=== PATIENT | male | born 1945 | race Caucasian/White ===

== ENCOUNTER 2017-12-08 22:57 | Observation (INO) | payer MEDICARE, SELFPAY ==
[2017-12-08] VITALS (7 sets, daily range): BP systolic 125–190; BP diastolic 58–71; PULSE 71–87; RESP 16–20; TEMP 36.9; O2SAT 93–98; BMI 37.0
--- NOTE | 2017-12-08 23:10 | ED.DCSUM_ITS ---
- ER Visit Summary Date of Service: 12/08/17 Chief Complaint: Shortness of breath History of Present Illness: The patient is a 72 M who presents for shortness of breath. Patient states yesterday he began having cold symptoms such as sinus congestion and rhinorrhea. He developed a cough and it has progressively worsened since yesterday. Today he has been coughing so much that he has difficulty controlling it and began making him feel short of breath. For the last 5 hours he is felt progressively more short of breath, and when he went to bed he could not lie flat due to shortness of breath. He called EMS. He denies fever, chest pain, palpitations, abdominal pain, back or neck pain, nausea or vomiting, diarrhea or other complaints. He states he had similar symptoms several years ago when he was diagnosed with pneumonia. He has history of hypertension, hypercholesterolemia, believes he has COPD, is a former smoker, and denies any cardiac history or diabetes. He has had no recent travel or surgeries. No history of VTE. No family history of any artery disease or VTE that he is aware of. EMS gave him aspirin due to concerning findings on his prehospital EKG. Physical Examination: Vital signs: afebrile, hemodynamically stable, no hypoxia on room air General: well nourished, well developed, in no distress Skin: warm, dry, no rash, no pallor, no cyanosis HEENT: normocephalic and atraumatic; PERRL, EOMI, moist mucous membranes Cardiovascular: regular rate and rhythm without murmurs, no peripheral edema, 2 + pulses all distal extremities Respiratory: No increased work of breathing, lungs are clear to auscultation bilaterally, no rales, rhonchi or wheezing Abdominal: Abdomen is soft, nontender with normoactive bowel sounds, no guarding or rebound, no masses MSK: Moves all extremities, no deformities, normal strength Neuro: Awake and alert, oriented ?4. No facial droop, sensation and motor function intact and symmetric Test Results: Abnormal Lab Results 12/08/17 12/08/17 12/08/17 23:02 23:02 23:02 WBC 7.4 RBC 4.45 L Hgb 13.5 Hct 40.0 MCV 89.9 MCH 30.3 MCHC 33.8 RDW 14.2 RDW Differential 46.1 H Plt Count 193 MPV 10.6 Immature Gran % (Auto) 0.300 Neut % (Auto) 73.0 H Lymph % (Auto) 15.3 L [place] % (Auto) 10.4 H Eos % (Auto) 0.9 Baso % (Auto) 0.1 Absolute Neuts (auto) 5.4 Absolute Lymphs (auto) 1.13 Total Counted Not Reportable PT 14.4 INR 1.1 APTT 33.1 D-Dimer Quant (PE/DVT) 0.32 Sodium 145 Potassium 4.1 Chloride 108 H Carbon Dioxide 24.0 Anion Gap 13 BUN 18 Creatinine 1.45 H Estim Creat Clear Calc 35.07 Est GFR (MDRD) Af Amer 62 Est GFR (MDRD) Non-Af 51 L BUN/Creatinine Ratio 12.4 Glucose 144 H Calcium 8.5 Total Bilirubin 0.50 AST 18 ALT 28 Alkaline Phosphatase 86 Troponin I 0.028 B-Natriuretic Peptide Total Protein 7.3 Albumin 3.4 Globulin 3.9 Albumin/Globulin Ratio 0.9 12/08/17 23:02 WBC RBC Hgb Hct MCV MCH MCHC RDW RDW Differential Plt Count MPV Immature Gran % (Auto) Neut % (Auto) Lymph % (Auto) [place] % (Auto) Eos % (Auto) Baso % (Auto) Absolute Neuts (auto) Absolute Lymphs (auto) Total Counted PT INR APTT D-Dimer Quant (PE/DVT) Sodium Potassium Chloride Carbon Dioxide Anion Gap BUN Creatinine Estim Creat Clear Calc Est GFR (MDRD) Af Amer Est GFR (MDRD) Non-Af BUN/Creatinine Ratio Glucose Calcium Total Bilirubin AST ALT Alkaline Phosphatase Troponin I B-Natriuretic Peptide 58.7 Total Protein Albumin Globulin Albumin/Globulin Ratio Clinical Impression(s) from Imaging Studies Chest X-Ray 12/08/17 23:03 IMPRESSION: Stable chest, no acute cardiopulmonary disease. Electronically Signed: Vasu Rudd MD at 23:57 EDT , Service support , Medications Given Discontinued Medications Nitroglycerin (Nitrostat) 0.4 mg SUBLINGUAL Q5M SHERYL Stop: 12/08/17 23:26 Last Admin: 12/08/17 23:25 Dose: Admin: 12/08/17 23:21 Dose: 0.4 mg Admin: 12/08/17 23:09 Dose: 0.4 mg Emergency Department Course and Treatment: Patient's prehospital EKG showed wide deep T-wave inversions in the anterolateral leads, with a second prehospital EKG showing mild deepening of the T-wave inversions in V4 and V5. No ST changes noted. EKG upon arrival was unchanged from the prehospital EKG. Old EKGs were unavailable for comparison to see if patient has baseline T-wave inversions. Patient was worked up with concern for cardiac ischemia. Patient received aspirin prehospital and was given 2 nitro in the emergency department. He had mild improvement in his symptoms but continued to feel short of breath. Lung exam showed no wheezing or rhonchi or any abnormality that would be concerning for pneumonia. Chest x-ray was performed that showed no infiltrates, effusions or signs consistent with CHF. Troponin was within normal range at 0.028. D-dimer was within normal limits. BNP was unremarkable. Patient had no leukocytosis or significant anemia. Because patient's main complaint is the shortness of breath and cough, he was given 1 DuoNeb in case this is a component of chronic lung disease such as COPD. Because of patient's concerning EKG changes, concern for atypical presentation of ACS (shortness of breath), and patient's risk factors, including advanced age , hyperlipidemia, hypertension, and former smoker, he will be discussed with the hospitalist for admission as observation status for further chest pain rule out. Treatment Plan: [] Disposition: [] Impression: Shortness of breath, EKG abnormalities with T-wave inversions in anterolateral leads, concern for atypical ACS This note was generated with [employer] dictation software. It may contain incorrect words, spelling, and punctuation that were not noted in review of the chart prior to signing ED Disposition - Plan for ED Patient: Chief Complaint: Shortness of Breath Referrals: Imelda Freeman MD [Primary Care Provider] -
[2017-12-08 23:22] LABS: Absolute Lymphocyte Count 1.13 X10^3/ul (0.83-4.51); Absolute Neutrophil Count 5.4 X10^3/uL (2.0-7.7); Basophil# 0.01 X10^3/uL; Basophil% 0.1 % (0-1); Eosinophil# 0.07 X10^3/uL; Eosinophils% 0.9 % (0-5); Hemoglobin 13.5 g/dl (13.0-16.5); International Normalized Ratio 1.1; Lymphocyte # 1.13 X10^3/ul (4.0); Lymphocyte % 15.3 % (19-41); Mean Corp Hgb Conc 33.8 g/gl (32-36); Mean Corpuscular Hgb 30.3 pg (27.0-32.0); Mean Corpuscular Volume 89.9 fL (80-94); Mean Platelet Vol. 10.6 fl (6.2-12.0); Monocyte# 0.77 X10^3/uL; Monocyte% 10.4 % (0-10); Neutrophil # 5.39 X10^3/uL (2.7-7.7); Platelet Count 193 K/mm3 (150-450); Prothrombin Time (Protime)PT. 14.4 SECONDS (11.7-14.9); RBC Distribution Width CV 14.2 % (11.6-14.6); RBC Distribution Width SD 46.1 fl (35.1-43.9); Red Blood Count 4.45 M/mm3 (4.6-6.2); White Blood Count 7.4 K/mm3 (4.4-11.0)
[2017-12-08 23:24] LABS: POSITIVE COUNT NO; POSITIVE DIFFERENTIAL NO; POSITIVE MORPHOLOGY NO
[2017-12-08 23:25] LABS: D-Dimer Quantitative (DVT/PE) 0.32 FEU/ug/m (0.27-0.49)
[2017-12-08 23:38] LABS: ALB/GLOB Ratio 0.9 RATIO (0.9-2.4); AST(SGOT) 18 U/L (15-37); Alanine Aminotransfer ALT/SGPT 28 U/L (16-61); Albumin, Serum 3.4 g/dL (3.2-5.0); Alkaline Phosphatase 86 U/L (45-117); Anion Gap 13 (5-15); BUN 18 mg/dL (7-18); BUN/Creat Ratio 12.4 RATIO (10-20); Calcium,Total 8.5 mg/dL (8.5-10.1); Chloride 108 mmol/L (98-107); Creatinine, Serum 1.45 mg/dL (0.70-1.30); EST Glomerular Filtration Rate 51 mL/min (>60); Est Glom Filt Rate - Afr Amer 62 mL/min (>60); Estimated Creatinine Clearance 35.07 ml/min; Globulin 3.9 g/dL (2.2-4.2); Glucose 144 mg/dL (74-106); Potassium 4.1 mmol/L (3.5-5.1); Protein, Total 7.3 g/dL (6.4-8.2); Sodium Level 145 mmol/L (136-145)
[2017-12-08 23:45] LABS: Partial Thromboplast Time 33.1 Seconds (24.1-36.2)
[2017-12-08 23:47] LABS: BNP,B-Type NATRIURETIC PEPTIDE 58.7 pg/mL (0-100)
[2017-12-09] VITALS (14 sets, daily range): BP systolic 125–145; BP diastolic 52–66; PULSE 61–93; RESP 14–19; TEMP 36.9–37.9; O2SAT 93–98; BMI 36.7
[2017-12-09] MEDS: Ipratropium/Albuterol Sulfate 3 ML AMPUL.NEB INHALATION (00:18)
--- NOTE | 2017-12-09 00:34 | NURSING ---
Called ED software quality test engineer, Erica at this time to confirm Pt okay to come to PCU.
--- NOTE | 2017-12-09 01:05 | HP.PCM_ITS ---
Problem List (1) Acute dyspnea Status: Acute (2) History of carotid stenosis Status: Chronic (3) Right CEA Status: Chronic (4) Hyperlipemia Status: Chronic (5) possible COPD Status: Chronic (6) HTN (hypertension) Status: Chronic History of Present Illness Date of Admission: 12/09/17 Chief Complaint: Acute shortness of breath today The patient is a 72 year old M with history of hypertension and dyslipidemia came to ER with sudden onset of shortness of breath today. Patient felt like cold symptoms with sinus congestion and postnasal drip and cough that got worse today. He also feels sore throat. Shortness of breath got worse for last 5-6 hours progressively exacerbated by cough. He also not able to sit lay down flat because of shortness of breath. Denies history of fever, chills, chest pain, near syncope or syncope. He had history of pneumonia about 3 years ago. He follows director news, Dr. Saleh and had PFT about 1 year ago and was told normal although no documents available to verify. He was last admitted in April 2013 for shortness of breath and subjective fever and was diagnosed acute respiratory failure requiring BiPAP with pneumonia probably viral. He also had a stress test in April 2013 which reported normal with no estrogen use ischemia or previous NV. EF 69%. [At that time he had an echo which shows EF 60%, left ventricle systolic function normal. Trivial MR, TR. Mild focal aortic wall thickening. RVSP 24 mmHg] In ED, EKG shows normal sinus rhythm at 79 bpm with T inversion in anterolateral leads which was present in previous EKG of April 2013. Past Medical History Past Medical History (Chronic Problems): Chronic Problems History of carotid stenosis (Chronic) Right CEA (Chronic) Hyperlipemia (Chronic) possible COPD (Chronic) HTN (hypertension) (Chronic) Allergies No Known Allergies Allergy (Verified 12/08/17 23:00) Home Medications: Ambulatory Orders Medication Instructions Recorded Lisinopril/Hydrochlorothiazide 1 tablet PO DINNER 04/17/13 [Zestoretic 20/25 Tablet] Simvastatin [Zocor] 20 mg PO DAILY 04/17/13 Aspirin [Aspirin, Baby] 81 mg PO DAILY@0800 #30 tab.chew 04/24/13 Surgical History: - - Carotid endarterectomy Psychiatric History: No pertinent psych hx Smoking Status: Former smoker - 35 pack years of smoking - *Family History Maternal History Items: No pertinent history Review of Systems Constitutional: Denies: Chills, Fever, Weight Change HEENT: Reports: Post Nasal Drip, Sinus Congestion, Sinus Drainage, Sore Throat. Denies: Head Aches Cardiovascular: Denies: Chest Pain, Palpitations Respiratory: Reports: Cough, Shortness of breath at rest, Shortness of breath upon exertion. Denies: Sputum production Gastrointestinal: Denies: Abdominal Pain, Nausea, Vomiting Genitourinary: Denies: Dysuria Musculoskeletal: Denies: Joint Pain, Joint Tenderness Skin: Denies: Rash, Wounds Neurological: Denies: Numbness, Tingling, Focal weakness Psychiatric: Denies: Anxiety, Depression, Homicidal Ideations, Suicidal Ideations Hematologic/ Lymphatic: Denies: Easy Bruising, Easy Bleeding VTE Information - Inpt Only VTE Present on Admission: No VTE Mechan Device Prophylaxis: None VTE Pharm Prophylaxis ordered?: Yes Patient Problems: Active and Suspected Problems Acute dyspnea (Acute) - Physical Exam General: Alert, Oriented x3, Cooperative HEENT: Atraumatic, PERRLA, EOMI, Normocephalic Oral: No Gingival or Mucosal Lesions/ Ulcerations, Dry Mucosa, - - DEEP pharyngeal structure not seen because of obesity Neck: Supple, No JVD, Negative Carotid Bruits Lungs: Clear to auscultation, No rhonchi, No wheeze, No rales Cardiovascular: Regular rate, Regular Rhythm, Normal S1, Normal S2, No murmurs Abdomen: Bowel Sounds Present, Soft, Non Tender, Non-Distended Extremities: Capillary Refill Less than 3 Seconds, Edema - Chronic left lower edema. Skin: No rashes, No breakdown Musculoskeletal: No Tenderness to Palpation of Joints or Extremities Neurological: Cranial nerves II-XII grossly intact Psych/Mental Status: Normal Affect, Appropriate Vital Signs Temp Pulse Resp BP Pulse Ox 98.5 F 82 19 H 134/65 H 94 12/08/17 22:58 12/09/17 00:23 12/09/17 00:23 12/09/17 00:23 12/09/17 00:23 Oxygen Flow Rate (L/min) 2 Oxygen Delivery Method Nasal Cannula Weight: 196 lb 3.382 oz Body Mass Index (BMI) 37.0 Laboratory Tests Past 24 Hrs 12/08/17 12/08/17 12/08/17 23:02 23:02 23:02 WBC 7.4 RBC 4.45 L Hgb 13.5 Hct 40.0 MCV 89.9 MCH 30.3 MCHC 33.8 RDW 14.2 RDW Differential 46.1 H Plt Count 193 MPV 10.6 Immature Gran % (Auto) 0.300 Neut % (Auto) 73.0 H Lymph % (Auto) 15.3 L [place] % (Auto) 10.4 H Eos % (Auto) 0.9 Baso % (Auto) 0.1 Absolute Neuts (auto) 5.4 Absolute Lymphs (auto) 1.13 Total Counted Not Reportable PT 14.4 INR 1.1 APTT 33.1 D-Dimer Quant (PE/DVT) 0.32 Sodium 145 Potassium 4.1 Chloride 108 H Carbon Dioxide 24.0 Anion Gap 13 BUN 18 Creatinine 1.45 H Estim Creat Clear Calc 35.07 Est GFR (MDRD) Af Amer 62 Est GFR (MDRD) Non-Af 51 L BUN/Creatinine Ratio 12.4 Glucose 144 H Calcium 8.5 Total Bilirubin 0.50 AST 18 ALT 28 Alkaline Phosphatase 86 Troponin I 0.028 B-Natriuretic Peptide Total Protein 7.3 Albumin 3.4 Globulin 3.9 Albumin/Globulin Ratio 0.9 12/08/17 23:02 WBC RBC Hgb Hct MCV MCH MCHC RDW RDW Differential Plt Count MPV Immature Gran % (Auto) Neut % (Auto) Lymph % (Auto) [place] % (Auto) Eos % (Auto) Baso % (Auto) Absolute Neuts (auto) Absolute Lymphs (auto) Total Counted PT INR APTT D-Dimer Quant (PE/DVT) Sodium Potassium Chloride Carbon Dioxide Anion Gap BUN Creatinine Estim Creat Clear Calc Est GFR (MDRD) Af Amer Est GFR (MDRD) Non-Af BUN/Creatinine Ratio Glucose Calcium Total Bilirubin AST ALT Alkaline Phosphatase Troponin I B-Natriuretic Peptide 58.7 Total Protein Albumin Globulin Albumin/Globulin Ratio Assessment/Plan All Active Problems Acute dyspnea (Acute) In ED, EKG shows normal sinus rhythm at 79 bpm with T inversion in anterolateral leads which was present in previous EKG of April 2013.The patient is a 72 year old M with history of hypertension and dyslipidemia came to ER with sudden onset of shortness of breath today. Patient felt like cold symptoms with sinus congestion and postnasal drip and cough that got worse today. He also feels sore throat. Shortness of breath got worse for last 5-6 hours progressively exacerbated by cough. He also not able to sit lay down flat because of shortness of breath. Denies history of fever, chills, chest pain, near syncope or syncope. In ED, EKG shows normal sinus rhythm at 79 bpm with T inversion in anterolateral leads which was present in previous EKG of April 2013. He had history of pneumonia about 3 years ago. He walks about 3 miles daily for last 4 years. He follows director news, Dr. Saleh and had PFT about 1 year ago and was told normal although no documents available to verify. He was last admitted in April 2013 for shortness of breath and subjective fever and was diagnosed acute respiratory failure requiring BiPAP with pneumonia probably viral. He also had a stress test in April 2013 which reported normal with no estrogen use ischemia or previous NV. EF 69%. [At that time he had an echo which shows EF 60%, left ventricle systolic function normal. Trivial MR, TR. Mild focal aortic wall thickening. RVSP 24 mmHg] 1. Acute hypoxic respiratory failure, possible angina equivalent exact etiology unclear rule out acute coronary syndrome/pulmonary hypertension/acute cor pulmonale: The patient is not on home oxygen. Patient is being admitted in PCU. BNP and troponin normal. Patient does not have history of DVT and have been ambulatory and negative d-dimer therefore low modified well's criteria for VTE. serial cardiac enzymes. If negative, pharmacological nuclear stress test tomorrow a.m. 2D echo tomorrow a.m. 2. Suspected acute bronchitis/URI: Strep throat, flu test and urinary antigens ordered. Empirically started on Augmentin. 3. Ex-smoker with suspected COPD: There is no document available to see PFT which he claims about 1 year ago. Try to get PFT from Dr. Saleh office. DuoNeb every 4 hourly as needed for shortness of breath. Does not seem to be in COPD exacerbation 4. Peripheral arterial disease: Left carotid stenosis status post CEA and suspected left lower extremity peripheral arterial disease: Patient complaining of pain in left lower calf on walking and can hardly walk more than 5-6 minutes. Bilateral lower extremity arterial Doppler and venous Doppler ordered. 5. Renal failure, unclear whether acute kidney injury/CKD stage III: Patient has creatinine 1.45. BUN normal. Previous creatinine in April 2013 more than 40 years ago was 1.1. Elevated creatinine 1.45. IV fluid normal saline 100 mL/h. BMP tomorrow Other comorbidities include hypertension, dyslipidemia and history of pneumonia : Positive for tomorrow a.m. Blood pressure is controlled. Code Visit OBSV E&M: 04821 Initial observation care L3
[2017-12-09] MEDS: Aspirin E.C. 81 MG Tablet PO (02:15)
[2017-12-09] MEDS: Amox/Clavulanate 875 MG Tablet PO ×2 (02:15→08:59)
[2017-12-09 06:01] LABS: Absolute Neutrophil Count 6.2 X10^3/uL (2.0-7.7); Basophil# 0.01 X10^3/uL; Basophil% 0.1 % (0-1); Eosinophil# 0.06 X10^3/uL; Eosinophils% 0.7 % (0-5); Hematocrit 40.7 % (40-54); Hemoglobin 13.9 g/dl (13.0-16.5); Lymphocyte % 14.4 % (19-41); Mean Corp Hgb Conc 34.2 g/gl (32-36); Mean Corpuscular Hgb 30.8 pg (27.0-32.0); Mean Platelet Vol. 10.6 fl (6.2-12.0); Monocyte# 0.85 X10^3/uL; Monocyte% 10.2 % (0-10); Neutrophil # 6.19 X10^3/uL (2.7-7.7); Neutrophil % 74.5 % (47-70); Platelet Count 193 K/mm3 (150-450); RBC Distribution Width CV 14.3 % (11.6-14.6); RBC Distribution Width SD 46.8 fl (35.1-43.9); Red Blood Count 4.52 M/mm3 (4.6-6.2); White Blood Count 8.3 K/mm3 (4.4-11.0)
[2017-12-09 06:05] LABS: POSITIVE COUNT NO; POSITIVE DIFFERENTIAL NO; POSITIVE MORPHOLOGY NO
[2017-12-09 06:10] LABS: Partial Thromboplast Time 34.5 Seconds (24.1-36.2)
[2017-12-09 06:32] LABS: Anion Gap 13 (5-15); BUN 17 mg/dL (7-18); BUN/Creat Ratio 12.1 RATIO (10-20); Calcium,Total 8.8 mg/dL (8.5-10.1); Chloride 109 mmol/L (98-107); Cholesterol 124 mg/dL (200); EST Glomerular Filtration Rate 53 mL/min (>60); Est Glom Filt Rate - Afr Amer 64 mL/min (>60); Estimated Creatinine Clearance 36.32 ml/min; Glucose 105 mg/dL (74-106); High Density Lipoprotein 36 mg/dL; Potassium 4.1 mmol/L (3.5-5.1); Sodium Level 146 mmol/L (136-145); Thyroid Stim Hormone (TSH) 2.02 uIU/mL (0.358-3.74); Triglycerides 161 mg/dL; Very Low Density Lipoprotein 32 mg/dL (5-40)
[2017-12-09 06:38] LABS: International Normalized Ratio 1.1; Prothrombin Time (Protime)PT. 14.3 SECONDS (11.7-14.9)
--- NOTE | 2017-12-09 07:37 | NURSING ---
pt in stress for testing
--- NOTE | 2017-12-09 09:12 | NURSING ---
echo in progress
--- NOTE | 2017-12-09 09:46 | STRESSREP ---
Stress Test Report Pharmacologic myocardial perfusion stress test. 72-year-old man with a history of chest pain. Medications: Aspirin Lipitor Lovenox hydrochlorothiazide lisinopril. Stress protocol: Resting EKG demonstrates normal sinus rhythm with a rate of 61 bpm. T-wave inversions noted in leads II, III and aVF V4 V5 V6. 0.4 mg regadenoson was infused per usual protocol followed by rapid intravenous saline flush injection continuous EKG monitoring was performed. Patient maintained sinus rhythm throughout the recording. The maximum heart rate was 88 bpm which was 58% of maximum predicted heart rate the maximum workload was 1 metabolic equivalent. At rest the T-wave inversions were noted at peak infusion T-wave inversions persisted. The resting blood pressure is 152/70 with a final blood pressure of 134/68 mmHg. Myocardial perfusion protocol. 11.9 mCi of technetium 99m sestamibi was injected at rest. 0.4 mg of regadenoson was infused per usual protocol. At peak infusion 33.6 mCi of technetium 99m sestamibi was injected. Stress images were obtained. Stress and rest images were reconstructed and compared in the short axis vertical long and horizontal long axis. Gated images were also obtained. Perfusion SPECT analysis: Review of the stress images demonstrate normal uptake of tracer noted in all areas of the myocardium. The resting images similarly demonstrate normal uptake of tracer noted in all areas of the myocardium. No areas of reversibility were noted suggest ischemia. Gated SPECT analysis: The gated ejection fraction is 74%. Conclusion: Normal pharmacologic myocardial perfusion stress test. Preserved ejection fraction.
--- NOTE | 2017-12-09 12:42 | PCM.DC ---
- Discharge Diagnoses Current Active Problems: Current Active and Chronic Problems Acute dyspnea (Acute) History of carotid stenosis (Chronic) Right CEA (Chronic) You will use the following diet at home:: Cardiac - maximum 2 grams sodium daily Your food should be the consistency of: Regular Your liquids should be the consistency of: Regular/Thin Discharge Activity: Return to Normal Activity Allergies/Adverse Reactions: Allergies No Known Allergies Allergy (Verified 12/08/17 23:00) Medications to take at Discharge Lisinopril/Hydrochlorothiazide [Zestoretic 20/25 Tablet] 1 tablet PO DINNER 04/17/13 Simvastatin [Zocor] 20 mg PO DAILY 04/17/13 Aspirin [Aspirin, Baby] 81 mg PO DAILY@0800 #30 tab.chew 04/24/13 Albuterol IH (ProAir) [Proair Hfa] 1 puff INHALATION Q4H PRN PRN #1 inhaler 12/09/17 Amox/Clavulanate Tablet [Augmentin Tablet] 875 mg PO BIDCM #12 tab 12/09/17 The following prescriptions were given: Albuterol IH (ProAir) [Proair Hfa] 1 puff INHALATION Q4H PRN PRN #1 inhaler PRN Reason: Sob &/Or Wheezing Amox/Clavulanate Tablet [Augmentin Tablet] 875 mg PO BIDCM #12 tab Primary Care Physician: Imelda Freeman MD [Primary Care Provider] - Please follow up with your Primary Care Physician in: 1 week Test Results: Test results from this visit will be discussed in further detail at your follow-up appointment, if applicable. Proposed Discharge Date: 12/09/17
--- NOTE | 2017-12-09 15:27 | PCM.DC.SUM ---
<Levar Lindquist - Last Filed: 12/09/17 15:27> Discharge Date and Diagnosis Date of Admission: 12/09/17 Date of Discharge: 12/09/17 - Primary Discharge Diagnosis Acute pharyngitis/bronchitis secondary to group A strep Chest pain and shortness of breath secondary to above, ACS ruled out Carotid stenosis status post right CEA Hyperlipidemia Questionable history of COPD Hypertension - Secondary Discharge Diagnosis Chronic Problems History of carotid stenosis (Chronic) Right CEA (Chronic) Hyperlipemia (Chronic) possible COPD (Chronic) HTN (hypertension) (Chronic) Hospital Course and Treatment Imaging Results: RAD/Chest PA and Lateral IMPRESSION: Stable chest, no acute cardiopulmonary disease. Stress test: Conclusion: Normal pharmacologic myocardial perfusion stress test. Preserved ejection fraction. Echo: Interpretation Summary Normal LV size. Left ventricular systolic function is normal. The estimated ejection fraction is 60 %. Transmitral diastolic flow velocities suggest mild (stage 1) diastolic dysfunction (reversed pattern). Mild concentric left ventricular hypertrophy. Operations: None Procedures: 2-D Echocardiogram, Stress test Summary of Care Provided: Physical exam on day of discharge: General: Resting comfortably NAD Psych: A/Ox3 normal affect HEENT: PEARRLA AT NC Neck: Supple NT CV: RRR no m/t/r/g/h Resp: CTA Abd: [id number] Soft NT no guarding or rigidity Ext: DP2+= no edema Skin: W/D normal turgor Lymph/Heme: No active bleeding or adenopathy Neuro: CN2-12 intact Hospital course: The patient is a 72 year old M with a history of hypertension, hyperlipidemia, carotid stenosis status post CEA, questionable history of COPD, former heavy smoker, who presented to the emergency room with increased shortness of breath, shortness of breath trying to lie flat, with cold-like symptoms including sinus congestion, sore throat, postnasal drip, and cough. In the emergency room he had a negative chest x-ray, unremarkable blood work, negative EKG, negative troponin, negative TSH, LDL 56. A throat culture demonstrated group A strep. He was started on Augmentin and admitted to the PCU for concern for anginal equivalent. Troponin was negative ?3, BNP was normal, and no events on telemetry. The following morning he underwent a stress test which was negative, and he had an echocardiogram which showed normal LV size and function, EF of 60%, stage I diastolic dysfunction, mild LVH. He was weaned off oxygen and ambulated and did not require oxygen. He was prescribed an albuterol inhaler and a 7 day course of Augmentin. He was advised to follow-up with his PCP in 1-2 weeks. He was discharged home in stable condition. This patient was seen by Levar Lindquist PA-C under the supervision of Doctor Luis E. [] Discharge Diet: Low fat/ Low Cholesterol, 2000 mg Sodium Diet Discharge Activity: Return to Normal Activity Home Medications: Medications to take at Discharge Lisinopril/Hydrochlorothiazide [Zestoretic 20/25 Tablet] 1 tablet PO DINNER 04/17/13 Simvastatin [Zocor] 20 mg PO DAILY 04/17/13 Aspirin [Aspirin, Baby] 81 mg PO DAILY@0800 #30 tab.chew 04/24/13 Albuterol IH (ProAir) [Proair Hfa] 1 puff INHALATION Q4H PRN PRN #1 inhaler 12/09/17 Amox/Clavulanate Tablet [Augmentin Tablet] 875 mg PO BIDCM #12 tab 12/09/17 Following Prescrptions Were Given to Patient: Albuterol IH (ProAir) [Proair Hfa] 1 puff INHALATION Q4H PRN PRN #1 inhaler PRN Reason: Sob &/Or Wheezing Amox/Clavulanate Tablet [Augmentin Tablet] 875 mg PO BIDCM #12 tab Primary Care Physician: Imelda Freeman MD [Primary Care Provider] - Please follow up with your Primary Care Physician in: 1 week Disposition: Home Minutes spent on discharge:: 35 Patient Condition:: Stable Medical Necessity - Tobacco Use Smoking Status: Former smoker - 35 pack years of smoking Meaningful Use Info Meaningful Use Diagnoses (Choose all that apply): None applicable <Héctor Kimbrough - Last Filed: 12/09/17 16:12> Discharge Date and Diagnosis - Secondary Discharge Diagnosis Chronic Problems History of carotid stenosis (Chronic) Right CEA (Chronic) Hyperlipemia (Chronic) possible COPD (Chronic) HTN (hypertension) (Chronic) Hospital Course and Treatment Summary of Care Provided: Addendum: Dr. Kimbrough I personally examined the patient and reviewed the chart. I agree with the above. Mr. Littlejohn presented with chest pain and both pupils felt to be an anginal equivalent however extensive workup with a troponin which was negative ?3 and normal BNP and no evidence on telemetry as well as a negative stress test with a normal EF indicated that from a cardiac standpoint he was okay to go home. He did test positive for strep A so he was started on Augmentin twice daily and discharged with outpatient follow-up. Code Visit Inpatient E&M: 67438 Disch Hosp
== END 2017-12-09 13:25 | disposition home or self-care (01) ==
LOC: ED 12-09 00:30 → PCU 12-09 00:43
PROVIDERS: Admitting Provider Internal Medicine; Emergency Provider Emergency Medicine; PCP Pediatrics; Visit Provider Family Medicine
DX: J02.0 Streptococcal pharyngitis (principal); I10 Essential (primary) hypertension; E78.5 Hyperlipidemia, unspecified; Z79.899 Other long term (current) drug therapy; Z79.82 Long term (current) use of aspirin; Z87.891 Personal history of nicotine dependence; R06.02 Shortness of breath; I73.9 Peripheral vascular disease, unspecified
CPT/HCPCS: 36415; 71046; 78452; 80048; 80053; 80061; 83880; 84443; 84484; 85025; 85379; 85610; 85730; 87449; 87804; 87880; 93005; 93017; 93306; 93970; 94640; 97802; 99218; 99284; A9500; A4216; G0378; J2785

== ENCOUNTER 2017-12-18 06:26 | Emergency (ER) | payer MEDICARE, SELFPAY ==
[2017-12-18 06:27] VITALS: BP 191/73; PULSE 69; RESP 16; TEMP 36.9; O2SAT 98; BMI 36.3
--- NOTE | 2017-12-18 06:51 | ED.VISSUMM ---
- ER Visit Summary Date of Service: 12/18/17 Chief Complaint: Constipation History of Present Illness: The patient is a 72 M who presents for constipation, with no bowel movement for 9 days. Patient states he was recently admitted for a workup concerning for heart attack, and ended up being diagnosed with a strep infection. He was discharged home on Augmentin, and after taking 7 pills over 3 days, he stopped having bowel movements. A pharmacist told him to stop the medication. He still has not had a bowel movement since then despite taking laxatives and eating bran flakes. He has associated abdominal pain, described as a pressure, worse with laying flat. He has sweats. Denies diarrhea, urinary symptoms, chest pain or shortness of breath. He is passing occasional flatus. No history of abdominal surgeries. He is not currently on any opiate medications. Patient has history of hypertension. Physical Examination: Vital signs: afebrile, hemodynamically stable, no hypoxia on room air General: well nourished, well developed, in no distress Skin: warm, dry, no rash, no pallor HEENT: normocephalic and atraumatic; PERRL, EOMI, moist mucous membranes Cardiovascular: regular rate and rhythm without murmurs, no peripheral edema, 2+ pulses all distal extremities Respiratory: No increased work of breathing, lungs are clear to auscultation bilaterally, no rales, rhonchi or wheezing Abdominal: Abdomen is soft, nontender with normoactive bowel sounds, no guarding or rebound, no masses, rectal exam is nontender, no significant stool in rectal vault MSK: Moves all extremities, no deformities, normal strength Neuro: Awake and alert, oriented ?4. No facial droop, sensation and motor function intact and symmetric Test Results: Abnormal Lab Results 12/18/17 12/18/17 06:55 06:55 WBC 6.4 RBC 4.91 Hgb 14.9 Hct 43.6 MCV 88.8 MCH 30.3 MCHC 34.2 RDW 14.0 RDW Differential 44.6 H Plt Count 198 MPV 10.2 Immature Gran % (Auto) 0.200 Neut % (Auto) 65.7 Lymph % (Auto) 23.6 [place] % (Auto) 8.9 Eos % (Auto) 1.4 Baso % (Auto) 0.2 Absolute Neuts (auto) 4.2 Absolute Lymphs (auto) 1.52 Total Counted Not Reportable Sodium 144 Potassium 4.1 Chloride 109 H Carbon Dioxide 25.0 Anion Gap 10 BUN 22 H Creatinine 1.33 H Estim Creat Clear Calc 38.23 Est GFR (MDRD) Af Amer 68 Est GFR (MDRD) Non-Af 56 L BUN/Creatinine Ratio 16.5 Glucose 106 Calcium 8.9 Total Bilirubin 0.50 AST 20 ALT 30 Alkaline Phosphatase 85 Total Protein 7.7 Albumin 3.6 Globulin 4.1 Albumin/Globulin Ratio 0.9 Clinical Impression(s) from Imaging Studies Abdomen/Pelvis CT 12/18/17 06:50 IMPRESSION: Cholelithiasis. No evidence of acute intestinal pathology or acute obstructive uropathy. Electronically Signed: Russell Michael MD at 7:36 EDT Tel , Service support , Medications Given Discontinued Medications Sodium Chloride () 1,000 mls @ 1,000 mls/hr IV .Q1H ONE Stop: 12/18/17 07:49 Last Admin: 12/18/17 07:02 Dose: 1,000 mls/hr Emergency Department Course and Treatment: Patient presents for abdominal discomfort and no bowel movement in 9 days. Patient is not on any opiate medications or other medications that should be causing constipation. Patient was given IV fluids. Labs were performed and a CT of the abdomen and pelvis were performed to look for any sign of obstruction, especially given patient's age. He has no fecal impaction on rectal exam that would be causing his symptoms. Patient's labs were unremarkable and unchanged from his baseline. CT the abdomen and pelvis showed no obstructive pattern or acute intra-abdominal pathology. Patient was given an enema. We discussed him doing a bowel regimen of daily MiraLAX for the next week and following up with his doctor as soon as possible for further workup and management of his constipation. Patient agreed with this plan and will be discharged after his enema. Treatment Plan: [] Disposition: [] Impression: Constipation This note was generated with [employer] software. It may contain incorrect words, spelling, and punctuation that were not noted in review of the chart prior to signing ED Disposition - Plan for ED Patient: Chief Complaint: Constipation Referrals: Neftaly Cheema MD [Primary Care Provider] -
--- NOTE | 2017-12-18 06:54 | ED.DCSUM_ITS ---
- ER Visit Summary Date of Service: 12/18/17 Chief Complaint: Constipation History of Present Illness: The patient is a 72 M who presents for constipation , with no bowel movement for 9 days. Patient states he was recently admitted for a workup concerning for heart attack, and ended up being diagnosed with a strep infection. He was discharged home on Augmentin, and after taking 7 pills over 3 days, he stopped having bowel movements. A pharmacist told him to stop the medication. He still has not had a bowel movement since then despite taking laxatives and eating bran flakes. He has associated abdominal pain, described as a pressure, worse with laying flat. He has sweats. Denies diarrhea, urinary symptoms, chest pain or shortness of breath. He is passing occasional flatus. No history of abdominal surgeries. He is not currently on any opiate medications. Patient has history of hypertension. Physical Examination: Vital signs: afebrile, hemodynamically stable, no hypoxia on room air General: well nourished, well developed, in no distress Skin: warm, dry, no rash, no pallor HEENT: normocephalic and atraumatic; PERRL, EOMI, moist mucous membranes Cardiovascular: regular rate and rhythm without murmurs, no peripheral edema, 2 + pulses all distal extremities Respiratory: No increased work of breathing, lungs are clear to auscultation bilaterally, no rales, rhonchi or wheezing Abdominal: Abdomen is soft, nontender with normoactive bowel sounds, no guarding or rebound, no masses, rectal exam is nontender, no significant stool in rectal vault MSK: Moves all extremities, no deformities, normal strength Neuro: Awake and alert, oriented ?4. No facial droop, sensation and motor function intact and symmetric Test Results: Abnormal Lab Results 12/18/17 12/18/17 06:55 06:55 WBC 6.4 RBC 4.91 Hgb 14.9 Hct 43.6 MCV 88.8 MCH 30.3 MCHC 34.2 RDW 14.0 RDW Differential 44.6 H Plt Count 198 MPV 10.2 Immature Gran % (Auto) 0.200 Neut % (Auto) 65.7 Lymph % (Auto) 23.6 [place] % (Auto) 8.9 Eos % (Auto) 1.4 Baso % (Auto) 0.2 Absolute Neuts (auto) 4.2 Absolute Lymphs (auto) 1.52 Total Counted Not Reportable Sodium 144 Potassium 4.1 Chloride 109 H Carbon Dioxide 25.0 Anion Gap 10 BUN 22 H Creatinine 1.33 H Estim Creat Clear Calc 38.23 Est GFR (MDRD) Af Amer 68 Est GFR (MDRD) Non-Af 56 L BUN/Creatinine Ratio 16.5 Glucose 106 Calcium 8.9 Total Bilirubin 0.50 AST 20 ALT 30 Alkaline Phosphatase 85 Total Protein 7.7 Albumin 3.6 Globulin 4.1 Albumin/Globulin Ratio 0.9 Clinical Impression(s) from Imaging Studies Abdomen/Pelvis CT 12/18/17 06:50 IMPRESSION: Cholelithiasis. No evidence of acute intestinal pathology or acute obstructive uropathy. Electronically Signed: Russell Michael MD at 7:36 EDT Tel , Service support , Medications Given Discontinued Medications Sodium Chloride () 1,000 mls @ 1,000 mls/hr IV .Q1H ONE Stop: 12/18/17 07:49 Last Admin: 12/18/17 07:02 Dose: 1,000 mls/hr Emergency Department Course and Treatment: Patient presents for abdominal discomfort and no bowel movement in 9 days. Patient is not on any opiate medications or other medications that should be causing constipation. Patient was given IV fluids. Labs were performed and a CT of the abdomen and pelvis were performed to look for any sign of obstruction, especially given patient's age. He has no fecal impaction on rectal exam that would be causing his symptoms. Patient's labs were unremarkable and unchanged from his baseline. CT the abdomen and pelvis showed no obstructive pattern or acute intra- abdominal pathology. Patient was given an enema. We discussed him doing a bowel regimen of daily MiraLAX for the next week and following up with his doctor as soon as possible for further workup and management of his constipation. Patient agreed with this plan and will be discharged after his enema. Treatment Plan: [] Disposition: [] Impression: Constipation This note was generated with [employer] software. It may contain incorrect words, spelling, and punctuation that were not noted in review of the chart prior to signing ED Disposition - Plan for ED Patient: Chief Complaint: Constipation Referrals: Neftaly Cheema MD [Primary Care Provider] -
[2017-12-18] MEDS: 0.9% Normal Saline 1,000 ML 1000 ML IV (07:02)
[2017-12-18 07:09] LABS: Absolute Lymphocyte Count 1.52 X10^3/ul (0.83-4.51); Absolute Neutrophil Count 4.2 X10^3/uL (2.0-7.7); Basophil# 0.01 X10^3/uL; Basophil% 0.2 % (0-1); Eosinophil# 0.09 X10^3/uL; Eosinophils% 1.4 % (0-5); Hematocrit 43.6 % (40-54); Hemoglobin 14.9 g/dl (13.0-16.5); Lymphocyte # 1.52 X10^3/ul (4.0); Lymphocyte % 23.6 % (19-41); Mean Corp Hgb Conc 34.2 g/gl (32-36); Mean Corpuscular Hgb 30.3 pg (27.0-32.0); Mean Corpuscular Volume 88.8 fL (80-94); Mean Platelet Vol. 10.2 fl (6.2-12.0); Monocyte# 0.57 X10^3/uL; Monocyte% 8.9 % (0-10); Neutrophil # 4.23 X10^3/uL (2.7-7.7); Neutrophil % 65.7 % (47-70); Platelet Count 198 K/mm3 (150-450); RBC Distribution Width SD 44.6 fl (35.1-43.9); Red Blood Count 4.91 M/mm3 (4.6-6.2); White Blood Count 6.4 K/mm3 (4.4-11.0)
[2017-12-18 07:10] LABS: POSITIVE COUNT NO; POSITIVE DIFFERENTIAL NO; POSITIVE MORPHOLOGY NO
[2017-12-18 07:20] LABS: ALB/GLOB Ratio 0.9 RATIO (0.9-2.4); AST(SGOT) 20 U/L (15-37); Alanine Aminotransfer ALT/SGPT 30 U/L (16-61); Albumin, Serum 3.6 g/dL (3.2-5.0); Alkaline Phosphatase 85 U/L (45-117); Anion Gap 10 (5-15); BUN 22 mg/dL (7-18); BUN/Creat Ratio 16.5 RATIO (10-20); Calcium,Total 8.9 mg/dL (8.5-10.1); Chloride 109 mmol/L (98-107); Creatinine, Serum 1.33 mg/dL (0.70-1.30); EST Glomerular Filtration Rate 56 mL/min (>60); Est Glom Filt Rate - Afr Amer 68 mL/min (>60); Estimated Creatinine Clearance 38.23 ml/min; Globulin 4.1 g/dL (2.2-4.2); Glucose 106 mg/dL (74-106); Potassium 4.1 mmol/L (3.5-5.1); Protein, Total 7.7 g/dL (6.4-8.2); Sodium Level 144 mmol/L (136-145)
--- NOTE | 2017-12-18 08:11 | ED.DEP ---
ED Disposition - Plan for ED Patient: Disposition: Home or Assisted Living Chief Complaint: Constipation Instructions: ED Constipation Referrals: Neftaly Cheema MD [Primary Care Provider] - 1-2 Days if not improving Additional Instructions: Follow-up with your doctor as soon as possible for reevaluation and discuss further strategies for managing your constipation. Take MiraLAX once daily for the next week. If you have any worsening of your condition or any new concerning symptoms, please return immediately to the emergency department for another evaluation.
[2017-12-18 09:39] VITALS: BP 166/73; PULSE 63; RESP 16
== END 2017-12-18 09:40 | disposition home or self-care (01) ==
PROVIDERS: Emergency Provider Emergency Medicine; Family Provider Family Medicine; PCP Family Medicine
DX: K59.00 Constipation, unspecified (principal); I10 Essential (primary) hypertension; Z79.82 Long term (current) use of aspirin; Z79.899 Other long term (current) drug therapy
CPT/HCPCS: 74176; 80053; 85025; 96360; 99285; J7030; A4216

== ENCOUNTER 2017-12-22 09:51 | Emergency (ER) | payer MEDICARE, SELFPAY ==
[2017-12-22 09:51] VITALS: BP 165/75; PULSE 62; RESP 16; TEMP 36.7; O2SAT 98; BMI 36.1
[2017-12-22 10:37] LABS: Absolute Lymphocyte Count 1.65 X10^3/ul (0.83-4.51); Absolute Neutrophil Count 4.4 X10^3/uL (2.0-7.7); Basophil# 0.02 X10^3/uL; Basophil% 0.3 % (0-1); Eosinophil# 0.06 X10^3/uL; Eosinophils% 0.9 % (0-5); Hematocrit 42.8 % (40-54); Hemoglobin 14.4 g/dl (13.0-16.5); Lymphocyte # 1.65 X10^3/ul (4.0); Lymphocyte % 24.9 % (19-41); Mean Corp Hgb Conc 33.6 g/gl (32-36); Mean Corpuscular Hgb 30.1 pg (27.0-32.0); Mean Corpuscular Volume 89.4 fL (80-94); Mean Platelet Vol. 10.3 fl (6.2-12.0); Monocyte# 0.49 X10^3/uL; Monocyte% 7.4 % (0-10); Neutrophil # 4.41 X10^3/uL (2.7-7.7); Neutrophil % 66.5 % (47-70); POSITIVE COUNT NO; POSITIVE DIFFERENTIAL NO; POSITIVE MORPHOLOGY NO; Platelet Count 193 K/mm3 (150-450); RBC Distribution Width CV 13.9 % (11.6-14.6); RBC Distribution Width SD 45.1 fl (35.1-43.9); Red Blood Count 4.79 M/mm3 (4.6-6.2); White Blood Count 6.6 K/mm3 (4.4-11.0)
[2017-12-22 10:39] LABS: Bacteria 0 SEEN /hpf (None Seen); Mucous, Urine 0 SEEN /hpf (<or=2+); Red Blood Cells-Urine 0 SEEN /hpf (0-5); Squamous Epithelial Cells - UA 0 SEEN /hpf (0-5); White Blood Cells 0 SEEN /hpf (0-5)
[2017-12-22 10:42] LABS: Color, Urine Yellow (Yellow); Glucose, Dipstick Normal (Normal); Ketone-Dipstick Negative (Negative); Leukocyte Esterase-Dipstick Negative /ul (Negative); Nitrite-Dipstick Negative (Negative); Occult Blood-Urine Negative /ul (Negative); Protein-Dipstick Negative (Negative); Urine Bilirubin Dipstick Negative (Negative); Urine Clarity Sl. Cloudy (Clear); Urine Urobilinogen Normal (Normal)
--- NOTE | 2017-12-22 10:45 | ED.DCSUM_ITS ---
- ER Visit Summary Date of Service: 12/22/17 Chief Complaint: [] Constipation on and off for months History of Present Illness: The patient is a 72 M [] patient is a long history of constipation that he has had on and off for months he has been evaluated by outpatient physicians and providers he recalls having colonoscopy about 2 years ago other testing are generally unremarkable, he was recently seen in the emergency department a few days ago for the same had a CT scan was unremarkable was told to use MiraLAX and follow-up his family doctor and his GI physician indicates he has been taking MiraLAX for the last 2 days and still has small episodes of bowel movements but still feels as if he is distended and full of stool He is bluntly stating he wants the stool to basically be removed from his system. He is able to eat he is really having no pain other than the distention no vomiting no fever no cough he has no history of abdominal surgeries no history of narcotic opioid use no obvious reason for the long- standing intermittent constipation Physical Examination: [] In no distress his vital signs are unremarkable he has a slightly distended abdomen head neck chest unremarkable the abdomen is slightly distended there is no rebound guarding organomegaly or obvious focal areas of pain his upper lower extremities and back unremarkable, rectal exam showed soft brown stool no other abnormalities Test Results: [] Emergency Department Course and Treatment: [] Did review the prior studies that were all unremarkable including CT scan, his current labs are generally unremarkable creatinine about 1.4 about baseline his lipase is slightly elevated about 450 but is no findings on physical exam or by history to suggest acute pancreatitis, or any acute abdominal process and again this is an ongoing process that he has had them he just had a CT scan on the December that was unremarkable I explained this the patient indicates an enema help last time I will provide him with 1 soapsuds enema but of explained to him that further management of this acute recurrent chronic constipation needs to be obtained by his outpatient providers and his GI physician he understands will follow up with them I also cautioned him to change his diet to a completely high-fiber food type diet he will return for change in symptoms, he agrees and understands this plan Treatment Plan: [] Disposition: [] Home stable Impression: [] Acute recurrent constipation elevated lipase This note was generated with [employer] software. It may contain incorrect words, spelling, and punctuation that were not noted in review of the chart prior to signing ED Disposition - Plan for ED Patient: Chief Complaint: Constipation Instructions: ED Constipation Referrals: Neftaly Cheema MD [Primary Care Provider] - Additional Instructions: Please follow-up with all of your outpatient providers including her GI physician in the next few days return for change in symptoms stay on a high- fiber diet
[2017-12-22 11:12] LABS: AST(SGOT) 18 U/L (15-37); Alanine Aminotransfer ALT/SGPT 26 U/L (16-61); Albumin, Serum 3.6 g/dL (3.2-5.0); Alkaline Phosphatase 82 U/L (45-117); Anion Gap 10 (5-15); BUN 16 mg/dL (7-18); BUN/Creat Ratio 11.6 RATIO (10-20); Bilirubin, Direct 0.15 mg/dL (0.00-0.30); Calcium,Total 8.9 mg/dL (8.5-10.1); Chloride 108 mmol/L (98-107); Creatinine, Serum 1.38 mg/dL (0.70-1.30); EST Glomerular Filtration Rate 54 mL/min (>60); Est Glom Filt Rate - Afr Amer 65 mL/min (>60); Estimated Creatinine Clearance 36.85 ml/min; Globulin 4.1 g/dL (2.2-4.2); Glucose 92 mg/dL (74-106); Lipase 496 U/L (73-393); Potassium 4.1 mmol/L (3.5-5.1); Protein, Total 7.7 g/dL (6.4-8.2); Sodium Level 142 mmol/L (136-145)
--- NOTE | 2017-12-22 12:14 | ED.DEP ---
ED Disposition - Plan for ED Patient: Chief Complaint: Constipation Instructions: ED Constipation Referrals: Neftaly Cheema MD [Primary Care Provider] - Additional Instructions: Please follow-up with all of your outpatient providers including her GI physician in the next few days return for change in symptoms stay on a high-fiber diet
[2017-12-22 13:04] VITALS: BP 145/78; PULSE 72; RESP 16; O2SAT 98
== END 2017-12-22 13:06 | disposition home or self-care (01) ==
LOC: ED 11:35
PROVIDERS: Emergency Provider Emergency Medicine; Family Provider Family Medicine; PCP Family Medicine
DX: K59.00 Constipation, unspecified (principal); R74.8 Abnormal levels of other serum enzymes; I25.10 Atherosclerotic heart disease of native coronary artery without angina pectoris; I10 Essential (primary) hypertension; Z79.82 Long term (current) use of aspirin; Z79.899 Other long term (current) drug therapy
CPT/HCPCS: 36415; 80048; 80076; 81001; 83690; 85025; 99284; A4216

== ENCOUNTER 2017-12-29 12:27 | Emergency (ER) | payer MEDICARE, SELFPAY ==
[2017-12-29 12:28] VITALS: BP 158/89; PULSE 66; RESP 14; TEMP 36.1; O2SAT 98; BMI 34.9
--- NOTE | 2017-12-29 13:03 | ED.DCSUM_ITS ---
- ER Visit Summary Date of Service: 12/29/17 Chief Complaint: Abdominal pain and constipation History of Present Illness: The patient is a 72 M who presents with abdominal pain constipation. He has numerous other symptoms as well. He has had multiple visits in the past 30 days. He states he had one loose stool on Saturday. Had no bowel movement since. He is taking Metamucil once a day. When asked what he had for breakfast he informed he had pancakes and last evening he had soup for dinner. He denies black or maroon stool. He does complain of nausea without vomiting. He denies fever, chills or night sweats. He denies ocular, visual or auditory symptoms. He denies chest discomfort. Does complain of dyspnea on exertion. He was admitted in November for dyspnea exertion with concern for anginal equivalent. Echocardiogram was unremarkable with an EF of 60%. Nuclear stress test was negative. He was seen on December 18 for abdominal pain and constipation. His workup was negative and included a CAT scan. When asked patient admits she has been depressed. There has been change in appetite and sleep. He admits he is not eating much nor is he eating well. Past medical history of hypertension, hypercholesterolemia, COPD and carotid stenosis status post right carotid endarterectomy. Physical Examination: Patient has a depressed affect. HEENT exam is unremarkable. Heart is regular without murmur, gallop or rub. S1 and S2 are normal. Lungs are clear to auscultation with good movement of air bilaterally. Abdomen is slightly distended tympanitic bowel sounds are present but diminished. There is no guarding or rebound tenderness. There is no CVA tenderness. There is no asymmetry, swelling, discoloration, leg vein distention , palpable cords or tenderness along the distribution of the deep venous system. DP and PT pulses are palpable 2+. Patient has hair on his toes. Test Results: None because prior records were reviewed and since there is no change in his symptomatology. Emergency Department Course and Treatment: Mag citrate 10 ounces followed by one glass of MiraLAX every hour until he has results Treatment Plan: Outpatient bowel prep Disposition: Discharged to home Impression: 1. Abdominal discomfort with constipation 2. Depression, mild 3. History hypertension 4. Hypercholesterolemia This note was generated with Med[employer]urface dictation software. It may contain incorrect words, spelling, and punctuation that were not noted in review of the chart prior to signing ED Disposition - Plan for ED Patient: Disposition: Home or Assisted Living Chief Complaint: Abd Pain Instructions: ED Constipation Referrals: Malinda Tan NP-C [Primary Care Provider] - 3-5 Days if not improving Additional Instructions: Drink 10 ounces of mag citrate. 4 hours later drink 1 glass of MiraLAX and drink a glass of MiraLAX every hour until you have results.
[2017-12-29 13:13] VITALS: RESP 16
--- NOTE | 2017-12-29 13:14 | ED.RN ---
REVIEWED D/C INSTRUCTIONS, FOLLOW UP CARE, AND S/S THAT WOULD WARRANT A RETURN TO THE ED WITH PT. PT VERBALIZED AN UNDERSTANDING AND DENIES FURTHER QUESTIONS FOR THIS RN. PT SKIN P/W/D, RESP EVEN AND UNLABORED, PT A&O X 3, NO DISTRESS NOTED. PT AMBULATED OUT OF ED, GAIT STEADY.
== END 2017-12-29 13:16 | disposition home or self-care (01) ==
PROVIDERS: Emergency Provider Emergency Medicine; Family Provider Nurse Practitioner Family; PCP Nurse Practitioner Family
DX: K59.00 Constipation, unspecified (principal); F32.9 Major depressive disorder, single episode, unspecified; I10 Essential (primary) hypertension; E78.00 Pure hypercholesterolemia, unspecified; J44.9 Chronic obstructive pulmonary disease, unspecified; E66.9 Obesity, unspecified; Z87.891 Personal history of nicotine dependence
CPT/HCPCS: 99282

== ENCOUNTER → 2017-12-30 13:47 | Outpatient (CLI) | payer MEDICARE, SELFPAY ==
[2017-12-30 14:17] LABS: CPK Total, Creatine Kinase 65 U/L (39-308)
== END ==
PROVIDERS: Visit Provider Nurse Practitioner Family
DX: R07.9 Chest pain, unspecified (principal)
CPT/HCPCS: 82550; 84484

== ENCOUNTER 2018-01-09 06:32 | Day surgery (SDC) | payer MEDICARE, SELFPAY ==
[2018-01-08 10:08] VITALS: BMI 34.9
--- NOTE | 2018-01-09 09:24 | CL.D_ITS ---
Patient Name: LARA BURTON Study Date: 01/09/2018 Performing: Trevin Hunter MD Ht: 61.02 inches 155 cm : 1945 Wt: 185.19 lbs 84 kg Age: 72 Gender: male BSA: 1.83 PROCEDURE(S) PERFORMED [id number]/COR/LV CLINICAL PROFILE AND INDICATIONS Indications: New Onset Angina <= 2 months, Suspected CAD Heart Failure: None Stress/Imaging Stress Test w/SPECT MPI: Yes Result: NegativeStress Test with SPECT MPI: Negative CAD Presentations: Symptom unlikely to be ischemic. Comorbidities/Risk Factors: Hypertension Dyslipidemia CONCLUSIONS Non obstructive coronary arteries Cardiomyopathy: Hypertrophic Normal Left Ventricular systolic function Elevated Left Ventricular End Diastolic Pressure RECOMMENDATIONS Management as per referring Net Software [employer] Start Verapamil CD 120 mg po daily for HCMP; repeat BP in 2 weeks. D/c plavix. Medical therapy Manual sheath removal. DESCRIPTION OF PROCEDURE The patient arrived to the procedure lab. The risks and benefits of the procedure as well as a full d escription of our services here and current unavailability of surgical backup were fully explained to the patient and/or their significant other prior to the catheterization. The Timeout was completed, verifying the correct patient and procedure. The patient's procedural site was prepped and draped in the usual fashion. Local anesthetic was given subcutaneously to right groin region with Lidocaine 2%. Using a modified Seldinger technique, arterial access was obtained via the right femoral artery, a 4 Fr sheath was inserted Left Coronary Artery selective angiography was performed in multiple views us ing a 4 Fr. JL5 catheter. Further Left Coronary Artery selective angiography was performed in multipl e views using a 4 Fr. JL4 catheter. Right Coronary Artery selective angiography was then performed in multiple views using a 4 Fr. 3DRC catheter. Left Ventriculography was performed in YOUNG projection us ing a 4 Fr. Pigtail catheter. LV to AO pullback pressures were then recorded.The arterial sheath was pulled and manual compression applied until hemostasis is achieved. CORONARY ANGIOGRAPHY DOMINANCE: Left Dominant LEFT HEART ASSESSMENT Left Ventricular Ejection Fraction: by LV Gram 75 % Normal LV wall motion Left Ventricular Hypertrophy LVEDP: 14 mmHg Normal Left Ventricular End Diastolic Pressure Cardiomyopathy: Hypertrophic LEFT MAIN: Angiographically normal LEFT ANTERIOR DECENDING ARTERY: Mild luminal irregularities less than 30% CIRCUMFLEX ARTERY: Mild luminal irregularities less than 30% RIGHT CORONARY ARTERY: Mild luminal irregularities less than 30% COMPLICATIONS No Complications PROCEDURE MEDICATIONS Versed 1 mg IV Oxygen: 2 L/min via nasal cannula SUMMARY OF HEMODYNAMIC DATA Time AIR REST ECG 07:06:35 AO 154/60 (94) SA 09:07:04 LV 154/-18, 10 09:14:00 LV 160/-20, 15 09:14:07 LVp 163/-22, 14 09:14:13 AOp 159/50 (88) 09:14:18 Signed By Trevin Hunter MD On 01/09/2018 09:24:12 Trevin Hunter MD
== END 2018-01-09 14:03 | disposition home or self-care (01) ==
LOC: CLSP 06:33
PROVIDERS: Family Provider Nurse Practitioner Family; PCP Nurse Practitioner Family; Referring Provider Internal Medicine Cardiovascular Disease; Visit Provider Internal Medicine Cardiovascular Disease
DX: I42.2 Other hypertrophic cardiomyopathy (principal); R07.9 Chest pain, unspecified; E78.5 Hyperlipidemia, unspecified; I10 Essential (primary) hypertension; Z87.891 Personal history of nicotine dependence
CPT/HCPCS: 93458; 99152; J0153; J7040; Q9967; C1769; C1894

== ENCOUNTER → 2019-02-16 09:23 | Outpatient (CLI) | payer MEDICARE, SELFPAY ==
--- NOTE | 2019-02-16 09:25 | ART_ITS ---
Reason For Study: Bilateral claudication Procedure A bilateral lower extremity continuous wave Doppler with analog waveform analysis,segmental pressures,and ankle brachial indexes without exercise. Left Segmental Pressures Left brachial= 163mmHg. Left thigh = 189mmHg. Left calf = 133mmHg. Left posterior tibial artery = 123mmHg. Left dorsalis pedis artery = 137mmHg. Left digit = 108 mmHg. Right Segmental Pressures Right brachial= 163mmHg. Right calf = 195mmHg. Right posterior tibial artery = 146mmHg. Right dorsalis pedis artery = 144mmHg. Right digit = 103 mmHg. The right dorsalis pedis waveforms are triphasic. The right posterior tibial artery waveforms are triphasic. Indices The right ankle brachial index by the dorsalis pedis is 0.88. The right ankle brachial index by the posterior tibial artery is 0.90. The right digital-brachial index is 0.63. The left ankle brachial index by the dorsalis pedis is 0.84. The left ankle brachial index by the posterior tibial artery is 0.75. The left digital-brachial index is 0.66. Interpretation Summary Moderately severe bilateral lower extremity arterial occlusive disease. Findings are suspicious for bilateral femoral popliteal disease. Abnormal bilateral digital brachial indices Ordering Physician: Dallas Saleh Referring Physician: Neftaly Varela Performed By: Massiel Cordoba RVT
== END ==
PROVIDERS: Family Provider Nurse Practitioner Family; PCP Nurse Practitioner Family; Referring Provider Internal Medicine Pulmonary Disease; Visit Provider Internal Medicine Pulmonary Disease
DX: I73.9 Peripheral vascular disease, unspecified (principal); M79.606 Pain in leg, unspecified
CPT/HCPCS: 93923

== ENCOUNTER → 2019-03-18 09:37 | Outpatient (CLI) | payer MEDICARE, SELFPAY ==
[2019-03-10 14:46] VITALS: BMI 34.9
--- NOTE | 2019-03-18 09:41 | CDU_ITS ---
Reason For Study: Carotid stenosis Rt. Velocities/BP Lt. Velocities/BP Prox CCA 121.4/13.8 cm/sec. Prox CCA 139/16 cm/sec. Mid CCA 93.7/13.3 cm/sec. Mid CCA 92.9/13.8 cm/sec. Dist CCA 71.8/11.5 cm/sec. Dist CCA 70/13.3 cm/sec. Prox ICA 50.7/7.7 cm/sec. Prox ICA 68.5/13.5 cm/sec. Mid ICA 66.7/12.6 cm/sec. Mid ICA 80.6/15.7 cm/sec. Dist ICA 64.2/12.6 cm/sec. Dist ICA 78.5/15.5 cm/sec. Rt. ICA/CCA = 0.71. Lt. ICA/CCA = 0.87. Prox ECA 112.6/5 cm/sec. Prox ECA 164.9/9.7 cm/sec. Rt. Vert. 36/11.4 cm/sec. Lt. Vert. 33.3/9.7 cm/sec. Right Extracranial There is intimal thickening but no significant atherosclerotic plaque noted in the right common carotid artery. There is intimal thickening but no significant atherosclerotic plaque noted in the right internal carotid artery. There is no significant atherosclerotic plaque noted in the right external carotid artery. Antegrade flow is noted in the right vertebral artery. Left Extracranial There is intimal thickening but no significant atherosclerotic plaque noted in the left common carotid artery. There is homogeneous, irregular atherosclerotic plaque noted in the left internal carotid artery. There is no significant atherosclerotic plaque noted in the left external carotid artery. Antegrade flow is noted in the left vertebral artery. Procedure Carotid Duplex [id number]. Exam performed in department. Interpretation Summary Post operative changes of the right carotid bulb and proximal internal carotid artery. No hemodynamically significant plaque. <50% stenosis right internal carotid <50% stenosis right external carotid Minimal irregular plaque at the proximal left internal carotid. <50% stenosis left internal carotid <50% stenosis left external carotid Patent, antegrade, <50% stenosis bilateral vertebrals Ordering Physician: Dallas Wang Referring Physician: Neftaly Varela Performed By: Massiel Cordoba RVT
== END ==
PROVIDERS: Family Provider Family Medicine; PCP Family Medicine; Referring Provider Surgery; Visit Provider Surgery
DX: I65.23 Occlusion and stenosis of bilateral carotid arteries (principal)
CPT/HCPCS: 93880

== ENCOUNTER 2019-05-13 07:11 | Day surgery (SDC) | payer MEDICARE, SELFPAY ==
[2019-04-24 11:34] VITALS: BMI 38.3
[2019-05-12 08:47] VITALS: BMI 39.1
[2019-05-13 07:34] LABS: Hematocrit 45.6 % (40-54); Hemoglobin 14.9 g/dL (13.0-16.5); Mean Corp Hgb Conc 32.7 g/dL (32-36); Mean Corpuscular Hgb 29.6 pg (27.0-32.0); Mean Corpuscular Volume 90.7 fL (80-94); Mean Platelet Vol. 10.2 fl (6.2-12.0); Platelet Count 193 K/mm3 (150-450); RBC Distribution Width CV 13.4 % (11.6-14.6); RBC Distribution Width SD 44.7 fl (35.1-43.9); Red Blood Count 5.03 M/mm3 (4.6-6.2); White Blood Count 5.9 K/mm3 (4.4-11.0)
--- NOTE | 2019-05-13 08:22 | HP.PCM_ITS ---
Problem List (1) PAD (peripheral artery disease) Status: Acute History and Physical Date of Admission: 05/13/19 [facility] [address] [place], [place] [address] OFFICE VISIT Date of Service: 05/13/2019 MR#:[id number] Name: LARA BURTON [facility] #:[id number] : 1945 Provider:Dallas Wang MD Age/Sex: 74/M Location:[facility] Status:Signed Intake Vital Signs 03/10/19 Height 5 ft 1 in 03/10/19 Weight: 207 lb 4 oz 03/10/19 Body Mass Index (BMI) 39.1 03/10/19 Blood Pressure 148/77 H 03/10/19 Blood Pressure Location Rt brachial 03/10/19 Blood Pressure Position Sitting 03/10/19 Respiratory Rate 20 H 03/10/19 Pulse Rate 64 03/10/19 Pulse Ox 96 Intake Visit Reasons: Arterial Blockage Chief Complaint: PAD/ leg pain 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: No Is patient in pain?: No Allergies amoxicillin Adverse Reaction GI Upset Medications Lisinopril/Hydrochlorothiazide [Zestoretic Tablet] 1 tab PO DINNER 04/17/13 [History Confirmed 03/10/19] Aspirin [Aspirin, Baby] 81 mg PO DAILY@0800 #30 tab.chew 04/24/13 [Rx Confirmed 03/10/19] Albuterol IH (ProAir) [Proair Hfa] 1 puff INHALATION Q4H PRN PRN #1 inhaler 12/09/17 [Rx Confirmed 03/10/19] simvastatin 10 mg tablet 10 mg PO QHS #30 tab 01/09/18 [Rx Confirmed 03/10/19] cholecalciferol (vitamin D3) 2,000 unit capsule 2,000 unit PO DAILY 03/10/19 [History Confirmed 03/10/19] escitalopram 10 mg tablet 10 mg PO DAILY 03/10/19 [History Confirmed 03/10/19] famotidine 20 mg tablet 20 mg PO DAILY 03/10/19 [History Confirmed 03/10/19] [facility] Medical History Other hypertrophic cardiomyopathy (Chronic) Pure hypercholesterolemia (Chronic) Essential (primary) hypertension (Chronic) Chest pain (Acute) Nonrheumatic tricuspid (valve) insufficiency (Chronic) Acute dyspnea (Acute) History of carotid stenosis (Chronic) possible COPD (Chronic) Surgical History History of left heart catheterization (Chronic 01/09/18) History of colonoscopy (Chronic 08/04/15) H/O removal of cyst (Chronic) History of right-sided carotid endarterectomy (Chronic 2005) Family History Brother Hypertension Sister Hypertension Social History (Updated 03/10/19 @ 14:46 by Dallas Wang MD) Smoking Status: Former smoker quit date: 01/13/99 HPI HPI Surgical H&P: Yes HPI: Patient is a 74 y/o M I am following for bilateral lower extremity claudication. Patient presents for an update history and physical for his procedure today. Patient denies recent hospitalizations or illnesses. He denies previous myocardial infarction, stroke, blood clots. Patient denies any previous reaction to anesthesia. He continues to note the left lower extremity is slightly worse than the right. He is maintained on a daily aspirin and has continued taking this. Patient's previous history per Dr. Wang: LARA BURTON, is a 74 M who presents to the office today for surgical consultation regarding bilateral lower extremity calf claudication left worse than right. The patient is referred by his director of student life Dr. Dallas Saleh and a written compromise surgical consult recommendations will be returned to him. The patient states that he has had bilateral leg pain with walking for at least 10 to 12 years. This is rapidly progressed over the last year. He does have hypertension and hypercholesterolemia. He is not on any particular low- cholesterol diet. He claims that he has been progressively gaining weight perhaps as much as a pound per week. He states that he used to do a significant amount of walking but now is much decreased. He is being seen by director of student life Dr. Dallas Saleh for shortness of breath concerns. The patient has had a previous cardiac catheterization January 09, 2018 which did not demonstrate critical disease. He is on a low-dose aspirin. Past medical history suggest a previous right carotid enterectomy 2005 He denies myocardial infarction or stroke. He denies diabetes. He does admit to a very sedentary lifestyle ROS General General: Yes weight change; no appetite, fatigue, colon cancer, breast cancer or weakness HEENT HEENT: No difficulty swallowing, eye injury, eye surgery, swollen glands or hoarseness Endo Endocrine: No thyroid disease, diabetes mellitus, thyroid cancer, Hair loss, heat intolerance or cold intolerance Musc Musculoskeletal: Yes back problems; no arthritis, rheumatoid arthritis, gout or joint pain Cardio Cardiovascular: Yes high blood pressure; no murmur, pacemaker, heart disease, atrial fibrillation, heart attack, heart stent, palpitations, shortness of breat with exertion or chest pain Resp Respiratory: Yes shortness of breath, Yes sleep apnea, No cough, Yes COPD, No asthma, No emphysema, No wheezing Gastro Gastrointestinal: No abdominal pain, No nausea or vomiting, No diarrhea, No constipation, No blood in stool, No acid reflux, No hemorrhoids, No ulcers, No gallbladder problem, No black,tarry stools Sami Hematologic: No blood thinners, No blood disorders, No bleeding, No anemia, No blood clots Neuro Neurologic: No weakness Exam Const General: cooperative, no acute distress Nutritional Appearance: obese Orientation: alert, awake [facility] Head: normal to inspection Resp Effort & Inspection: normal respiratory effort Auscultation: clear to auscultation bilaterally Cardio Rate: regular rate Rhythm: regular rhythm Heart Sounds: no murmurs Other: Bilateral radials and brachials are 3+. Bilateral carotids 2+. Bilateral femorals 1+ Bilateral popliteals very difficult to palpate Bilateral DP pulses 2+. Bilateral PT pulses 0 GI Palpation: soft, no hepatosplenomegaly Skin Other: Slightly diminished capillary refill bilateral feet but otherwise pink warm. Hair loss noted. Thickening of nails noted. Neuro Cognition: normal cognition Extrem Other: 1+ bilateral lower extremity nonpitting edema Psych Affect: normal affect Assessment & Plan Problems 1. History of right-sided carotid endarterectomy Z98.890 2. PAD (peripheral artery disease) I73.9 3. Class 2 obesity due to excess calories with body mass index (BMI) of 39.0 to 39.9 in adult, unspecified whether serious comorbidity present E66.09; Z68.39 4. Sedentary lifestyle Z91.89 Plan: Dr. Wang will plan to perform an abdominal pelvic lower extremity arteriogram with left lower extremity intervention. It has been discussed atherectomy versus angioplasty versus drug-coated balloon versus stenting. He has had an opportunity to ask and have questions answered. Dr. Wang will need to utilize ultrasound to evaluate femoral pulses during the procedure. Diagnoses History of right-sided carotid endarterectomy Z98.890 PAD (peripheral artery disease) I73.9 Class 2 obesity due to excess calories with body mass index (BMI) of 39.0 to 39.9 in adult, unspecified whether serious comorbidity present E66.09; Z68.39 Obesity type: due to excess calories Obesity classification: adult class 2 (BMI 35 - 39.9) Serious obesity comorbidity presence: unspecified whether serious comorbidity present Body mass index: BMI 39.0-39.9 Sedentary lifestyle Z91.89 Code Visit Inpatient E&M: 50279 Subs Hosp L1 - No charge; update H&P
[2019-05-13 08:25] LABS: Anion Gap 7 (5-15); BUN 19 mg/dL (7-18); BUN/Creat Ratio 12.8 RATIO (10-20); Calcium,Total 9.2 mg/dL (8.5-10.1); Chloride 111 mmol/L (98-107); Creatinine, Serum 1.48 mg/dL (0.70-1.30); EST Glomerular Filtration Rate 50 mL/min (>60); Est Glom Filt Rate - Afr Amer 60 mL/min (>60); Estimated Creatinine Clearance 33.37 ml/min; Glucose 108 mg/dL (74-106); Potassium 4.3 mmol/L (3.5-5.1); Sodium Level 141 mmol/L (136-145)
--- NOTE | 2019-05-13 09:35 | HP.PCM_ITS ---
Problem List (1) PAD (peripheral artery disease) Status: Acute History and Physical Date of Admission: 05/13/19 [facility] Medical Records Department [address] [place] [address] History and Physical 05/13/19 0822 MR#: [id number] Acct: [id number] Name: LARA BURTON RAY Rep #:[id number] : 1945 74 From: Maria An PA-C PCP: Neftaly Varela MD Status:REG SDC Y Location: [facility] Problem List (1) PAD (peripheral artery disease) Status: Acute History and Physical Date of Admission: 05/13/19 [facility] [address] [place] [address] OFFICE VISIT Date of Service: 05/13/2019 MR#:[id number] Name: LARA BURTON RRep #:[id number] : 1945 Provider:Dallas Wang MD Age/Sex: 74/M Location:[facility] Status:Signed Intake Vital Signs 03/10/19 Height 5 ft 1 in 03/10/19 Weight: 207 lb 4 oz 03/10/19 Body Mass Index (BMI) 39.1 03/10/19 Blood Pressure 148/77 H 03/10/19 Blood Pressure Location Rt brachial 03/10/19 Blood Pressure Position Sitting 03/10/19 Respiratory Rate 20 H 03/10/19 Pulse Rate 64 03/10/19 Pulse Ox 96 Intake Visit Reasons: Arterial Blockage Chief Complaint: PAD/ leg pain 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 Is patient in pain?: No Allergies amoxicillin Adverse Reaction GI Upset Medications Lisinopril/Hydrochlorothiazide [Zestoretic 20/25 Tablet] 1 tab PO DINNER 04/17/13 [History Confirmed 03/10/19] Aspirin [Aspirin, Baby] 81 mg PO DAILY@0800 #30 tab.chew 04/24/13 [Rx Confirmed 03/10/19] Albuterol IH (ProAir) [Proair Hfa] 1 puff INHALATION Q4H PRN PRN #1 inhaler 12/09/17 [Rx Confirmed 03/10/19] simvastatin 10 mg tablet 10 mg PO QHS #30 tab 01/09/18 [Rx Confirmed 03/10/19] cholecalciferol (vitamin D3) 2,000 unit capsule 2,000 unit PO DAILY 03/10/19 [History Confirmed 03/10/19] escitalopram 10 mg tablet 10 mg PO DAILY 03/10/19 [History Confirmed 03/10/19] famotidine 20 mg tablet 20 mg PO DAILY 03/10/19 [History Confirmed 03/10/19] [facility] Medical History Other hypertrophic cardiomyopathy (Chronic) Pure hypercholesterolemia (Chronic) Essential (primary) hypertension (Chronic) Chest pain (Acute) Nonrheumatic tricuspid (valve) insufficiency (Chronic) Acute dyspnea (Acute) History of carotid stenosis (Chronic) possible COPD (Chronic) Surgical History History of left heart catheterization (Chronic 01/09/18) History of colonoscopy (Chronic 08/04/15) H/O removal of cyst (Chronic) History of right-sided carotid endarterectomy (Chronic 2005) Family History Brother Hypertension Sister Hypertension Social History (Updated 03/10/19 @ 14:46 by Dallas Wang MD) Smoking Status: Former smoker quit date: 01/13/99 HPI HPI Surgical H&P: Yes HPI: Patient is a 74 y/o M I am following for bilateral lower extremity claudication. Patient presents for an update history and physical for his procedure today. Patient denies recent hospitalizations or illnesses. He denies previous myocardial infarction, stroke, blood clots. Patient denies any previous reaction to anesthesia. He continues to note the left lower extremity is slightly worse than the right. He is maintained on a daily aspirin and has continued taking this. Patient's previous history per Dr. Wang: LAAR BURTON, is a 74 M who presents to the office today for surgical consultation regarding bilateral lower extremity calf claudication left worse than right. The patient is referred by his fiber locking supervisor Dr. Dallas Saleh and a written compromise surgical consult recommendations will be returned to him. The patient states that he has had bilateral leg pain with walking for at least 10 to 12 years. This is rapidly progressed over the last year. He does have hypertension and hypercholesterolemia. He is not on any particular low- cholesterol diet. He claims that he has been progressively gaining weight perhaps as much as a pound per week. He states that he used to do a significant amount of walking but now is much decreased. He is being seen by fiber locking supervisor Dr. Dallas Saleh for shortness of breath concerns. The patient has had a previous cardiac catheterization January 09, 2018 which did not demonstrate critical disease. He is on a low-dose aspirin. Past medical history suggest a previous right carotid enterectomy 2005 He denies myocardial infarction or stroke. He denies diabetes. He does admit to a very sedentary lifestyle ROS General General: Yes weight change; no appetite, fatigue, colon cancer, breast cancer or weakness HEENT HEENT: No difficulty swallowing, eye injury, eye surgery, swollen glands or hoarseness Endo Endocrine: No thyroid disease, diabetes mellitus, thyroid cancer, Hair loss, heat intolerance or cold intolerance Musc Musculoskeletal: Yes back problems; no arthritis, rheumatoid arthritis, gout or joint pain Cardio Cardiovascular: Yes high blood pressure; no murmur, pacemaker, heart disease, atrial fibrillation, heart attack, heart stent, palpitations, shortness of breat with exertion or chest pain Resp Respiratory: Yes shortness of breath, Yes sleep apnea, No cough, Yes COPD, No asthma, No emphysema, No wheezing Gastro Gastrointestinal: No abdominal pain, No nausea or vomiting, No diarrhea, No constipation, No blood in stool, No acid reflux, No hemorrhoids, No ulcers, No gallbladder problem, No black,tarry stools Sami Hematologic: No blood thinners, No blood disorders, No bleeding, No anemia, No blood clots Neuro Neurologic: No weakness Exam Const General: cooperative, no acute distress Nutritional Appearance: obese Orientation: alert, awake [facility] Head: normal to inspection Resp Effort & Inspection: normal respiratory effort Auscultation: clear to auscultation bilaterally Cardio Rate: regular rate Rhythm: regular rhythm Heart Sounds: no murmurs Other: Bilateral radials and brachials are 3+. Bilateral carotids 2+. Bilateral femorals 1+ Bilateral popliteals very difficult to palpate Bilateral DP pulses 2+. Bilateral PT pulses 0 GI Palpation: soft, no hepatosplenomegaly Skin Other: Slightly diminished capillary refill bilateral feet but otherwise pink warm. Hair loss noted. Thickening of nails noted. Neuro Cognition: normal cognition Extrem Other: 1+ bilateral lower extremity nonpitting edema Psych Affect: normal affect Assessment & Plan Problems 1. History of right-sided carotid endarterectomy Z98.890 2. PAD (peripheral artery disease) I73.9 3. Class 2 obesity due to excess calories with body mass index (BMI) of 39.0 to 39.9 in adult, unspecified whether serious comorbidity present E66.09; Z68.39 4. Sedentary lifestyle Z91.89 Plan: Dr. Wang will plan to perform an abdominal pelvic lower extremity arteriogram with left lower extremity intervention. It has been discussed atherectomy versus angioplasty versus drug-coated balloon versus stenting. He has had an opportunity to ask and have questions answered. Dr. Wang will need to utilize ultrasound to evaluate femoral pulses during the procedure. Diagnoses History of right-sided carotid endarterectomy Z98.890 PAD (peripheral artery disease) I73.9 Class 2 obesity due to excess calories with body mass index (BMI) of 39.0 to 39.9 in adult, unspecified whether serious comorbidity present E66.09; Z68.39 Obesity type: due to excess calories Obesity classification: adult class 2 (BMI 35 - 39.9) Serious obesity comorbidity presence: unspecified whether serious comorbidity present Body mass index: BMI 39.0-39.9 Sedentary lifestyle Z91.89 Code Visit Inpatient E&M: 97708 Subs Hosp L1 - No charge; update H&P 05/13/19 0836 <Electronically signed by Maria beth PA-C> Date _ Maria An PA-C Cosigner Signature: Date (if applicable) CC: Maria An PA-C; Neftaly Varela MD ~ Signed I have re-examined the patient. There are no clinical changes since date of exam.
--- NOTE | 2019-05-13 11:50 | PCM.OPRPT ---
Problem List (1) PAD (peripheral artery disease) Status: Acute Report of Operation Date of Procedure: 05/13/19 Pre-Operative Diagnosis: Left lower extremity quality of life limiting claudication Post-Operative Diagnosis: Multi segmental left lower extremity occlusive disease involving the proximal left anterior tibial and the left external iliac arteries Surgery/Procedure Performed:: Abdominal pelvic left lower extremity arteriogram. Left proximal anterior tibial 4 x 20 mm Powerflex angioplasty. Left external iliac 9 x 4 Greybull angioplasty. Left external iliac 10 x 6 prot?g? stenting Description of Surgical Findings:: Timeout and informed consent was obtained. 72-year-old gent was taken to special procedures lab placed upon the table. He received 50 mcg of fentanyl and 2 mg of Versed is intravenous sedation. The right groin was sterilely prepped draped. Ultrasound was used to identify the bifurcation of the right superficial femoral and common femoral. The patient is noted to be obese. Ultrasound visualization of the structures were indeed challenging. Palpation of the pulse was challenging because of the patient's habitus. Under ultrasound guidance 2% lidocaine was instilled micropuncture needle was inserted. Then a micropuncture wire inserted a micropuncture sheath inserted and then a 035 J-wire was inserted a 5 [place] short sheath was inserted. Using a angled Glidewire a 5 [place] universal flush catheter was placed in abdominal aorta. Using Visipaque contrast 3 to 15 cc a second for 15 cc an AP aortogram was obtained. This demonstrates that the sheath on the right is just within the very proximal superficial femoral artery just close to the bifurcation. No evidence of any dissection or problem. I then was able to get a flush catheter in the left common iliac. I was able to advance a Glidewire exchanged out for a quick cross catheter into the left SFA. Static views of the left lower extremity were obtained. This demonstrated clinically significant disease in the proximal left anterior tibial and clinically significant disease of left external iliac just distal to the internal iliac bifurcation. The patient received 10,000 and's of heparin. I used an 035 Magic wire and exchanged out to a 6 [place] destination sheath. I then utilized an 035 Glidewire and a quick cross catheter to gain access past the proximal left anterior tibial lesion. A CTs were used to monitor anticoagulation. 4 x 2 Powerflex balloon was inserted and to slightly different areas of angioplasty performed of the proximal left anterior tibial. Completion views now demonstrated dramatic improvement with less than 8% residual. I read through the sheath we took ipsilateral views of the left external iliac I then inserted a 9 x 4 Greybull balloon performed balloon angioplasty of left external iliac there was an area of dissection and upon inspecting this I felt not appropriate leaving it so I then placed a 10 x 6 prot?g? stent. Because of the calcification slightly more distally and then more disease that extended up to the origin of the hypogastric I had to select how to place that stent. I did not want a longer stent that would cross the location of the inguinal ligament. I deployed the stent. The area of dissection was covered. There was just slight short positioning of it close to the hypogastric. I seated in place with the 9 x 4 Greybull balloon. Images now demonstrate much improved lumen from preintervention and control of the area of dissection. The patient tolerated procedure well there is no discomfort no apparent complication he. The completion was an excellent 3+ left femoral pulse 3+ left popliteal pulse 3+ left dorsalis pedis pulse. [place] that the sequential intervention will improve the patient symptomatically. The sheath was removed direct pressure was held for hemostasis. He was taken to the recovery area in status condition no apparent complication he will be initiated on clopidogrel Images demonstrate a widely patent abdominal aorta with 2 renal arteries on the right one on the left. Bilateral internal iliacs are patent. There is mild disease of the proximal right external iliac. There is patency of the bifurcation of the right superficial femoral and profundofemoral. There is 70% stenosis of the left external iliac just distal to the hypogastric. There is mild diffuse disease of the left superficial femoral artery. The popliteal is nicely patent. The left posterior tibial is rather diminutive as is the peroneal. The left anterior tibial is a dominant vessel and there is 70% stenosis at the origin. Subsequent to the left lower extremity intervention the stenosis of the proximal left anterior tibial dramatically improved with simple angioplasty. Less than 8% residual stenosis. The left external he had notably improved subsequent to the angioplasty and stenting. There is a small area approximately a centimeter in length of uncovered left external iliac artery just distal to the origin of the left internal iliac. I elected not to place an additional stent at this time out of concern of potentially covering the internal iliac on the left. Patient will be initiated on clopidogrel. Ongoing close surgical follow-up will be pursued Dallas Wang M.D., F.A.C.S. Type of Anesthesia:: IV Sedation, Local
[2019-05-13 12:56] LABS: ACT Activated Clotting Time 136 sec (74-137)
[2019-05-13 13:01] LABS: ACT Activated Clotting Time 274 sec (74-137)
[2019-05-13 13:01] LABS: ACT Activated Clotting Time 285 sec (74-137)
[2019-05-13 16:15] VITALS: BP 133/59; PULSE 62; RESP 14; TEMP 37; O2SAT 94
[2019-05-13] MEDS: 0.9% Normal Saline 1,000 ML 100 ML IV (16:42)
[2019-05-13 17:15] VITALS: BP 127/52; PULSE 55; RESP 14; TEMP 37.1
[2019-05-13] MEDS: Acetaminophen 325 MG Tablet PO (17:32)
[2019-05-13 18:15] VITALS: BP 119/65; PULSE 57; RESP 16; TEMP 36.9; O2SAT 96
--- NOTE | 2019-05-13 18:34 | NURSING ---
VS remained stable. Pt ambulated without issue. Groin site remained clean and dry without sign of bleeding. PIV removed. went over DC instructions again with patient he verbalized understanding. PT Discharged home.
== END 2019-05-13 18:40 | disposition home or self-care (01) ==
LOC: CLSP 15:26 → PCU 15:43
PROVIDERS: PCP Family Medicine; Referring Provider Surgery; Visit Provider Surgery
DX: I73.9 Peripheral vascular disease, unspecified (principal); I42.2 Other hypertrophic cardiomyopathy; I10 Essential (primary) hypertension; E66.09 Other obesity due to excess calories; E78.00 Pure hypercholesterolemia, unspecified; Z68.39 Body mass index [BMI] 39.0-39.9, adult; Z79.82 Long term (current) use of aspirin; Z87.891 Personal history of nicotine dependence; Z88.0 Allergy status to penicillin; Z98.890 Other specified postprocedural states
CPT/HCPCS: 36200; 36245; 36415; 37221; 37228; 75625; 75710; 76937; 80048; 85027; 85347; 93005; 99152; 99153; J7030; J7040; Q9967; C1725; C1769; C1876; C1887; C1894

== ENCOUNTER → 2019-05-28 09:33 | Outpatient (CLI) | payer MEDICARE, SELFPAY ==
[2019-05-21 08:37] VITALS: BMI 39.1
--- NOTE | 2019-05-28 09:34 | ART_ITS ---
Reason For Study: PAD Procedure A bilateral lower extremity continuous wave Doppler with analog waveform analysis,segmental pressures,and ankle brachial indexes with exercise. Left Segmental Pressures Left brachial= 134mmHg. Left posterior tibial artery = 122mmHg. Left dorsalis pedis artery = 146mmHg. Left digit = 97 mmHg. The left dorsalis pedis waveforms are triphasic. The left posterior tibial artery waveforms are triphasic. Right Segmental Pressures Right brachial= 142mmHg. Right thigh = 128mmHg. Right calf = 103mmHg. Right posterior tibial artery = 101mmHg. Right dorsalis pedis artery = 128mmHg. Right digit = 84 mmHg. The right dorsalis pedis waveforms are triphasic. The right posterior tibial artery waveforms are biphasic. Indices The right ankle brachial index by the dorsalis pedis is 0.90. The right ankle brachial index by the posterior tibial artery is 0.71. The right digital-brachial index is 0.59. The right post exercise ankle brachial index is 0.45. The left ankle brachial index by the dorsalis pedis is 1.03. The left ankle brachial index by the posterior tibial artery is 0.86. The left digital-brachial index is 0.68. The left post exercise ankle brachial index is 0.30. Interpretation Summary Moderately severe right lower extremity arterial occlusive disease. Right lower extremity exercise indices diminish with failure to recover by 9 minutes consistent with vascular claudication Moderately severe left lower extremity arterial occlusive disease highlighted by significant drop in exercise index and failure to recovery by 9 minutes. It is of note that resting indices on the left are normal for the DP and triphasic waveforms are noted at the left posterior tibial and dorsalis pedis at rest. No significant postoperative change since the pre-intervention procedure of February 16, 2019 Ordering Physician: Dallas Wang Referring Physician: Neftaly Varela Performed By: Massiel Cordoba RVT
== END ==
PROVIDERS: PCP Family Medicine; Referring Provider Surgery; Visit Provider Surgery
DX: I73.9 Peripheral vascular disease, unspecified (principal)
CPT/HCPCS: 93924

== ENCOUNTER → 2019-11-24 09:43 | Outpatient (CLI) | payer MEDICARE, SELFPAY ==
[2019-05-21 08:37] VITALS: BMI 39.1
--- NOTE | 2019-11-24 09:45 | ART_ITS ---
Reason For Study: PAD Procedure A bilateral lower extremity continuous wave Doppler with analog waveform analysis,segmental pressures,and ankle brachial indexes with exercise. Left Segmental Pressures Left brachial= 137mmHg. Left posterior tibial artery = 153mmHg. Left dorsalis pedis artery = 151mmHg. Left digit = 115 mmHg. The left dorsalis pedis waveforms are triphasic. The left posterior tibial artery waveforms are triphasic. Right Segmental Pressures Right brachial= 130mmHg. Right thigh = 133mmHg. Right calf = 130mmHg. Right posterior tibial artery = 133mmHg. Right dorsalis pedis artery = 135mmHg. Right digit = 92 mmHg. The right dorsalis pedis waveforms are biphasic. The right posterior tibial artery waveforms are triphasic. Indices The right ankle brachial index by the dorsalis pedis is .99. The right ankle brachial index by the posterior tibial artery is .97. The right digital-brachial index is .67. The right ankle brachial index by the dorsalis pedis post exercise is .49. The left ankle brachial index by the dorsalis pedis is 1.1. The left ankle brachial index by the posterior tibial artery is 1.12. The left digital-brachial index is .84. The left posterior tibial artery index post exercise is .71. Interpretation Summary Minimally abnormal right ankle-brachial indices at rest. Abnormal right digital brachial index at rest. Normal left ankle-brachial indices at rest. Normal left digital brachial index at rest. Abnormal bilateral lower extremity arterial brachial indices with exercise with a more severe response on the right. Bilateral lower extremity results seem improved from the previous examination of May 28, 2019 Ordering Physician: Dallas Wang Performed By: NESHA GALICIA Skylar
== END ==
PROVIDERS: PCP Family Medicine; Referring Provider Surgery; Visit Provider Surgery
DX: I73.9 Peripheral vascular disease, unspecified (principal)
CPT/HCPCS: 93924

== ENCOUNTER → 2019-12-03 09:34 | Outpatient (CLI) | payer MEDICARE, SELFPAY ==
[2019-12-03 09:05] VITALS: BMI 34.5
[2019-12-03 11:35] LABS: AST(SGOT) 14 U/L (15-37); Alanine Aminotransfer ALT/SGPT 21 U/L (16-61); Albumin, Serum 3.5 g/dL (3.2-5.0); Alkaline Phosphatase 100 U/L (45-117); Bilirubin, Direct 0.14 mg/dL (0.00-0.30); Cholesterol 101 mg/dL (200); Globulin 4.2 g/dL (2.2-4.2); High Density Lipoprotein 39 mg/dL; Protein, Total 7.7 g/dL (6.4-8.2); Triglycerides 117 mg/dL; Very Low Density Lipoprotein 23 mg/dL (5-40)
== END ==
PROVIDERS: PCP Family Medicine; Referring Provider Internal Medicine Cardiovascular Disease; Visit Provider Internal Medicine Cardiovascular Disease
DX: E78.00 Pure hypercholesterolemia, unspecified (principal)
CPT/HCPCS: 36415; 80061; 80076

== ENCOUNTER 2020-05-13 10:13 | Inpatient (IN) | payer MEDICARE, SELFPAY ==
[2019-12-08 05:56] VITALS: BMI 34.5
[2020-05-13] VITALS (9 sets, daily range): BP systolic 98–141; BP diastolic 51–60; PULSE 59–81; RESP 18–23; TEMP 36.2–37.2; O2SAT 88–98; BMI 34.0; BMI 33.2; BMI 33.3
--- NOTE | 2020-05-13 10:45 | EKG12_ITS ---
Test Reason : SOB Blood Pressure : / mmHG Vent. Rate : 065 BPM Atrial Rate : 065 BPM P-R Int : 178 ms QRS Dur : 094 ms QT Int : 468 ms P-R-T Axes : 058 -37 081 degrees QTc Int : 486 ms Normal sinus rhythm Left axis deviation T wave abnormality, consider inferior ischemia T wave abnormality, consider anterolateral ischemia Prolonged QT Abnormal ECG Confirmed by NGHIA MESSINA, JESSICA ([id number]), field map editor BULL HERNANDEZ ([id number]) on 05/16/2020 12:11:27 PM Referred By: CONI/REGINE Confirmed By:ROCIO AGRAWAL MD
--- NOTE | 2020-05-13 10:46 | CT_ITS ---
STUDY: CTA CHEST REASON FOR EXAM: Male, 75 years old. +COVID X 11 DAYS. POSSIBLE PE. WORSENING SOB. RADIATION DOSAGE (If Supplied By Facility): CTDIvol = ( 11.385 ) mGy, DLP = ( 475.75 ) mGycm TECHNIQUE: The examination was performed with the intravenous administration of IV 100mL Isovue-370. Post-processing of the angiographic images was performed, with multiplanar reformation and 3D reconstruction. Individualized dose optimization techniques were used for this CT. COMPARISON: Comparison is made with prior examination dated 04/21/2013. FINDINGS: Normal enhancement of the main pulmonary artery and right and left pulmonary arteries. Normal enhancement of the bilateral peripheral pulmonary arteries. There is no demonstrated pulmonary embolism. Normal thoracic aorta and visualized great vessels. There is no demonstrated aortic dissection. Normal heart and pericardium. There are visualized mediastinal lymph nodes, which are within normal size limits, and with normal morphology. Normal hilar regions. Normal visualized trachea and bronchi. The lungs are well expanded. There are multiple bilateral focal areas of groundglass appearance in the preferential peripheral distribution in keeping with a pneumonitis associated with Covid. Normal pleura. Normal chest wall structures. There are degenerative changes of thoracic spine. Solitary gallstone. CT/CTA Chest W/WO Contrast IMPRESSION: No evidence of pulmonary embolism. Multiple bilateral focal areas of groundglass appearance in the peripheral distribution suggestive of a pneumonitis with the patient''s history of Covid. Solitary gallstone. Electronically Signed: Babak Vale MD at 11:58 EST , Service support ,
--- NOTE | 2020-05-13 10:52 | ED.DCSUM_ITS ---
- ER Visit Summary Date of Service: 05/13/20 Chief Complaint: Shortness of breath known Covid positive for the last 11 days History of Present Illness: The patient is a 75 M history of hypertension and peripheral arterial disease. Patient tested positive for COVID-19 on May 02. Said is progressively gotten more short of breath and weak specifically over the last 4 to 7 days. He denies any hemoptysis. No history of pulmonary emboli. He is hypoxic and was sent in the emergency department by his primary care physician. Physical Examination: Older male vital signs blood pressure 98/57 pulse ox 88 on room air obvious hypoxic. He is afebrile. H EENT exam unremarkable. Neck nontender. No JVD no lymphadenopathy. Lungs coarse breath sounds bilaterally. Heart regular rhythm rate about 80 no murmur. Abdomen soft nontender. Patient is moving all 4 extremities. Calves are nontender without edema or cords. Back nontender. Neurologically is awake alert with no focal motor deficits. Test Results: CTA chest shows no PE as read by the radiologist. There are changes consistent with Covid pneumonitis. EKG normal sinus rhythm rate of 65. There is T wave inversion laterally which was seen on an EKG exactly 1 year ago. CBC normal white count of 2. Hemoglobin 14. Chemistries unremarkable creatinine 1.4 normal gap. Liver enzymes normal. Troponin normal. D-dimer was elevated at 0.69 lactic acid of 2.0. Emergency Department Course and Treatment: Patient will undergo a COVID-19 protocol work-up. He will also get a CTA of his chest both to evaluate the Covid and for potential pulmonary emboli. He is receiving IV Decadron. He will receive IV fluids. He will need to be admitted. Repeat exam patient is doing well at 2 PM. The hospitalist is down speak to the patient about admission. Treatment Plan: [] Disposition: Admission Impression: COVID-19 pneumonitis Hypoxia secondary to COVID-19 pneumonitis Hypotension This note was generated with [employer] dictation software. It may contain incorrect words, spelling, and punctuation that were not noted in review of the chart prior to signing ED Disposition - Plan for ED Patient: Referrals: Neftaly Varela MD [Primary Care Provider] -
[2020-05-13 11:03] LABS: Absolute Lymphocyte Count 0.59 X10^3/uL (0.83-4.51); Absolute Neutrophil Count 1.6 X10^3/uL (2.0-7.7); Hematocrit 42.2 % (40-54); Lymphocyte # 0.59 X10^3/ul (4.0); Lymphocyte % 22.5 % (19-41); Mean Corp Hgb Conc 33.2 g/dL (32-36); Mean Corpuscular Volume 87.6 fL (80-94); Mean Platelet Vol. 10.4 fl (6.2-12.0); Monocyte# 0.39 X10^3/uL; Monocyte% 14.9 % (0-10); NRBC Flagged by Analyzer 0 % (0-5); Neutrophil # 1.63 X10^3/uL (2.7-7.7); Neutrophil % 62.2 % (47-70); POSITIVE DIFFERENTIAL YES; Platelet Count 148 K/mm3 (150-450); RBC Distribution Width CV 13.4 % (11.6-14.6); RBC Distribution Width SD 43.1 fl (35.1-43.9); Red Blood Count 4.82 M/mm3 (4.6-6.2); White Blood Count 2.6 K/mm3 (4.4-11.0)
[2020-05-13 11:04] LABS: Differential Indicated SCAN CRITERIA MET
[2020-05-13 11:12] LABS: D-Dimer Quantitative (DVT/PE) 0.69 FEU/ug/m (0.27-0.49)
[2020-05-13] MEDS: dexAMETHasone 10 MG/ML Vial IV (11:24)
[2020-05-13 11:27] LABS: ALB/GLOB Ratio 0.7 RATIO (0.9-2.4); AST(SGOT) 39 U/L (15-37); Alanine Aminotransfer ALT/SGPT 43 U/L (16-61); Albumin, Serum 3.2 g/dL (3.2-5.0); Alkaline Phosphatase 83 U/L (45-117); Anion Gap 6 (5-15); BUN 20 mg/dL (7-18); BUN/Creat Ratio 13.7 RATIO (10-20); Calcium,Total 8.7 mg/dL (8.5-10.1); Chloride 104 mmol/L (98-107); Creatinine, Serum 1.46 mg/dL (0.70-1.30); EST Glomerular Filtration Rate 50 mL/min (>60); Est Glom Filt Rate - Afr Amer 61 mL/min (>60); Estimated Creatinine Clearance 33.33 ml/min; Globulin 4.4 g/dL (2.2-4.2); Glucose 106 mg/dL (74-106); Protein, Total 7.6 g/dL (6.4-8.2); Sodium Level 137 mmol/L (136-145)
--- NOTE | 2020-05-13 14:14 | PCM.HP.STD ---
History of Present Illness Date of Admission: 05/13/20 Chief Complaint: SOB The patient is a 75 year old M with a PMH as below who presents to the hospital with shortness of breath. He tested positive for Covid at an urgent care in the community on May 02 and says that he has been getting more short of breath and weaker over the last week. He has had some lightheadedness but this is chronic for him every morning whenever he gets up. He denies any chest pain, or increased swelling. In the ER he was found to be hypoxic to 88% on room air and is 98% 2 L nasal cannula. He was given a dose of IV Decadron in the ED. His D-dimer was 0.69 which based on age criteria is not elevated however he did have a CTA which did not demonstrate a PE. His creatinine is 1.46 which is baseline for him. Past Medical History Past Medical History (Chronic Problems): Chronic Problems (Last Reviewed 12/08/19 @ 12:45 by Toshia Bean) Claudication (Chronic) History of left heart catheterization (Chronic 01/09/18) Nonobstructive coronaries, hypertrophic cardiomyopathy, Normal LV systolic function, elevated left ventricular end diastolic pressure per Dr. Hunter @ [facility] 01/09/2018 Other hypertrophic cardiomyopathy (Chronic) Pure hypercholesterolemia (Chronic) Essential (primary) hypertension (Chronic) Nonrheumatic tricuspid (valve) insufficiency (Chronic) Mild (1+) per echo 12/09/17, RVSP 26 mmhg. EF 60%. History of colonoscopy (Chronic 08/04/15) H/O removal of cyst (Chronic) coccyx History of right-sided carotid endarterectomy (Chronic 2005) History of carotid stenosis (Chronic) possible COPD (Chronic) Medical History: Medical History (Last Reviewed 12/08/19 @ 12:45 by Toshia Bean) Claudication (Chronic) I73.9 Sedentary lifestyle (Acute) Z91.89 Obesity (Acute) E66.9 PAD (peripheral artery disease) (Acute) I73.9 Other hypertrophic cardiomyopathy (Chronic) I42.2 Pure hypercholesterolemia (Chronic) E78.00 Essential (primary) hypertension (Chronic) I10 Chest pain (Acute) R07.9 Nonrheumatic tricuspid (valve) insufficiency (Chronic) I36.1 Mild (1+) per echo 12/09/17, RVSP 26 mmhg. EF 60%. Acute dyspnea (Acute) R06.00 History of carotid stenosis (Chronic) Z86.79 possible COPD (Chronic) Allergies amoxicillin Adverse Reaction (Intermediate, Verified 05/13/20 10:17) GI Upset Home Medications: Ambulatory Orders Medication Instructions Recorded Aspirin [Aspirin, Baby] 81 mg PO DAILY@0800 #30 tab.chew 04/24/13 simvastatin 10 mg tablet 10 mg PO QHS #30 tab 01/09/18 cholecalciferol (vitamin D3) 50 2,000 unit PO DAILY 03/10/19 mcg (2,000 unit) capsule escitalopram oxalate 10 mg tablet 10 mg PO DAILY 03/10/19 latanoprost 0.005 % eye drops 1 drp OPHTHALMIC QPM 04/24/19 polyethylene glycol 3350 17 17 g PO DAILY PRN 12/03/19 gram/dose oral powder verapamil 120 mg 24 hr 120 mg PO DAILY #60 cap 12/03/19 capsule,extended release lisinopril 10 1 tab PO DAILY #90 tab 04/11/20 mg-hydrochlorothiazide 12.5 mg tablet Surgical History: Surgical History (Last Reviewed 12/08/19 @ 12:45 by Toshia Bean) History of left heart catheterization (Chronic) Onset Date: 01/09/18 Z98.890 Nonobstructive coronaries, hypertrophic cardiomyopathy, Normal LV systolic function, elevated left ventricular end diastolic pressure per Dr. Hunter @ [facility] 01/09/2018 History of colonoscopy (Chronic) Onset Date: 08/04/15 Z98.890 H/O removal of cyst (Chronic) Z98.890 coccyx History of right-sided carotid endarterectomy (Chronic) Onset Date: 2005 Z98.890 s/p APLL 04/2019 Surgical History: - - Carotid endarterectomy Psychiatric History: No pertinent psych hx Smoking Status: Never smoker Alcohol: None Drugs: None - *Family History Maternal Family History: Family History (Last Reviewed 12/08/19 @ 12:45 by Toshia Bean) Brother Hypertension Sister Hypertension History Items: No pertinent history Review of Systems Constitutional: Reports: Weakness. Denies: Chills, Fever, Weight Change HEENT: Denies: Head Aches, Sinus Congestion, Sinus Drainage Cardiovascular: Denies: Chest Pain, Palpitations Respiratory: Reports: Shortness of Breath. Denies: Cough, Shortness of breath at rest, Sputum production Gastrointestinal: Denies: Abdominal Pain, Nausea, Vomiting Genitourinary: Denies: Dysuria Musculoskeletal: Denies: Joint Pain, Joint Tenderness Skin: Denies: Rash, Wounds Neurological: Denies: Numbness, Tingling, Focal weakness Psychiatric: Denies: Anxiety, Depression Hematologic/ Lymphatic: Denies: Easy Bruising, Easy Bleeding VTE Information - Inpt Only VTE Present on Admission: No - Physical Exam Vitals/I&O's: Vital Signs Temp Pulse Resp BP Pulse Ox 98.9 F 61 23 H 134/60 H 96 05/13/20 13:32 05/13/20 13:32 05/13/20 13:32 05/13/20 13:32 05/13/20 13:32 Oxygen Flow Rate (L/min) 2 Oxygen Delivery Method Nasal Cannula Weight: 180 lb Body Mass Index (BMI) 34.0 General: Alert, Oriented x3, Cooperative, No apparent distress HEENT: Atraumatic, PERRLA, EOMI, Normocephalic Oral: Moist Mucosa Neck: Supple, No JVD Lungs: Normal air movement, No rhonchi, No wheeze, No rales, Diminished Cardiovascular: Regular rate, Regular Rhythm, Normal S1, Normal S2, No murmurs Abdomen: Soft, Non Tender, Non-Distended, No Hepato-splenomegaly Extremities: No edema, Capillary Refill Less than 3 Seconds Skin: No rashes, No breakdown Neurological: Neuro grossly intact, Sensory exam intact to light touch and pain Psych/Mental Status: Normal Affect, Appropriate Laboratory Results 05/13/20 10:30: WBC 2.6 L, RBC 4.82, Hgb 14.0, Hct 42.2, MCV 87.6, MCH 29.0, MCHC 33.2, RDW Std Deviation 43.1, RDW Coeff of Herrera 13.4, Plt Count 148 L, MPV 10.4, Immature Gran % (Auto) 0.400, Neut % (Auto) 62.2, Lymph % (Auto) 22.5, [place] % (Auto) 14.9 H, Eos % (Auto) 0.0, Baso % (Auto) 0.0, Absolute Neuts (auto) 1.6 L, Absolute Lymphs (auto) 0.59 L, Nucleated RBC % 0, Diff Path Review May foll 05/13/20 10:30: D-Dimer Quant (PE/DVT) 0.69 H* 05/13/20 10:30: Sodium 137, Potassium 4.0, Chloride 104, Carbon Dioxide 27.0, Anion Gap 6, BUN 20 H, Creatinine 1.46 H, Estim Creat Clear Calc 33.33, Est GFR (MDRD) Af Amer 61, Est GFR (MDRD) Non-Af 50 L, BUN/Creatinine Ratio 13.7, Glucose 106, Calcium 8.7, Total Bilirubin 0.60, AST 39 H, ALT 43, Alkaline Phosphatase 83, Troponin I 0.045, Total Protein 7.6, Albumin 3.2, Globulin 4.4 H, Albumin/Globulin Ratio 0.7 L 05/13/20 10:30: Lactic Acid 2.0 Assessment/Plan All Active Problems (Last Reviewed 12/08/19 @ 12:45 by Toshia Bean) Sedentary lifestyle (Acute) Obesity (Acute) PAD (peripheral artery disease) (Acute) Chest pain (Acute) Acute dyspnea (Acute) 1. Acute hypoxic insufficiency secondary to COVID-19 pneumonitis -We will encourage incentive spirometry continue with oxygen -His positive test was on May 02 however he had symptoms for a few days before then -CT of the chest was negative for PEs but did show bilateral groundglass opacities consistent with viral pneumonitis -Continue with p.o. Decadron -We will start on remdesivir -Will not place him on any IV fluids as his kidney function is at baseline 2. CKD 3 -Creatinine is at baseline -We will continue to monitor 3. HTN/HLD/peripheral artery disease -He is status post a carotid endarterectomy -We will continue with his home blood pressure medications -Continue with aspirin continue with Lipitor 4. Anxiety/depression -Stable -Continue with Lexapro DVT: Lovenox Inpatient E&M: 53945 Init Hosp L3
[2020-05-13 14:56] LABS: Reflex Lactate? Y
[2020-05-13 15:43] LABS: Lactic Acid 0.9 mmol/L (0.4-1.9)
[2020-05-13] MEDS: Enoxaparin 30 MG/0.3 ML Syringe SC (21:02)
[2020-05-14 02:50] VITALS: BP 147/95; PULSE 61; RESP 18; TEMP 36.6; O2SAT 95
[2020-05-14 03:24] LABS: ALB/GLOB Ratio 0.6 RATIO (0.9-2.4); AST(SGOT) 47 U/L (15-37); Alanine Aminotransfer ALT/SGPT 49 U/L (16-61); Albumin, Serum 2.5 g/dL (3.2-5.0); Alkaline Phosphatase 79 U/L (45-117); Anion Gap 5 (5-15); BUN 25 mg/dL (7-18); BUN/Creat Ratio 18.4 RATIO (10-20); Calcium,Total 8.6 mg/dL (8.5-10.1); Chloride 106 mmol/L (98-107); Creatinine, Serum 1.36 mg/dL (0.70-1.30); EST Glomerular Filtration Rate 55 mL/min (>60); Est Glom Filt Rate - Afr Amer 66 mL/min (>60); Estimated Creatinine Clearance 35.79 ml/min; Globulin 4.2 g/dL (2.2-4.2); Glucose 147 mg/dL (74-106); Potassium 4.3 mmol/L (3.5-5.1); Protein, Total 6.7 g/dL (6.4-8.2); Sodium Level 139 mmol/L (136-145)
[2020-05-14 03:25] LABS: Absolute Lymphocyte Count 0.35 X10^3/uL (0.83-4.51); Absolute Neutrophil Count 1.1 X10^3/uL (2.0-7.7); Hematocrit 38.2 % (40-54); Hemoglobin 12.9 g/dL (13.0-16.5); Lymphocyte # 0.35 X10^3/ul (4.0); Lymphocyte % 20.7 % (19-41); Mean Corp Hgb Conc 33.8 g/dL (32-36); Mean Corpuscular Hgb 29.4 pg (27.0-32.0); Mean Platelet Vol. 10.5 fl (6.2-12.0); Monocyte% 11.8 % (0-10); NRBC Flagged by Analyzer 0 % (0-5); Neutrophil # 1.13 X10^3/uL (2.7-7.7); Neutrophil % 66.9 % (47-70); POSITIVE DIFFERENTIAL YES; Platelet Count 141 K/mm3 (150-450); RBC Distribution Width CV 13.2 % (11.6-14.6); Red Blood Count 4.39 M/mm3 (4.6-6.2); White Blood Count 1.7 K/mm3 (4.4-11.0)
[2020-05-14 03:29] LABS: Differential Indicated SCAN CRITERIA MET
[2020-05-14 04:46] LABS: Differential Comment SCANNED
[2020-05-14 07:00] VITALS: O2SAT 95
--- NOTE | 2020-05-14 07:25 | PN_ITS ---
Objective: Patient urine is dark yellow, concentrated. Looks dehydrated. No fever. Heart rate and blood pressure are controlled. Pulse ox 95% on 2 L of oxygen. Denies lower urinary tract symptoms including dysuria. Physical exam General: Alert, Oriented x3, Cooperative HEENT: Atraumatic, PERRLA, EOMI, Normocephalic Oral: No Gingival or Mucosal Lesions/ Ulcerations Neck: Supple, No JVD, Negative Carotid Bruits Lungs: Air entry diminished in bilateral lung bases. No crepitation/rhonchi Cardiovascular: Regular rate, Regular Rhythm, Normal S1, Normal S2, No murmurs Abdomen: Bowel Sounds Present, Soft, Non Tender, Non-Distended : Dark yellow urine. No renal angle tenderness. No suprapubic tenderness. Extremities: No edema, Capillary Refill Less than 3 Seconds Skin: No rashes, No breakdown Musculoskeletal: No Tenderness to Palpation of Joints or Extremities Neurological: Cranial nerves II-XII grossly intact, Deep Tendon Reflexes 2+/4 and Symmetrical, Neuro grossly intact Psych/Mental Status: Normal Affect, Appropriate. Vitals/I&O's: Vital Signs Temp Pulse Resp BP Pulse Ox 97.9 F 61 18 147/95 H 95 05/14/20 02:50 05/14/20 02:50 05/14/20 02:50 05/14/20 02:50 05/14/20 02:50 Oxygen Flow Rate (L/min) 2 Oxygen Delivery Method Nasal Cannula Weight: 175 lb 15.991 oz Body Mass Index (BMI) 33.2 Intake and Output for Last 24 Hours 05/12/20 05/13/20 05/14/20 23:59 23:59 23:59 Intake Total 1430 / 1430 120 / 120 Output Total 250 / 250 100 / 100 Balance 1180 / 1180 Laboratory Results 05/13/20 10:30: WBC 2.6 L, RBC 4.82, Hgb 14.0, Hct 42.2, MCV 87.6, MCH 29.0, MCHC 33.2, RDW Std Deviation 43.1, RDW Coeff of Herrera 13.4, Plt Count 148 L, MPV 10.4, Immature Gran % (Auto) 0.400, Neut % (Auto) 62.2, Lymph % (Auto) 22.5, [place] % (Auto) 14.9 H, Eos % (Auto) 0.0, Baso % (Auto) 0.0, Absolute Neuts (auto) 1.6 L, Absolute Lymphs (auto) 0.59 L, Nucleated RBC % 0, Diff Path Review [facility] 05/13/20 10:30: D-Dimer Quant (PE/DVT) 0.69 H* 05/13/20 10:30: Sodium 137, Potassium 4.0, Chloride 104, Carbon Dioxide 27.0, Anion Gap 6, BUN 20 H, Creatinine 1.46 H, Estim Creat Clear Calc 33.33, Est GFR (MDRD) Af Amer 61, Est GFR (MDRD) Non-Af 50 L, BUN/Creatinine Ratio 13.7, Glucose 106, Calcium 8.7, Total Bilirubin 0.60, AST 39 H, ALT 43, Alkaline Phosphatase 83, Troponin I 0.045, Total Protein 7.6, Albumin 3.2, Globulin 4.4 H , Albumin/Globulin Ratio 0.7 L 05/13/20 10:30: Lactic Acid 2.0 05/13/20 15:08: Lactic Acid 0.9 05/14/20 02:50: WBC 1.7 L, RBC 4.39 L, Hgb 12.9 L, Hct 38.2 L, MCV 87.0, MCH 29.4, MCHC 33.8, RDW Std Deviation 42.0, RDW Coeff of Herrera 13.2, Plt Count 141 L, MPV 10.5, Immature Gran % (Auto) 0.600, Neut % (Auto) 66.9, Lymph % (Auto) 20.7, [place] % (Auto) 11.8 H, Eos % (Auto) 0.0, Baso % (Auto) 0.0, Absolute Neuts (auto) 1.1 L, Absolute Lymphs (auto) 0.35 L, Nucleated RBC % 0, Differential Comment SCANNED, Diff Path Review [facility] 05/14/20 02:50: Sodium 139, Potassium 4.3, Chloride 106, Carbon Dioxide 28.0, Anion Gap 5, BUN 25 H, Creatinine 1.36 H, Estim Creat Clear Calc 35.79, Est GFR (MDRD) Af Amer 66, Est GFR (MDRD) Non-Af 55 L, BUN/Creatinine Ratio 18.4, Glucose 147 H, Calcium 8.6, Total Bilirubin 0.40, AST 47 H, ALT 49, Alkaline Phosphatase 79, Total Protein 6.7, Albumin 2.5 L, Globulin 4.2, Albumin/Globulin Ratio 0.6 L Current Medications Acetaminophen (Acetaminophen 325 Mg Tablet) 650 mg PO Q6H PRN PRN PRN Reason: Pain Score 1-10/Temp > 100.7 F Dexamethasone (Dexamethasone 4 Mg Tablet) 6 mg PO DAILY SHERYL Stop: 05/23/20 10:01 Enoxaparin Sodium (Enoxaparin 30 Mg/0.3 Ml Syringe) 30 mg SC BID [facility] Last Admin: 05/13/20 21:02 Dose: 30 mg Documented by: Remdesivir 100 mg/ Sodium (Chloride) 250 mls @ 125 mls/hr IV DAILY [facility] Stop: 05/17/20 11:59 Melatonin (Melatonin 3 Mg Tablet) 3 mg PO QHS PRN PRN PRN Reason: INSOMNIA Ondansetron HCl (Ondansetron 4 Mg/2 Ml Vial) 4 mg IV Q8H PRN PRN PRN Reason: NAUSEA/VOMITING Sodium Chloride (0.9% Saline Lock 10 Ml Syringe) 10 - 40 ml IV UD PRN PRN Reason: SALINE FLUSH Medical Necessity - Tobacco Use Smoking Status: Never smoker Assessment/Plan All Active Problems (Last Reviewed 12/08/19 @ 12:45 by Toshia Bean) Sedentary lifestyle (Acute) Obesity (Acute) PAD (peripheral artery disease) (Acute) Chest pain (Acute) Acute dyspnea (Acute) 75-year-old woman with history of carotid stenosis status post right- sided CEA, PAD and possible COPD was admitted with shortness of breath for 1 week, found hypoxic 88% on room air in ED. Tested positive of Covid on May 02.CTA did not demonstrate PE. 1. Acute hypoxic insufficiency secondary to COVID-19 pneumonitis: On Decadron and remdesivir. CTA chest showed bilateral groundglass opacities. Bronchopulmonary hygiene. 2. CKD stage 3 probably secondary to chronic comorbidities hypertension, peripheral arterial disease: BUN/creatinine 25/1.36, admitted with 04/05.46. Baseline runs around creatinine 1.4?1.5. Urine output well-documented 250 mL last night and 100 mL after midnight. 3. Peripheral arterial disease status post right-sided CEA, hypertension, dyslipidemia: Home medications continued. Patient on aspirin and Lipitor. Blood pressure is 147/95. Home medication reconciliation done. Patient on HCTZ- lisinopril 12.5/10 mg daily. Will give IV fluid as BUN went up. 4. Anxiety/depression: Stable on Lexapro DVT: Lovenox Laboratory Results 05/13/20 15:08: Lactic Acid 0.9 05/14/20 02:50: WBC 1.7 L, RBC 4.39 L, Hgb 12.9 L, Hct 38.2 L, MCV 87.0, MCH 29.4, MCHC 33.8, RDW Std Deviation 42.0, RDW Coeff of Herrera 13.2, Plt Count 141 L, MPV 10.5, Immature Gran % (Auto) 0.600, Neut % (Auto) 66.9, Lymph % (Auto) 20.7, [place] % (Auto) 11.8 H, Eos % (Auto) 0.0, Baso % (Auto) 0.0, Absolute Neuts (auto) 1.1 L, Absolute Lymphs (auto) 0.35 L, Nucleated RBC % 0, Differential Comment SCANNED, Diff Path Review May foll 05/14/20 02:50: Sodium 139, Potassium 4.3, Chloride 106, Carbon Dioxide 28.0, Anion Gap 5, BUN 25 H, Creatinine 1.36 H, Estim Creat Clear Calc 35.79, Est GFR (MDRD) Af Amer 66, Est GFR (MDRD) Non-Af 55 L, BUN/Creatinine Ratio 18.4, Glucose 147 H, Calcium 8.6, Total Bilirubin 0.40, AST 47 H, ALT 49, Alkaline Phosphatase 79, Total Protein 6.7, Albumin 2.5 L, Globulin 4.2, Albumin/Globulin Ratio 0.6 L Clinical Impression(s) from Imaging Studies Chest CTA 05/13/20 10:46 IMPRESSION: No evidence of pulmonary embolism. Multiple bilateral focal areas of groundglass appearance in the peripheral distribution suggestive of a pneumonitis with the patient''s history of Covid. Solitary gallstone. Active Medications Acetaminophen (Acetaminophen 325 Mg Tablet) 650 mg PO Q6H PRN PRN PRN Reason: Pain Score 1-10/Temp > 100.7 F Dexamethasone (Dexamethasone 4 Mg Tablet) 6 mg PO DAILY SHERYL Stop: 05/23/20 10:01 Enoxaparin Sodium (Enoxaparin 30 Mg/0.3 Ml Syringe) 30 mg SC BID [facility] Last Admin: 05/13/20 21:02 Dose: 30 mg Documented by: Remdesivir 100 mg/ Sodium (Chloride) 250 mls @ 125 mls/hr IV DAILY [facility] Stop: 05/17/20 11:59 Melatonin (Melatonin 3 Mg Tablet) 3 mg PO QHS PRN PRN PRN Reason: INSOMNIA Ondansetron HCl (Ondansetron 4 Mg/2 Ml Vial) 4 mg IV Q8H PRN PRN PRN Reason: NAUSEA/VOMITING Sodium Chloride (0.9% Saline Lock 10 Ml Syringe) 10 - 40 ml IV UD PRN PRN Reason: SALINE FLUSH Inpatient E&M: 37025 Subs Hosp L2
[2020-05-14 08:50] VITALS: BP 145/58; PULSE 65; RESP 18; TEMP 36.2; O2SAT 95
[2020-05-14] MEDS: dexAMETHasone 4 MG Tablet 6 MG PO (09:05)
[2020-05-14] MEDS: Lactated Ringers 1,000 ML 100 ML IV (09:05)
[2020-05-14] MEDS: Enoxaparin 30 MG/0.3 ML Syringe SC ×2 (09:05→21:36)
[2020-05-14] MEDS: Verapamil SR 240 MG Tablet 120 MG PO (09:12)
[2020-05-14] MEDS: Aspirin 81 MG TAB.CHEW PO (09:12)
[2020-05-14] MEDS: Escitalopram Oxalate 10 MG Tablet PO (09:12)
[2020-05-14] MEDS: Lisinopril 10 MG Tablet PO (11:38)
[2020-05-14] MEDS: hydroCHLOROthiazide 12.5mg 12.5 MG PO (11:38)
[2020-05-14 14:43] VITALS: BP 136/47; PULSE 57; RESP 16; TEMP 36.3; O2SAT 95
[2020-05-14 20:13] VITALS: BP 128/48; PULSE 65; RESP 20; TEMP 36.6; O2SAT 93
--- NOTE | 2020-05-14 20:28 | NURSING ---
admission 05/13/20 1532
[2020-05-14] MEDS: Latanoprost 0.005% 1 Bottle 1 DRP EACH EYE (21:36)
[2020-05-14] MEDS: Atorvastatin Calcium 40 MG Tablet PO (21:37)
[2020-05-15 02:15] VITALS: BP 127/49; PULSE 57; RESP 20; TEMP 36.7; O2SAT 92
[2020-05-15] MEDS: Ondansetron 4 MG/2 ML Vial IV ×2 (02:22→21:11)
[2020-05-15 04:09] VITALS: BP 147/49
[2020-05-15] MEDS: Acetaminophen 325 MG Tablet 650 MG PO ×2 (04:09→21:12)
[2020-05-15 04:28] LABS: Absolute Neutrophil Count 5.3 X10^3/uL (2.0-7.7); Differential Indicated SCAN CRITERIA MET; Hematocrit 38.7 % (40-54); Lymphocyte % 7.8 % (19-41); Mean Corp Hgb Conc 33.6 g/dL (32-36); Mean Corpuscular Hgb 29.4 pg (27.0-32.0); Mean Corpuscular Volume 87.6 fL (80-94); Mean Platelet Vol. 10.1 fl (6.2-12.0); Monocyte# 0.58 X10^3/uL; Monocyte% 9.1 % (0-10); NRBC Flagged by Analyzer 0 % (0-5); Neutrophil # 5.29 X10^3/uL (2.7-7.7); Neutrophil % 82.6 % (47-70); POSITIVE DIFFERENTIAL YES; Platelet Count 155 K/mm3 (150-450); RBC Distribution Width CV 13.2 % (11.6-14.6); RBC Distribution Width SD 42.4 fl (35.1-43.9); Red Blood Count 4.42 M/mm3 (4.6-6.2); White Blood Count 6.4 K/mm3 (4.4-11.0)
[2020-05-15 04:44] LABS: ALB/GLOB Ratio 0.6 RATIO (0.9-2.4); AST(SGOT) 57 U/L (15-37); Alanine Aminotransfer ALT/SGPT 68 U/L (16-61); Albumin, Serum 2.4 g/dL (3.2-5.0); Alkaline Phosphatase 71 U/L (45-117); Anion Gap 6 (5-15); BUN 33 mg/dL (7-18); BUN/Creat Ratio 26.4 RATIO (10-20); Calcium,Total 8.5 mg/dL (8.5-10.1); Chloride 107 mmol/L (98-107); Creatinine, Serum 1.25 mg/dL (0.70-1.30); EST Glomerular Filtration Rate 60 mL/min (>60); Est Glom Filt Rate - Afr Amer 73 mL/min (>60); Estimated Creatinine Clearance 38.93 ml/min; Globulin 4.2 g/dL (2.2-4.2); Glucose 161 mg/dL (74-106); Potassium 4.4 mmol/L (3.5-5.1); Protein, Total 6.6 g/dL (6.4-8.2); Sodium Level 141 mmol/L (136-145)
--- NOTE | 2020-05-15 08:23 | PCM.PN.HOSP ---
Reason for Visit: Follow-up for COVID-19 pneumonia and upper abdominal pain Objective: Seen and examined. Heart rate and blood pressure are in normal range. Patient currently on room air. He complains of upper abdominal pain, constant, felt like low intensity 2-3, gnawing for some time. Denies any previous history of ulcer, GERD or EGD Physical exam General: Alert, Oriented x3, Cooperative HEENT: Atraumatic, PERRLA, EOMI, Normocephalic Oral: No Gingival or Mucosal Lesions/ Ulcerations Neck: Supple, No JVD, Negative Carotid Bruits Lungs: Air entry diminished in bilateral lung bases. No crepitation/rhonchi. No tachypnea Cardiovascular: Regular rate, Regular Rhythm, Normal S1, Normal S2, No murmurs Abdomen: No palpable mass. Bowel Sounds Present, Soft, Non Tender, Non-Distended : Dark yellow urine. No renal angle tenderness. No suprapubic tenderness. Extremities: No edema, Capillary Refill Less than 3 Seconds Skin: No rashes, No breakdown Musculoskeletal: No Tenderness to Palpation of Joints or Extremities Neurological: Cranial nerves II-XII grossly intact, Deep Tendon Reflexes 2+/4 and Symmetrical, Neuro grossly intact Psych/Mental Status: Normal Affect, Appropriate. Vitals/I&O's: Vital Signs Temp Pulse Resp BP Pulse Ox 98.1 F 57 L 20 H 147/49 H 92 05/15/20 02:15 05/15/20 02:15 05/15/20 02:15 05/15/20 04:09 05/15/20 02:15 Oxygen Flow Rate (L/min) 1 Oxygen Delivery Method Room Air Weight: 177 lb 14.609 oz Body Mass Index (BMI) 33.2 Intake and Output for Last 24 Hours 05/13/20 05/14/20 05/15/20 23:59 23:59 23:59 Intake Total 1430 / 1430 1989 / 1989 Output Total 250 / 250 950 / 950 650 / 650 Balance 1180 / 1180 1040 / 1040 -650 / -650 Microbiology Past 72 Hours 05/13/20 10:30 Blood Culture (Wb) - Anticubital Left Blood Culture - Preliminary No growth in 48 hours. 05/13/20 12:45 Blood Culture (Wb) - Right Hand Blood Culture - Preliminary No growth in 48 hours. Laboratory Results 05/15/20 04:15: WBC 6.4, RBC 4.42 L, Hgb 13.0, Hct 38.7 L, MCV 87.6, MCH 29.4, MCHC 33.6, RDW Std Deviation 42.4, RDW Coeff of Herrera 13.2, Plt Count 155, MPV 10.1, Immature Gran % (Auto) 0.500, Neut % (Auto) 82.6 H, Lymph % (Auto) 7.8 L, [place] % (Auto) 9.1, Eos % (Auto) 0.0, Baso % (Auto) 0.0, Absolute Neuts (auto) 5.3, Absolute Lymphs (auto) 0.50 L, Nucleated RBC % 0 05/15/20 04:15: Sodium 141, Potassium 4.4, Chloride 107, Carbon Dioxide 28.0, Anion Gap 6, BUN 33 H, Creatinine 1.25, Estim Creat Clear Calc 38.93, Est GFR (MDRD) Af Amer 73, Est GFR (MDRD) Non-Af 60, BUN/Creatinine Ratio 26.4 H, Glucose 161 H, Calcium 8.5, Total Bilirubin 0.30, AST 57 H, ALT 68 H, Alkaline Phosphatase 71, Total Protein 6.6, Albumin 2.4 L, Globulin 4.2, Albumin/Globulin Ratio 0.6 L Current Medications Acetaminophen (Acetaminophen 325 Mg Tablet) 650 mg PO Q6H PRN PRN PRN Reason: Pain Score 1-10/Temp > 100.7 F Last Admin: 05/15/20 04:09 Dose: 650 mg Documented by: Aspirin (Aspirin 81 Mg Tab.Chew) 81 mg PO DAILY [facility] Last Admin: 05/14/20 09:12 Dose: 81 mg Documented by: Atorvastatin Calcium (Atorvastatin Calcium 40 Mg Tablet) 40 mg PO QHS [facility] Last Admin: 05/14/20 21:37 Dose: 40 mg Documented by: Cholecalciferol (Cholecalciferol (Vit D3) 1,000 Unit (25mcg)) 2,000 unit PO DAILY [facility] Last Admin: 05/14/20 09:12 Dose: 2,000 unit Documented by: Dexamethasone (Dexamethasone 4 Mg Tablet) 6 mg PO DAILY [facility] Stop: 05/23/20 10:01 Last Admin: 05/14/20 09:05 Dose: 6 mg Documented by: Enoxaparin Sodium (Enoxaparin 30 Mg/0.3 Ml Syringe) 30 mg SC BID [facility] Last Admin: 05/14/20 21:36 Dose: 30 mg Documented by: Escitalopram Oxalate (Escitalopram Oxalate 10 Mg Tablet) 10 mg PO DAILY [facility] Last Admin: 05/14/20 09:12 Dose: 10 mg Documented by: Hydrochlorothiazide (Hydrochlorothiazide 12.5mg) 12.5 mg PO DAILY [facility] Last Admin: 05/14/20 11:38 Dose: 12.5 mg Documented by: Remdesivir 100 mg/ Sodium (Chloride) 250 mls @ 125 mls/hr IV DAILY [facility] Stop: 05/17/20 11:59 Last Infusion: 05/14/20 19:30 Dose: Infused Documented by: Latanoprost (Latanoprost 0.005% 1 Bottle) 1 drop EACH EYE QHS [facility] Last Admin: 05/14/20 21:36 Dose: 1 drop Documented by: Lisinopril (Lisinopril 10 Mg Tablet) 10 mg PO DAILY [facility] Last Admin: 05/14/20 11:38 Dose: 10 mg Documented by: Melatonin (Melatonin 3 Mg Tablet) 3 mg PO QHS PRN PRN PRN Reason: INSOMNIA Ondansetron HCl (Ondansetron 4 Mg/2 Ml Vial) 4 mg IV Q8H PRN PRN PRN Reason: NAUSEA/VOMITING Last Admin: 05/15/20 02:22 Dose: 4 mg Documented by: Polyethylene Glycol (Polyethylene Glycol 3350 17 Gm Packet) 17 gm PO DAILY PRN PRN PRN Reason: Constipation Sodium Chloride (0.9% Saline Lock 10 Ml Syringe) 10 - 40 ml IV UD PRN PRN Reason: SALINE FLUSH Verapamil HCl (Verapamil Sr 240 Mg Tablet) 120 mg PO DAILY [facility] Last Admin: 05/14/20 09:12 Dose: 120 mg Documented by: Medical Necessity - Tobacco Use Smoking Status: Never smoker Assessment/Plan All Active Problems (Last Reviewed 12/08/19 @ 12:45 by Toshia Bean) Sedentary lifestyle (Acute) Obesity (Acute) PAD (peripheral artery disease) (Acute) Chest pain (Acute) Acute dyspnea (Acute) 75-year-old woman with history of carotid stenosis status post right-sided CEA, PAD and possible COPD was admitted with shortness of breath for 1 week, found hypoxic 88% on room air in ED. Tested positive of Covid on May 02.CTA did not demonstrate PE. 1. Acute hypoxic insufficiency secondary to COVID-19 pneumonitis: On Decadron and remdesivir. CTA chest showed bilateral groundglass opacities. Bronchopulmonary hygiene. 05/15: Currently on room air. Leukopenia has resolved. No recurrence 6.4 thousand. 2. CKD stage 3 probably secondary to chronic comorbidities hypertension, peripheral arterial disease: BUN/creatinine 25/1.36, admitted with 20/1.46. Baseline runs around creatinine 1.4?1.5. Urine output well-documented 250 mL last night and 100 mL after midnight. 05/15: BUN/creatinine 33/1.25. 3. Peripheral arterial disease status post right-sided CEA, hypertension, dyslipidemia: Home medications continued. Patient on aspirin and Lipitor. Blood pressure is 147/95. Home medication reconciliation done. Patient on HCTZ- lisinopril 12.5/10 mg daily. Will give IV fluid as BUN went up. Upper abdominal pain, seems chronic: Started on Protonix as empiric treatment for gastritis. If does not get better will need EGD or further evaluation as chronic mesenteric atherosclerotic disease is also consideration but can have as an outpatient evaluation. 4. Anxiety/depression: Stable on Lexapro DVT: Lovenox Microbiology Past 72 Hours 05/13/20 10:30 Blood Culture (Wb) - Anticubital Left Blood Culture - Preliminary No growth in 48 hours. 05/13/20 12:45 Blood Culture (Wb) - Right Hand Blood Culture - Preliminary No growth in 48 hours. Laboratory Results 05/15/20 04:15: WBC 6.4, RBC 4.42 L, Hgb 13.0, Hct 38.7 L, MCV 87.6, MCH 29.4, MCHC 33.6, RDW Std Deviation 42.4, RDW Coeff of Herrera 13.2, Plt Count 155, MPV 10.1, Immature Gran % (Auto) 0.500, Neut % (Auto) 82.6 H, Lymph % (Auto) 7.8 L, [place]k % (Auto) 9.1, Eos % (Auto) 0.0, Baso % (Auto) 0.0, Absolute Neuts (auto) 5.3, Absolute Lymphs (auto) 0.50 L, Nucleated RBC % 0 05/15/20 04:15: Sodium 141, Potassium 4.4, Chloride 107, Carbon Dioxide 28.0, Anion Gap 6, BUN 33 H, Creatinine 1.25, Estim Creat Clear Calc 38.93, Est GFR (MDRD) Af Amer 73, Est GFR (MDRD) Non-Af 60, BUN/Creatinine Ratio 26.4 H, Glucose 161 H, Calcium 8.5, Total Bilirubin 0.30, AST 57 H, ALT 68 H, Alkaline Phosphatase 71, Total Protein 6.6, Albumin 2.4 L, Globulin 4.2, Albumin/Globulin Ratio 0.6 L Clinical Impression(s) from Imaging Studies Chest CTA 05/13/20 10:46 IMPRESSION: No evidence of pulmonary embolism. Multiple bilateral focal areas of groundglass appearance in the peripheral distribution suggestive of a pneumonitis with the patient''s history of Covid. Solitary gallstone. Inpatient E&M: 94462 Subs Hosp L2
[2020-05-15 08:35] VITALS: BP 148/52; PULSE 63; RESP 16; TEMP 36.2; O2SAT 98
[2020-05-15] MEDS: Enoxaparin 30 MG/0.3 ML Syringe SC ×2 (08:37→21:11)
[2020-05-15] MEDS: Verapamil SR 240 MG Tablet 120 MG PO (08:38)
[2020-05-15] MEDS: Aspirin 81 MG TAB.CHEW PO (08:38)
[2020-05-15] MEDS: dexAMETHasone 4 MG Tablet 6 MG PO (08:38)
[2020-05-15] MEDS: hydroCHLOROthiazide 12.5mg 12.5 MG PO (08:38)
[2020-05-15] MEDS: Escitalopram Oxalate 10 MG Tablet PO (08:38)
[2020-05-15] MEDS: Lisinopril 10 MG Tablet PO (08:38)
[2020-05-15] MEDS: 0.9% Saline Lock 10 ML Syringe IV ×2 (10:55→21:12)
[2020-05-15 11:00] VITALS: O2SAT 97
[2020-05-15 14:13] VITALS: BP 141/48; PULSE 72; RESP 16; TEMP 36.3; O2SAT 96
[2020-05-15 20:06] VITALS: BP 153/45; PULSE 60; RESP 18; TEMP 36.6; O2SAT 97
[2020-05-15] MEDS: Latanoprost 0.005% 1 Bottle 1 DRP EACH EYE (21:11)
[2020-05-15] MEDS: Atorvastatin Calcium 40 MG Tablet PO (21:13)
[2020-05-16 02:03] VITALS: BP 142/42; PULSE 53; RESP 16; TEMP 36.6; O2SAT 94
[2020-05-16] MEDS: 0.9% Saline Lock 10 ML Syringe IV (04:41)
[2020-05-16 04:50] LABS: Absolute Lymphocyte Count 0.56 X10^3/uL (0.83-4.51); Absolute Neutrophil Count 6.4 X10^3/uL (2.0-7.7); Basophil# 0.01 X10^3/uL; Basophil% 0.1 % (0-1); Hematocrit 38.4 % (40-54); Hemoglobin 12.7 g/dL (13.0-16.5); Lymphocyte # 0.56 X10^3/ul (4.0); Lymphocyte % 7.5 % (19-41); Mean Corp Hgb Conc 33.1 g/dL (32-36); Mean Corpuscular Hgb 28.8 pg (27.0-32.0); Mean Corpuscular Volume 87.1 fL (80-94); Mean Platelet Vol. 10.4 fl (6.2-12.0); Monocyte% 5.4 % (0-10); NRBC Flagged by Analyzer 0 % (0-5); Neutrophil # 6.41 X10^3/uL (2.7-7.7); Neutrophil % 86.2 % (47-70); POSITIVE DIFFERENTIAL YES; Platelet Count 171 K/mm3 (150-450); RBC Distribution Width CV 13.2 % (11.6-14.6); RBC Distribution Width SD 42.5 fl (35.1-43.9); Red Blood Count 4.41 M/mm3 (4.6-6.2); White Blood Count 7.4 K/mm3 (4.4-11.0)
[2020-05-16 04:51] LABS: Differential Indicated SCAN CRITERIA MET
[2020-05-16 05:08] LABS: ALB/GLOB Ratio 0.6 RATIO (0.9-2.4); AST(SGOT) 47 U/L (15-37); Alanine Aminotransfer ALT/SGPT 80 U/L (16-61); Albumin, Serum 2.3 g/dL (3.2-5.0); Alkaline Phosphatase 67 U/L (45-117); Anion Gap 5 (5-15); BUN 32 mg/dL (7-18); BUN/Creat Ratio 26.7 RATIO (10-20); Calcium,Total 8.4 mg/dL (8.5-10.1); Chloride 107 mmol/L (98-107); EST Glomerular Filtration Rate 63 mL/min (>60); Est Glom Filt Rate - Afr Amer 76 mL/min (>60); Estimated Creatinine Clearance 40.56 ml/min; Globulin 3.8 g/dL (2.2-4.2); Glucose 217 mg/dL (74-106); Potassium 4.7 mmol/L (3.5-5.1); Protein, Total 6.1 g/dL (6.4-8.2); Sodium Level 140 mmol/L (136-145)
[2020-05-16 07:03] VITALS: O2SAT 94
[2020-05-16 07:25] VITALS: O2SAT 77
[2020-05-16 08:04] VITALS: BP 149/50; PULSE 53; RESP 16; TEMP 36.3; O2SAT 93
[2020-05-16] MEDS: Enoxaparin 30 MG/0.3 ML Syringe SC (08:43)
[2020-05-16] MEDS: dexAMETHasone 4 MG Tablet 6 MG PO (08:43)
[2020-05-16] MEDS: hydroCHLOROthiazide 12.5mg 12.5 MG PO (08:44)
[2020-05-16] MEDS: Verapamil SR 240 MG Tablet 120 MG PO (08:44)
[2020-05-16] MEDS: Escitalopram Oxalate 10 MG Tablet PO (08:44)
[2020-05-16] MEDS: Pantoprazole Sodium 40 MG Tablet PO (08:45)
[2020-05-16] MEDS: Aspirin 81 MG TAB.CHEW PO (08:45)
[2020-05-16] MEDS: Lisinopril 10 MG Tablet PO (08:45)
[2020-05-16 08:55] VITALS: O2SAT 77; O2SAT 91; O2SAT 92
--- NOTE | 2020-05-16 10:08 | CASEMGMT ---
Addendum entered by Ryan Bach 05/16/20 11:30: Script faxed to [facility] at [phone]. Call to [facility], it has not been processed through their corporate office yet, but when this is complete they will bring a portable tank for dc. Original Note: RN CM Assessment Note Introduced role of CM to patient via phone in room. Demographics, PCP verified. Patient is independent @ home. Pt told physician and nurse he was able to go home today. He told RN CM he was weak. Physician updated. Pt states he will have his sister or his step son bring groceries etc to the home. In speaking with nurse, patient is independent in room and ambulating without assistance. Presentation: shortness of breath Diagnosis: covid PCP: Dr. Varela Specialists: none Insurance: Lucía OWEN Preferred [facility]acy: [facility] Prescription Benefit: yes LNOK: Geetha Reza Living Arrangements: Lives alone Tranportation: drives DME: [employer]Network providers: [facility], [facility] [place] [facility]. Reviewed list with patient via phone including [facility] and hospital affiliation. Pt wears Cpap at night. HHC: none SNF: none Patient DC Goals: Home on discharge. Patient stated his sister could bring supplies if needed. DC Plan: Home with oxygen through [facility]- requiring on exertion only. Information for pulse ox purchase given to patient via brochures. CM available for discharge planning coordination. Contact CM for any concerns/needs that may arise. Amelia OCHOA RN ACM
--- NOTE | 2020-05-16 10:11 | PCM.DC ---
You will use the following diet at home:: Calorie/Carbohydrate Controlled (specify 1200, 1400, etc) Your food should be the consistency of: Regular Your liquids should be the consistency of: Regular/Thin Discharge Activity: Return to Normal Activity Call your doctor if you observe: Fever of 101 or Higher, Shortness of breath, Dizziness, Fainting spells, Swelling in the ankles, Chest pain, Increased palpitations (irregular heartbeat) Instructions: Coronavirus Disease 2019 (COVID-19): Overview, Coronavirus Disease 2019 (COVID-19): Caring for Yourself or Others Allergies/Adverse Reactions: Allergies amoxicillin Adverse Reaction (Intermediate, Verified 05/13/20 10:17) GI Upset Medications to take at Discharge cholecalciferol (vitamin D3) 50 mcg (2,000 unit) capsule 2,000 unit PO DAILY 03/10/19 latanoprost 0.005 % eye drops 1 drp EACH EYE QHS 04/24/19 polyethylene glycol 3350 17 gram/dose oral powder 17 g PO DAILY PRN 12/03/19 Aspirin [Aspirin, Baby] 81 mg PO DAILY@0800 05/13/20 Escitalopram Oxalate [Lexapro] 10 mg PO DAILY 05/13/20 Lisinopril/Hydrochlorothiazide [Lisinopril-Hctz 10-12.5 mg Tab] 1 tab PO DAILY 05/13/20 Simvastatin 40 mg PO QHS 05/13/20 Verapamil HCl [Verapamil ER] 120 mg PO DAILY 05/13/20 Dexamethasone [Decadron] 6 mg PO DAILY #21 tab 05/16/20 The following prescriptions were given: Dexamethasone [Decadron] 6 mg PO DAILY #21 tab Transmission Status: Pending to [facility] Primary Care Physician: Neftaly Varela MD [Primary Care Provider] - Please follow up with your Primary Care Physician in: 3-5 days Test Results: Test results from this visit will be discussed in further detail at your follow-up appointment, if applicable.
[2020-05-16 11:41] LABS: Pathologist Review Reviewed
[2020-05-16 11:49] LABS: Pathologist Review Reviewed
--- NOTE | 2020-05-16 13:14 | DS.PCM_ITS ---
Discharge Date and Diagnosis Date of Admission: 05/13/20 Date of Discharge: 05/16/20 - Secondary Discharge Diagnosis Chronic Problems: Chronic Problems (Last Reviewed 12/08/19 @ 12:45 by Toshia Bean) Claudication (Chronic) History of left heart catheterization (Chronic 01/09/18) Nonobstructive coronaries, hypertrophic cardiomyopathy, Normal LV systolic function, elevated left ventricular end diastolic pressure per Dr. Hunter @ [facility] 01/09/2018 Other hypertrophic cardiomyopathy (Chronic) Pure hypercholesterolemia (Chronic) Essential (primary) hypertension (Chronic) Nonrheumatic tricuspid (valve) insufficiency (Chronic) Mild (1+) per echo 12/09/17, RVSP 26 mmhg. EF 60%. History of colonoscopy (Chronic 08/04/15) H/O removal of cyst (Chronic) coccyx History of right-sided carotid endarterectomy (Chronic 2005) History of carotid stenosis (Chronic) possible COPD (Chronic) Hospital Course and Treatment Imaging Results: Clinical Impression(s) from Imaging Studies Chest CTA 05/13/20 10:46 IMPRESSION: No evidence of pulmonary embolism. Multiple bilateral focal areas of groundglass appearance in the peripheral distribution suggestive of a pneumonitis with the patient''s history of Covid. Solitary gallstone. Electronically Signed: Babak Vale MD at 11:58 EST , Service support , Operations: None Procedures: None Summary of Care Provided: Per HPI: The patient is a 75 year old M with a PMH as below who presents to the hospital with shortness of breath. He tested positive for Covid at an urgent care in the community on May 02 and says that he has been getting more short of breath and weaker over the last week. He has had some lightheadedness but this is chronic for him every morning whenever he gets up. He denies any chest pain, or increased swelling. In the ER he was found to be hypoxic to 88% on room air and is 98% 2 L nasal cannula. He was given a dose of IV Decadron in the ED. His D-dimer was 0.69 which based on age criteria is not elevated however he did have a CTA which did not demonstrate a PE. His creatinine is 1.46 which is baseline for him. Hospital Course: 1. Acute hypoxic insufficiency secondary to COVID-19 pneumonitis -We will encourage incentive spirometry continue with oxygen -His positive test was on May 02 however he had symptoms for a few days before then -CT of the chest was negative for PEs but did show bilateral groundglass opacities consistent with viral pneumonitis. His D-dimer was 0.69 which is not elevated based on his age -Continue with p.o. Decadron. Discussed with him that his blood sugars can become elevated therefore he should be careful with what he eats until he completes his steroid course -We will start on remdesivir -Will not place him on any IV fluids as his kidney function is at baseline -He was managing well on room air, however he did have an ambulatory pulse ox today which demonstrated a need for 4 L with ambulation. I discussed with him the possibility for discharge today and he expressed understanding the risk benefits of going home and he wanted to go home today. I discussed with him if he has any further issues he could come back to the hospital. Otherwise he will complete his Decadron course at home and he has had 4 out of 5 doses of the remdesivir. He states that he is little bit weak transferring from bed to chair but he does want to go to a half-way. 2. CKD 3 -Creatinine is at baseline -We will continue to monitor 3. HTN/HLD/peripheral artery disease -He is status post a carotid endarterectomy -We will continue with his home blood pressure medications -Continue with aspirin continue with Lipitor 4. Anxiety/depression -Stable -Continue with Lexapro - Physical Exam Vitals/I&O's: Vital Signs Temp Pulse Resp BP Pulse Ox 97.3 F L 53 L 16 149/50 H 91 05/16/20 08:04 05/16/20 08:04 05/16/20 08:04 05/16/20 08:04 05/16/20 08:55 Oxygen Flow Rate (L/min) [ 4 AMBULATION with Oxygen] Oxygen Flow Rate (L/min) 1 Oxygen Delivery Method Room Air Weight: 178 lb 2.136 oz Body Mass Index (BMI) 33.2 Intake and Output for Last 24 Hours 05/14/20 05/15/20 05/16/20 23:59 23:59 23:59 Intake Total 1989 940 / 940 730 / 730 Output Total 950 / 950 1775 / 1775 825 / 825 Balance 1040 / 1040 -835 / -835 -95 / -95 General: Alert, Oriented x3, Cooperative, No apparent distress HEENT: Atraumatic, PERRLA, EOMI, Normocephalic Oral: Moist Mucosa Neck: Supple, No JVD Lungs: Normal air movement, No rhonchi, No wheeze, No rales, Diminished Cardiovascular: Regular rate, Regular Rhythm, Normal S1, Normal S2, No murmurs Abdomen: Soft, Non Tender, Non-Distended, No Hepato-splenomegaly Extremities: No edema, Capillary Refill Less than 3 Seconds Skin: No rashes, No breakdown Neurological: Neuro grossly intact, Sensory exam intact to light touch and pain Psych/Mental Status: Normal Affect, Appropriate Microbiology Past 72 Hours 05/13/20 10:30 Blood Culture (Wb) - Anticubital Left Blood Culture - Preliminary No growth in 48 hours. 05/13/20 12:45 Blood Culture (Wb) - Right Hand Blood Culture - Preliminary No growth in 48 hours. Laboratory Results 05/13/20 10:30: Diff Path Review Reviewed 05/14/20 02:50: Diff Path Review Reviewed 05/16/20 04:40: WBC 7.4, RBC 4.41 L, Hgb 12.7 L, Hct 38.4 L, MCV 87.1, MCH 28.8, MCHC 33.1, RDW Std Deviation 42.5, RDW Coeff of Herrera 13.2, Plt Count 171, MPV 10.4, Immature Gran % (Auto) 0.800, Neut % (Auto) 86.2 H, Lymph % (Auto) 7.5 L, [place] % (Auto) 5.4, Eos % (Auto) 0.0, Baso % (Auto) 0.1, Absolute Neuts (auto) 6.4, Absolute Lymphs (auto) 0.56 L, Nucleated RBC % 0 05/16/20 04:40: Sodium 140, Potassium 4.7, Chloride 107, Carbon Dioxide 28.0, Anion Gap 5, BUN 32 H, Creatinine 1.20, Estim Creat Clear Calc 40.56, Est GFR (MDRD) Af Amer 76, Est GFR (MDRD) Non-Af 63, BUN/Creatinine Ratio 26.7 H, Glucose 217 H, Calcium 8.4 L, Total Bilirubin 0.30, AST 47 H, ALT 80 H, Alkaline Phosphatase 67, Total Protein 6.1 L, Albumin 2.3 L, Globulin 3.8, Albumin/Globulin Ratio 0.6 L Current Medications Acetaminophen (Acetaminophen 325 Mg Tablet) 650 mg PO Q6H PRN PRN PRN Reason: Pain Score 1-10/Temp > 100.7 F Last Admin: 05/15/20 21:12 Dose: 650 mg Documented by: Aspirin (Aspirin 81 Mg Tab.Chew) 81 mg PO DAILY [facility] Last Admin: 05/16/20 08:45 Dose: 81 mg Documented by: Atorvastatin Calcium (Atorvastatin Calcium 40 Mg Tablet) 40 mg PO QHS [facility] Last Admin: 05/15/20 21:13 Dose: 40 mg Documented by: Cholecalciferol (Cholecalciferol (Vit D3) 1,000 Unit (25mcg)) 2,000 unit PO DAILY [facility] Last Admin: 05/16/20 08:45 Dose: 2,000 unit Documented by: Dexamethasone (Dexamethasone 4 Mg Tablet) 6 mg PO DAILY [facility] Stop: 05/23/20 10:01 Last Admin: 05/16/20 08:43 Dose: 6 mg Documented by: Enoxaparin Sodium (Enoxaparin 30 Mg/0.3 Ml Syringe) 30 mg SC BID [facility] Last Admin: 05/16/20 08:43 Dose: 30 mg Documented by: Escitalopram Oxalate (Escitalopram Oxalate 10 Mg Tablet) 10 mg PO DAILY [facility] Last Admin: 05/16/20 08:44 Dose: 10 mg Documented by: Hydrochlorothiazide (Hydrochlorothiazide 12.5mg) 12.5 mg PO DAILY [facility] Last Admin: 05/16/20 08:44 Dose: 12.5 mg Documented by: Remdesivir 100 mg/ Sodium (Chloride) 250 mls @ 125 mls/hr IV DAILY [facility] Stop: 05/17/20 11:59 Last Infusion: 05/16/20 11:47 Dose: Infused Documented by: Latanoprost (Latanoprost 0.005% 1 Bottle) 1 drop EACH EYE QHS [facility] Last Admin: 05/15/20 21:11 Dose: 1 drop Documented by: Lisinopril (Lisinopril 10 Mg Tablet) 10 mg PO DAILY [facility] Last Admin: 05/16/20 08:45 Dose: 10 mg Documented by: Melatonin (Melatonin 3 Mg Tablet) 3 mg PO QHS PRN PRN PRN Reason: INSOMNIA Ondansetron HCl (Ondansetron 4 Mg/2 Ml Vial) 4 mg IV Q8H PRN PRN PRN Reason: NAUSEA/VOMITING Last Admin: 05/15/20 21:11 Dose: 4 mg Documented by: Pantoprazole Sodium (Pantoprazole Sodium 40 Mg Tablet) 40 mg PO DAILY [facility] Last Admin: 05/16/20 08:45 Dose: 40 mg Documented by: Polyethylene Glycol (Polyethylene Glycol 3350 17 Gm Packet) 17 gm PO DAILY PRN PRN PRN Reason: Constipation Sodium Chloride (0.9% Saline Lock 10 Ml Syringe) 10 - 40 ml IV UD PRN PRN Reason: SALINE FLUSH Last Admin: 05/16/20 04:41 Dose: 10 ml Documented by: Verapamil HCl (Verapamil Sr 240 Mg Tablet) 120 mg PO DAILY [facility] Last Admin: 05/16/20 08:44 Dose: 120 mg Documented by: Discharge Activity: Return to Normal Activity Call your doctor if you observe: Fever of 101 or Higher, Shortness of breath, Dizziness, Fainting spells, Swelling in the ankles, Chest pain, Increased palpitations (irregular heartbeat) Home Medications: Medications to take at Discharge cholecalciferol (vitamin D3) 50 mcg (2,000 unit) capsule 2,000 unit PO DAILY 03/10/19 latanoprost 0.005 % eye drops 1 drp EACH EYE QHS 04/24/19 polyethylene glycol 3350 17 gram/dose oral powder 17 g PO DAILY PRN 12/03/19 Aspirin [Aspirin, Baby] 81 mg PO DAILY@0800 05/13/20 Escitalopram Oxalate [Lexapro] 10 mg PO DAILY 05/13/20 Lisinopril/Hydrochlorothiazide [Lisinopril-Hctz 10-12.5 mg Tab] 1 tab PO DAILY 05/13/20 Simvastatin 40 mg PO QHS 05/13/20 Verapamil HCl [Verapamil ER] 120 mg PO DAILY 05/13/20 Dexamethasone [Decadron] 6 mg PO DAILY #21 tab 05/16/20 Following Prescriptions Were Given to Patient: Dexamethasone [Decadron] 6 mg PO DAILY #21 tab Transmission Status: Received by [facility] Primary Care Physician: Neftaly Varela MD [Primary Care Provider] - Please follow up with your Primary Care Physician in: 3-5 days Please Follow Up With: David Varela Patient Instructions: Coronavirus Disease 2019 (COVID-19): Overview, Coronavirus Disease 2019 (COVID-19): Caring for Yourself or Others Disposition: Home Minutes spent on discharge:: 35 Medical Necessity - Tobacco Use Smoking Status: Never smoker Meaningful Use Info Meaningful Use Diagnoses (Choose all that apply): None applicable Inpatient E&M: 09956 Disch Hosp
--- NOTE | 2020-05-17 16:49 | CASEMGMT ---
RN CM Note DC DATE: 05/16/20 DC Diagnosis: COVID 19 DC Disposition: Home with oxygen through [facility] Intro role of CM to patient via phone. Pt states he is improving. No questions re: medications or follow. Pt will contact his PCP tomorrow re: f/u appointment. Pt states with his oxygen, pulse is running around 93%. No further concerns and no care improvement suggestions. Amelia OCHOA RN ACM
== END 2020-05-16 14:50 | disposition home or self-care (01) | DRG 177 ==
LOC: ED 14:09 → ICU 15:30
PROVIDERS: Admitting Provider Family Medicine; Emergency Provider Emergency Medicine; PCP Family Medicine; Visit Provider Family Medicine
DX: U07.1 COVID-19 (principal); J12.82 Pneumonia due to coronavirus disease 2019; I42.2 Other hypertrophic cardiomyopathy; R09.02 Hypoxemia; I12.9 Hypertensive chronic kidney disease with stage 1 through stage 4 chronic kidney disease, or unspecified chronic kidney disease; I73.9 Peripheral vascular disease, unspecified; N18.30 Chronic kidney disease, stage 3 unspecified; F32.9 Major depressive disorder, single episode, unspecified; F41.9 Anxiety disorder, unspecified; E78.5 Hyperlipidemia, unspecified; I36.1 Nonrheumatic tricuspid (valve) insufficiency; I65.29 Occlusion and stenosis of unspecified carotid artery; E66.9 Obesity, unspecified; Z68.34 Body mass index [BMI] 34.0-34.9, adult; Z82.49 Family history of ischemic heart disease and other diseases of the circulatory system
CPT/HCPCS: 36415; 71275; 80053; 83605; 84484; 85025; 85379; 87040; 93005; 99251; 99285; J7050; J7120; Q9967; A4216; G0463; J2405

== ENCOUNTER → 2020-07-12 09:33 | Outpatient (CLI) | payer MEDICARE, SELFPAY ==
[2020-06-16 08:55] VITALS: BMI 34.9
--- NOTE | 2020-07-12 09:36 | ECHOCS_ITS ---
Reason For Study: HYPERTROPHIC CARDIOMYOPATHY Procedure This was a 2D Doppler, Color Flow transthoracic echocardiogram. The study was technically difficult. Contrast injection was performed. Exam performed in department. Left Ventricle Normal LV size. Moderate concentric left ventricular hypertrophy. Left ventricular systolic function is normal. The estimated ejection fraction is 65 %. No evidence for diastolic dysfunction. No regional wall motion abnormalities noted. Right Ventricle Normal RV size. Normal systolic function. Atria Normal left atrium. Normal right atrium. No doppler evidence for ASD. Mitral Valve There is mild mitral annular calcification. Chordal systolic anterior motion of the mitral valve. Mild (1+) mitral valve insufficiency. Tricuspid Valve Normal tricuspid valve. Mild tricuspid valve insufficiency. Right ventricular systolic pressure estimated to be 32 mmHg. Aortic Valve Trisinus/trileaflet aortic valve. Mild focal aortic valve calcification. Pulmonic Valve The pulmonic valve is not well visualized. Trivial pulmonic valve insufficiency. Great Vessels Normal sized aortic root. Pericardium/Pleural No pericardial effusion. Epicardial fat. Medication 22 gauge I.V. with prn adaptor inserted into right arm. Diluted definity 2.0ml given slow IV push to enhance endocardial definition. MMode/2D Measurements & Calculations LVIDd: 4.6 cm IVSd: 1.3 cm LVOT diam: 2.0 cm LVIDs: 2.8 cm LVPWd: 1.3 cm RVDd: 3.4 cm FS: 39.2 % LVOT area: 3.2 cm2 Ao root diam: 3.1 cm LAV(MOD-bp): 58.3 ml LA A4 area: 17.0 cm2 LAV(MOD-bp) Indexed: 31.9 ml/m2 LAV(MOD-sp2): 60.3 ml LAV(MOD-sp4): 51.2 ml LA dimension(2D): 4.1 cm RA A4 area: 12.4 cm2 Time Measurements MV dec time: 0.17 sec Doppler Measurements & Calculations MV E max russell: 80.6 cm/sec Lat Peak E' Russell: 7.3 cm/sec Med Peak E' Russell: 9.1 cm/sec MV A max russell: 86.6 cm/sec E/E' lat: 11.0 E/E' med: 8.8 MV E/A: 0.93 Ao V2 max: 204.5 cm/sec LV V1 max: 136.3 cm/sec SV(LVOT): 83.9 ml Ao max P.8 mmHg LV V1 max P.4 mmHg Ao V2 mean: 140.3 cm/sec LV V1 mean P.2 mmHg Ao mean P.7 mmHg LV V1 mean: 97.4 cm/sec Ao V2 VTI: 39.2 cm LV V1 VTI: 26.3 cm MAYELIN(I,D): 2.1 cm2 MAYELIN(V,D): 2.1 cm2 PA V2 max: 153.1 cm/sec TR max russell: 268.3 cm/sec TR max P.8 mmHg ECHO/Echo Complete W/ Contrast Interpretation Summary The study was technically difficult. Contrast injection was performed. Left ventricular systolic function is normal. The estimated ejection fraction is 65 %. Moderate concentric left ventricular hypertrophy. There is mild mitral annular calcification. Chordal systolic anterior motion of the mitral valve. Mild (1+) mitral valve insufficiency. Mild tricuspid valve insufficiency. Mild focal aortic valve calcification. Trivial pulmonic valve insufficiency. Epicardial fat. Right ventricular systolic pressure estimated to be 32 mmHg. No evidence for diastolic dysfunction. Ordering Physician: Sasha Glaser Referring Physician: Neftaly Varela Performed By: Izabel Blum, [place], RVT
== END ==
PROVIDERS: PCP Family Medicine; Referring Provider Physician Assistant Medical; Visit Provider Physician Assistant Medical
DX: I42.2 Other hypertrophic cardiomyopathy (principal)
CPT/HCPCS: 93306; Q9957; A4216; C8929

== ENCOUNTER → 2020-11-14 09:43 | Outpatient (CLI) | payer MEDICARE, SELFPAY ==
[2020-06-16 08:55] VITALS: BMI 34.9
--- NOTE | 2020-11-14 09:45 | CDU_ITS ---
Reason For Study: Carotid stenosis Rt. Velocities/BP Lt. Velocities/BP Prox CCA 111.2/12.1 cm/sec. Prox CCA 144.8/17 cm/sec. Mid CCA 95.6/8.2 cm/sec. Mid CCA 72.8/9 cm/sec. Dist CCA 65.1/8 cm/sec. Dist CCA 67.9/7.7 cm/sec. Prox ICA 47.9/7.3 cm/sec. Prox ICA 43.2/11.3 cm/sec. Mid ICA 60.5/9.9 cm/sec. Mid ICA 80.6/13.5 cm/sec. Dist ICA 83.4/11.6 cm/sec. Dist ICA 65.6/14.7 cm/sec. Rt. ICA/CCA = 0.87. Lt. ICA/CCA = 1.11. Prox ECA 105.8/5.8 cm/sec. Prox ECA 135.7/6 cm/sec. Rt. Vert. 51.3/12.6 cm/sec. Lt. Vert. 40.9/12.6 cm/sec. Right Extracranial There is homogeneous, smooth atherosclerotic plaque noted in the right common carotid artery. There is intimal thickening but no significant atherosclerotic plaque noted in the right internal carotid artery. There is intimal thickening but no significant atherosclerotic plaque noted in the right external carotid artery. Antegrade flow is noted in the right vertebral artery. Left Extracranial There is homogeneous, smooth atherosclerotic plaque noted in the left common carotid artery. There is heterogeneous, irregular atherosclerotic plaque noted in the left internal carotid artery. The left internal carotid artery is very tortuous. There is intimal thickening but no significant atherosclerotic plaque noted in the left external carotid artery. Antegrade flow is noted in the left vertebral artery. Procedure Carotid Duplex [id number]. This is a Carotid Duplex examination using B-mode, color flow and specral Doppler. Exam performed in department. VL/Carotid Duplex Ultrasound Interpretation Summary Postoperative change in the right carotid bulb and proximal internal carotid ar javier with intimal thickening noted. Less than 50% stenosis right internal carotid artery Less than 50% stenosis right external carotid artery Irregular plaque of the proximal left internal carotid artery with less than 50 % stenosis Less than 50% stenosis left external carotid artery Patent and antegrade vertebral arteries bilaterally No change from March 18, 2019 Ordering Physician: Dallas Wang Referring Physician: Neftaly Varela Performed By: Massiel Cordoba RVT
--- NOTE | 2020-11-14 09:45 | ART_ITS ---
Reason For Study: PAD Procedure A bilateral lower extremity continuous wave Doppler with analog waveform analysis,segmental pressures,and ankle brachial indexes with exercise. Left Segmental Pressures Left brachial= 152mmHg. Left posterior tibial artery = 144mmHg. Left dorsalis pedis artery = 152mmHg. Left digit = 148 mmHg. The left dorsalis pedis waveforms are triphasic. The left posterior tibial artery waveforms are triphasic. Right Segmental Pressures Right brachial= 146mmHg. Right thigh = 142mmHg. Right calf = 130mmHg. Right posterior tibial artery = 123mmHg. Right dorsalis pedis artery = 128mmHg. Right digit = 114 mmHg. The right dorsalis pedis waveforms are triphasic. The right posterior tibial artery waveforms are triphasic. Indices The right ankle brachial index by the dorsalis pedis is 0.84. The right ankle brachial index by the posterior tibial artery is 0.81. The right digital-brachial index is 0.75. The right post exercise ankle brachial index is 0.47. The left ankle brachial index by the dorsalis pedis is 1.00. The left ankle brachial index by the posterior tibial artery is 0.95. The left digital-brachial index is 0.97. The left post exercise ankle brachial index is 0.38. VL/Lower Ext Art Exam w/ Exercise Interpretation Summary Abnormal right lower extremity PT and DP ankle-brachial indices of 0.81 and 0.8 4 respectively consistent with moderate occlusive disease. Doppler waveforms however remain tr iphasic. With exercise the right YEVGENIY goes from 0.84 to immediately after exercise at 0.4 7. There is recovery by 9 minutes. This is an abnormal exercise result Left lower extremity PT and DP ankle-brachial index at rest 0.95 and 1 respecti vely which would be normal. The left posterior tibial and dorsalis pedis Doppler waveforms are trip hasic and normal. With exercise the left YEVGENIY goes from a resting 1 to immediately after exercise at 0.38 there is incomplete recovery by 9 minutes which would be an abnormal result. Bilateral resting digital brachial indices are normal Ordering Physician: Dallas Wang Referring Physician: Neftaly Varela Performed By: Massiel Cordoba RVT
== END ==
PROVIDERS: PCP Family Medicine; Referring Provider Surgery; Visit Provider Surgery
DX: I73.9 Peripheral vascular disease, unspecified (principal); I65.23 Occlusion and stenosis of bilateral carotid arteries; Z86.79 Personal history of other diseases of the circulatory system
CPT/HCPCS: 93880; 93924

== ENCOUNTER → 2021-12-28 | Outpatient (CLI) | payer MEDICARE, SELFPAY ==
[2020-11-17 05:56] VITALS: BMI 34.9
--- NOTE | 2021-12-28 09:42 | ADUL_ITS ---
Reason For Study: PAD Left Velocities Ext Iliac Artery, dist = 254.7 cm./sec. Common Femoral Artery, mid = 258.4 cm./sec. SFA, origin, 247.4 cm/sec. Supf. Femoral Artery, prox = 137 cm./sec. Supf. Femoral Artery, mid = 225.3 cm./sec. Supf. Femoral Artery, dist = 120.4 cm./sec. Profunda Femoral Artery = 258.4 cm./sec. Popliteal Artery, proximal, = 84 cm./sec. Popliteal Artery, mid = 145.4 cm./sec. Post. Tibial Artery, prox = 80.8 cm./sec. Post Tibial Artery, mid = 90 cm./sec. Post Tibial Artery, dist. = 75.3 cm./sec. Peroneal Artery, prox = 38.7 cm./sec. Peroneal Artery, mid = 58.5 cm./sec. Peroneal Artery,dist. = 35.4 cm./sec. Ant.Tibial Artery, prox = 76.1 cm./sec. Ant Tibial Artery, mid = 87.1 cm./sec. Ant. Tibial Artery, distal = 77.7 cm./sec. /US Art Duplex Unilat Lower Ext Interpretation Summary Calcific plaque with shadowing involving the left distal external iliac and com mon femoral and superficial femoral arteries. Velocities are generally elevated within the left external iliac common femoral and superficial femoral arteries suggesting at least mild to mod erate occlusive disease. There is no doubling of velocity located within the left superficial femoral ar javier suggesting less than 50% stenosis but irregular plaque is present. The left profundofemoral also demonstrates an increased velocity suggesting mil d to moderate disease. Blood flow was maintained throughout the left posterior tibial peroneal and ant erior tibial arteries although diffuse plaque irregularities noted throughout. No doubling of velocit y is identified suggesting less than 50% stenosis. Ordering Physician: Dallas Wang Referring Physician: Neftaly Varela Performed By: Massiel Cordoba RVT
--- NOTE | 2021-12-28 09:42 | ART_ITS ---
Reason For Study: PAD Procedure A bilateral lower extremity continuous wave Doppler with analog waveform analysis,segmental pressures,and ankle brachial indexes with exercise. Left Segmental Pressures Left brachial= 143mmHg. Left posterior tibial artery = 149mmHg. Left dorsalis pedis artery = 177mmHg. Left digit = 110 mmHg. The left dorsalis pedis waveforms are triphasic. The left posterior tibial artery waveforms are triphasic. Right Segmental Pressures Right brachial= 143mmHg. Right posterior tibial artery = 143mmHg. Right dorsalis pedis artery = 139mmHg. Right digit = 94 mmHg. The right dorsalis pedis waveforms are biphasic. The right posterior tibial artery waveforms are triphasic. Indices The right ankle brachial index by the dorsalis pedis is 0.97. The right ankle brachial index by the posterior tibial artery is 1.00. The right digital-brachial index is 0.66. The right post exercise ankle brachial index is 0.38. The left ankle brachial index by the dorsalis pedis is 1.24. The left ankle brachial index by the posterior tibial artery is 1.04. The left digital-brachial index is 0.77. The left post exercise ankle brachial index is 0.59. VL/Lower Ext Art Exam w/ Exercise Interpretation Summary At rest the right lower extremity DP and PT ankle-brachial indices are normal a t 0.97 and 1 respectively. The Doppler waveforms are normal and triphasic. With exercise how ever the YEVGENIY dropped to 0.38 which is abnormal. The level of disease cannot be identified. The right digital brachial index is abnormal at 0.66 The left dorsalis pedis and posterior tibialis ankle-brachial indices at rest a re normal at 1.24 and 1.04 respectively. The post exercise index is abnormal at 0.59. The level of th e disease cannot be identified. The left digital brachial index is borderline abnormal at 0.77. Previously on November 14, 2020 the digital brachial indices were normal. The othe r findings appear similar. Ordering Physician: Dallas Wang Referring Physician: Neftlay Varela Performed By: Massiel Cordoba RVT
== END | disposition home or self-care (01) ==
PROVIDERS: PCP Family Medicine; Referring Provider Surgery; Visit Provider Surgery
DX: I73.9 Peripheral vascular disease, unspecified (principal)
CPT/HCPCS: 93924; 93926

== ENCOUNTER 2022-01-10 14:27 | Outpatient (CLI) | payer MEDICARE, SELFPAY ==
[2022-01-10 15:11] LABS: CREATININE FINGERSTICK 1.3 mg/dL (0.70-1.30)
--- NOTE | 2022-01-10 15:15 | CT_ITS ---
STUDY: CTA OF THE ABDOMINAL AORTA AND BILATERAL LOWER EXTREMITIES REASON FOR EXAM: Male, 76 years old. Bilateral leg pain. History of left lower extremity stent. -- [facility] labs scanned in RADIATION DOSAGE (If Supplied By Facility): CTDIvol = ( 9.88 ) mGy, DLP = ( 1468.57 ) mGycm TECHNIQUE: Axial CT angiography multi-detector data acquisition was obtained from the to the following intravenous administration of IV 100mL Isovue-370. Axial images and MIP images were reconstructed from the axial data set. Post-processing of the angiographic images was performed, with multiplanar reformation and 3D reconstruction. Individualized dose optimization techniques were used for this CT. TECHNICAL QUALITY: Good COMPARISON: None. Descriptors of Narrowing: None (0%) Mild (< 50%) Moderate (50-70%) Severe (70-90%) Subtotal/Total Occlusion (90-100%) Non-Evaluable (technically non-diagnostic FINDINGS: Coronary artery calcification. Diffuse fatty infiltration of the liver. Small gallstones. 1.8 cm left adrenal adenoma. Abdominal aorta: Calcified atherosclerotic plaques of the abdominal aorta. Mild degree of mural thrombus. No evidence of aneurysm formation. Celiac and superior mesenteric arteries: Nonstenotic calcific plaques at the origin of the celiac artery and midportion of the superior mesenteric artery. Inferior mesenteric artery: No demonstrated narrowing. Right renal artery(arteries): No demonstrated narrowing. Left renal artery(arteries): No demonstrated narrowing. 2.5 mm calculus in the midpole calyx of the left kidney. Right common iliac artery: Nonstenotic calcific plaques. Right external iliac artery: Nonstenotic calcific plaques. Right internal iliac artery: No demonstrated narrowing. Left common iliac artery: Nonstenotic calcific plaques. Left external iliac artery: Nonstenotic calcific plaques. Left internal iliac artery: No demonstrated narrowing. RIGHT LOWER EXTREMITY Right common femoral artery: Nonstenotic calcific plaques. Right profundus femoris: No demonstrated narrowing. Right superficial femoral: Scattered noncalcific plaque throughout the superficial femoral artery. Right popliteal artery: Mild nonstenotic calcific plaques. Right tibioperoneal trunk: No demonstrated narrowing. Right anterior tibial artery: No demonstrated narrowing. Right posterior tibial artery: No demonstrated narrowing. Right peroneal artery: No demonstrated narrowing. LEFT LOWER EXTREMITY Left common femoral artery: Nonstenotic calcific plaques. Left profundus femoris: No demonstrated narrowing. Left superficial femoral: Scattered nonstenotic calcific plaques. Left popliteal artery: Nonstenotic calcific plaques. Left tibioperoneal trunk: No demonstrated narrowing. Left anterior tibial artery: No demonstrated narrowing. Left posterior tibial artery: No demonstrated narrowing. Left peroneal artery: No demonstrated narrowing. Grade 1 anterior listhesis of L5 on S1. CT/CTA Abd w/Runoff W/WO Contrast IMPRESSION: No hemodynamic significant stenosis is seen. Electronically Signed: Babak Vale MD at 15:45 EDT ,
== END 2022-01-10 23:59 | disposition home or self-care (01) ==
PROVIDERS: PCP Family Medicine; Referring Provider Surgery; Visit Provider Surgery
DX: I77.9 Disorder of arteries and arterioles, unspecified (principal); I70.201 Unspecified atherosclerosis of native arteries of extremities, right leg; M79.604 Pain in right leg; M79.605 Pain in left leg; K76.0 Fatty (change of) liver, not elsewhere classified; D35.02 Benign neoplasm of left adrenal gland; K80.20 Calculus of gallbladder without cholecystitis without obstruction; I25.10 Atherosclerotic heart disease of native coronary artery without angina pectoris; N20.0 Calculus of kidney; I51.3 Intracardiac thrombosis, not elsewhere classified; I10 Essential (primary) hypertension
CPT/HCPCS: 75635; Q9967; A4216

== ENCOUNTER → 2022-11-20 | Outpatient (CLI) | payer MEDICARE, SELFPAY ==
--- NOTE | 2022-11-20 11:20 | RAD_ITS ---
INDICATION: PRE-OP EXAMINATION/TECHNIQUE: X-RAY - XR Chest 2 Views COMPARISON: 12/08/2017. FINDINGS: Mild elevation of the right hemidiaphragm. LINES/DEVICES: None. LUNGS: No consolidation or evidence of an effusion. No evidence of edema or a pneumothorax. MEDIASTINUM AND CARDIOVASCULAR STRUCTURES: Cardiac silhouette size is upper limits of normal and stable. Mediastinum is unremarkable. BONES AND SOFT TISSUES: No acute abnormality. RAD/Chest PA and Lateral IMPRESSION: No evidence of acute cardiopulmonary disease. Electronically Signed: Neftaly Fernandez DO at 0:19 EDT ,
== END | disposition home or self-care (01) ==
LOC: RAD 11:16
PROVIDERS: PCP Family Medicine; Referring Provider Orthopaedic Surgery; Visit Provider Orthopaedic Surgery
DX: Z01.818 Encounter for other preprocedural examination (principal)
CPT/HCPCS: 71046

== ENCOUNTER 2022-12-13 08:13 | Observation (INO) | payer MEDICARE, SELFPAY ==
[2022-11-20 11:49] LABS: Prothrombin Time (Protime)PT. 13.3 SECONDS (11.7-14.9)
[2022-12-13] VITALS (23 sets, daily range): BP systolic 92–140; BP diastolic 42–78; PULSE 56–78; RESP 16–18; TEMP 35.4–37.1; O2SAT 86–100; BMI 39.2
[2022-12-13] MEDS: Lactated Ringers 1,000 ML 15 ML IV ×3 (06:54→11:04)
--- NOTE | 2022-12-13 08:09 | PCM.OPRPT ---
Report of Operation Date of Procedure: 12/13/22 Description of Surgical Findings:: Preop diagnosis: 1. Lumbar stenosis, L5-S1 with spondylosis 2. Lumbar degenerative disc disease L5-S1 3. L5-S1 spondylolisthesis Postop diagnosis: 1. Lumbar stenosis, L5-S1 with spondylosis 2. Lumbar degenerative disc disease L5-S1 3. L5-S1 spondylolisthesis Procedures performed: 1. L5-S1 posterior lumbar interbody fusion 2. Insertion of intervertebral biomechanical device x1 3. Structural allograft for spinal fusion 4. L5 bilateral laminectomies, foraminotomies, facetectomies, decompression of bilateral nerve roots 5. S1 bilateral laminectomies, foraminotomies, facetectomies, decompression of bilateral nerve roots 6. L5-S1 posterolateral fusion 7. Pedicle screw fixation 8. Local autograft for spinal fusion 9. Neuro monitoring bilateral upper and bilateral lower extremities Statement of medical necessity: The patient is a 77-year-old male with intractable back and leg pain. Image studies confirm the above diagnoses. They have failed conservative treatments to include medications physical therapy and injections and have opted for operative intervention understanding the risk to include but not limited to infection, bleeding, damage to nerves arteries and veins, possibility of spinal fluid leak, nonunion, hardware failure, continued pain, need for further surgery, deep vein thrombosis, pulmonary embolism, heart attack, risk of stroke or . Description of the procedure: The patient was identified in the preoperative holding area. There they received preoperative IV antibiotics and was then transferred to the operative suite. Once in the operative suite after general endotracheal anesthesia was established, the patient was positioned prone on the [facility] operating table. All bony prominences were padded accordingly. The lumbar spine was prepped and draped in a standard fashion. Bear hugger's were not turned on until the drapes were placed and sealed with Ioban. A midline incision was made and taken down to the fascia. The fascia was divided and subperiosteal dissection was taken down to the level of the transverse processes and sacral ala of L5 and S1 bilaterally. Deep retractors were placed. A bone scalpel was used to make cuts in the lamina and then a series of rongeurs and Kerrisons were used removing the spinous process and lamina of L5 and S1. Then facetectomies of greater than 50% were performed as well as foraminotomies decompressing the bilateral nerve roots. Given the severity of the stenosis I needed to perform wide bilateral laminectomies and near complete facetectomies in order to decompress the neural elements. Disc created instability necessitating the fusion. I then proceeded with interbody fusion. The nerve roots and dura were identified and retracted medially. A knife was utilized to perform an annulotomy at L5-S1. Endplate elevators, curettes, and pituitaries were utilized to remove disc material. Endplates were prepared with a rasp. An appropriate sized intervertebral peek cage device measuring 9 mm was packed with structural allograft and impacted into position completing the posterior lumbar interbody fusion at the L5-S1 level. I then proceeded with pedicle screw fixation. Starting points were found at the junction of the superior articular process and transverse processes and sacral ala. A power bur was used for the starting points. Pedicle probes were placed bilaterally and then 6.5 x 50 mm screws were placed bilaterally at L5 and 6.5 x 40 mm screws were placed bilaterally at S1. The screws were tested with intraoperative neurophysiologic monitoring and tested within normal limits. Connector rods were applied and secured with set screws. I then proceeded with the posterolateral fusion. This was accomplished by decorticating the transverse processes bilaterally at L5 and the sacral ala bilaterally at S1. This decorticated bone was then bridged with local autograft from the decompression as well as morselized cancellous allograft completing the posterolateral fusion of the L5-S1 level. The incision was thoroughly irrigated. Tisseel was placed over the dura as a hemostatic agent. A deep drain was placed. The fascia was closed with #1 Vicryl, subcutaneous with 2-0 Vicryl and skin with 2-0 nylon. A sterile dressing was applied with 4 x 4's ABD and tape. Sponge instrument and needle counts were correct at the end of the case. Neurophysiologic monitoring was maintained at baseline throughout the duration of the case. The patient was extubated and taken to the PACU without incident Naomi Saenz PA-C was present during the entire duration of the case and necessary for critical parts of the case including retraction and closure Surgeon: Neftaly Edward [employer] member other ranks: Naomi Petty Type of Anesthesia: General Drains: Hemovac Estimated Blood Loss (mL): 650 cc Fluids Replaced: 1800 cc Grafts/Implants Used: Unified spine Complications None Admit VTE Documentation VTE Present on Admission: No
--- NOTE | 2022-12-13 08:10 | PCM.PN.ORT ---
Subjective Subjective Seen and examined postop. Resting comfortably. Pain controlled. No complaints Objective Data Objective Data Vital Signs: Vital Signs Temp Pulse Resp BP Pulse Ox O2 Del Method 98.3 F 78 18 125/65 H 98 Room Air 12/13/22 06:58 12/13/22 06:58 12/13/22 06:58 12/13/22 06:58 12/13/22 06:58 12/13/22 06:58 Oxygen Delivery Method Room Air Weight: 208 lb Body Mass Index (BMI) 39.2 Lab / Micro Data Micro: Microbiology 11/20/22 11:05 Swab (Method) Nasal Screen MRSA/MSSA - Final Physical Exam Const alert, oriented x3 and no apparent distress General Appearance: cooperative, comfortable and well kempt HEENT normocephalic and head/scalp atraumatic Head and Scalp: normal to inspection Eyes EOMs intact bilaterally and conjunctivae normal Neck full ROM General: normal visual inspection Chest inspection of chest normal and palpation of chest normal Resp normal respiratory effort and normal air movement Cardio regular rate, regular rhythm and peripheral pulses 2+ throughout GI soft to palpation, non-tender and non-distended Back/Spine Back/Spine Narrative: Dressing clean dry and intact. Drain in place and functioning Cervical Spine: cervical ROM normal Thoracic Spine / Upper Back: normal to inspection Lumbar Spine / Lower Back: normal to inspection Extremity normal to inspection, full ROM, normal capillary refill, no clubbing, cyanosis or edema and no calf tenderness Skin no rashes or lesions noted General Skin Exam: no breakdown Neuro oriented x3, CN's II-XII intact bilaterally, moves all extremities, no focal motor deficits, no sensory deficits noted and deep tendon reflexes 2+ bilaterally Motor Exam: strength 5/5 throughout and muscle tone normal throughout Assessment & Plan Assessment/Plan (1) Lumbar stenosis: PLAN: Admit to floor See orders Discharge planning, likely home tomorrow
--- NOTE | 2022-12-13 08:10 | PCM.DC.SUM ---
Providers Date of Admission: 12/13/22 Primary Care Physician: Dr. Neftaly Varela MD Reason For Visit: Post Lum Interbody Fusion One Level, L5-S1 Medications at Discharge Home Medications cholecalciferol (vitamin D3) 50 mcg (2,000 unit) capsule 2,000 unit PO DAILY constipation 03/10/19 latanoprost 0.005 % eye drops 1 drp EACH EYE QHS GLAUCOMA 04/24/19 polyethylene glycol 3350 17 gram/dose oral powder (Miralax) 17 g PO DAILY PRN Constipation 12/03/19 escitalopram oxalate 10 mg tablet 10 mg PO DAILY DEPRESSION 05/13/20 lisinopril 10 mg-hydrochlorothiazide 12.5 mg tablet 1 tab PO DAILY BP #90 tabs 07/12/20 simvastatin 80 mg tablet 40 mg (1/2 x 80 mg) PO QHS CHOLESTEROL #90 tabs 05/26/21 ascorbic acid (vitamin C) 1,000 mg tablet 1 g PO DAILY 12/29/21 omega 6-qte-zss-fish oil 60 mg-90 mg-500 mg capsule (Fish Oil) 1 cap PO DAILY 12/29/21 verapamil 120 mg 24 hr capsule,extended release 120 mg PO DAILY HEART #90 caps 07/03/22 hydrocodone-acetaminophen 5-325mg 5mg-325mg 1 tab PO Q6H 7 days #28 tabs 12/13/22 Hospital Course Operations - (L5-S1 posterior lumbar interbody fusion, decompression, posterior spinal fusion with instrumentation, use of allograft) Summary of Care Provided Minutes Spent on Discharge: 15 Hospital Course: The patient is a 77-year-old male who underwent L5-S1 fusion on 12/13/2022. He was subsequently admitted. The hospitalist was consulted for medical management. He progressed well. Postoperatively he was still complaining of pain in the back and right lower extremity which was affecting his mobility. Inpatient rehabilitation was recommended. His drain was pulled on postoperative day 1. No significant medical issues were encountered. He was subsequently discharged to intermediate care on 12/19/2022 to follow-up with Dr. Edward in 3 weeks Physical Exam Const alert, oriented x3 and no apparent distress General Appearance: cooperative, comfortable and well kempt HEENT normocephalic and head/scalp atraumatic Eyes EOMs intact bilaterally and conjunctivae normal Neck full ROM General: normal visual inspection Chest inspection of chest normal and palpation of chest normal Resp normal respiratory effort and normal air movement Effort and Inspection: able to speak in complete sentences Cardio regular rate and peripheral pulses 2+ throughout GI soft to palpation, non-tender and non-distended Back/Spine Back/Spine Narrative: Dressing clean dry and intact. Incision well approximated with interrupted sutures in place. No tenderness erythema drainage or fluctuance. Drain pulled Cervical Spine: cervical ROM normal Thoracic Spine / Upper Back: normal to inspection Lumbar Spine / Lower Back: normal to inspection Extremity normal to inspection, full ROM, normal capillary refill, no clubbing, cyanosis or edema and no calf tenderness Skin no rashes or lesions noted Skin Narrative: Mild resolving ecchymosis around the lower back as noted preoperatively General Skin Exam: no breakdown Neuro oriented x3, CN's II-XII intact bilaterally, moves all extremities, no focal motor deficits, no sensory deficits noted and deep tendon reflexes 2+ bilaterally Motor Exam: muscle tone normal throughout Weight / BMI Weight Weight: 208 lb Body Mass Index (BMI) 39.2 ABG / Lab / Microbiology Data 12/15/22 05:07 12/16/22 05:37 Microbiology: Microbiology 11/20/22 11:05 Swab (Method) Nasal Screen MRSA/MSSA - Final D/C Instructions Discharge Diet: No restrictions Lifting Restrictions: Wear back brace at all times. No repetitive bending twisting or lifting gr Call your doctor if your incision/area has: Continuous Slow Oozing, Sudden Increased Bleeding, Increased Pain/ Swelling, Increased Redness, Foul Smelling Discharge and Swelling at the incision site Call your doctor if you observe: Fever of 101 or Higher, Coldness, Increased Pain, Numbness or Tingling, Change in Color, Inability to urinate, Inability to have a bowel movement, Using more than 1 pad per hour, Shortness of breath, Dizziness, Fainting spells, Swelling in the ankles, Chest pain, Prolonged hiccupping, Increased palpitations (irregular heartbeat), Calf discomfort and Uncontrolled pain Additional Dressing/Incision Instructions: Change dressing daily with iodine gauze and tape. Use waterproof dressing for shower Additional Instructions: 1. During your procedure, you received sedation through your IV. Please follow these instructions for the next 24 hours: Do not drive a motor vehicle, do not drink any alcoholic beverages, and do not sign any legal documents or make personal or business decisions. A responsible adult should stay with you at least 6 hours after the procedure. 2. Keep your surgical site/incision clean and the dressing dry and intact. You may use an ice pack at the surgical site to reduce any swelling or discomfort. 3. Monitor the incision site for any signs or symptoms of infection. Watch for redness, excessive swelling or drainage, or continued pain at the incision site after 3 days. Contact your physician immediately for a fever, chills or a temperature of 101.5? F or greater. 4. Take your medication exactly as prescribed by your physician. Do not attempt to wean yourself off any of your medications even though your pain is improving. This process needs to be carefully monitored by your doctor. Take any antibiotics prescribed exactly as directed and until they are gone. 5. Avoid stretching, bending, pulling, twisting or any sudden movements. Do not bend or twist at the waist. Wear back brace at all times 6. No lifting greater than 5 pounds. 7. Do not operate a motor vehicle, equipment or a power tool while taking pain medication 8. Do not have any manipulation done by a chiropractor or any other physician without first consulting with the surgeon 9. Please contact our office if you are even scheduled for a CT scan or an MRI. 10. Please call us if you have any questions, problems or concerns. Please Follow Up With: Neftaly Edward DO When: 3 weeks Meaningful Use Info Meaningful Use Diagnoses (Choose all that apply): None applicable Discharge Plan Admission Admit Date/Time: 12/13/22 08:13 Attending Provider: Neftaly Edward Primary Care Provider: Neftaly Varela Instructions Additional Instructions / Restrictions: 1. During your procedure, you received sedation through your IV. Please follow these instructions for the next 24 hours: Do not drive a motor vehicle, do not drink any alcoholic beverages, and do not sign any legal documents or make personal or business decisions. A responsible adult should stay with you at least 6 hours after the procedure. 2. Keep your surgical site/incision clean and the dressing dry and intact. You may use an ice pack at the surgical site to reduce any swelling or discomfort. 3. Monitor the incision site for any signs or symptoms of infection. Watch for redness, excessive swelling or drainage, or continued pain at the incision site after 3 days. Contact your physician immediately for a fever, chills or a temperature of 101.5? F or greater. 4. Take your medication exactly as prescribed by your physician. Do not attempt to wean yourself off any of your medications even though your pain is improving. This process needs to be carefully monitored by your doctor. Take any antibiotics prescribed exactly as directed and until they are gone. 5. Avoid stretching, bending, pulling, twisting or any sudden movements. Do not bend or twist at the waist. Wear back brace at all times 6. No lifting greater than 5 pounds. 7. Do not operate a motor vehicle, equipment or a power tool while taking pain medication 8. Do not have any manipulation done by a chiropractor or any other physician without first consulting with the surgeon 9. Please contact our office if you are even scheduled for a CT scan or an MRI. 10. Please call us if you have any questions, problems or concerns. Discharge Orders/Prescriptions Prescriptions: New hydrocodone-acetaminophen 5-325 mg tablet 1 tab PO Q6H 7 Days Qty: 28 0RF Continued cholecalciferol (vitamin D3) 2,000 unit capsule 2,000 unit PO DAILY latanoprost 0.005 % drops 1 drp EACH EYE QHS polyethylene glycol 3350 [Miralax] 17 gram/dose powder 17 g PO DAILY PRN (Reason: Constipation) ascorbic acid (vitamin C) 1,000 mg tablet 1 g PO DAILY omega 5-lfe-zmd-fish oil [Fish Oil] 60-90-500 mg capsule 1 cap PO DAILY escitalopram oxalate 10 MG tablet 10 mg PO DAILY lisinopril-hydrochlorothiazide 10-12.5 mg tablet 1 tab PO DAILY Qty: 90 3RF simvastatin 80 mg tablet 40 mg PO QHS Qty: 90 3RF verapamil 120 mg capsule,ext rel. pellets 24 hr 120 mg PO DAILY Qty: 90 4RF Discontinued aspirin 81 MG tablet,chewable 81 mg PO DAILY@0800 Patient Comments: heart health Referrals / Follow Up: Neftaly Varela MD [Primary Care Provider] - Neftaly Edward DO [Med Staff - Active Staff] - Disposition Disposition (needs filled in before D/C Order can be placed): Detention Facility
--- NOTE | 2022-12-13 08:15 | RAD_ITS ---
EXAM: XR SPINE, 1 VIEW CLINICAL INDICATION: POSTERIOR FUSION L5-S1 TECHNIQUE: Single view of the spine. COMPARISON: No relevant prior studies available. FINDINGS: VERTEBRAE: Image obtained intraoperatively which show placement of bilateral pedicle screws at L5 and S1 for a posterior fusion. Preserved vertebral body height. No fracture. Preservation of the normal spine curvature. No significant facet arthropathy. DISC SPACES: Unremarkable. Disc spaces are maintained. SOFT TISSUES: Unremarkable. RAD/Spine 1 View Any Level IMPRESSION: Posterior fusion of L5 and S1. Electronically Signed: Tomas Fitzpatrick MD at 20:12 EDT ,
[2022-12-13] MEDS: Cefazolin 2 GM in 0.9% Normal Saline 100 ML IV (08:54)
[2022-12-13] MEDS: Heparin 10,000 UNITS/10 ML Vial 10000 UNITS (09:39)
[2022-12-13] MEDS: THROMBIN (RECOMBINANT) 20,000 UNIT VIAL 20000 UNIT TOPICAL (10:56)
[2022-12-13] MEDS: Bupivacaine 0.25% 30 ML Vial (13:10)
[2022-12-13] MEDS: 0.9% Normal Saline 1,000 ML 999 ML IV (16:45)
[2022-12-13] MEDS: oxyCODONE 5 MG Tablet PO (18:29)
[2022-12-13] MEDS: Lactated Ringers 1,000 ML 100 ML IV (18:29)
[2022-12-13] MEDS: Clindamycin 900 MG/50 ML BAG 75 MG IV (18:29)
--- NOTE | 2022-12-13 19:07 | PCM.PN.HOSP ---
Reason for Visit Reason for Visit: 77-year-old male presents to the hospital for an elective L5-S1 lumbar interbody fusion with bilateral laminectomies for lumbar stenosis of L5-S1 spondylosis. He is doing well after surgery, he is on 2 L of oxygen because of anesthesia. Denies any significant shortness of breath fevers or cough. Does have some lower extremity pain but not significant. Objective Data Objective Data Vital Signs: Vital Signs Temp Pulse Resp BP Pulse Ox O2 Del Method O2 Flow Rate 98.3 F 65 18 102/49 L 98 Nasal Cannula 3 12/13/22 18:03 12/13/22 18:03 12/13/22 18:03 12/13/22 18:03 12/13/22 18:03 12/13/22 18:03 12/13/22 18:03 Oxygen Flow Rate (L/min) 3 Oxygen Delivery Method Nasal Cannula Weight: 208 lb Body Mass Index (BMI) 39.2 Intake & Output: Intake and Output for Last 24 Hours 12/12/22 12/13/22 12/14/22 03:59 03:59 03:59 Intake Total 4010 / 4010 Output Total 300 / 300 Balance 3710 / 3710 Lab / Micro Data 12/14/22 06:35 12/14/22 06:35 Micro: Microbiology 11/20/22 11:05 Swab (Method) Nasal Screen MRSA/MSSA - Final Physical Exam Narrative General: Alert, Oriented x3, Cooperative, No apparent distress HEENT: Atraumatic, PERRLA, EOMI, Normocephalic Oral: Moist Mucosa Neck: Supple, No JVD Lungs: Diminished, Normal air movement, No rhonchi, No wheeze, No rales Cardiovascular: Regular rate, Regular Rhythm, Normal S1, Normal S2, No murmurs Abdomen: Soft, Non Tender, Non-Distended, No Hepato-splenomegaly Extremities: No edema, Capillary Refill Less than 3 Seconds Skin: Incision CDI Musculoskeletal: No Tenderness to Palpation of Joints or Extremities Neurological: Cranial nerves II-XII grossly intact, Motor Exam 5/5 strength throughout, Sensory exam intact to light touch and pain Psych/Mental Status: Normal Affect, Appropriate Assessment & Plan Assessment/Plan (1) Lumbar stenosis: PLAN: Plan 1. History of lumbar stenosis status post L5-S1 lumbar fusion with laminectomies bilaterally on 12/13/2022 ? Pain management per primary ? PT/OT ? DVT prophylaxis per primary 2. HTN/HLD/PAD ? She does have a history of carotid endarterectomy ? Continue with his home blood pressure medications we will have to monitor his renal function given this postoperative nature ? Continue home 3. Anxiety/depression ? Stable ? Continue with his home medication Charges/Coding Visit Charges Inpatient E&M: 58167 Subs Hosp L2
[2022-12-13] MEDS: Latanoprost 0.005% 1 Bottle 1 DRP OPHTHALMIC (21:54)
[2022-12-13] MEDS: Acetaminophen 500 MG Tablet 1000 MG PO (21:54)
[2022-12-13] MEDS: Atorvastatin Calcium 20 MG Tablet PO (21:54)
[2022-12-14] VITALS (10 sets, daily range): BP systolic 108–125; BP diastolic 46–57; PULSE 68–97; RESP 16–18; TEMP 36.6–36.8; O2SAT 93–100
[2022-12-14] MEDS: Clindamycin 900 MG/50 ML BAG 75 MG IV (00:42)
[2022-12-14] MEDS: Acetaminophen 500 MG Tablet 1000 MG PO ×3 (06:09→22:13)
[2022-12-14] MEDS: Lactated Ringers 1,000 ML 100 ML IV ×2 (06:10→15:19)
[2022-12-14 07:06] LABS: Absolute Lymphocyte Count 1.82 X10^3/uL (0.83-4.51); Absolute Neutrophil Count 8.3 X10^3/uL (2.0-7.7); Basophil# 0.01 X10^3/uL; Basophil% 0.1 % (0-1); Hemoglobin 10.8 g/dL (13.0-16.5); Lymphocyte # 1.82 X10^3/ul (0.83-4.51); Lymphocyte % 15.4 % (19-41); Mean Corp Hgb Conc 31.8 g/dL (32-36); Mean Corpuscular Hgb 30.9 pg (27.0-32.0); Mean Corpuscular Volume 97.4 fL (80-94); Mean Platelet Vol. 11.3 fl (6.2-12.0); Monocyte# 1.69 X10^3/uL; Monocyte% 14.3 % (0-10); NRBC Flagged by Analyzer 0 % (0-5); Neutrophil % 69.9 % (47-70); POSITIVE DIFFERENTIAL YES; Platelet Count 189 K/mm3 (150-450); RBC Distribution Width CV 14.3 % (11.6-14.6); RBC Distribution Width SD 50.2 fl (35.1-43.9); Red Blood Count 3.49 M/mm3 (4.6-6.2); White Blood Count 11.9 K/mm3 (4.4-11.0)
[2022-12-14 07:08] LABS: Differential Indicated SCAN CRITERIA MET
--- NOTE | 2022-12-14 07:28 | PN.ORTHO_ITS ---
Subjective Subjective The patient was seen and examined postoperative day 1. He is lying in bed resting comfortably. He does complain of some pain and soreness in the lower back but feels it is manageable at this time. He did get up with physical therapy and take a few steps. He complains of subjective weakness in the right lower extremity. He denies any other acute numbness tingling weakness or changes in bowel or bladder function. Objective Data Objective Data Vital Signs: Vital Signs Temp Pulse Resp BP Pulse Ox O2 Del Method O2 Flow Rate 98.0 F 71 18 122/52 H 99 Nasal Cannula 2 12/14/22 06:03 12/14/22 06:03 12/14/22 06:03 12/14/22 06:03 12/14/22 06:03 12/14/22 06:03 12/14/22 06:03 Oxygen Flow Rate (L/min) 2 Oxygen Delivery Method Nasal Cannula Weight: 208 lb Body Mass Index (BMI) 39.2 Intake & Output: Intake and Output for Last 24 Hours 12/12/22 12/13/22 12/14/22 23:59 23:59 23:59 Intake Total 4060 / 4260 1400 / 1400 Output Total 300 / 450 570 / 570 Balance 3760 / 3810 830 / 830 Lab / Micro Data 12/14/22 06:35 12/14/22 06:35 Labs: Laboratory Results - last 24 hr 12/14/22 06:35: WBC 11.9 H, RBC 3.49 L, Hgb 10.8 L, Hct 34.0 L, MCV 97.4 H, MCH 30.9, MCHC 31.8 L, RDW Std Deviation 50.2 H, RDW Coeff of Herrera 14.3, Plt Count 189, MPV 11.3, Immature Gran % (Auto) 0.300, Neut % (Auto) 69.9, Lymph % (Auto) 15.4 L, Davison % (Auto) 14.3 H, Eos % (Auto) 0.0, Baso % (Auto) 0.1, Absolute Neuts (auto) 8.3 H, Absolute Lymphs (auto) 1.82, Nucleated RBC % 0 Micro: Microbiology 11/20/22 11:05 Swab (Method) Nasal Screen MRSA/MSSA - Final Radiography Diagnostic Testing: Radiology Impression Spine X-Ray 12/13/22 08:15 IMPRESSION: Posterior fusion of L5 and S1. Electronically Signed: Tomas Fitzpatrick MD at 20:12 EDT , Physical Exam Const alert, oriented x3 and no apparent distress General Appearance: cooperative, comfortable and well kempt HEENT normocephalic and head/scalp atraumatic Head and Scalp: normal to inspection Eyes EOMs intact bilaterally and conjunctivae normal Neck full ROM General: normal visual inspection Chest inspection of chest normal and palpation of chest normal Resp normal respiratory effort and normal air movement Effort and Inspection: able to speak in complete sentences Cardio regular rate and peripheral pulses 2+ throughout GI soft to palpation, non-tender and non-distended Back/Spine Back/Spine Narrative: Dressing clean dry and intact. Incision well approximated with interrupted sutures in place. Drain in place and functioning with small amount of serosanguineous fluid in it. The drain was removed today. There is an area of resolving ecchymosis around the lower back consistent with preop exam Cervical Spine: cervical ROM normal Thoracic Spine / Upper Back: normal to inspection Lumbar Spine / Lower Back: normal to inspection Extremity normal to inspection, full ROM, normal capillary refill, no clubbing, cyanosis or edema and no calf tenderness Skin no rashes or lesions noted General Skin Exam: no breakdown Neuro oriented x3, CN's II-XII intact bilaterally, moves all extremities, no focal motor deficits, no sensory deficits noted and deep tendon reflexes 2+ bilaterally Motor Exam: muscle tone normal throughout Assessment & Plan Assessment/Plan (1) Lumbar stenosis: PLAN: I had a lengthy discussion with the patient. He is still having some pain as well as subjective weakness in the right lower extremity that he feels is limiting mobilization. I did discuss with him possible inpatient rehabilitation placement on discharge. However he states he just wants to stay 1 more night and try to go home tomorrow. We will have physical therapy work with him today to see how he does. He understands and agrees with the treatment plan
[2022-12-14 07:56] LABS: Anion Gap 12 (5-15); BUN 20 mg/dL (7-18); BUN/Creat Ratio 10.5 RATIO (10-20); Chloride 109 mmol/L (98-107); EST Glomerular Filtration Rate 37 mL/min (>60); Est Glom Filt Rate - Afr Amer 45 mL/min (>60); Estimated Creatinine Clearance 24.85 ml/min; Glucose 143 mg/dL (74-106); Potassium 4.3 mmol/L (3.5-5.1); Sodium Level 140 mmol/L (136-145)
[2022-12-14] MEDS: Omega-3 Acid Ethyl Esters 1 GM Capsule PO (09:48)
[2022-12-14] MEDS: Cholecalciferol (VIT D3) 25 MCG TABLET (1,000 UNITS) 50 MCG PO (09:48)
[2022-12-14] MEDS: Ascorbic Acid 500 MG Tablet 1000 MG PO (09:49)
[2022-12-14] MEDS: Escitalopram Oxalate 10 MG Tablet PO (09:49)
--- NOTE | 2022-12-14 10:45 | CASEMGMT ---
RN?CM?[employer]?CM?to room to meet with patient for initial transition planning/care coordination?assessment.?RN?CM?introduced self and role at [facility].? Pt voices understanding and consents to?assessment?at this time.? Pt sitting up in chair in room in no distress at this time.? Pt is A/O at this time and answers all questions appropriately.?? Care providers, pharmacy, and demographics verified/updated at this time. PCP: Dr Varela Specialists: Dr Edward-devyn [facility]/cardiology, Dr Lynne[facility] Preferred Pharmacy: [facility] Insurance: [facility] Prescription Benefit:?Yes Living Will/HPOA:?Pt does not currently have LW/HCPOA and declines info at this time.? Pt made aware that he can contact as an out-pt and make appt in the future if he decides he would like to talk with someone about this or would like to utilize [facility] social work for advanced directive completion.?? LNOK: Daughter, Carry Living Arrangements: Lives alone in one-story home w/4 steps to enter. Pt states he is independent w/ADL's, IADL's, and manages his own medications. Transportation:?Pt states drives self and states no transportation concerns at this time.? Dtr will take him home @ dc DME: ?States has the following DME:?shower chair, back brace, CPAP through [employer]. Pt does not have a walker and states would like to get one from [employer]. MS3 RN JESSICA, Lisa, is aware. Pt states no need for further DME at this time.? HHC/SNF: No hx of either. PT/OT evals pending. CM?to follow for any further discharge planning/needs.? Pt voices no further concerns/needs at this time.? Advised pt to ask for?CM?if any further questions/concerns/needs arise.? Voices understanding. PLAN:??TBD. PT/OT evals pending. Bari BSN?RN?CM
--- NOTE | 2022-12-14 11:53 | CASEMGMT ---
CHAVO CM into pt room to discuss dc planning after pt has worked with therapy. Pt states that he still would like to return home. He thinks that by tomorrow he will be doing better. Pt states his dtr is planning on coming to stay the weekend with him. Will plan on dc tomorrow with [facility]. Green sheet on chart for this in case pt should change his mind to not go home tomorrow and require rehab. Signed [facility] rx obtained.
[2022-12-14] MEDS: Ensure Surgery 237 ML LIQUID PO (13:10)
--- NOTE | 2022-12-14 15:45 | PCM.PN.HOSP ---
Reason for Visit Reason for Visit: Diagnoses Spinal stenosis, lumbar region without neurogenic claudication (12/13/22) Encounter for other preprocedural examination (12/13/22) Subjective Subjective Still with a lot of back and leg pain. States that he had worsening difficulty moving his legs this morning but that is gotten better and he is able to work with therapy but still having a lot of pain and weakness. Objective Data Objective Data Vital Signs: Vital Signs Temp Pulse Resp BP Pulse Ox O2 Del Method O2 Flow Rate 36.7 C 92 16 108/52 L 93 Room Air 1.5 12/14/22 10:32 12/14/22 14:00 12/14/22 10:32 12/14/22 10:32 12/14/22 10:50 12/14/22 10:32 12/14/22 08:18 Oxygen Flow Rate (L/min) 1.5 Oxygen Delivery Method Room Air Weight: 94.347 kg Body Mass Index (BMI) 39.2 Intake & Output: Intake and Output for Last 24 Hours 12/12/22 12/13/22 12/14/22 23:59 23:59 23:59 Intake Total 4060 / 4260 2515 / 2515 Output Total 300 / 450 920 / 920 Balance 3760 / 3810 1595 / 1595 Lab / Micro Data 12/14/22 06:35 12/14/22 06:35 Labs: Laboratory Results - last 24 hr 12/14/22 06:35: WBC 11.9 H, RBC 3.49 L, Hgb 10.8 L, Hct 34.0 L, MCV 97.4 H, MCH 30.9, MCHC 31.8 L, RDW Std Deviation 50.2 H, RDW Coeff of Herrera 14.3, Plt Count 189, MPV 11.3, Immature Gran % (Auto) 0.300, Neut % (Auto) 69.9, Lymph % (Auto) 15.4 L, Hooker % (Auto) 14.3 H, Eos % (Auto) 0.0, Baso % (Auto) 0.1, Absolute Neuts (auto) 8.3 H, Absolute Lymphs (auto) 1.82, Nucleated RBC % 0, Diff Path Review August, Sodium 140, Potassium 4.3, Chloride 109 H, Carbon Dioxide 19.0 L, Anion Gap 12, BUN 20 H, Creatinine 1.90 H, Estim Creat Clear Calc 24.85, Est GFR (MDRD) Af Amer 45 L, Est GFR (MDRD) Non-Af 37 L, BUN/Creatinine Ratio 10.5, Glucose 143 H, Calcium 8.0 L Micro: Microbiology 11/20/22 11:05 Swab (Method) Nasal Screen MRSA/MSSA - Final Radiography Diagnostic Testing: Radiology Impression Spine X-Ray 12/13/22 08:15 IMPRESSION: Posterior fusion of L5 and S1. Electronically Signed: Tomas Fitzpatrick MD at 20:12 EDT , Physical Exam Const alert and no apparent distress HEENT head/scalp atraumatic and moist oral mucous membranes Resp normal respiratory effort, no retractions, no use of accessory muscles and clear to auscultation bilaterally Cardio regular rate, regular rhythm, S1 normal heart sound and S2 normal heart sound GI normal to inspection, nondistended, normoactive bowel sounds and soft to palpation Extremity normal to inspection Neuro Neuro Narrative: Intact plantarflexion bilaterally. Impaired dorsiflexion of the great toes bilaterally more prominent on the right. Assessment & Plan Assessment/Plan (1) GE (acute kidney injury): PLAN: Worsened today. May be due to fluid shifts related with surgery. We will hold off on his lisinopril/hydrochlorothiazide for now. I agree with the fluids and continue for now. Recheck his BMP in the morning. PLAN: Plan Lumbar stenosis: Status post L5-S1 fusion. Management per spine surgery. For pain control, patient has a scheduled acetaminophen, as needed oxycodone and morphine. Other chronic conditions: Hypertension: Stable. Holding off on lisinopril/HCTZ for now. Continue with verapamil. Hyperlipidemia: Continue with simvastatin Depression: Continue with escitalopram. Disposition: Patient states he is leaning towards going to a custodial facility. Told the patient that with this being a holiday weekend that may not happen until Saturday. Will defer to the spine and case management. Thank you for the consult. The hospital service will follow along Charges/Coding Visit Charges Inpatient E&M: 01886 Subs Hosp L2
[2022-12-14] MEDS: oxyCODONE 5 MG Tablet PO (20:25)
[2022-12-14] MEDS: Atorvastatin Calcium 20 MG Tablet PO (22:13)
[2022-12-14] MEDS: Morphine 4 MG/ML Syringe IV (22:13)
[2022-12-14] MEDS: Latanoprost 0.005% 1 Bottle 1 DRP OPHTHALMIC (22:14)
[2022-12-15] VITALS (7 sets, daily range): BP systolic 111–150; BP diastolic 48–57; PULSE 68–83; RESP 16–19; TEMP 36.6–37.1; O2SAT 92–99
[2022-12-15] MEDS: Lactated Ringers 1,000 ML 15 ML IV (03:01)
[2022-12-15] MEDS: oxyCODONE 5 MG Tablet PO ×2 (03:01→13:15)
[2022-12-15] MEDS: Morphine 4 MG/ML Syringe IV ×2 (05:19→15:22)
[2022-12-15] MEDS: Acetaminophen 500 MG Tablet 1000 MG PO ×3 (05:19→21:33)
[2022-12-15 05:34] LABS: Absolute Neutrophil Count 7.8 X10^3/uL (2.0-7.7); Basophil# 0.01 X10^3/uL; Basophil% 0.1 % (0-1); Hematocrit 28.2 % (40-54); Hemoglobin 9.1 g/dL (13.0-16.5); Lymphocyte % 7.1 % (19-41); Mean Corp Hgb Conc 32.3 g/dL (32-36); Mean Corpuscular Hgb 30.7 pg (27.0-32.0); Mean Corpuscular Volume 95.3 fL (80-94); Mean Platelet Vol. 10.7 fl (6.2-12.0); Monocyte# 1.28 X10^3/uL; NRBC Flagged by Analyzer 0 % (0-5); Neutrophil % 79.5 % (47-70); Platelet Count 145 K/mm3 (150-450); RBC Distribution Width CV 14.4 % (11.6-14.6); RBC Distribution Width SD 50.2 fl (35.1-43.9); Red Blood Count 2.96 M/mm3 (4.6-6.2); White Blood Count 9.8 K/mm3 (4.4-11.0)
[2022-12-15 05:57] LABS: Anion Gap 2 (5-15); BUN 22 mg/dL (7-18); BUN/Creat Ratio 15.7 RATIO (10-20); Calcium,Total 8.2 mg/dL (8.5-10.1); Chloride 111 mmol/L (98-107); EST Glomerular Filtration Rate 52 mL/min (>60); Est Glom Filt Rate - Afr Amer 63 mL/min (>60); Estimated Creatinine Clearance 33.73 ml/min; Glucose 166 mg/dL (74-106); Potassium 4.6 mmol/L (3.5-5.1); Sodium Level 142 mmol/L (136-145)
--- NOTE | 2022-12-15 07:18 | PN.HOSP_ITS ---
Reason for Visit Reason for Visit: Diagnoses Spinal stenosis, lumbar region without neurogenic claudication (12/13/22) Acute kidney failure, unspecified (12/13/22) Encounter for other preprocedural examination (12/13/22) Subjective Subjective Feeling better. Pain improved today. Objective Data Objective Data Vital Signs: Vital Signs Temp Pulse Resp BP Pulse Ox O2 Del Method O2 Flow Rate 36.9 C 78 16 138/57 H 98 Nasal Cannula 2 12/15/22 02:53 12/15/22 02:53 12/15/22 02:53 12/15/22 02:53 12/15/22 02:53 12/15/22 04:15 12/15/22 04:15 Oxygen Flow Rate (L/min) 2 Oxygen Delivery Method Nasal Cannula Weight: 94.347 kg Body Mass Index (BMI) 39.2 Intake & Output: Intake and Output for Last 24 Hours 12/13/22 12/14/22 12/15/22 23:59 23:59 23:59 Intake Total 4060 / 4260 3115 / 3115 1000 / 1000 Output Total 300 / 450 2570 / 2570 Balance 3760 / 3810 545 / 545 1000 / 1000 Lab / Micro Data 12/15/22 05:07 12/15/22 05:07 Labs: Laboratory Results - last 24 hr 12/14/22 06:35: Diff Path Review August, Sodium 140, Potassium 4.3, Chloride 109 H, Carbon Dioxide 19.0 L, Anion Gap 12, BUN 20 H, Creatinine 1.90 H, Estim Creat Clear Calc 24.85, Est GFR (MDRD) Af Amer 45 L, Est GFR (MDRD) Non-Af 37 L, BUN/Creatinine Ratio 10.5, Glucose 143 H, Calcium 8.0 L 12/15/22 05:07: WBC 9.8, RBC 2.96 L, Hgb 9.1 L, Hct 28.2 L, MCV 95.3 H, MCH 30.7, MCHC 32.3, RDW Std Deviation 50.2 H, RDW Coeff of Herrera 14.4, Plt Count 145 L, MPV 10.7, Immature Gran % (Auto) 0.300, Neut % (Auto) 79.5 H, Lymph % (Auto) 7.1 L, Yates % (Auto) 13.0 H, Eos % (Auto) 0.0, Baso % (Auto) 0.1, Absolute Neuts (auto) 7.8 H, Absolute Lymphs (auto) 0.70 L, Nucleated RBC % 0, Sodium 142, Potassium 4.6, Chloride 111 H, Carbon Dioxide 29.0, Anion Gap 2 L, BUN 22 H, Creatinine 1.40 H, Estim Creat Clear Calc 33.73, Est GFR (MDRD) Af Amer 63, Est GFR (MDRD) Non-Af 52 L, BUN/Creatinine Ratio 15.7, Glucose 166 H, Calcium 8.2 L Micro: Microbiology 11/20/22 11:05 Swab (Method) Nasal Screen MRSA/MSSA - Final Physical Exam Const alert and no apparent distress Resp normal respiratory effort, no retractions, no use of accessory muscles and clear to auscultation bilaterally Cardio regular rate, regular rhythm, S1 normal heart sound and S2 normal heart sound GI normal to inspection, nondistended, normoactive bowel sounds, soft to palpation, non-tender and non-distended Extremity normal to inspection Neuro no sensory deficits noted Neuro Narrative: weakness in bilateral LE. Assessment & Plan Assessment/Plan (1) GE (acute kidney injury): PLAN: Improved. May be due to fluid shifts related with surgery. Continue to hold his lisinopril/hydrochlorothiazide for now. Continue IVF for now. Recheck his BMP in the morning. PLAN: Plan Lumbar stenosis: Status post L5-S1 fusion. Management per spine surgery. For pain control, patient has a scheduled acetaminophen, as needed oxycodone and morphine. Other chronic conditions: * Hypertension: Stable. Holding off on lisinopril/HCTZ for now. Continue with verapamil. * Hyperlipidemia: Continue with simvastatin * Depression: Continue with escitalopram. Disposition: Patient states he is leaning towards going to a shelter facility. Told the patient that with this being a holiday weekend that may not happen until Saturday. Will defer to the spine and case management. Medically stable for discharge. Charges/Coding Visit Charges Inpatient E&M: 93857 Subs Hosp L2
[2022-12-15] MEDS: Cholecalciferol (VIT D3) 25 MCG TABLET (1,000 UNITS) 50 MCG PO (08:00)
[2022-12-15] MEDS: Ensure Surgery 237 ML LIQUID PO (08:00)
[2022-12-15] MEDS: Escitalopram Oxalate 10 MG Tablet PO (08:00)
[2022-12-15] MEDS: Omega-3 Acid Ethyl Esters 1 GM Capsule PO (08:02)
[2022-12-15] MEDS: Verapamil SR 240 MG Tablet 120 MG PO (08:02)
[2022-12-15] MEDS: Ascorbic Acid 500 MG Tablet 1000 MG PO (08:02)
--- NOTE | 2022-12-15 08:32 | NURSING ---
Assisted into chair at this time. Used PEEP and I.S at this time. Did not order breakfast yet. Menu given and explained how to order.
[2022-12-15] MEDS: 0.9% Saline Lock 10 ML Syringe IV ×2 (15:11→15:23)
--- NOTE | 2022-12-15 15:56 | CASEMGMT ---
Social Work PT/OT recommending SNF placement and reports patient is agreeable. SW introduced self and role to patient and pt is agreeable to placement. A list of SNF providers including quality and resource use data and consistent with patient?s preferred geographic region, medical needs, and insurance network were provided from the [facility]. Pt reviewed list and is requesting [facility] for SNF placement due to location. SW sent referral via careport to [facility]. Plan: Patient to discharge to SNF. SW to follow up with referral. Kassi Lan SOFTWARE QUALITY ASSURANCE ANALYST, ENGINE TEST CELL TECHNICIAN
--- NOTE | 2022-12-15 16:36 | NURSING ---
called to check in on pt. Dr. Edward is aware that pt is not going home today and Case Management is now looking to send him to TCU. Dr. Edward gave this RN drsg change orders as well.
[2022-12-15] MEDS: Latanoprost 0.005% 1 Bottle 1 DRP OPHTHALMIC (21:33)
[2022-12-15] MEDS: Atorvastatin Calcium 20 MG Tablet PO (21:33)
[2022-12-16] VITALS (10 sets, daily range): BP systolic 110–143; BP diastolic 50–61; PULSE 69–84; RESP 16–20; TEMP 36.6–37.4; O2SAT 93–99
[2022-12-16] MEDS: oxyCODONE 5 MG Tablet PO ×3 (02:35→21:21)
[2022-12-16] MEDS: Acetaminophen 500 MG Tablet 1000 MG PO ×3 (05:01→21:21)
[2022-12-16 07:10] LABS: Anion Gap 2 (5-15); BUN 25 mg/dL (7-18); BUN/Creat Ratio 19.7 RATIO (10-20); Calcium,Total 8.5 mg/dL (8.5-10.1); Chloride 108 mmol/L (98-107); Creatinine, Serum 1.27 mg/dL (0.70-1.30); EST Glomerular Filtration Rate 59 mL/min (>60); Est Glom Filt Rate - Afr Amer 71 mL/min (>60); Estimated Creatinine Clearance 37.18 ml/min; Glucose 139 mg/dL (74-106); Potassium 4.2 mmol/L (3.5-5.1); Sodium Level 139 mmol/L (136-145)
[2022-12-16] MEDS: Cholecalciferol (VIT D3) 25 MCG TABLET (1,000 UNITS) 50 MCG PO (08:19)
[2022-12-16] MEDS: Escitalopram Oxalate 10 MG Tablet PO (08:19)
[2022-12-16] MEDS: Verapamil SR 240 MG Tablet 120 MG PO (08:20)
[2022-12-16] MEDS: Ascorbic Acid 500 MG Tablet 1000 MG PO (08:20)
[2022-12-16] MEDS: Omega-3 Acid Ethyl Esters 1 GM Capsule PO (08:21)
--- NOTE | 2022-12-16 08:22 | PN.HOSP_ITS ---
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 Still with back pain. Objective Data Objective Data Vital Signs: Vital Signs Temp Pulse Resp BP Pulse Ox O2 Del Method O2 Flow Rate 36.7 C 80 20 H 110/50 L 93 Nasal Cannula 2 12/16/22 02:43 12/16/22 02:43 12/16/22 02:43 12/16/22 02:43 12/16/22 07:20 12/16/22 07:20 12/16/22 07:20 Oxygen Flow Rate (L/min) 2 Oxygen Delivery Method Nasal Cannula Weight: 94.347 kg Body Mass Index (BMI) 39.2 Intake & Output: Intake and Output for Last 24 Hours 12/14/22 12/15/22 12/16/22 23:59 23:59 23:59 Intake Total 3115 / 3115 1704.75 / 1954.75 370 / 370 Output Total 2570 / 2570 1225 / 1225 300 / 300 Balance 545 / 545 479.75 / 729.75 70 / 70 Lab / Micro Data 12/15/22 05:07 12/16/22 05:37 Labs: Laboratory Results - last 24 hr 12/16/22 05:37: Sodium 139, Potassium 4.2, Chloride 108 H, Carbon Dioxide 29.0, Anion Gap 2 L, BUN 25 H, Creatinine 1.27, Estim Creat Clear Calc 37.18, Est GFR (MDRD) Af Amer 71, Est GFR (MDRD) Non-Af 59 L, BUN/Creatinine Ratio 19.7, Glucose 139 H, Calcium 8.5 Micro: Microbiology 11/20/22 11:05 Swab (Method) Nasal Screen MRSA/MSSA - Final Physical Exam Const alert and no apparent distress HEENT head/scalp atraumatic Extremity Extremity Narrative: +empty can test on right. Neuro Neuro Narrative: MS 5/5 in RLE and LLE. Assessment & Plan Assessment/Plan (1) GE (acute kidney injury): PLAN: Improved. I suspect that this was related with fluid shifts from surgery. HLIV Resume lisinopril/HCTZ (2) Rotator cuff disorder: QUALIFIERS: Laterality: right Qualified Code(s): M67.911 - Unspecified disorder of synovium and tendon, right shoulder PLAN: Suspect tendinitis v tear Pt advised to inform therapy Continue physical therapy Follow up with orthopaedics if fails to improve with therapy in the coming hilaria hs. PLAN: Plan Lumbar stenosis: Status post L5-S1 fusion. Management per spine surgery. For pain control, patient has a scheduled acetaminophen, as needed oxycodone and morphine. Other chronic conditions: * Hypertension: Stable. Continue with verapamil and lisinopril/HCTZ * Hyperlipidemia: Continue with simvastatin * Depression: Continue with escitalopram. Disposition: Patient states he is leaning towards going to a prison facility. Told the patient that with this being a holiday weekend that may not happen until Saturday. Will defer to the spine and case management. Medically stable for discharge. The Hospitalist service will sign off. Please reconsult if new issues arise. Charges/Coding Visit Charges Inpatient E&M: 74571 Subs Hosp L2
[2022-12-16] MEDS: Atorvastatin Calcium 20 MG Tablet PO (21:21)
[2022-12-16] MEDS: Latanoprost 0.005% 1 Bottle 1 DRP OPHTHALMIC (21:22)
[2022-12-17] VITALS (8 sets, daily range): BP systolic 107–128; BP diastolic 48–63; PULSE 64–74; RESP 16–18; TEMP 36.7–36.9; O2SAT 90–100
--- NOTE | 2022-12-17 01:02 | NURSING ---
Bladder scanned after void for 45cc. Patient voiding 100cc at a time.
[2022-12-17] MEDS: oxyCODONE 5 MG Tablet PO ×3 (03:37→20:46)
[2022-12-17] MEDS: Acetaminophen 500 MG Tablet 1000 MG PO ×3 (05:51→20:47)
[2022-12-17] MEDS: Escitalopram Oxalate 10 MG Tablet PO (08:11)
[2022-12-17] MEDS: Omega-3 Acid Ethyl Esters 1 GM Capsule PO (08:11)
[2022-12-17] MEDS: Ascorbic Acid 500 MG Tablet 1000 MG PO (08:11)
[2022-12-17] MEDS: Verapamil SR 240 MG Tablet 120 MG PO (08:12)
[2022-12-17] MEDS: Cholecalciferol (VIT D3) 25 MCG TABLET (1,000 UNITS) 50 MCG PO (08:12)
[2022-12-17] MEDS: Lisinopril 10 MG Tablet PO (08:16)
[2022-12-17] MEDS: hydroCHLOROthiazide 12.5mg 12.5 MG PO (08:16)
[2022-12-17] MEDS: Ondansetron 4 MG/2 ML Vial IV (20:46)
[2022-12-17] MEDS: 0.9% Saline Lock 10 ML Syringe IV (20:46)
[2022-12-17] MEDS: Latanoprost 0.005% 1 Bottle 1 DRP OPHTHALMIC (20:47)
[2022-12-17] MEDS: Atorvastatin Calcium 20 MG Tablet PO (20:48)
[2022-12-18] VITALS (7 sets, daily range): BP systolic 112–146; BP diastolic 51–95; PULSE 66–74; RESP 17–18; TEMP 36.5–36.7; O2SAT 86–100
[2022-12-18] MEDS: oxyCODONE 5 MG Tablet PO ×4 (01:08→20:26)
[2022-12-18] MEDS: Acetaminophen 500 MG Tablet 1000 MG PO ×3 (05:30→20:22)
[2022-12-18 09:00] LABS: Pathologist Review Reviewed
[2022-12-18] MEDS: hydroCHLOROthiazide 12.5mg 12.5 MG PO (09:03)
[2022-12-18] MEDS: Escitalopram Oxalate 10 MG Tablet PO (09:03)
[2022-12-18] MEDS: Lisinopril 10 MG Tablet PO (09:03)
[2022-12-18] MEDS: Omega-3 Acid Ethyl Esters 1 GM Capsule PO (09:03)
[2022-12-18] MEDS: Verapamil SR 240 MG Tablet 120 MG PO (09:04)
[2022-12-18] MEDS: Cholecalciferol (VIT D3) 25 MCG TABLET (1,000 UNITS) 50 MCG PO (09:04)
[2022-12-18] MEDS: Ascorbic Acid 500 MG Tablet 1000 MG PO (09:04)
--- NOTE | 2022-12-18 09:06 | CASEMGMT ---
[facility] Amada Barcenas, Discharge Planning Asst.
--- NOTE | 2022-12-18 11:47 | CASEMGMT ---
Discharge Planning Follow up call placed to Arash Sinha regarding status of referral. Msg left for admissions. Amada Barcenas, Discharge Planning Asst.
--- NOTE | 2022-12-18 11:48 | PCM.PN.ORT ---
Subjective Subjective Patient was seen and examined. He is sitting up in a chair resting comfortably. He still complains of back pain radiating to the right lower extremity. He is ambulating with physical therapy with the use of a walker. He denies any other acute numbness tingling weakness or changes in bowel or bladder function. He is working with case management on inpatient placement upon discharge. Objective Data Objective Data Vital Signs: Vital Signs Temp Pulse Resp BP Pulse Ox O2 Del Method O2 Flow Rate 98.1 F 73 17 146/51 H 91 Room Air 2 12/18/22 08:55 12/18/22 08:55 12/18/22 08:55 12/18/22 08:55 12/18/22 11:45 12/18/22 11:45 12/18/22 03:47 Oxygen Flow Rate (L/min) 2 Oxygen Delivery Method Room Air Weight: 208 lb Body Mass Index (BMI) 39.2 Intake & Output: Intake and Output for Last 24 Hours 12/16/22 12/17/22 12/18/22 23:59 23:59 23:59 Intake Total 870 / 1070 1250 / 1250 120 / 120 Output Total 800 / 900 650 / 650 285 / 285 Balance 70 / 170 600 / 600 -165 / -165 Lab / Micro Data 12/15/22 05:07 12/16/22 05:37 Labs: Laboratory Results - last 24 hr 12/14/22 06:35: Diff Path Review Reviewed Micro: Microbiology 11/20/22 11:05 Swab (Method) Nasal Screen MRSA/MSSA - Final Physical Exam Const alert, oriented x3 and no apparent distress General Appearance: cooperative, comfortable and well kempt Neck full ROM General: normal visual inspection Resp normal respiratory effort and normal air movement Effort and Inspection: able to speak in complete sentences Cardio peripheral pulses 2+ throughout GI soft to palpation, non-tender and non-distended Back/Spine Back/Spine Narrative: Dressing clean dry and intact. Incision well approximated with interrupted sutures in place. No tenderness erythema drainage or fluctuance Extremity normal to inspection, full ROM, no clubbing, cyanosis or edema and no calf tenderness Skin no rashes or lesions noted General Skin Exam: no breakdown Neuro oriented x3, CN's II-XII intact bilaterally, moves all extremities, no sensory deficits noted and deep tendon reflexes 2+ bilaterally Neuro Narrative: 4+ out of 5 weakness in right hip flexion and right knee extension. Otherwise strength 5 out of 5 throughout Motor Exam: muscle tone normal throughout Assessment & Plan Assessment/Plan (1) Lumbar stenosis: PLAN: Continue pain control and mobilization with physical therapy Discharge planning, per social work to inpatient facility Follow-up with Dr. Edward in clinic as scheduled
--- NOTE | 2022-12-18 14:29 | CASEMGMT ---
Addendum entered by Yancy Hernandez 12/18/22 15:32: [facility] is able to accept. Precert to be started at this time. COLEMAN Kwong Addendum entered by Yancy Hernandez 12/18/22 14:50: Voicemail left with Riri at [facility] to inquire about acceptance. Awaiting return call. COLEMAN Kwong Original Note: Social Work SW met with pt and introduced self and role of SW. Pt continues to voice wishes to go to [facility] at discharge. SW updated pt that referral has been made to [facility] and awaiting determination of acceptance. Precert will be needed prior to admission to SNF. Plan: [facility], pending acceptance and precert COLEMAN Kwong
[2022-12-18] MEDS: Atorvastatin Calcium 20 MG Tablet PO (20:22)
[2022-12-18] MEDS: Latanoprost 0.005% 1 Bottle 1 DRP OPHTHALMIC (20:23)
[2022-12-19 04:44] VITALS: BP 131/59; PULSE 70; RESP 17; TEMP 36.5; O2SAT 93
[2022-12-19] MEDS: Acetaminophen 500 MG Tablet 1000 MG PO ×2 (06:00→14:26)
[2022-12-19] MEDS: Omega-3 Acid Ethyl Esters 1 GM Capsule PO (08:23)
[2022-12-19] MEDS: Cholecalciferol (VIT D3) 25 MCG TABLET (1,000 UNITS) 50 MCG PO (08:23)
[2022-12-19] MEDS: Verapamil SR 240 MG Tablet 120 MG PO (08:23)
[2022-12-19] MEDS: Escitalopram Oxalate 10 MG Tablet PO (08:23)
[2022-12-19] MEDS: Ascorbic Acid 500 MG Tablet 1000 MG PO (08:24)
[2022-12-19 09:21] VITALS: O2SAT 88
--- NOTE | 2022-12-19 09:29 | CASEMGMT ---
[facility] Amada Barcenas, Discharge Planning Asst.
[2022-12-19] MEDS: Lisinopril 10 MG Tablet PO (10:26)
[2022-12-19] MEDS: hydroCHLOROthiazide 12.5mg 12.5 MG PO (10:26)
[2022-12-19] MEDS: Polyethylene Glycol 3350 17 GM PACKET PO (10:29)
[2022-12-19 10:30] VITALS: BP 128/54; PULSE 69; RESP 18; TEMP 37; O2SAT 90
[2022-12-19 11:36] VITALS: O2SAT 90
[2022-12-19] MEDS: oxyCODONE 5 MG Tablet PO (14:26)
[2022-12-19 14:29] VITALS: BP 141/54; PULSE 70; RESP 18; TEMP 36.9; O2SAT 90
--- NOTE | 2022-12-19 15:38 | CASEMGMT ---
Addendum entered by Yancy Hernandez 12/19/22 16:38: Physician in and pt is ready for discharge. 7000 exemption form completed in [facility] and sent along with discharge orders to [facility]. Riri at [facility] and pt nurse notified that pt can discharge with family when family is ready. Disposition: [facility], skilled level of care under convalescent stay COLEMAN Kwong Original Note: Social Work Phone call placed to Riri at [facility] and inquired about insurance authorization. Riri states preauth has been obtained and pt can admit. Message sent to Dr. Edward and updated that pt can discharge. Waiting on return call. SEDRICK met with pt and informed that [facility] can accept and precert has been obtained. Pt states he will arrange for transportation and will update his family. COLEMAN Kwong
--- NOTE | 2022-12-19 16:21 | TREXTCAR_ITS ---
Diet Diet Order/Speech Therapy: 12/14/22 09:46 Diet: Regular - General Food consistency:: Regular Liquid Consistency:: Regular/Thin Is pt able to select menu?: Yes Wound(s) LOW MID BACK: Wound Type: Surgical Incision Dressing Change: Dry Sterile Dressing (Daily) Therapies Physical Therapy: Eval and Treat Occupational Therapy: Eval and Treat Narrative: Back brace on at all times while out of bed. No repetitive bending twisting or lifting greater than 5 pounds Problem/Diagnosis (1) Lumbar stenosis: Status: Acute Code(s): M48.061 - Spinal stenosis, lumbar region without neurogenic claudication Plan: Continue pain control and mobilization with physical therapy Discharge planning, per social work to inpatient facility Follow-up with Dr. Edward in clinic as scheduled Allergies/Procedures Done in Hospital Allergies amoxicillin Adverse Reaction (Intermediate, Verified 11/19/22 08:56) GI Upset Type of Care/Length of Stay Estimated LOS: Convalescent Care Less Than 30 days Type of Care Needed: Skilled Rehab Potential: Good Prognosis: Good Additional Orders/Day of Discharge Additional Orders: Follow-up with Dr. Graham in 2 weeks for suture removal. If still inpatient remove sutures in 2 weeks Day of Discharge: 12/19/22 Dietary and Speech Recommendations Dietitian Recommendations/Changes: Cardiac/carbohydrate-controlled diet as needed. Follow Up Care Please Follow Up With: Neftaly Edward DO When: 3 weeks Discharge Plan Admission Admit Date/Time: 12/13/22 08:13 Attending Provider: Neftaly Edward Primary Care Provider: Neftaly Varela Instructions Additional Instructions / Restrictions: 1. During your procedure, you received sedation through your IV. Please follow these instructions for the next 24 hours: Do not drive a motor vehicle, do not drink any alcoholic beverages, and do not sign any legal documents or make pe rsonal or business decisions. A responsible adult should stay with you at least 6 hours after the procedure. 2. Keep your surgical site/incision clean and the dressing dry and intact. You may use an ice pack at the surgical site to reduce any swelling or discomfort. 3. Monitor the incision site for any signs or symptoms of infection. Watch for redness, excessive swelling or drainage, or continued pain at the incision site after 3 days. Contact your physician immediately for a fever, chills or a temperature of 101.5? F or greater. 4. Take your medication exactly as prescribed by your physician. Do not attempt to wean yourself off any of your medications even though your pain is improving. This process needs to be carefully monitored by your doctor. Take any antibiotics prescribed exactly as directed and until they are gone. 5. Avoid stretching, bending, pulling, twisting or any sudden movements. Do not bend or twist at the waist. Wear back brace at all times 6. No lifting greater than 5 pounds. 7. Do not operate a motor vehicle, equipment or a power tool while taking pain medication 8. Do not have any manipulation done by a chiropractor or any other physician without first consulting with the surgeon 9. Please contact our office if you are even scheduled for a CT scan or an MRI. 10. Please call us if you have any questions, problems or concerns. Discharge Orders/Prescriptions Prescriptions: New hydrocodone-acetaminophen 5-325 mg tablet 1 tab PO Q6H 7 Days Qty: 28 0RF Continued cholecalciferol (vitamin D3) 2,000 unit capsule 2,000 unit PO DAILY latanoprost 0.005 % drops 1 drp EACH EYE QHS polyethylene glycol 3350 [Miralax] 17 gram/dose powder 17 g PO DAILY PRN (Reason: Constipation) ascorbic acid (vitamin C) 1,000 mg tablet 1 g PO DAILY omega 0-png-cty-fish oil [Fish Oil] 60-90-500 mg capsule 1 cap PO DAILY escitalopram oxalate 10 MG tablet 10 mg PO DAILY lisinopril-hydrochlorothiazide 10-12.5 mg tablet 1 tab PO DAILY Qty: 90 3RF simvastatin 80 mg tablet 40 mg PO QHS Qty: 90 3RF verapamil 120 mg capsule,ext rel. pellets 24 hr 120 mg PO DAILY Qty: 90 4RF Discontinued aspirin 81 MG tablet,chewable 81 mg PO DAILY@0800 Patient Comments: heart health Referrals / Follow Up: Neftaly Varela MD [Primary Care Provider] - Neftaly Edward DO [Med Staff - Active Staff] - Disposition Disposition (needs filled in before D/C Order can be placed): Long Term Facility
--- NOTE | 2022-12-19 17:08 | NURSING ---
report called to Arash Serrano
== END 2022-12-19 17:25 | disposition skilled nursing facility (03) | DRG 454 ==
LOC: MS3 17:50 → ACINP 12-14 09:38 → SDC 12-14 09:38 → MS3 12-14 09:40
PROVIDERS: Family Medicine; Admitting Provider Orthopaedic Surgery; PCP Family Medicine; Referring Provider Orthopaedic Surgery; Visit Provider Orthopaedic Surgery
PROC: 0SG00AJ Fusion of Lumbar Vertebral Joint with Interbody Fusion Device, Posterior Approach, Anterior Column, Open Approach (ICD-10-PCS; CPT 22630; principal; 2022-12-13 07:30)
DX: M48.061 Spinal stenosis, lumbar region without neurogenic claudication (principal); N17.9 Acute kidney failure, unspecified; J44.9 Chronic obstructive pulmonary disease, unspecified; I42.2 Other hypertrophic cardiomyopathy; I73.9 Peripheral vascular disease, unspecified; F32.A Depression, unspecified; I10 Essential (primary) hypertension; M43.17 Spondylolisthesis, lumbosacral region; M47.27 Other spondylosis with radiculopathy, lumbosacral region; M51.37 Other intervertebral disc degeneration, lumbosacral region; E78.00 Pure hypercholesterolemia, unspecified; M62.81 Muscle weakness (generalized); Z79.899 Other long term (current) drug therapy; Z79.82 Long term (current) use of aspirin; E66.8 Other obesity; G47.30 Sleep apnea, unspecified; Z87.891 Personal history of nicotine dependence; Z68.39 Body mass index [BMI] 39.0-39.9, adult; F41.9 Anxiety disorder, unspecified
CPT/HCPCS: 22633; 63052; 22853; 20930; 20936; 22842; 36415; 72020; 76000; 80048; 85025; 85610; 85730; 87081; 94668; 96361; 96365; 96366; 96375; 96376; 97110; 97116; 97162; 97166; 97530; 97535; 99221; C1713; J7030; J7120; A4216; G0378; J2405

== ENCOUNTER 2023-01-09 16:10 | Emergency (ER) | payer MEDICARE, SELFPAY ==
[2023-01-09 16:11] VITALS: BP 169/64; PULSE 64; RESP 18; TEMP 36.3; O2SAT 96; BMI 37.8
[2023-01-09 16:26] VITALS: O2SAT 98
[2023-01-09 16:37] VITALS: BP 156/56
--- NOTE | 2023-01-09 16:41 | EDS_ITS ---
HPI History of Present Illness Chief Complaint: Shortness of Breath Informant: patient Onset/Context/Timing Onset: Today Context: sudden Timing: Continuous Quality: Positive for Dyspnea on exertion Worsened by: Exertion Relieved by: Nothing Associated Symptoms Negative for cough, rhinorrhea, post nasal drip, ear pain, fever, sore throat, chills, sweats, clear sputum, white sputum, yellow sputum or green sputum Chest Pain: Positive for None Narrative Narrative: Patient presents with shortness of breath that became worse today. Patient states his breathing is worse with any exertion. Patient denies any cough. Patient denies any chest pain. Patient denies any fevers or chills. Patient states nothing seems to make his breathing any better. Patient did have a recent lumbar fusion. Patient admits to some nausea but denies any vomiting. Patient denies any history of DVT or PE. PE Risk Factors: Positive for Recent surgery; Negative for Cancer, OCP + Smoking + > 35, Prior DVT or PE, Recent immobilization or Recent travel [facility] Medical History Acute dyspnea GE (acute kidney injury) Anxiety Arthritis Back pain Cardiology follow-up encounter Chest pain Claudication COPD (chronic obstructive pulmonary disease) CPAP (continuous positive airway pressure) dependence Essential (primary) hypertension Former smoker High cholesterol History of carotid stenosis History of echocardiogram History of pain when walking History of stress test Leg cramps Nonrheumatic tricuspid (valve) insufficiency Obesity Other hypertrophic cardiomyopathy PAD (peripheral artery disease) possible COPD Pure hypercholesterolemia Rotator cuff disorder Sedentary lifestyle Shortness of breath on exertion Sleep apnea Wears glasses Home Medications cholecalciferol (vitamin D3) 50 mcg (2,000 unit) capsule 2,000 unit PO DAILY constipation 03/10/19 [History Last Taken 12/05/22] latanoprost 0.005 % eye drops 1 drp EACH EYE QHS GLAUCOMA 04/24/19 [History Last Taken 12/12/22] polyethylene glycol 3350 17 gram/dose oral powder (Miralax) 17 g PO DAILY PRN Constipation 12/03/19 [History Last Taken 12/06/22] escitalopram oxalate 10 mg tablet 10 mg PO DAILY DEPRESSION 05/13/20 [History Last Taken 12/13/22] lisinopril 10 mg-hydrochlorothiazide 12.5 mg tablet 1 tab PO DAILY BP #90 tabs 07/12/20 [Rx Last Taken Unknown] simvastatin 80 mg tablet 40 mg (1/2 x 80 mg) PO QHS CHOLESTEROL #90 tabs 05/26/21 [Rx Last Taken 12/12/22] ascorbic acid (vitamin C) 1,000 mg tablet 1 g PO DAILY 12/29/21 [History Last Taken 12/05/22] omega 4-quq-uxw-fish oil 60 mg-90 mg-500 mg capsule (Fish Oil) 1 cap PO DAILY 12/29/21 [History Last Taken 12/13/22] verapamil 120 mg 24 hr capsule,extended release 120 mg PO DAILY HEART #90 caps 07/03/22 [Rx Last Taken 12/13/22] hydrocodone-acetaminophen 5-325mg 5mg-325mg 1 tab PO Q6H 7 days #28 tabs 12/13/22 [Rx Last Taken Unknown] Allergy/AdvReac Type Severity Reaction Status Date / Time amoxicillin AdvReac Intermediate GI Upset Verified 01/09/23 16:13 Family History Brother Hypertension Sister Hypertension Surgical History H/O removal of cyst History of cardiac catheterization History of colonoscopy (08/04/15) History of left heart catheterization (01/09/18) History of right cataract extraction History of right-sided carotid endarterectomy (2005) s/p APLL Status post lumbar spinal fusion Social History Smoking Status: Former smoker quit date: 01/13/99 ROS ROS ED Constitutional Constitutional ED: Denies chills or fever(s) Eyes Eyes: Denies blurry vision or change in vision ENT ENT ED: Denies rhinorrhea or sore throat Cardiovascular Cardiovascular: Denies chest pain or palpitations Respiratory/Chest Respiratory/Chest: Reports dyspnea; Denies cough Gastrointestinal Gastrointestinal: Reports nausea; Denies vomiting Genitourinary Genitourinary ED: Denies dysuria or hematuria Musculoskeletal Musculoskeletal: Denies back pain or neck pain Integumentary Denies abscess or rash Neurologic Neurologic: Denies headache(s) or weakness Allergic/Immunologic Allergic/Immunologic ED: Denies mouth swelling or urticaria EXAM Physical Exam Const Vital Signs: 01/09/23 16:11 01/09/23 16:26 01/09/23 16:37 Temperature 97.4 F L Temperature Source Temporal Pulse Rate 64 Respiratory Rate 18 Respiratory Effort Normal Non-Labored Respiratory Depth Normal Respiratory Pattern Normal Blood Pressure 169/64 H 156/56 H Blood Pressure Mean 99 89 Pulse Ox 96 Oxygen Delivery Method Room Air Room Air Positive well nourished, well developed and obese General Appearance ED: well developed and NAD Nutritional Appearance: obese HEENT Reports moist mucous membranes Neck supple, no meningeal signs and no JVD Resp normal respiratory effort and clear to auscultation bilaterally Cardio regular rate and regular rhythm GI non-tender and non-distended Palpation: soft Extremity normal to inspection General Extremety ED: Negative for edema or tenderness General Extremity: Negative for edema Neuro oriented x3, CN's II-XII intact bilaterally and no sensory deficits noted Elvis Coma Scale: document GCS findings Spontaneous Obeys Commands Oriented 15 Sensorium / Orientation: alert Speech: speech normal Psych mental status grossly normal MDM MDM MDM Narrative Medical decision making narrative: Differential diagnosis includes pulmonary embolism, pneumonia, pneumothorax, cardiac dysrhythmia, cardiac ischemia, electrolyte abnormality, bronchitis, congestive heart failure, COVID-19 infection, influenza infection, RSV infection. CTA of the chest will be obtained to assess for pneumonia, pneumothorax, and pulmonary embolism. EKG will be obtained to assess for cardiac dysrhythmia and cardiac ischemia. CBC will be obtained to assess for leukocytosis and anemia. Basic metabolic profile will be obtained to assess for electrolyte abnormality and renal function. High-sensitivity troponin will be obtained to assess for cardiac ischemia. BNP will be obtained to assess for congestive heart failure. PT with INR and PTT will be obtained to assess for coagulopathy. RSV rapid antigen will be obtained to assess for RSV infection. COVID-19 rapid antigen will be obtained to assess for COVID-19 infection. Influenza a and influenza B antigens will be obtained to assess for influenza infection. History & Record Review Additional record(s) reviewed:: Prior labs Lab Data Attestation: I reviewed the patient's lab results. Lab results narrative: CBC was reviewed. There is a mild anemia with a hemoglobin of 11.2 and hematocrit of 36.1. This is unchanged compared to previous results. PT with INR and PTT were reviewed and were within normal limits. Basic metabolic profile was reviewed. BUN was slightly elevated at 22. The remainder is within normal limits. Initial high-sensitivity troponin was reviewed and was normal at 84. 2-hour repeat high-sensitivity troponin was reviewed and was normal at 86. BNP was reviewed and was slightly elevated at 163.5. Labs: Laboratory Results - last 24 hr 01/09/23 01/09/23 17:20 19:24 WBC 5.3 RBC 3.76 L Hgb 11.2 L Hct 36.1 L MCV 96.0 H MCH 29.8 MCHC 31.0 L RDW Std Deviation 49.1 H RDW Coeff of Herrera 13.9 Plt Count 263 MPV 10.6 Immature Gran % (Auto) 0.200 Neut % (Auto) 66.3 Lymph % (Auto) 22.1 Delta % (Auto) 10.4 H Eos % (Auto) 0.6 Baso % (Auto) 0.4 Absolute Neuts (auto) 3.5 Absolute Lymphs (auto) 1.17 Nucleated RBC % 0 PT 14.2 INR 1.1 APTT 29.4 Sodium 141 Potassium 4.4 Chloride 107 Carbon Dioxide 30.0 Anion Gap 4 L BUN 22 H Creatinine 1.30 Estim Creat Clear Calc 36.32 Est GFR (MDRD) Af Amer 69 Est GFR (MDRD) Non-Af 57 L BUN/Creatinine Ratio 16.9 Glucose 87 Calcium 9.3 Troponin I High Sens 84 H 86 H B-Natriuretic Peptide 163.5 H Radiography CTA PE Study: No Evidence of PE and No Evidence of Dissection Diagnostic Testing: Clinical Impression(s) from Imaging Studies Chest CTA 01/09/23 18:41 IMPRESSION: Negative CTA chest examination, without a demonstrated pulmonary embolism or arterial dissection. Mild posterior dependent/subpleural atelectasis, otherwise no acute pulmonary disease. No pleural effusion or pneumothorax. Electronically Signed: Jeni Leach MD at 19:17 EDT , Because of the recent surgery, CTA of the chest was obtained. There is no evidence of pulmonary embolism or aortic dissection. There is no pleural effusion or pneumothorax. There is no infiltrate noted. This was interpreted by the radiologist and was also independently reviewed by myself. EKG Initial EKG: Attestation: I personally reviewed and interpreted this EKG as follows: Interpretation: Sinus Rhythm (62), Inverted T-Waves and Non-Specific ST Changes Comments: EKG was obtained. On my independent interpretation, it showed a normal sinus rhythm with a rate of 62. FL interval, QRS interval, and QTc intervals were all normal. There is left axis deviation at -36. There are nonspecific ST-T wave changes. Prior EKG tracings: available for review Prior: Unchanged (05/13/2020) Treatment and Re-Evaluation :: Patient is feeling better on reevaluation. Patient was advised of his findings. Patient was instructed to follow-up with his primary care physician and surgeon as scheduled. Patient understood and was agreeable with the plan. All questions were answered. Discharge Plan Triage Chief Complaint: Shortness of Breath ED Provider: Enrrique Moore Dx/Rx/DC Orders Clinical Impression: Essential (primary) hypertension, Dyspnea Instructions: ED Dyspnea Prescriptions: No Action cholecalciferol (vitamin D3) 2,000 unit capsule 2,000 unit PO DAILY latanoprost 0.005 % drops 1 drp EACH EYE QHS polyethylene glycol 3350 [Miralax] 17 gram/dose powder 17 g PO DAILY PRN (Reason: Constipation) ascorbic acid (vitamin C) 1,000 mg tablet 1 g PO DAILY omega 3-jdr-elf-fish oil [Fish Oil] 60-90-500 mg capsule 1 cap PO DAILY escitalopram oxalate 10 MG tablet 10 mg PO DAILY hydrocodone-acetaminophen 5-325 mg tablet 1 tab PO Q6H 7 Days Qty: 28 0RF lisinopril-hydrochlorothiazide 10-12.5 mg tablet 1 tab PO DAILY Qty: 90 3RF simvastatin 80 mg tablet 40 mg PO QHS Qty: 90 3RF verapamil 120 mg capsule,ext rel. pellets 24 hr 120 mg PO DAILY Qty: 90 4RF Primary Care Provider: Neftaly Varela Referrals: Neftaly Varela MD [Primary Care Provider] - 3-5 Days Disposition Disposition: Home, Self Care
[2023-01-09 17:50] LABS: Absolute Lymphocyte Count 1.17 X10^3/uL (0.83-4.51); Absolute Neutrophil Count 3.5 X10^3/uL (2.0-7.7); Basophil# 0.02 X10^3/uL; Basophil% 0.4 % (0-1); Eosinophil# 0.03 X10^3/uL; Eosinophils% 0.6 % (0-5); Hematocrit 36.1 % (40-54); Hemoglobin 11.2 g/dL (13.0-16.5); Lymphocyte # 1.17 X10^3/ul (0.83-4.51); Lymphocyte % 22.1 % (19-41); Mean Corpuscular Hgb 29.8 pg (27.0-32.0); Mean Platelet Vol. 10.6 fl (6.2-12.0); Monocyte# 0.55 X10^3/uL; Monocyte% 10.4 % (0-10); NRBC Flagged by Analyzer 0 % (0-5); Neutrophil # 3.51 X10^3/uL (2.7-7.7); Neutrophil % 66.3 % (47-70); Platelet Count 263 K/mm3 (150-450); RBC Distribution Width CV 13.9 % (11.6-14.6); RBC Distribution Width SD 49.1 fl (35.1-43.9); Red Blood Count 3.76 M/mm3 (4.6-6.2); White Blood Count 5.3 K/mm3 (4.4-11.0)
[2023-01-09 18:06] LABS: Partial Thromboplast Time 29.4 Seconds (24.1-36.2)
[2023-01-09 18:09] LABS: Anion Gap 4 (5-15); BUN 22 mg/dL (7-18); BUN/Creat Ratio 16.9 RATIO (10-20); Calcium,Total 9.3 mg/dL (8.5-10.1); Chloride 107 mmol/L (98-107); EST Glomerular Filtration Rate 57 mL/min (>60); Est Glom Filt Rate - Afr Amer 69 mL/min (>60); Estimated Creatinine Clearance 36.32 ml/min; Glucose 87 mg/dL (74-106); Potassium 4.4 mmol/L (3.5-5.1); Sodium Level 141 mmol/L (136-145); Troponin-I HS 84 pg/mL (3.0-78.0)
[2023-01-09 18:20] LABS: International Normalized Ratio 1.1; Prothrombin Time (Protime)PT. 14.2 SECONDS (11.7-14.9)
[2023-01-09 18:22] LABS: BNP,B-Type NATRIURETIC PEPTIDE 163.5 pg/mL (0-100)
--- NOTE | 2023-01-09 18:41 | CT_ITS ---
STUDY: CTA CHEST REASON FOR EXAM: Male, 77 years old. Pulmonary embolism. RADIATION DOSAGE (If Supplied By Facility): CTDIvol = ( 11.93 ) mGy, DLP = ( 522.04 ) mGycm TECHNIQUE: The examination was performed with the intravenous administration of IV 100mL Isovue-370. Post-processing of the angiographic images was performed, with multiplanar reformation and 3D reconstruction. Individualized dose optimization techniques were used for this CT. COMPARISON: 05/13/2020. FINDINGS: Normal enhancement of the main pulmonary artery and right and left pulmonary arteries. Normal enhancement of the bilateral peripheral pulmonary arteries. There is no demonstrated pulmonary embolism. There is atherosclerotic calcification of the aortic arch with tortuosity. There is no demonstrated aortic dissection. Borderline mild cardiomegaly. There are calcifications of the coronary arteries. Normal mediastinum. Normal hilar regions. Normal visualized trachea and bronchi. The lungs are well expanded. Normal pulmonary parenchyma. Normal pleura. Normal chest wall structures. There are degenerative changes of thoracic spine. Upper abdomen reveals small gallstone, otherwise unremarkable visualized upper abdomen. CT/CTA Chest W/WO Contrast IMPRESSION: Negative CTA chest examination, without a demonstrated pulmonary embolism or arterial dissection. Mild posterior dependent/subpleural atelectasis, otherwise no acute pulmonary disease. No pleural effusion or pneumothorax. Electronically Signed: Jeni Leach MD at 19:17 EDT ,
[2023-01-09 19:50] LABS: Troponin-I HS 86 pg/mL (3.0-78.0)
[2023-01-09 21:07] VITALS: BP 155/72; PULSE 62; RESP 16; O2SAT 97
[2023-01-09] MEDS: Morphine 4 MG/ML Syringe IV (21:17)
== END 2023-01-09 21:23 | disposition home or self-care (01) ==
PROVIDERS: Emergency Provider Emergency Medicine; PCP Family Medicine; Visit Provider Emergency Medicine
DX: R06.00 Dyspnea, unspecified (principal); J44.9 Chronic obstructive pulmonary disease, unspecified; I42.2 Other hypertrophic cardiomyopathy; I10 Essential (primary) hypertension; E78.00 Pure hypercholesterolemia, unspecified; Z87.891 Personal history of nicotine dependence; Z99.89 Dependence on other enabling machines and devices; Z79.899 Other long term (current) drug therapy; Z98.41 Cataract extraction status, right eye; E66.9 Obesity, unspecified
CPT/HCPCS: 71275; 80048; 83880; 84484; 85025; 85610; 85730; 87428; 87807; 93005; 96374; 99284; Q9967; A4216

== ENCOUNTER 2023-01-17 12:59 | Observation (INO) | payer MEDICARE, SELFPAY ==
[2023-01-17] VITALS (13 sets, daily range): BP systolic 112–185; BP diastolic 48–76; PULSE 57–70; RESP 14–18; TEMP 36.4–37.2; O2SAT 93–100; BMI 37.5
[2023-01-17] MEDS: Lactated Ringers 1,000 ML 15 ML IV (10:38)
--- NOTE | 2023-01-17 11:31 | PCM.OPRPT ---
Report of Operation Date of Procedure: 01/17/23 Pre-Operative Diagnosis: Delayed wound healing, lumbar Post-Operative Diagnosis: Delayed wound healing, lumbar Surgery/Procedure Performed:: 1. Lumbar irrigation, debridement, wound exploration 2. Application of wound VAC Description of Surgical Findings:: The patient is a 77-year-old male who developed delayed wound healing of his lumbar incision status post lumbar fusion. The patient has opted for operative intervention understanding the risk to include but not limited to infection, bleeding, damage to nerves arteries and veins, continued pain, need for further surgery, deep vein thrombosis, pulmonary embolism, heart attack, risk of stroke or The patient was identified in the preoperative holding area. He was then transferred to the operative suite. Once in the operative suite after the general endotracheal anesthesia was established the patient was transferred prone to the operating table. All bony prominences were padded accordingly. The lumbar spine was prepped and draped in standard surgical fashion. The previous incision was opened and a moderate amount of dark brown fluid was encountered. The fluid was cultured and sent for analysis. The wound was then thoroughly debrided of all necrotic tissue in the wound margins were debrided with a 15 blade scalpel. The fascia was inspected and found to be intact. A second set of cultures were then taken. The wound was then thoroughly irrigated with 3 L of saline solution through a pulse gang hemstitching machine operator. The wound measured 5 cm x 2 cm. At this time a wound VAC sponge was cut to fit the wound margins. The incision was cleaned and dried. The wound VAC was applied. It was found to be functioning properly. Sponge instrument and needle counts were correct at the end of the case. The patient was extubated and taken to the PACU without incident Naomi Petty PA-C was present during the entire duration of the case and necessary for critical parts of the case including retraction and closure Surgeon: Neftaly Edward button breaker operator: Naomi Petty Type of Anesthesia: General Drains: Wound VAC Estimated Blood Loss (mL): 10 cc Fluids Replaced: 1200 cc Grafts/Implants Used: Wound VAC Complications None Admit VTE Documentation VTE Present on Admission: No
--- NOTE | 2023-01-17 11:31 | PCM.PN.ORT ---
Subjective Subjective Seen and examined postop. Resting comfortably. Pain controlled. No complaints. Wound VAC in place and functioning properly Objective Data Objective Data Vital Signs: Vital Signs Temp Pulse Resp BP Pulse Ox O2 Del Method 98.2 F 68 16 168/59 H 96 Room Air 01/17/23 10:32 01/17/23 10:32 01/17/23 10:32 01/17/23 10:32 01/17/23 10:32 01/17/23 10:32 Oxygen Delivery Method Room Air Weight: 198 lb 6.656 oz Body Mass Index (BMI) 37.5 Physical Exam Const alert, oriented x3 and no apparent distress General Appearance: cooperative, comfortable and well kempt HEENT normocephalic and head/scalp atraumatic Head and Scalp: normal to inspection Eyes EOMs intact bilaterally and conjunctivae normal Neck full ROM General: normal visual inspection Chest inspection of chest normal and palpation of chest normal Resp normal respiratory effort and normal air movement Cardio regular rate, regular rhythm and peripheral pulses 2+ throughout GI soft to palpation, non-tender and non-distended Back/Spine Back/Spine Narrative: Wound VAC in place and functioning properly Cervical Spine: cervical ROM normal Thoracic Spine / Upper Back: normal to inspection Lumbar Spine / Lower Back: normal to inspection Extremity normal to inspection, full ROM, normal capillary refill, no clubbing, cyanosis or edema and no calf tenderness Skin no rashes or lesions noted General Skin Exam: no breakdown Neuro oriented x3, CN's II-XII intact bilaterally, moves all extremities, no focal motor deficits, no sensory deficits noted and deep tendon reflexes 2+ bilaterally Motor Exam: strength 5/5 throughout and muscle tone normal throughout Assessment & Plan Assessment/Plan (1) Delayed surgical wound healing: PLAN: Okay to admit for observation See orders Discharge planning, likely home tomorrow with home health
[2023-01-17] MEDS: Cefazolin 1 GM/50 ML BAG IV ×2 (12:46→22:54)
[2023-01-17] MEDS: Vancomycin IV 1,000 MG/20 ML Vial IP (12:50)
--- NOTE | 2023-01-17 13:09 | DS.PCM_ITS ---
Providers Date of Admission: 01/17/23 Primary Care Physician: Dr. Neftaly Varela MD Reason For Visit: LUMBAR IRRIGATION, DEBRIDEMENT, WOU Diagnosis Discharge Diagnosis (1) Delayed surgical wound healing: Status: Acute Code(s): T81.89XA - Other complications of procedures, not elsewhere classified, initial encounter Plan: Okay to admit for observation See orders Discharge planning, likely home tomorrow with home health Medications at Discharge Home Medications cholecalciferol (vitamin D3) 50 mcg (2,000 unit) capsule 2,000 unit PO DAILY co nstipation 03/10/19 latanoprost 0.005 % eye drops 1 drp EACH EYE QHS GLAUCOMA 04/24/19 polyethylene glycol 3350 17 gram/dose oral powder (Miralax) 17 g PO DAILY PRN Constipation 12/03/19 escitalopram oxalate 10 mg tablet 10 mg PO DAILY DEPRESSION 05/13/20 lisinopril 10 mg-hydrochlorothiazide 12.5 mg tablet 1 tab PO DAILY BP #90 tabs 07/12/20 simvastatin 80 mg tablet 40 mg (1/2 x 80 mg) PO QHS CHOLESTEROL #90 tabs 05/26/21 ascorbic acid (vitamin C) 1,000 mg tablet 1 g PO DAILY 12/29/21 omega 6-kmn-nub-fish oil 60 mg-90 mg-500 mg capsule (Fish Oil) 1 cap PO DAILY 12/29/21 verapamil 120 mg 24 hr capsule,extended release 120 mg PO DAILY HEART #90 caps 07/03/22 hydrocodone-acetaminophen 5-325mg 5mg-325mg 1 tab PO Q6H 7 days #28 tabs 12/13/22 cephalexin 500 mg capsule 500 mg PO TID 01/16/23 Hospital Course Operations - (Lumbar irrigation, debridement, wound exploration, application of wound VAC) Summary of Care Provided Minutes Spent on Discharge: 15 Hospital Course: The patient is a 77-year-old male who underwent lumbar irrigation, debridement, application of wound VAC on 01/17/2023. He was subsequently admitted for observation. The patient progressed well. The hospitalist was consulted for medical management. His pain was controlled and he was mobilizing well. No significant medical issues were reported. He was subsequently discharged home with home health care for wound VAC changes and to follow-up with Dr. Edward in 3 weeks Physical Exam Const alert, oriented x3 and no apparent distress General Appearance: cooperative, comfortable and well kempt Neck full ROM General: normal visual inspection Resp normal respiratory effort and normal air movement Effort and Inspection: able to speak in complete sentences Cardio regular rate and peripheral pulses 2+ throughout GI soft to palpation, non-tender and non-distended Back/Spine Back/Spine Narrative: Wound VAC in place and functioning properly Cervical Spine: cervical ROM normal Thoracic Spine / Upper Back: normal to inspection Lumbar Spine / Lower Back: normal to inspection Extremity normal to inspection, full ROM, normal capillary refill, no clubbing, cyanosis o r edema and no calf tenderness Skin no rashes or lesions noted General Skin Exam: no breakdown Neuro oriented x3, CN's II-XII intact bilaterally, moves all extremities, no focal motor deficits, no sensory deficits noted and deep tendon reflexes 2+ bilaterally Motor Exam: strength 5/5 throughout and muscle tone normal throughout Weight / BMI Weight Weight: 198 lb 6.656 oz Body Mass Index (BMI) 37.5 ABG / Lab / Microbiology Data 01/18/23 06:40 01/18/23 06:40 D/C Instructions Discharge Diet: No restrictions Weight Bearing Status: Weight bearing as tolerated Lifting Restrictions: No repetitive bending twisting or lifting greater than 5 pounds. Additional Activity Instructions: Wear back brace at all times. Okay to remove brace to sleep Call your doctor if your incision/area has: Continuous Slow Oozing, Sudden Increased Bleeding, Increased Pain/ Swelling, Increased Redness, Foul Smelling Discharge and Swelling at the incision site Call your doctor if you observe: Fever of 101 or Higher, Coldness, Increased Pain, Numbness or Tingling, Change in Color, Inability to urinate, Inability to have a bowel movement, Using more than 1 pad per hour, Shortness of breath, Dizziness, Fainting spells, Swelling in the ankles, Chest pain, Prolonged hiccupping, Increased palpitations (irregular heartbeat), Calf discomfort and Uncontrolled pain Additional Dressing/Incision Instructions: Leave wound VAC in place and functioning. VAC changes to be done by home health care nurse Additional Instructions: 1. During your procedure, you received sedation through your IV. Please follow these instructions for the next 24 hours: Do not drive a motor vehicle, do not drink any alcoholic beverages, and do not sign any legal documents or make personal or business decisions. A responsible adult should stay with you at least 6 hours after the procedure. 2. Keep your wound VAC in place and functioning. VAC changes to be done by home health nurse 3. Monitor the incision site for any signs or symptoms of infection. Watch for redness, excessive swelling or drainage, or continued pain at the incision site after 3 days. Contact your physician immediately for a fever, chills or a tem perature of 101.5? F or greater. 4. Take your medication exactly as prescribed by your physician. Do not attempt to wean yourself off any of your medications even though your pain is improving. This process needs to be carefully monitored by your doctor. Take any antibiotics prescribed exactly as directed and until they are gone. 5. Avoid stretching, bending, pulling, twisting or any sudden movements. Do not bend or twist at the waist. Wear back brace at all times 6. No lifting greater than 5 pounds. 7. Do not operate a motor vehicle, equipment or a power tool while taking pain medication 8. Do not have any manipulation done by a chiropractor or any other physician without first consulting with the surgeon 9. Please contact our office if you are even scheduled for a CT scan or an MRI. 10. Please call us if you have any questions, problems or concerns. Please Follow Up With: Neftaly Edward DO When: 3 weeks Meaningful Use Info Meaningful Use Diagnoses (Choose all that apply): None applicable Discharge Plan Admission Admit Date/Time: 01/17/23 12:59 Attending Provider: Ralph Partida Primary Care Provider: Neftaly Varela Consulting Providers: Robert Dominguez; Neftaly Edward Discharge Orders/Prescriptions Prescriptions: Continued cholecalciferol (vitamin D3) 2,000 unit capsule 2,000 unit PO DAILY latanoprost 0.005 % drops 1 drp EACH EYE QHS polyethylene glycol 3350 [Miralax] 17 gram/dose powder 17 g PO DAILY PRN (Reason: Constipation) ascorbic acid (vitamin C) 1,000 mg tablet 1 g PO DAILY omega 9-jsa-jgw-fish oil [Fish Oil] 60-90-500 mg capsule 1 cap PO DAILY escitalopram oxalate 10 MG tablet 10 mg PO DAILY cephalexin 500 mg capsule 500 mg PO TID hydrocodone-acetaminophen 5-325 mg tablet 1 tab PO Q6H 7 Days Qty: 28 0RF lisinopril-hydrochlorothiazide 10-12.5 mg tablet 1 tab PO DAILY Qty: 90 3RF simvastatin 80 mg tablet 40 mg PO QHS Qty: 90 3RF verapamil 120 mg capsule,ext rel. pellets 24 hr 120 mg PO DAILY Qty: 90 4RF Referrals / Follow Up: Neftaly Varela MD [Primary Care Provider] - Neftaly Edward DO [Med Staff - Active Staff] - Disposition Disposition (needs filled in before D/C Order can be placed): Home Health Service
--- NOTE | 2023-01-17 15:39 | PN.HOSP_ITS ---
Reason for Visit Reason for Visit: Diagnoses Other complications of procedures, not elsewhere classified, initial encounter (01/17/23) Subjective Subjective Patient seen at bedside on the floor postoperatively. Sitting comfortably in bed, conversing normally, no acute distress. He reports minimal back pain at this time. Wound VAC draining well, serosanguineous drainage noted. He denies any fevers or chills, chest pain, shortness of breath, abdominal pain or distention. No other acute concerns currently. Objective Data Objective Data Vital Signs: Vital Signs Temp Pulse Resp BP Pulse Ox O2 Del Method O2 Flow Rate 98.9 F 58 L 18 142/62 H 98 Room Air 2 01/17/23 15:34 01/17/23 15:34 01/17/23 15:34 01/17/23 15:34 01/17/23 15:34 01/17/23 15:34 01/17/23 14:40 Oxygen Flow Rate (L/min) 2 Oxygen Delivery Method Room Air Weight: 90 kg Body Mass Index (BMI) 37.5 Intake & Output: Intake and Output for Last 24 Hours 01/15/23 01/16/23 01/17/23 23:59 23:59 23:59 Output Total 150 / 150 Balance -150 / -150 Physical Exam Const alert and oriented x3 Constitutional Narrative: Elderly male, sitting comfortably in bed, conversing normally, no acute distress. General Appearance: cooperative and comfortable HEENT normocephalic, head/scalp atraumatic, hearing grossly normal bilaterally, nasal mucous membranes and turbinates normal and moist oral mucous membranes Eyes PERRL, EOMs intact bilaterally and conjunctivae normal Neck full ROM, no lymphadenopathy and supple Lymph Lymphatic: no lymphadenopathy noted Chest inspection of chest normal Resp normal respiratory effort, normal air movement, no use of accessory muscles and clear to auscultation bilaterally Cardio regular rate, regular rhythm, no murmurs and peripheral pulses 2+ throughout GI normal to inspection, nondistended, normoactive bowel sounds, soft to palpation, non-tender and non-distended Back/Spine Back/Spine Narrative: Wound VAC draining appropriately, no gross abnormalities on exam. Extremity normal to inspection, full ROM and no pedal edema Skin no rashes or lesions noted Psych mental status grossly normal Assessment & Plan Assessment/Plan (1) Delayed surgical wound healing: PLAN: Plan Patient is a 77-year-old male with history of hypertension, CAD, peripheral arterial disease, obesity, mood disorder and lumbar stenosis s/p lumbar fusion with delayed surgical wound healing who presented to [facility] on 01/17/2023 for planned procedure. Medicine consulted postoperatively for m edical management. 1. Lumbar stenosis s/p lumbar fusion with delayed surgical wound healing S/p lumbar irrigation, debridement and wound exploration with application of wound VAC with Dr. Edward on 01/17/2023. Tolerated procedure well, no noted intraoperative complications. Patient seen at bedside postoperatively. He has minimal low back pain or discomfort. ? Orthopedics primary. PT/OT/case management consulted. Pain control with scheduled Tylenol, oxycodone as needed and IV morphine as needed. Lovenox for DVT prophylaxis. Wound cultures sent. CBC and BMP in a.m. If stable overnight, likely discharge home with home health care tomorrow. Chronic medical conditions: ? Hypertension, CAD, PAD: Continue home lisinopril, hydrochlorothiazide, verapamil, simvastatin. ? Mood disorder: Continue home escitalopram. ? Obesity: BMI 37. Encouraged lifestyle modifications. ? Chronic anemia: Baseline hemoglobin 10-12. Follow-up a.m. CBC. DVT prophylaxis: Lovenox CODE STATUS: Full code, unverified Expected disposition: Home, 1 to 2 days Total clinical time spent by myself addressing the patient's medical issues, reviewing all the data, and collaborating with patient's care team: 35 minutes. Charges/Coding Visit Charges Inpatient E&M: 98114 Subs Hosp L2
[2023-01-17] MEDS: Acetaminophen 500 MG Tablet 1000 MG PO ×2 (15:46→22:55)
[2023-01-17] MEDS: Lactated Ringers 1,000 ML 100 ML IV (15:53)
[2023-01-17] MEDS: Atorvastatin Calcium 20 MG Tablet PO (22:55)
[2023-01-17] MEDS: Latanoprost 0.005% 1 Bottle 1 DRP OPHTHALMIC (23:18)
[2023-01-18] MEDS: Lactated Ringers 1,000 ML 100 ML IV (00:16)
[2023-01-18 03:40] VITALS: BP 117/65; PULSE 64; RESP 16; TEMP 36.8; O2SAT 93
[2023-01-18] MEDS: Acetaminophen 500 MG Tablet 1000 MG PO ×2 (06:50→14:03)
[2023-01-18 06:54] VITALS: BP 143/50; PULSE 58; RESP 16; TEMP 36.5; O2SAT 95
[2023-01-18 06:56] LABS: Absolute Lymphocyte Count 0.92 X10^3/uL (0.83-4.51); Absolute Neutrophil Count 5.2 X10^3/uL (2.0-7.7); Hematocrit 34.7 % (40-54); Hemoglobin 10.8 g/dL (13.0-16.5); Lymphocyte # 0.92 X10^3/ul (0.83-4.51); Lymphocyte % 14.4 % (19-41); Mean Corp Hgb Conc 31.1 g/dL (32-36); Mean Corpuscular Hgb 30.1 pg (27.0-32.0); Mean Corpuscular Volume 96.7 fL (80-94); Mean Platelet Vol. 10.7 fl (6.2-12.0); Monocyte# 0.27 X10^3/uL; Monocyte% 4.2 % (0-10); NRBC Flagged by Analyzer 0 % (0-5); Neutrophil # 5.16 X10^3/uL (2.7-7.7); Neutrophil % 81.1 % (47-70); Platelet Count 182 K/mm3 (150-450); RBC Distribution Width CV 13.8 % (11.6-14.6); RBC Distribution Width SD 48.8 fl (35.1-43.9); Red Blood Count 3.59 M/mm3 (4.6-6.2); White Blood Count 6.4 K/mm3 (4.4-11.0)
[2023-01-18 07:21] LABS: Anion Gap 6 (5-15); BUN 14 mg/dL (7-18); BUN/Creat Ratio 10.9 RATIO (10-20); Calcium,Total 8.8 mg/dL (8.5-10.1); Chloride 108 mmol/L (98-107); Creatinine, Serum 1.28 mg/dL (0.70-1.30); EST Glomerular Filtration Rate 58 mL/min (>60); Est Glom Filt Rate - Afr Amer 70 mL/min (>60); Estimated Creatinine Clearance 36.89 ml/min; Glucose 152 mg/dL (74-106); Potassium 4.1 mmol/L (3.5-5.1); Sodium Level 139 mmol/L (136-145)
--- NOTE | 2023-01-18 07:31 | PCM.PN.HOSP ---
Reason for Visit Reason for Visit: Diagnoses Other complications of procedures, not elsewhere classified, initial encounter (01/17/23) Subjective Subjective Patient is a 77-year-old male who underwent lumbar fusion on account of lumbar stenosis presented with delayed wound healing. Patient underwent irrigation debridement and wound exploration with application of wound VAC on 01/17/2023, the hospitalist service consulted to assist with management of patient medical comorbidities Objective Data Objective Data Vital Signs: Vital Signs Temp Pulse Resp BP Pulse Ox O2 Del Method O2 Flow Rate 97.7 F L 58 L 16 143/50 H 95 Room Air 2 01/18/23 06:54 01/18/23 06:54 01/18/23 06:54 01/18/23 06:54 01/18/23 06:54 01/18/23 06:54 01/17/23 14:40 Oxygen Flow Rate (L/min) 2 Oxygen Delivery Method Room Air Weight: 90 kg Body Mass Index (BMI) 37.5 Intake & Output: Intake and Output for Last 24 Hours 01/16/23 01/17/23 01/18/23 23:59 23:59 23:59 Intake Total 299.5 / 499.5 1900.00 / 1900.00 Output Total 150 / 650 800 / 800 Balance 149.5 / -150.5 1100.00 / 1100.00 Lab / Micro Data 01/18/23 06:40 01/18/23 06:40 Labs: Laboratory Results - last 24 hr 01/18/23 06:40: WBC 6.4, RBC 3.59 L, Hgb 10.8 L, Hct 34.7 L, MCV 96.7 H, MCH 30.1, MCHC 31.1 L, RDW Std Deviation 48.8 H, RDW Coeff of Herrera 13.8, Plt Count 182, MPV 10.7, Immature Gran % (Auto) 0.300, Neut % (Auto) 81.1 H, Lymph % (Auto) 14.4 L, Sterling % (Auto) 4.2, Eos % (Auto) 0.0, Baso % (Auto) 0.0, Absolute Neuts (auto) 5.2, Absolute Lymphs (auto) 0.92, Nucleated RBC % 0, Sodium 139, Potassium 4.1, Chloride 108 H, Carbon Dioxide 25.0, Anion Gap 6, BUN 14, Creatinine 1.28, Estim Creat Clear Calc 36.89, Est GFR (MDRD) Af Amer 70, Est GFR (MDRD) Non-Af 58 L, BUN/Creatinine Ratio 10.9, Glucose 152 H, Calcium 8.8 Physical Exam Narrative GENERAL: cooperative HEENT: Atraumatic; normocephalic EYES; Anicteric, Normal Conjunctiva NECK; supple, normal thyroid, RESPIRATORY: Diminished to auscultation CARDIOVASCULAR: Regular S1 S2, GI: soft, normoactive bowel sounds, : No Renal angle tenderness; EXTREMITIES: No edema, no clubbing, MUSCULOSKELETAL: no muscle wasting NEURO: Awake; no lateralizing signs. SKIN: No Rash PSYCH; Flat affect Assessment & Plan Assessment/Plan (1) Delayed surgical wound healing: PLAN: Plan Patient is a 77-year-old male who underwent lumbar fusion on account of lumbar stenosis presented with delayed wound healing. Patient underwent irrigation debridement and wound exploration with application of wound VAC on 01/17/2023, the hospitalist service consulted to assist with management of patient medical comorbidities 1. Status post wound debridement, exploration with application of wound VAC ? On account of delayed surgical wound healing following lumbar fusion surgery. Culture sent following procedure 2. Coronary artery disease ? Patient is on guideline directed medical therapy 3. Hypertension - Blood pressure controlled, home medications continued with dose adjustment as needed 4. Depression ? Patient is on escitalopram did continue 5. Anemia - Secondary to chronic disorder monitoring H&H and transfuse if patient becomes symptomatic or hemoglobin falls below 7 6. Class II obesity with BMI of 37 ? Complicating care weight loss advised 7. History of carotid artery disease ? With previous right carotid endarterectomy 8. DVT prophylaxis ? SC Lovenox Disposition as per primary service Time spent in the patient's overall evaluation,decision-making process, review of diagnostic data, adjustment of management, discussion with other providers, nursing nursing and ancillary staff involved in patient's care documentation, 35 Minutes Charges/Coding Visit Charges Inpatient E&M: 29533 Subs Hosp L2
--- NOTE | 2023-01-18 08:21 | WOUNDNOTE ---
Wound VAC dressing intact to the lumbar region. good seal noted at 125mmHg low continuous suction. pt denies much discomfort at this time. awaiting approval for home wound VAC and home health care for VAC changes.
[2023-01-18 09:00] VITALS: BP 143/50; PULSE 65; RESP 16; TEMP 37.1; O2SAT 94
--- NOTE | 2023-01-18 09:13 | CASEMGMT ---
Discharge Planning A list of?HH?providers including quality and resource use data and consistent with the patient's preferred geographic region, medical needs, and insurance network was created in [employer] [facility].? This list was provided to the RN JESSICA. Amada Barcenas, Discharge Planning Asst.
[2023-01-18] MEDS: Cholecalciferol (VIT D3) 25 MCG TABLET (1,000 UNITS) 50 MCG PO (09:35)
[2023-01-18] MEDS: Verapamil SR 240 MG Tablet 120 MG PO (09:35)
[2023-01-18] MEDS: Lisinopril 10 MG Tablet PO (09:35)
[2023-01-18] MEDS: Ascorbic Acid 500 MG Tablet 1000 MG PO (09:35)
[2023-01-18] MEDS: Escitalopram Oxalate 10 MG Tablet PO (09:36)
[2023-01-18] MEDS: hydroCHLOROthiazide 12.5mg 12.5 MG PO (09:36)
--- NOTE | 2023-01-18 09:51 | WOUNDNOTE ---
moved wound VAC trac pad over to the left lateral back to avoid pressure injury from the trac pad on the wound edges. periwound intact at this time. good seal noted at 125mmHg low continuous suction. pt tolerated well.
--- NOTE | 2023-01-18 10:00 | CASEMGMT ---
Addendum entered by Lisa Edwards 01/18/23 11:06: TC to 's office, spoke with Maria, she states they have [facility] in their records as seeing pt. DC assistant dean to send referral to [facility] to see if able to accept back and which disciplines are current. Will await response. Original Note: RN CM into pt room, pt states that he is currently being seen by [facility]. He does not know the name of the agency. He states he has a folder at home that has their name on it. Pt does not have any phone numbers of the agency with him. Pt states he was doing well at home. Pt to dc home with [facility] resumption. TC to [facility], spoke with Malou, they do not have record of the name of the agency. TC to pt dtr, [facility]. She provided two phone numbers of staff from the agency but does not know the name of the agency either. TC to numbers provided, received vm with no identifying information. TC back to dtr, she states she cannot go to the pt home until after 1:30p then she can see where the folder is from. TC to Ar[facility] Sinha which is who pt states set up the HHC, left message for Ghislaine to return the call.
--- NOTE | 2023-01-18 11:05 | NURSING ---
called to room by PT/OT. states pt got up from the chair and pulled part of his wound vac loose. noted patient had pulled the suction tubing. off the wvac dressing, opside added to reinforce placement. sxn maintained.
--- NOTE | 2023-01-18 11:17 | CASEMGMT ---
Discharge Planning Resumption of HH referral sent to [facility] via [facility]. Amada Barcenas, Discharge Planning Asst.
--- NOTE | 2023-01-18 12:00 | CASEMGMT ---
Addendum entered by Lisa Edwards 01/18/23 14:17: Confirmed with Lesly that HHC will resume on Saturday. Addendum entered by Lisa Edwards 01/18/23 12:09: CHAVO LOPEZ into patient's room, pt made aware that his [facility] is [facility] and they will be resuming his care. Answered questions regarding wound vac and pt denies further needs. Original Note: Received notification that pt is active with PT and SN from [facility]. Orders to resume and pt to dc today.
--- NOTE | 2023-01-18 12:23 | PHA.DC.MR.R ---
Pharmacy [place] Med Reconciliation Pharmacy Service has performed discharge medication reconciliation for this patient. No new medications at time of discharge review. Medications reviewed are from previously reported home medications The patient's discharge medication list was reviewed for discrepancies and discrepancies were resolved. Medications at Discharge Home Medications cholecalciferol (vitamin D3) 50 mcg (2,000 unit) capsule 2,000 unit PO DAILY constipation 03/10/19 latanoprost 0.005 % eye drops 1 drp EACH EYE QHS GLAUCOMA 04/24/19 polyethylene glycol 3350 17 gram/dose oral powder (Miralax) 17 g PO DAILY PRN Constipation 12/03/19 escitalopram oxalate 10 mg tablet 10 mg PO DAILY DEPRESSION 05/13/20 lisinopril 10 mg-hydrochlorothiazide 12.5 mg tablet 1 tab PO DAILY BP #90 tabs 07/12/20 simvastatin 80 mg tablet 40 mg (1/2 x 80 mg) PO QHS CHOLESTEROL #90 tabs 05/26/21 ascorbic acid (vitamin C) 1,000 mg tablet 1 g PO DAILY 12/29/21 omega [id number]-crp-fish oil 60 mg-90 mg-500 mg capsule (Fish Oil) 1 cap PO DAILY 12/29/21 verapamil 120 mg 24 hr capsule,extended release 120 mg PO DAILY HEART #90 caps 07/03/22 hydrocodone-acetaminophen 5-325mg 5mg-325mg 1 tab PO Q6H 7 days #28 tabs 12/13/22 cephalexin 500 mg capsule 500 mg PO TID 01/16/23
--- NOTE | 2023-01-18 13:21 | WOUNDNOTE ---
Home VAC approved and home health care arranged. patient switched over to the home VAC. reviewed alarms, etc. with patient. pt awaiting ride to home. no further concerns voiced at this time.
--- NOTE | 2023-01-18 13:35 | CASEMGMT ---
Discharge Planning Discharge summary and updated HH order sent to [facility] via [facility]. Asked when soc is. Awaiting response. Amada Barcenas, Discharge Planning Asst.
--- NOTE | 2023-01-18 14:17 | CASEMGMT ---
Discharge Planning [place] will start care Saturday. RN CM updated. Amada Barcenas, Discharge Planning Asst.
--- NOTE | 2023-01-21 12:53 | CASEMGMT ---
Attached wound vac order to [facility] per request. Sent via [employer] at this time.
== END 2023-01-18 14:20 | disposition home health service (06) ==
LOC: SDC 14:09 → MS3 14:09
PROVIDERS: Hospitalist; Admitting Provider Orthopaedic Surgery; PCP Family Medicine; Referring Provider Orthopaedic Surgery; Visit Provider Internal Medicine
PROC: (CPT 13160; principal; 2023-01-17 11:40)
DX: T81.89XA Other complications of procedures, not elsewhere classified, initial encounter (principal); Z28.21 Immunization not carried out because of patient refusal; T81.31XA Disruption of external operation (surgical) wound, not elsewhere classified, initial encounter; Y83.8 Other surgical procedures as the cause of abnormal reaction of the patient, or of later complication, without mention of misadventure at the time of the procedure; M48.07 Spinal stenosis, lumbosacral region; M47.897 Other spondylosis, lumbosacral region; I10 Essential (primary) hypertension; M48.061 Spinal stenosis, lumbar region without neurogenic claudication; M54.16 Radiculopathy, lumbar region; E66.8 Other obesity; Z68.39 Body mass index [BMI] 39.0-39.9, adult; M43.16 Spondylolisthesis, lumbar region; Z98.1 Arthrodesis status; Z79.899 Other long term (current) drug therapy; E78.00 Pure hypercholesterolemia, unspecified; G47.30 Sleep apnea, unspecified; Z87.891 Personal history of nicotine dependence; I25.10 Atherosclerotic heart disease of native coronary artery without angina pectoris; F32.A Depression, unspecified; D63.8 Anemia in other chronic diseases classified elsewhere
CPT/HCPCS: 13160; 00400; 36415; 80048; 85025; 87070; 87075; 87077; 87102; 87186; 87205; 87206; 94668; 96361; 96365; 97162; 97166; 99221; J7120; G0378; J2405

== ENCOUNTER → 2023-04-25 | Outpatient (CLI) | payer MEDICARE, SELFPAY ==
[2023-04-25 12:17] LABS: Absolute Lymphocyte Count 1.63 X10^3/uL (0.83-4.51); Absolute Neutrophil Count 3.7 X10^3/uL (2.0-7.7); Basophil# 0.02 X10^3/uL; Basophil% 0.3 % (0-1); Eosinophil# 0.04 X10^3/uL; Eosinophils% 0.7 % (0-5); Hematocrit 41.4 % (40-54); Hemoglobin 13.1 g/dL (13.0-16.5); Lymphocyte # 1.63 X10^3/ul (0.83-4.51); Lymphocyte % 27.7 % (19-41); Mean Corp Hgb Conc 31.6 g/dL (32-36); Mean Corpuscular Hgb 27.8 pg (27.0-32.0); Mean Corpuscular Volume 87.9 fL (80-94); Mean Platelet Vol. 10.5 fl (6.2-12.0); Monocyte# 0.52 X10^3/uL; Monocyte% 8.8 % (0-10); NRBC Flagged by Analyzer 0 % (0-5); Neutrophil # 3.66 X10^3/uL (2.7-7.7); Neutrophil % 62.3 % (47-70); Platelet Count 296 K/mm3 (150-450); RBC Distribution Width CV 14.7 % (11.6-14.6); Red Blood Count 4.71 M/mm3 (4.6-6.2); White Blood Count 5.9 K/mm3 (4.4-11.0)
--- OUTSIDE RECORDS SUMMARY | 2023-04-25 12:59 | XMS RPT_ITS | CCD ---
Author Name Unknown Address [address] [facility] [address] [place] [address] Organization [facility] Care Team Providers Care Rotating Equipment Specialist Name Role Phone Dallas Wei Unavailable Sarah Calloway MD Primary Care Provider [phone] SYLVIA VERONICA Attending Unavailable SARAH CALLOWAY Primary Care Unavailable EULOGIO SEO Referring Unavailable SARAH CALLOWAY Primary Care Unavailable SARAH CALLOWAY Primary Care Unavailable SARAH CALLOWAY Primary Care Unavailable SARAH CALLOWAY Referring Unavailable SARAH CALLOWAY Primary Care Unavailable SARAH CALLOWAY Attending Unavailable SARAH CALLOWAY Primary Care Unavailable SARAH CALLOWAY Referring Unavailable SARAH CALLOWAY Primary Care Unavailable EULOGIO SEO Referring Unavailable SARAH CALLOWAY Primary Care Unavailable EULOGIO SEO Attending Unavailable SARAH CALLOWAY Primary Care Unavailable SARAH CALLOWAY Referring Unavailable SARAH CALLOWAY Primary Care Unavailable SARAH CALLOWAY Referring Unavailable SARAH CALLOWAY Primary Care Unavailable SARAH CALLOWAY Attending Unavailable SARAH CALLOWAY Primary Care Unavailable SARAH CALLOWAY Referring Unavailable SARAH CALLOWAY Attending Unavailable SARAH CALLOWAY A Primary Care Unavailable Dallas Wei Unavailable Sarah Calloway MD Primary Care Provider [phone] Allergies Allergy Classification Reported Allergen(s) Allergy Type Date of Onset Reaction(s) Facility (20 sources) Amoxicil-Clarith panfilo-Lansopraz; Translations: [AMOXICIL-CLARIT HROMY-LANSOPRAZ] Drug Intolerance 8 GI Upset [facility] Work Phone: Medications Current Medications Medication Drug Class(es) Dates Sig (Normalized) Sig (Original) doxycycline monohydrate 100 mg oral capsule (1 source) Tetracycline-cla ss Drug Start: 09-28-2022 End: 10-03-2022 take 1 capsule by mouth twice daily doxycycline monohydrate (MONODOX) 100 mg capsule Indications: COPD with exacerbation (HCC) Take 1 capsule by mouth twice daily for 5 days. 10 capsule 0 09/28/2022 10/03/2022 Active Completed/Discontinued Medications Medication Drug Class(es) Dates Sig (Normalized) Sig (Original) ascorbic acid 1000 mg oral tablet (20 sources) Vitamin C take 1 tablet by cain th once daily Ascorbic Acid 1,000 mg tablet Take 1,000 mg by mouth once daily. 0 Active Problems Active Problems Problem Classification Problem Date Documented Date Episodic/Chronic Anxiety disorders (20 sources) Mixed anxiety and depressive disorder; Translations: [Other specified anxiety disorders] Onset: 03-10-2018 Chronic Chronic kidney disease (20 sources) Chronic kidney disease stage 3; Translations: [CKD (chronic kidney disease) stage 3, GFR 30-59 ml/min] Onset: 10-02-2019 10-24-2020 Chronic Chronic kidney disease (1 source) Chronic kidney disease; Translations: [Stage 3 chronic kidney disease, unspecified whether stage 3a or 3b CKD (HCC)] Onset: 10-24-2020 Deficiency and other anemia (2 sources) Anemia; Translations: [Anemia, unspecified] 01-10-2023 Episodic Deficiency and other anemia (1 source) Anemia, unspecified; Translations: [Anemia, unspecified type] Onset: 01-10-2023 Episodic Disorders of lipid metabolism (20 sources) Mixed hyperlipidemia; Translations: [Mixed hyperlipidemia] Onset: 05-30-2012 03-27-2018 Chronic Esophageal disorders (20 sources) Gastroesophageal reflux disease without esophagitis; Translations: [Gastro-esophageal reflux disease without esophagitis] Onset: 03-27-2018 03-27-2018 Chronic Essential hypertension (20 sources) Essential hypertension; Translations: [Essential (primary) hypertension] Onset: 05-30-2012 03-27-2018 Chronic Immunizations and screening for infectious disease (1 source) Encounter for immunization; Translations: [Encounter for immunization] Onset: 02-12-2023 Episodic Nausea and vomiting (2 sources) Nausea; Translations: [Nausea] Onset: 01-10-2023 01-10-2023 Episodic Nutritional deficiencies (20 sources) Vitamin D deficiency; Translations: [Vitamin D deficiency, unspecified] Onset: 10-07-2017 03-27-2018 Chronic Occlusion or stenosis of precerebral arteries (20 sources) Carotid artery stenosis; Translations: [Occlusion and stenosis of unspecified carotid artery] 10-24-2020 Chronic Other connective tissue disease (1 source) History of lumbar fusion; Translations: [Arthrodesis status] 01-10-2023 Episodic Other connective tissue disease (1 source) Arthrodesis status; Translations: [S/P lumbar fusion] Onset: 01-10-2023 Episodic Other lower respiratory disease (2 sources) Dyspnea; Translations: [Shortness of breath] Episodic Other nervous system disorders (1 source) Other chronic pain; Translations: [Chronic bilateral low back pain with bilateral sciatica] Onset: 06-14-2022 Chronic Other nutritional; endocrine; and metabolic disorders (4 sources) Obese class II; Translations: [Obesity, unspecified] Onset: 02-12-2023 02-12-2023 Chronic Samara-; endo-; and myocarditis; cardiomyopathy (except that caused by tuberculosis or sexually transmitted disease) (20 sources) Hypertrophic cardiomyopathy; Translations: [Other hypertrophic cardiomyopathy] Onset: 03-31-2019 10-24-2020 Chronic Peripheral and visceral atherosclerosis (20 sources) Peripheral vascular disease, unspecified; Translations: [Peripheral vascular disease, unspecified] Onset: 02-18-2019 02-18-2019 Chronic Residual codes; unclassified (20 sources) Obstructive sleep apnea syndrome; Translations: [Obstructive sleep apnea (adult) (pediatric)] Onset: 11-04-2013 05-31-2021 Chronic Past or Other Problems Problem Classification Problem Date Documented Da te Episodic/Chronic Administrative/social admission (19 sources) Advance directive discussed with patient; Translations: [Other specified counseling] Onset: 06-14-2022 Episodic Diabetes mellitus without complication (20 sources) Hyperglycemia; Translations: [Impaired fasting glucose] Onset: 06-26-2022 Episodic Genitourinary symptoms and ill-defined conditions (2 sources) Increased frequency of urination; Translations: [Frequency of micturition] Onset: 11-14-2022 11-14-2022 Episodic Other acquired deformities (20 sources) Lumbar spondylolisthesis; Translations: [Spondylolisthesis, lumbar region] Onset: 06-14-2022 Episodic Other acquired deformities (1 source) Spondylolisthesis, lumbar region; Translations: [Spondylolisthesis of lumbar region] Onset: 06-14-2022 Episodic Other aftercare (20 sources) Patient encounter status; Translations: [Other meterman (current) drug therapy] Onset: 03-31-2019 03-31-2019 Episodic Other aftercare (1 source) Other meterman (current) drug therapy; Translations: [Medication management] Onset: 03-31-2019 Episodic Other connective tissue disease (20 sources) Neurogenic claudication; Translations: [Other symptoms and signs involving the nervous system] Onset: 06-14-2022 Episodic Other connective tissue disease (1 source) Other symptoms and signs involving the nervous system; Translations: [Neurogenic claudication] Onset: 06-14-2022 Episodic Other infections; including parasitic (20 sources) Personal history of other infectious and parasitic diseases; Translations: [History of 2019 novel coronavirus disease (COVID-19)] Onset: 05-20-2020 10-24-2020 Episodic Other lower respiratory disease (1 source) Shortness of breath; Translations: [SOB (shortness of breath)] Onset: 06-29-2022 Episodic Other male genital disorders (20 sources) Disorder of prostate; Translations: [Disorder of prostate, unspecified] Onset: 10-24-2020 10-24-2020 Episodic Other male genital disorders (1 source) Disorder of prostate, unspecified; Translations: [Prostate disorder] Onset: 10-24-2020 Episodic Residual codes; unclassified (18 sources) Active living will ; Translations: [Other specified health status] Onset: 05-31-2021 05-31-2021 Episodic Screening and history of mental health and substance abuse codes (20 sources) Ex-smoker; Translations: [Personal history of nicotine dependence] Onset: 03-31-2019 03-31-2019 Episodic Spondylosis; intervertebral disc disorders; other back problems (20 sources) Low back pain; Translations: [Lumbar back pain] Onset: 01-30-2022 Episodic Results Test Name Value Interpretation Reference Range Facil ity Vital Signs Date Time Vital Sign Value Performing Clinician Faci lity 02-12-2023 12:09-0400 Body temperature 97.39 [degF] Sarah Calloway MD Work Phone: [facility] 02-12-2023 12:09-0400 Body weight 89.81 kg Sarah Calloway MD Work Phone: [facility] 02-12-2023 12:09-0400 Diastolic blood pressure 64 mm[Hg] Sarah Calloway MD Work Phone: [facility] 02-12-2023 12:09-0400 Heart rate 64 /min Sarah Calloway MD Work Phone: [facility] 02-12-2023 12:09-0400 Respiratory rate 18 /min Sarah Calloway MD Work Phone: [facility] 02-12-2023 12:09-0400 Systolic blood pressure 134 mm[Hg] Sarah Calloway MD Work Phone: [facility] 01-10-2023 17:59-0400 Body weight 91.63 kg Sylvia Veronica APRN.JEWEL STRIPPER Work Phone: [facility] 01-10-2023 17:59-0400 Diastolic blood pressure 68 mm[Hg] Sylvia Veronica APRN.JEWEL STRIPPER Work Phone: [facility] 01-10-2023 17:59-0400 Heart rate 66 /min Sylvia Veronica APRN.JEWEL STRIPPER Work Phone: [facility] 01-10-2023 17:59-0400 Respiratory rate 18 /min Sylvia Veronica APRN.JEWEL STRIPPER Work Phone: [facility] 01-10-2023 17:59-0400 SaO2% (BldA) [Mass fraction] 99 % Sylvia Veronica APRN.JEWEL STRIPPER Work Phone: [facility] 01-10-2023 17:59-0400 Systolic blood pressure 140 mm[Hg] Sylvia Veronica APRN.JEWEL STRIPPER Work Phone: [facility] 11-14-2022 09:47-0400 Body weight 92.53 kg Sarah Calloway MD Work Phone: [facility] 11-14-2022 09:47-0400 Diastolic blood pressure 74 mm[Hg] Sarah Calloway MD Work Phone: [facility] 11-14-2022 09:47-0400 Heart rate 64 /min Sarah Calloway MD Work Phone: [facility] 11-14-2022 09:47-0400 Respiratory rate 18 /min Sarah Calloway MD Work Phone: [facility] 11-14-2022 09:47-0400 Systolic blood pressure 138 mm[Hg] Sarah Calloway MD Work Phone: [facility] 06-29-2022 09:08-0400 Body height 154.9 cm Pulm Wstr Work Phone: [facility] 06-29-2022 09:08-0400 Body weight 92.08 kg Pulm Wstr Work Phone: [facility] 06-29-2022 09:08-0400 Heart rate 65 /min Pulm Wstr Work Phone: [facility] 06-29-2022 09:08-0400 Respiratory rate 12 /min Pulm Wstr Work Phone: [facility] 06-29-2022 09:08-0400 SaO2% (BldA) [Mass fraction] 94 % Pulm Wstr Work Phone: [facility] 06-26-2022 09:04-0400 Body weight 92.53 kg Eulogio Seo PA-C Work Phone: [facility] 06-26-2022 09:04-0400 Diastolic blood pressure 70 mm[Hg] Eulogio Seo PA-C Work Phone: [facility] 06-26-2022 09:04-0400 Heart rate 56 /min Eulogio Seo PA-C Work Phone: [facility] 06-26-2022 09:04-0400 Respiratory rate 24 /min Eulogio Seo PA-C Work Phone: [facility] 06-26-2022 09:04-0400 SaO2% (BldA) [Mass fraction] 97 % Eulogio Seo PA-C Work Phone: [facility] 06-26-2022 09:04-0400 Systolic blood pressure 132 mm[Hg] Eulogio Seo PA-C Work Phone: [facility] 06-14-2022 09:38-0500 Body height 161.9 cm Sarah Calloway MD Work Phone: [facility] 06-14-2022 09:38-0500 Body weight 92.53 kg Sarah Calloway MD Work Phone: [facility] 06-14-2022 09:38-0500 Diastolic blood pressure 68 mm[Hg] Sarah Calloway MD Work Phone: [facility] 06-14-2022 09:38-0500 Heart rate 64 /min Sarah Calloway MD Work Phone: [facility] 06-14-2022 09:38-0500 Respiratory rate 16 /min Sarah Calloway MD Work Phone: [facility] 06-14-2022 09:38-0500 Systolic blood pressure 132 mm[Hg] Sarah Calloway MD Work Phone: [facility] 01-29-2022 10:24-0400 Body weight 94.8 kg Eulogio Seo PA-C Work Phone: [facility] 01-29-2022 10:24-0400 Diastolic blood pressure 74 mm[Hg] Eulogio Seo PA-C Work Phone: [facility] 01-29-2022 10:24-0400 Heart rate 66 /min Eulogio Seo PA-C Work Phone: [facility] 01-29-2022 10:24-0400 Respiratory rate 14 /min Eulogio Seo PA-C Work Phone: [facility] 01-29-2022 10:24-0400 Systolic blood pressure 130 mm[Hg] Eulogio Seo PA-C Work Phone: [facility] 11-30-2021 09:51-0400 Body temperature 98.71 [degF] Eulogio Seo PA-C Work Phone: [facility] 11-30-2021 09:51-0400 Body weight 94.8 kg Eulogio Seo PA-C Work Phone: [facility] 11-30-2021 09:51-0400 Diastolic blood pressure 70 mm[Hg] Eulogio Seo PA-C Work Phone: [facility] 11-30-2021 09:51-0400 Heart rate 64 /min Eulogio Seo PA-C Work Phone: [facility] 11-30-2021 09:51-0400 Respiratory rate 16 /min Eulogio Seo PA-C Work Phone: [facility] 11-30-2021 09:51-0400 Systolic blood pressure 130 mm[Hg] Eulogio Seo PA-C Work Phone: [facility] Encounters Encounter Date Encounter Type Care Provider Facility Start: 03-25-2023 Refill Sarah watson MD Work Phone: Radiology Procedures Date Procedure Procedure Detail Performing Clinician Start: 02-12-2023 INFLUENZA VACCINE, PRSV FREE, AGE 65+ YR, HIGH DOSE, QUADRIVALENT (FLUZONE HIGH-DOSE) Sarah Calloway MD Work Phone: Start: 01-01-2023 Lipid 1996 panel - Serum or Plasma Sylvia Veronica APRN.JEWEL STRIPPER Work Phone: Start: 06-29-2022 Brncdilat rspse spmtry pre&post-brncdilat admn Eulogio Seo PA-C Work Phone: Start: 06-26-2022 Hemoglobin A1c/Hemoglobin.total in Blood Eulogio Seo PA-C Work Phone: Start: 10-25-2020 Colonoscopy Sarah Calloway MD Work Phone: Start: 05-30-2012 History of carotid endarterectomy S/P carotid endarterectomy Sarah Calloway MD Work Phone: History of carotid endarterectomy S/P carotid endarterectomy Eulogio Seo PA-C Work Phone: Plan of Treatment Date Care Activity Detail Author Start: 10-25-2030 Colonoscopy COLONOSCOPY [facility] Start: 10-25-2030 COLORECTAL CANCER SCREENING COLORECTAL CANCER SCREENING [facility] Start: 01-02-2028 Lipid 1996 panel - S jennifer or Plasma Lipid Screening [facility] Start: 06-20-2027 LIPID SCREEN LIPID SCREEN [facility] Start: 11-30-2026 LIPID SCREEN LIPID SCREEN [facility] Start: 07-05-2026 Urine microalbumin profile [facility] Start: 05-23-2026 LIPID SCREEN LIPID SCREEN [facility] Start: 01-01-2026 Diabetes Screening Diabetes Screenin g [facility] Start: 11-14-2025 DIABETES SCREEN DIABETES SCREEN [facility] Start: 06-26-2025 DIABETES SCREEN DIABETES SCREEN [facility] Start: 11-30-2024 DIABETES SCREEN DIABETES SCREEN [facility] Start: 05-23-2024 DIABETES SCREEN DIABETES SCREEN [facility] Start: 02-13-2024 Annual PCP Team Rn Documentation rajendra Disease Visit Annual PCP Team Chronic Disease Visit [facility] Start: 02-13-2024 Covid-19 Vaccine ( season) Covid-19 Vaccine ( season) [facility] Immunizations Immunization Date Immunization Notes Care Provider Leora ovalle 02-12-2023 influenza (HD-IIV4) vaccine, age 65+ yr, high dose, quadrivalent, PF (FLUZONE HIGH-DOSE) Sarah Calloway MD Work Phone: [facility] 01-24-2022 COVID-19 booster vac cine, age 18+ yr, bivalent (MODERNA) Eulogio Seo PA-C Work Phone: [facility] 01-24-2022 influenza, high dose seasonal, preservative-free Eulogio Seo PA-C Work Phone: [facility] 01-24-2022 influenza virus vacc ine, unspecified formulation Sylvia Veronica DIETITIAN ASSISTANT.JEWEL STRIPPER Work Phone: [facility] 07-14-2020 COVID-19 vaccine, ag e 12+ yr ([employer] - PURPLE TOP) Sarah Calloway MD Work Phone: [facility] 06-23-2020 COVID-19 vaccine, ag e 12+ yr ([employer] - [facility]) Sarah Calloway MD Work Phone: [facility] 02-22-2020 pneumococcal polysaccharide vaccine, 23 valent Sarah Calloway MD Work Phone: [facility] 01-14-2020 influenza, high dose seasonal, preservative-free Sarah Calloway MD Work Phone: [facility] 01-14-2020 influenza, high-dose , quadrivalent vaccine (FLUZONE HIGH DOSE QUADRIVALENT) Sarah Calloway MD Work Phone: [facility] 02-23-2019 influenza, high dose seasonal, preservative-free Sarah Calloway MD Work Phone: [facility] 10-17-2018 zoster vaccine recombinant Sarah Calloway MD Work Phone: [facility] 07-17-2018 pneumococcal conjuga te vaccine, 13 valent Sarah Calloway MD Work Phone: [facility] 07-17-2018 zoster vaccine recombinant Sarah Calloway MD Work Phone: [facility] 01-27-2018 influenza, high dose seasonal, preservative-free Sarah Calloway MD Work Phone: [facility] 07-05-2016 tetanus toxoid, redu sarahy diphtheria toxoid, and acellular pertussis vaccine, adsorbed Sarah Calloway MD Work Phone: [facility] 05-31-2015 pneumococcal conjuga te vaccine, 13 valent Sarah Calloway MD Work Phone: [facility] 01-24-2014 influenza virus vacc ine, whole virus Sarah Calloway MD Work Phone: [facility] 11-04-2013 pneumococcal polysaccharide vaccine, 23 valshannon Calloway MD Work Phone: [facility] 02-03-2013 influenza virus vacc ine, whole virus Sarah Calloway MD Work Phone: [facility] Payers Date Payer Category Payer Unknown [employer] S [employer] BL[employer]IELD [employer] O [id number] 2018-Present [phone] [address] [place] [address] O [id number] 2018 Unknown [employer]M [employer] S [employer] BL[employer] SHIELD ANTHEM MEDIBL[employer] O [id number] 2018-Present [phone] [address] [place] [address] O [id number] 2018 Unknown [id number] Social History Date Type Detail Facility Start: 05-30-2012 End: 06-21-2020 Tobacco smoking status NHIS Ex-smoker [facility] End: 01-13-1999 History of tobacco use Current smoker [facility] End: 01-13-1999 History of tobacco use Cigarette Smoker [facility] Start: 05-30-2012 End: 03-20-2020 Cigarettes smoked current (pack per day) - Reported 1 [facility] Start: 05-30-2012 End: 06-21-2020 Tobacco use and exposure Smokeless tobacco non-user [facility] Start: 05-31-2021 End: 02-12-2023 Alcohol intake Ex-drinker (finding) [facility] Start: 08-04-2015 History SDOH Alcohol Comment weekly [facility] Start: 1945 Sex Assigned At Not on file C [facility] Start: 11-20-2021 End: 01-15-2022 Exposure to SARS-CoV-2 (event) Not sure [facility] Start: 01-07-2022 End: 01-17-2022 Exposure to SARS-CoV-2 (event) Unable to assess [facility] Work Phone: Start: 03-20-2020 End: 11-14-2022 Tobacco use panel [facility] Adult Depression Screening Assessment 1 [facility] Start: 07-12-2020 Alcohol intake Current drinke r of alcohol (finding) [facility] Clinical Notes 08-04-2015 to 03-25-2023 Telephone Encounter - Sarah Calloway MD - 03/25/2023 9:23 AM ESTTelephone Encounter - Danette Taylor - 03/25/2023 9:13 AM ESTTelephone Encounter - Sharon Cruz MA - 03/13/2023 7:27 PM EST Note Date & Type Note Facility 03-25-2023 Miscellaneous Notes The following approved medication requests have been transmitted electronically. Requested Prescriptions Signed Prescriptions Disp Refills simvastatin (ZOCOR) 80 mg tablet 45 tablet 1 Sig: Take 0.5 tablets by mouth daily at bedtime. Authorizing Provider: SARAH CALLOWAY MD Patient has been identified by name and date of : Yes Last office visit in this department: Visit date not found RX INSTRUCTIONS: Patient aware RX will be sent to pharmacy. No need to notify patient. Patient phones requesting refills as follows: Requested Prescriptions Pending Prescriptions Disp Refills simvastatin (ZOCOR) 80 mg tablet 45 tablet 2 Sig: Take 0.5 tablets by mouth daily at bedtime. Please review and advise. Danette Taylor documented in this encounter [facility] 03-17-2023 Note HNO ID: [id number] Author: Sarah Calloway MD Service: ? Author Type: Physician Type: Progress Notes Filed: 03/17/2023 9:36 PM Note Text: Patient's home health 485 form / care plan for certification period 03/03/2023 to 05/01/2023 reviewed and signed. Relevant medical records were reviewed. No changes were indicated [facility] 03-13-2023 Miscellaneous Notes Faxed. Sharon Cruz MA Orders signed. Received from [facility] requesting signature from PCP. Patient has a wound vac change. Placed on provider's inbasket on his desk for review when he returns. Sharon Cruz MA documented in this encounter [facility] 02-12-2023 Note HNO ID: [id number] Author: Sarah Calloway MD Service: ? Author Type: Physician Type: Progress Notes Filed: 02/12/2023 9:57 PM Note Text: Chief Complaint Patient presents with: F/U 6 months HPI Liang Burton is a 77 year old male who presents here today for 6 month follow up. Patient with Hx of HTN, hypertrophic cardiomyopathy (seeing cardio), hyperlipidemia, PAD, CKD . Any Concerns today? None Had low back surgery and had to have a second procedure due to wound infection. Has a wound vac on. Doing home PHYSICAL THERAPY twice a week. Wearing CPAP Office visit - pre op exam 11/14/2022 Patient with Hx of HTN, hypertrophic cardiomyopathy (seeing cardio), hyperlipidemia, PAD, CKD . Patient is scheduled to undergo L5-S1 posterior lumbar interbody fusion, decompression, posterior spinal fusion with instrumentation and use of Allograft per Dr. Edward at [facility] on 12/13/2022. 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 Patient with hx of hyperlipidemia, HTN, cardiomyopathy, PAD, LORELEI, GERD, CKD, chonic low back pain, anxiety/depression and those as below. Past medical history, appointments, medications, allergies reviewed. Previous Medical History PAST MEDICAL HISTORY Diagnosis Date Advance directive discussed with patient 06/14/2022 Discussed: does not want packets Anxiety with depression 03/10/2018 Carotid stenosis Chronic bilateral low back pain with bilateral sciatica 01/30/2022 CKD (chronic kidney disease) stage 3, GFR 30-59 ml/min ([facility]) 10/02/2019 COPD (chronic obstructive pulmonary disease) ([facility]) Essential hypertension 05/30/2012 Ex-smoker 03/31/2019 Started smoking at age 18 up to 1 PPD quit at age 54. Foraminal stenosis of lumbar region 07/12/2022 GERD without esophagitis 03/27/2018 History of 2019 novel coronavirus disease (COVID-19) 05/20/2020 05/02/2020 Hypertrophic cardiomyopathy (HCC) 03/31/[address] 05/31/2021 DPA: Property Utilization Manager: Mr garay Mixed hyperlipidemia 05/30/2012 Neurogenic claudication 06/14/2022 LORLEEI (obstructive sleep apnea) 11/04/2013 PAD (peripheral artery disease) (HCC) 02/18/2019 Mod-Sev lower extremity, seeing Dr. Dallas Wang S/P carotid endarterectomy 05/30/2012 Spondylolisthesis of lumbar region 06/14/2022 L1 on L2 Vitamin D deficiency 10/07/2017 Previous Surgical History PAST SURGICAL HISTORY Procedure Laterality Date 2D ECHO (EXEP) 07/12/2020 EF=65%, mod LVH, 1+ W[place], TI, CARDIAC CATH 01/09/2018 less than 30% stenosis in LAD, Circ and RCA CAROTID ENDARTERECTOMY 2006 R side. COLONOSCOPY FLX DX W/COLLJ SPEC WHEN PFRMD 08/04/2015 Colonoscopy, repeat 5 years COLONOSCOPY FLX DX W/COLLJ SPEC WHEN PFRMD 10/25/2020 PAST SURGICAL HISTORY OF cyst removed, coccyx. PAST SURGICAL HISTORY OF 05/13/2019 Lt anterior tibial angioplasty, Lt external Iliac angio and Lt external iliac Protege stent. Dr. Wang PAST SURGICAL HISTORY OF 12/13/2022 L5-S1 laminaectomies, foraminotomies, facetectomies decompression fusion. with pedicle screw Family History FAMILY HISTORY Problem Relation Age of Onset Hypertension Brother other (Brain injury) Brother Hypertension Sister Emphysema Mother Heart Attack Father Patient Allergies ALLERGIES Allergen Reactions Amoxicil-Clarithrom* GI Upset Current Medications Current Outpatient Medications on File Prior to Visit Medication Sig lisinopril-hydroCHLOROthiazide (ZESTORETIC) 10-12.5 mg per tablet Take 1 tablet by mouth every morning. Decreased by cardio 04/2019 escitalopram oxalate (LEXAPRO) 10 mg tablet Take 1 tablet by mouth once daily. cephALEXin (KEFLEX) 500 mg capsule Take 500 mg by mouth three times a day. ondansetron orally disintegrating (ZOFRAN ODT) 4 mg disintegrating tablet Take 1 tablet by mouth every 6 hours as needed for nausea/vomiting. simvastatin (ZOCOR) 80 mg tablet Take 0.5 tablets by mouth daily at bedtime. omega 2-rbm-csa-fish oil 500-100-1,000 mg cap Take by mouth. Ascorbic Acid 1,000 mg tablet Take 1,000 mg by mouth once daily. Cholecalciferol, Vitamin D3, (VITAMIN D) 25 mcg (1,000 unit) cap Take 2 capsules by mouth once daily. verapamil ER (VERELAN) 120 mg 24 hr capsule Take 1 capsule by mouth once daily. Per Cardio Dr. Hunter latanoprost (XALATAN) 0.005 % ophthalmic solution 1 Drop daily at bedtime. polyethylene glycol 3350 (MIRALAX, GLYCOLAX) 17 gram/dose powder Take by mouth once daily. CPAP current setting at 17, with humidifier. Aspirin 81 mg tab Take 1 tablet by mouth once daily. Take with food. No current facility-administered medications on file prior to visit. Social History Social History Tobacco Use Smoking status: Former Packs/day: 1.00 Years: 30.00 Additional pack years: 0.00 Total pack years: 30.00 Types: Cigarettes Quit date: 01/13/1999 Years since quittin.0 Smokeless tobacco: Never Vaping Use Vaping Use: Never used Substance Use Topics Alcohol use: (more content not included)... [facility] 02-12-2023 Instructions Sarah Calloway MD - 02/12/2023 12:31 PM EDT Please get labs and urine test done on or after 08/02/2023 prior to your next visit. documented in this encounter [facility] 02-12-2023 History of Presen t illness Narrative Chief Complaint Patient presents with: F/U 6 months HPI Liang Burton is a 77 year old male who presents here today for 6 month follow up. Patient with Hx of HTN, hypertrophic cardiomyopathy (seeing cardio), hyperlipidemia, PAD, CKD . Any Concerns today? None Had low back surgery and had to have a second procedure due to wound infection. Has a wound vac on. Doing home PHYSICAL THERAPY twice a week. Wearing CPAP Office visit - pre op exam 11/14/2022 Patient with Hx of HTN, hypertrophic cardiomyopathy (seeing cardio), hyperlipidemia, PAD, CKD . Patient is scheduled to undergo L5-S1 posterior lumbar interbody fusion, decompression, posterior spinal fusion with instrumentation and use of Allograft per Dr. Edward at [facility] on 12/13/2022. 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 Patient with hx of hyperlipidemia, HTN, cardiomyopathy, PAD, LORELEI, GERD, CKD, chonic low back pain, anxiety/depression and those as below. Past medical history, appointments, medications, allergies reviewed. Previous Medical History PAST MEDICAL HISTORY Diagnosis Date Advance directive discussed with patient 06/14/2022 Discussed: does not want packets Anxiety with depression 03/10/2018 Carotid stenosis Chronic bilateral low back pain with bilateral sciatica 01/30/2022 CKD (chronic kidney disease) stage 3, GFR 30-59 ml/min ([facility]) 10/02/2019 COPD (chronic obstructive pulmonary disease) ([facility]) Essential hypertension 05/30/2012 Ex-smoker 03/31/2019 Started smoking at age 18 up to 1 PPD quit at age 54. 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 Dallas Wang S/P carotid endarterectomy 05/30/2012 Spondylolisthesis of lumbar region 06/14/2022 L1 on L2 Vitamin D deficiency 10/07/2017 Previous Surgical History PAST SURGICAL HISTORY Procedure Laterality Date 2D ECHO (EXEP) 07/12/2020 EF=65%, mod LVH, 1+ [place], TI, CARDIAC CATH 01/09/2018 less than 30% stenosis in LAD, Circ and RCA CAROTID ENDARTERECTOMY 2006 R side. COLONOSCOPY FLX DX W/COLLJ SPEC WHEN PFRMD 08/04/2015 Colonoscopy, repeat 5 years COLONOSCOPY FLX DX W/COLLJ SPEC WHEN PFRMD 10/25/2020 PAST SURGICAL HISTORY OF cyst removed, coccyx. PAST SURGICAL HISTORY OF 05/13/2019 Lt anterior tibial angioplasty, Lt external Iliac angio and Lt external iliac Protege stent. Dr. Wang PAST SURGICAL HISTORY OF 12/13/2022 L5-S1 laminaectomies, foraminotomies, facetectomies decompression fusion. with pedicle screw Family History FAMILY HISTORY Problem Relation Age of Onset Hypertension Brother other (Brain injury) Brother Hypertension Sister Emphysema Mother Heart Attack Father Patient Allergies ALLERGIES Allergen Reactions Amoxicil-Clarithrom* GI Upset Current Medications Current Outpatient Medications on File Prior to Visit Medication Sig lisinopril-hydroCHLOROthiazide (ZESTORETIC) 10-12.5 mg per tablet Take 1 tablet by mouth every morning. Decreased by cardio 04/2019 escitalopram oxalate (LEXAPRO) 10 mg tablet Take 1 tablet by mouth once daily. cephALEXin (KEFLEX) 500 mg capsule Take 500 mg by mouth three times a day. ondansetron orally disintegrating (ZOFRAN ODT) 4 mg disintegrating tablet Take 1 tablet by mouth every 6 hours as needed for nausea/vomiting. simvastatin (ZOCOR) 80 mg tablet Take 0.5 tablets by mouth daily at bedtime. omega 1-wwt-lun-fish oil 500-100-1,000 mg cap Take by mouth. Ascorbic Acid 1,000 mg tablet Take 1,000 mg by mouth once daily. Cholecalciferol, Vitamin D3, (VITAMIN D) 25 mcg (1,000 unit) cap Take 2 capsules by mouth once daily. verapamil ER (VERELAN) 120 mg 24 hr capsule Take 1 capsule by mouth once daily. Per Cardio Dr. Hunter latanoprost (XALATAN) 0.005 % ophthalmic solution 1 Drop daily at bedtime. polyethylene glycol 3350 (MIRALAX, GLYCOLAX) 17 gram/dose powder Take by mouth once daily. CPAP current setting at 17, with humidifier. Aspirin 81 mg tab Take 1 tablet by mouth once daily. Take with food. No current facility-administered medications on file prior to visit. Social History Social History Tobacco Use Smoking status: Former Packs/day: 1.00 Years: 30.00 Additional pack years: 0.00 Total pack years: 30.00 Types: Cigarettes Quit date: 01/13/1999 Years since quittin.0 Smokeless tobacco: Never Vaping Use Vaping Use: Never used Substance Use Topics Alcohol use: Not Currently Drug use: No Review of Symptoms REVIEW OF SYSTEMS GENERAL: No weight loss, malaise or fevers NECK: Negative for lumps, goiter, pain and significant neck swelling RESPIRATORY: Negative for cough, hemoptysis, wheezing, COPD, dyspnea or increased shortness of breath from base line. CARDIOVASCULAR: Negative for chest pain, leg swelling, hypertension, CHF or palpitations GI: No nausea, vomiting, or diarrhea and No heartburn or reflux symptoms ENDOCRINE: Negative for polyuria, polydipsia and goiter NEURO: No history of headaches, syncope, paralysis, seizures or tremors EXAM: BP 134/64 (BP Site: Right Arm, BP Position: Sitting, BP Cuff Size: Regular Adult) Pulse 64 Temp 36.3 C (97.4 F) Resp 18 Wt 89.8 kg (198 lb) BMI 37.41 kg/m Last 5 Encounter Wt Readings: Date: Wt: 02/12/2023 89.8 kg (198 lb) 01/10/2023 91.6 kg (202 lb) 12/11/2022 93.4 kg (206 lb) 11/14/2022 92.5 kg (204 lb) 09/28/2022 92.4 kg (203 lb 9.6 oz) General Appearance: Well appearing, alert, in no acute distress, well-hydrated, well nourished. and Obese. Neck: Supple, no adenopathy; thyroid symmetric, normal size, no bruits. Lungs: Lungs clear to auscultation. No wheezing, rhonchi, rales.. Heart: RRR without murmur, gallop, or rubs. No ectopy. Abdomen: Normal abdominal exam, Abdomen soft, non-tender. Bowel sounds normal. No masses, organomegaly. Extremities: No deformities, edema, skin discoloration, Good capillary refill. . Peripheral Pulses: Normal. Neurologic: Gait normal. Sensation grossly intact.. Health Maintenance List RSV Vaccine(1 - 1-dose 60+ series) Never done BP Controlled (<130/80) due on 05/31/2022 Influenza Vaccine(1) due on 12/14/2022 Covid-19 Vaccine(2022- season) due on 12/14/2022 Serum Creatinine due on 01/02/2024 Annual PCP Team Chronic Disease Visit due on 01/11/2024 Diabetes Screening due on 01/01/2026 DTaP,Tdap,Td Vaccine(2 - Td or Tdap) due on 07/05/2026 Lipid Screening due on 01/02/2028 Colorectal Cancer Screening due on 10/25/2030 Advance Directive Discussion Completed Hepatitis C Screening Completed Shingrix Vaccine Completed Pneumococcal Vaccine: 65+ Completed Data reviewed Component Latest Ref Rng & Units 06/19/2022 06/26/2022 01/01/2023 Protein, Total 6.3 - 8.0 g/dL 7.1 6.9 Albumin 3.9 - 4.9 g/dL 3.9 3.9 Calcium 8.5 - 10.2 mg/dL 9.4 9.5 Bilirubin, Total 0.2 - 1.3 mg/dL 0.4 0.5 Alkaline Phosphatase 38 - 113 U/L 91 97 AST 14 - 40 U/L 15 21 ALT 10 - 54 U/L 16 27 Glucose 74 - 99 mg/dL 114 (H) 91 BUN 9 - 24 mg/dL 16 18 Creatinine 0.73 - 1.22 mg/dL 1.22 1.20 Sodium 136 - 144 mmol/L 142 143 Potassium 3.7 - 5.1 mmol/L 4.4 4.6 Chloride 97 - 105 mmol/L 106 (H) 105 CO2 22 - 30 mmol/L 24 23 Anion Gap 9 - 18 mmol/L 12 15 eGFR >=60 mL/min/1.73m 62 63 Total Cholesterol, Nonfasting <200 mg/dL 137 153 Triglycerides, Nonfasting <150 mg/dL 116 174 (H) HDL Cholesterol, Nonfasting >39 mg/dL 40 34 (L) LDL Cholesterol, Nonfasting <100 mg/dL 74 84 Non HDL Cholesterol, Nonfasting <130 mg/dL 97 119 VLDL Cholesterol, Nonfasting <30 mg/dL 23 35 (H) Total Chol/HDL Ratio, Nonfasting <5.10 mg/dL 3.43 4.50 LDL/HDL Ratio, Nonfasting <2.54 mg/dL 1.85 2.47 Hemoglobin A1C 4.3 - 5.6 % 5.0 Estimated Average Glucose mg/dL 97 Hemoglobin A1C (POCT) 4.2 - 5.6 % 5.8 A/P ASSESSMENT/PLAN: 1. Essential hypertension - ICD9: 401.9, ICD10: I10 (primary diagnosis) - Controlled - Continue current medications - Recommend home blood pressure monitoring, to bring results to next visit - Encouraged sodium restriction, DASH or Mediterranean diet - Recommend regular aerobic exercise 2. Mixed hyperlipidemia - ICD9: 272.2, ICD10: E78.2 - Controlled - Continue current medications - Counseled on healthy diet and regular exercise 3. GERD without esophagitis - ICD9: 530.81, ICD10: K21.9 - diet controlled 4. Hypertrophic cardiomyopathy (HCC) - ICD9: 425.18, ICD10: I42.2 - stable and managed per cardio. 5. Stenosis of carotid artery, unspecified laterality - ICD9: 433.10, ICD10: I65.29 - stable and seeing Vascular 6. PAD (peripheral artery disease) (HCC) - ICD9: 443.9, ICD10: I73.9 - as per #5 7. Stage 3a chronic kidney disease (HCC) - ICD9: 585.3, ICD10: N18.31 - labs were normal this time. No changes. 8. Anxiety with depression - ICD9: 300.4, ICD10: F41.8 - stable with lexapro 9. LORELEI (obstructive sleep apnea) - ICD9: 327.23, ICD10: G47.33 - benefiting from CPAP nightly. 10. Vitamin D deficiency - ICD9: 268.9, ICD10: E55.9 - cont replacement 11. Elevated fasting glucose - ICD9: 790.21, ICD10: R73.01 - improved with life style changes. 12. Obesity, Class II, BMI 35-39.9 - ICD9: 278.00, ICD10: E66.9 - decreased. 13. Anemia, unspecified type - ICD9: 285.9, ICD10: D64.9 Check - VITAMIN B12 BLOOD - CBC + DIFF - FERRITIN BLD - FOLATE SERUM - IRON + TIBC 14. Encounter for immunization - ICD9: V03.89, ICD10: Z23 - INFLUENZA VACCINE, PRSV FREE, AGE 65+ YR, HIGH DOSE, QUADRIVALENT (FLUZONE HIGH-DOSE): given F/u 6 months extensive check CMP, Lipid, UA, A1c, CBC, Vit D and PSA prior Patient was asked at end of visit if they had any questions or input regarding the plan of care we had discussed. Sarah Callwoay MD documented in this encounter [facility] 01-18-2023 Miscellaneous Notes Chastity with [facility] CM called in and was asking if we could look up what HH company the Pt had used before. She states the Pt is in the hospital and neither him nor his daughter can remember the name. I looked and found a message from Beverly from [facility] and gave them her phone number [phone]. I told her sometimes they will leave the phone number to the main facility on the . documented in this encounter [facility] 01-17-2023 Note HNO ID: [id number] Author: Candi Gray LPN Service: ? Author Type: ? Type: Progress Notes Filed: 01/17/2023 10:51 PM Note Text: Scan on 01/17/2023 1:18 PM by ProviderBull PA-C: Orthopedics [facility] 01-17-2023 History of Presen t illness Narrative Scan on 01/17/2023 1:18 PM by ProviderBull PA-C: Orthopedics documented in this encounter [facility] 01-16-2023 Miscellaneous Notes Patient has been identified by name and date of : Yes Last office visit in this department: 01/10/2023 RX INSTRUCTIONS: Patient aware RX will be sent to pharmacy. No need to notify patient. Patient phones requesting refills as follows: Requested Prescriptions Pending Prescriptions Disp Refills escitalopram oxalate (LEXAPRO) 10 mg tablet 90 tablet 1 Sig: Take 1 tablet by mouth once daily. Please review and advise. Bruna Aguiar documented in this encounter [facility] 09-28-2023 Note HNO ID: [id number] Author: Sylvia Veronica APRN.JEWEL STRIPPER Service: ? Author Type: Nurse Practitioner Type: Progress Notes Filed: 01/10/2023 6:29 PM Note Text: Chief Complaint Patient presents with: Follow Up HPI Liang Burton is a 77 year old male who presents here today for Above Complaints.. Patient presents for hospital and ER follow up. Patient had back surgery 07/13 and has C. Patient was seen in ER yesterday for SOB. Labs and CT negative. Patient wears cpap at night but did not wear it when at the [facility]. Reports nausea since starting antibiotic in combo with pain medication. Past medical history, appointments, medications, allergies reviewed. Previous Medical History PAST MEDICAL HISTORY Diagnosis Date Advance directive discussed with patient 06/14/2022 Discussed: does not want packets Anxiety with depression 03/10/2018 Carotid stenosis Chronic bilateral low back pain with bilateral sciatica 01/30/2022 CKD (chronic kidney disease) stage 3, GFR 30-59 ml/min ([facility]) 10/02/2019 COPD (chronic obstructive pulmonary disease) ([facility]) Essential hypertension 05/30/2012 Ex-smoker 03/31/2019 Started smoking at age 18 up to 1 PPD quit at age 54. 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 Dallas Wang S/P carotid endarterectomy 05/30/2012 Spondylolisthesis of lumbar region 06/14/2022 L1 on L2 Vitamin D deficiency 10/07/2017 Previous Surgical History PAST SURGICAL HISTORY Procedure Laterality Date 2D ECHO (EXEP) 07/12/2020 EF=65%, mod LVH, 1+ WV, TI, CARDIAC CATH 01/09/2018 less than 30% stenosis in LAD, Circ and RCA CAROTID ENDARTERECTOMY 2005 R side. COLONOSCOPY FLX DX W/COLLJ SPEC WHEN PFRMD 08/04/2015 Colonoscopy, repeat 5 years COLONOSCOPY FLX DX W/COLLJ SPEC WHEN PFRMD 10/25/2020 PAST SURGICAL HISTORY OF cyst removed, coccyx. PAST SURGICAL HISTORY OF 05/13/2019 Lt anterior tibial angioplasty, Lt external Iliac angio and Lt external iliac Protege stent. Dr. Wang PAST SURGICAL HISTORY OF 12/13/2022 L5-S1 laminaectomies, foraminotomies, facetectomies decompression fusion. with pedicle screw Family History FAMILY HISTORY Problem Relation Age of Onset Hypertension Brother other (Brain injury) Brother Hypertension Sister Emphysema Mother Heart Attack Father Patient Allergies ALLERGIES Allergen Reactions Amoxicil-Clarithrom* GI Upset Current Medications Current Outpatient Medications on File Prior to Visit Medication Sig escitalopram oxalate (LEXAPRO) 10 mg tablet Take 1 tablet by mouth once daily. lisinopril-hydroCHLOROthiazide (PRINZIDE,ZESTORETIC) 10-12.5 mg per tablet Take 1 tablet by mouth every morning. Decreased by cardio 04/2019 simvastatin (ZOCOR) 80 mg tablet Take 0.5 tablets by mouth daily at bedtime. omega 3-lpp-bxu-fish oil 500-100-1,000 mg cap Take by mouth. Ascorbic Acid 1,000 mg tablet Take 1,000 mg by mouth once daily. Cholecalciferol, Vitamin D3, (VITAMIN D) 25 mcg (1,000 unit) cap Take 2 capsules by mouth once daily. verapamil ER (VERELAN) 120 mg 24 hr capsule Take 1 capsule by mouth once daily. Per Cardio Dr. Hunter latanoprost (XALATAN) 0.005 % ophthalmic solution 1 Drop daily at bedtime. polyethylene glycol 3350 (MIRALAX, GLYCOLAX) 17 gram/dose powder Take by mouth once daily. CPAP current setting at 17, with humidifier. Aspirin 81 mg tab Take 1 tablet by mouth once daily. Take with food. No current facility-administered medications on file prior to visit. Social History Social History Tobacco Use Smoking status: Former Packs/day: 1.00 Years: 30.00 Additional pack years: 0.00 Total pack years: 30.00 Types: Cigarettes Quit date: 01/13/1999 Years since quittin.0 Smokeless tobacco: Never Vaping Use Vaping Use: Never used Substance Use Topics Alcohol use: Not Currently Drug use: No Review of Symptoms REVIEW OF SYSTEMS SEE HPI EXAM: BP 140/68 Pulse 66 Resp 18 Wt 91.6 kg (202 lb) SpO2 99% BMI 38.17 kg/m? PHYSICAL EXAMINATION: General appearance: Well appearing, alert, in no acute distress, well-hydrated, well nourished. Lungs: Lungs clear to auscultation. No wheezing, rhonchi, rales. Heart: RRR without murmur, gallop, or rubs. No ectopy Peripheral pulses: Normal Health Maintenance List Covid-19 Vaccine(5 - Pfizer series) due on 05/27/2022 BP Controlled (<130/80) due on 05/31/2022 Influenza Vaccine(1) due on 12/14/2022 Serum Creatinine due on 01/02/2024 Annual PCP Team Chronic Disease Visit due on 01/11/2024 Diabetes Screeni (more content not included)... [facility] 01-10-2023 History of Presen t illness Narrative Chief Complaint Patient presents with: Follow Up HPI Liang Burton is a 77 year old male who presents here today for Above Complaints.. Patient presents for hospital and ER follow up. Patient had back surgery 07/13 and has [facility]. Patient was seen in ER yesterday for SOB. Labs and CT negative. Patient wears cpap at night but did not wear it when at the [facility]. Reports nausea since starting antibiotic in combo with pain medication. Past medical history, appointments, medications, allergies reviewed. Previous Medical History PAST MEDICAL HISTORY Diagnosis Date Advance directive discussed with patient 06/14/2022 Discussed: does not want packets Anxiety with depression 03/10/2018 Carotid stenosis Chronic bilateral low back pain with bilateral sciatica 01/30/2022 CKD (chronic kidney disease) stage 3, GFR 30-59 ml/min ([facility]) 10/02/2019 COPD (chronic obstructive pulmonary disease) ([facility]) Essential hypertension 05/30/2012 Ex-smoker 03/31/2019 Started smoking at age 18 up to 1 PPD quit at age 54. 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 Dallas Wang S/P carotid endarterectomy 05/30/2012 Spondylolisthesis of lumbar region 06/14/2022 L1 on L2 Vitamin D deficiency 10/07/2017 Previous Surgical History PAST SURGICAL HISTORY Procedure Laterality Date 2D ECHO (EXEP) 07/12/2020 EF=65%, mod LVH, 1+ WV, TI, CARDIAC CATH 01/09/2018 less than 30% stenosis in LAD, Circ and RCA CAROTID ENDARTERECTOMY 2006 R side. COLONOSCOPY FLX DX W/COLLJ SPEC WHEN PFRMD 08/04/2015 Colonoscopy, repeat 5 years COLONOSCOPY FLX DX W/COLLJ SPEC WHEN PFRMD 10/25/2020 PAST SURGICAL HISTORY OF cyst removed, coccyx. PAST SURGICAL HISTORY OF 05/13/2019 Lt anterior tibial angioplasty, Lt external Iliac angio and Lt external iliac Protege stent. Dr. Wang PAST SURGICAL HISTORY OF 12/13/2022 L5-S1 laminaectomies, foraminotomies, facetectomies decompression fusion. with pedicle screw Family History FAMILY HISTORY Problem Relation Age of Onset Hypertension Brother other (Brain injury) Brother Hypertension Sister Emphysema Mother Heart Attack Father Patient Allergies ALLERGIES Allergen Reactions Amoxicil-Clarithrom* GI Upset Current Medications Current Outpatient Medications on File Prior to Visit Medication Sig escitalopram oxalate (LEXAPRO) 10 mg tablet Take 1 tablet by mouth once daily. lisinopril-hydroCHLOROthiazide (PRINZIDE,ZESTORETIC) 10-12.5 mg per tablet Take 1 tablet by mouth every morning. Decreased by cardio 04/2019 simvastatin (ZOCOR) 80 mg tablet Take 0.5 tablets by mouth daily at bedtime. omega 3-ohd-pgh-fish oil 500-100-1,000 mg cap Take by mouth. Ascorbic Acid 1,000 mg tablet Take 1,000 mg by mouth once daily. Cholecalciferol, Vitamin D3, (VITAMIN D) 25 mcg (1,000 unit) cap Take 2 capsules by mouth once daily. verapamil ER (VERELAN) 120 mg 24 hr capsule Take 1 capsule by mouth once daily. Per Cardio Dr. Hunter latanoprost (XALATAN) 0.005 % ophthalmic solution 1 Drop daily at bedtime. polyethylene glycol 3350 (MIRALAX, GLYCOLAX) 17 gram/dose powder Take by mouth once daily. CPAP current setting at 17, with humidifier. Aspirin 81 mg tab Take 1 tablet by mouth once daily. Take with food. No current facility-administered medications on file prior to visit. Social History Social History Tobacco Use Smoking status: Former Packs/day: 1.00 Years: 30.00 Additional pack years: 0.00 Total pack years: 30.00 Types: Cigarettes Quit date: 01/13/1999 Years since quittin.0 Smokeless tobacco: Never Vaping Use Vaping Use: Never used Substance Use Topics Alcohol use: Not Currently Drug use: No Review of Symptoms REVIEW OF SYSTEMS SEE HPI EXAM: BP 140/68 Pulse 66 Resp 18 Wt 91.6 kg (202 lb) SpO2 99% BMI 38.17 kg/m PHYSICAL EXAMINATION: General appearance: Well appearing, alert, in no acute distress, well-hydrated, well nourished. Lungs: Lungs clear to auscultation. No wheezing, rhonchi, rales. Heart: RRR without murmur, gallop, or rubs. No ectopy Peripheral pulses: Normal Health Maintenance List Covid-19 Vaccine(5 - Pfizer series) due on 05/27/2022 BP Controlled (<130/80) due on 05/31/2022 Influenza Vaccine(1) due on 12/14/2022 Serum Creatinine due on 01/02/2024 Annual PCP Team Chronic Disease Visit due on 01/11/2024 Diabetes Screening due on 01/01/2026 DTaP,Tdap,Td Vaccine(2 - Td or Tdap) due on 07/05/2026 Lipid Screening due on 01/02/2028 Colorectal Cancer Screening due on 10/25/2030 Advance Directive Discussion Completed Hepatitis C Screening Completed Shingrix Vaccine Completed Pneumococcal Vaccine: 65+ Completed ASSESSMENT/PLAN: 1. Nausea - ICD9: 787.02, ICD10: R11.0 (primary diagnosis) - ONDANSETRON 4 MG DISINTEGRATING TABLET 2. Anemia, unspecified type - ICD9: 285.9, ICD10: D64.9 - IRON + TIBC - FERRITIN BLD 3. Essential hypertension - ICD9: 401.9, ICD10: I10 - Controlled - Continue current medications - Recommend home blood pressure monitoring, to bring results to next visit - Encouraged sodium restriction, DASH or Mediterranean diet - Recommend regular aerobic exercise - Discussed need for and benefit of weight loss. BMI 38.17 kg/(m^2) 4. S/P lumbar fusion - ICD9: V45.4, ICD10: Z98.1 -Using walker and back brace Sylvia Veronica APRN.JEWEL STRIPPER documented in this encounter [facility] 01-10-2023 Note HNO ID: [id number] Author: Sarah Calloway MD Service: ? Author Type: Physician Type: Progress Notes Filed: 01/10/2023 8:14 AM Note Text: Patient's home health 485 form / care plan for certification period 01/02/23 to 03/02/23 reviewed and signed. Relevant medical records were reviewed. Changes were communicated to home health agency [facility] 12-11-2022 Note HNO ID: [id number] Author: Jes Lei APRN.DALILA Service: ? Author Type: Nurse Practitioner Type: Progress Notes Filed: 12/11/2022 10:49 AM Note Text: This note was created using [employer]. Subjective Liang Burton is a 77 year old male. Patient presents with scrape on the back of his head after falling onto concrete last night. Patient denies loss of consciousness. He reports that he had a headache last night, has since resolved. Denies visual disturbance, nausea, or vomiting. Does not take any blood thinners. The history is provided by the patient. Laceration Review of Systems Constitutional: Negative for activity change. Eyes: Negative for visual disturbance. Skin: Positive for wound. Neurological: Positive for headaches. Negative for dizziness, syncope, facial asymmetry, speech difficulty, weakness, light-headedness and numbness. All other systems reviewed and are negative. Objective BP 128/68 Pulse 72 Temp 36.8 ?C (98.3 ?F) Resp 16 Wt 93.4 kg (206 lb) SpO2 95% BMI 38.92 kg/m? PAST MEDICAL HISTORY Diagnosis Date Advance directive discussed with patient 06/14/2022 Discussed: does not want packets Anxiety with depression 03/10/2018 Carotid stenosis Chronic bilateral low back pain with bilateral sciatica 01/30/2022 CKD (chronic kidney disease) stage 3, GFR 30-59 ml/min ([facility]) 10/02/2019 COPD (chronic obstructive pulmonary disease) ([facility]) Essential hypertension 05/30/2012 Ex-smoker 03/31/2019 Started smoking at age 18 up to 1 PPD quit at age 54. 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 Dallas Wang S/P carotid endarterectomy 05/30/2012 Spondylolisthesis of lumbar region 06/14/2022 L1 on L2 Vitamin D deficiency 10/07/2017 PAST SURGICAL HISTORY Procedure Laterality Date 2D ECHO (EXEP) 07/12/2020 EF=65%, mod LVH, 1+ [place], TI, CARDIAC CATH 01/09/2018 less than 30% stenosis in LAD, Circ and RCA CAROTID ENDARTERECTOMY 2006 R side. COLONOSCOPY FLX DX W/COLLJ SPEC WHEN PFRMD 08/04/2015 Colonoscopy, repeat 5 years COLONOSCOPY FLX DX W/COLLJ SPEC WHEN PFRMD 10/25/2020 PAST SURGICAL HISTORY OF cyst removed, coccyx. PAST SURGICAL HISTORY OF 05/13/2019 Lt anterior tibial angioplasty, Lt external Iliac angio and Lt external iliac Protege stent. Dr. Wang ALLERGIES Koyrfpdj-Ldcjanhudnm-Yhkhthuue MEDICATIONS escitalopram oxalate (LEXAPRO) 10 mg tablet Take 1 tablet by mouth once daily. lisinopril-hydroCHLOROthiazide (PRINZIDE,ZESTORETIC) 10-12.5 mg per tablet Take 1 tablet by mouth every morning. Decreased by cardio 04/2019 simvastatin (ZOCOR) 80 mg tablet Take 0.5 tablets by mouth daily at bedtime. omega 3-vtb-fff-fish oil 500-100-1,000 mg cap Take by mouth. Ascorbic Acid 1,000 mg tablet Take 1,000 mg by mouth once daily. Cholecalciferol, Vitamin D3, (VITAMIN D) 25 mcg (1,000 unit) cap Take 2 capsules by mouth once daily. verapamil ER (VERELAN) 120 mg 24 hr capsule Take 1 capsule by mouth once daily. Per Cardio Dr. Hunter latanoprost (XALATAN) 0.005 % ophthalmic solution 1 Drop daily at bedtime. polyethylene glycol 3350 (MIRALAX, GLYCOLAX) 17 gram/dose powder Take by mouth once daily. CPAP current setting at 17, with humidifier. Aspirin 81 mg tab Take 1 tablet by mouth once daily. Take with food. FAMILY HISTORY Problem Relation Age of Onset Hypertension Brother other (Brain injury) Brother Hypertension Sister Emphysema Mother Heart Attack Father Social History Tobacco Use Smoking status: Former Packs/day: 1.00 Years: 30.00 Additional pack years: 0.00 Total pack years: 30.00 Types: Cigarettes Quit date: 01/13/1999 Years since quittin.9 Smokeless tobacco: Never Vaping Use Vaping Use: Never used Substance Use Topics Alcohol use: Not Currently Drug use: No Physical Exam Vitals reviewed. Constitutional: General: He is not in acute distress. Appearance: Normal appearance. He is normal weight. He is not ill-appearing or toxic-appearing. Eyes: General: Lids are normal. Vision grossly intact. Gaze aligned appropriately. Extraocular Movements: Extraocular movements intact. Right eye: Normal extraocular motion and no nystagmus. Left eye: Normal extraocular motion and no nystagmus. Pupils: Pupils are equal, round, and reactive to light. Pupils are equal. Right eye: Pupil is round, reactive and not sluggish. Left eye: Pupil is round, reactive and not sluggish. Skin: General: Skin is warm and dry. Findings: Bruising present. Neurological: General: No focal (more content not included)... [facility] 11-22-2022 Note HNO ID: [id number] Author: Candi Gray LPN Service: ? Author Type: ? Type: Progress Notes Filed: 11/22/2022 4:01 PM Note Text: Scan on 11/21/2022 3:12 PM by Provider, External, VANC: Microbiology [facility] 11-22-2022 History of Presen t illness Narrative Scan on 11/21/2022 3:12 PM by Bull Llamas PA-C: Microbiology documented in this encounter [facility] 11-21-2022 Note HNO ID: [id number] Author: Kathleen Huang LPN Service: ? Author Type: ? Type: Progress Notes Filed: 11/21/2022 2:37 PM Note Text: Scan on 11/21/2022 12:24 AM by Bull Llamas PA-C: X-ray [facility] 11-21-2022 History of Presen t illness Narrative Scan on 11/21/2022 12:24 AM by Bull Llamas PA-C: X-ray documented in this encounter [facility] 11-19-2022 Miscellaneous Notes Nicole from [facility] Preadmission Testing call and is asking for labs and EKG results to be faxed to [phone]. Faxed as requested. Uma Garcia RN documented in this encounter [facility] 11-14-2022 Note HNO ID: [id number] Author: Sarah Calloway MD Service: ? Author Type: Physician Type: Progress Notes Filed: 11/16/2022 1:55 PM Note Text: Chief Complaint Patient presents with: Pre-Op Exam HPI Liang Burton is a 77 year old male who presents here today for Pre op. Office visit - pre op exam 11/14/2022 Patient with Hx of HTN, hypertrophic cardiomyopathy (seeing cardio), hyperlipidemia, PAD, CKD . Patient is scheduled to undergo L5-S1 posterior lumbar interbody fusion, decompression, posterior spinal fusion with instrumentation and use of Allograft per Dr. Edward at [facility] on 12/13/2022. 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 Office visit - medicare wellness 06/26/2022 Patient with hx of hyperlipidemia, HTN, cardiomyopathy, PAD, LORELEI, GERD, CKD, chonic low back pain, anxiety/depression and those as below. Patient is scheduled later this month for MRI of his back. He did not benefit from Physical Therapy. Otherwise doing okay. Does have chronic shortness of breath that's stable. No chest pain. Has not had PFT. Still using CPAP at night Past medical history, appointments, medications, allergies reviewed. Previous Medical History PAST MEDICAL HISTORY Diagnosis Date Advance directive discussed with patient 06/14/2022 Discussed: does not want packets Anxiety with depression 03/10/2018 Carotid stenosis Chronic bilateral low back pain with bilateral sciatica 01/30/2022 CKD (chronic kidney disease) stage 3, GFR 30-59 ml/min ([facility]) 10/02/2019 COPD (chronic obstructive pulmonary disease) ([facility]) Essential hypertension 05/30/2012 Ex-smoker 03/31/2019 Started smoking at age 18 up to 1 PPD quit at age 54. 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 Dallas Wang S/P carotid endarterectomy 05/30/2012 Spondylolisthesis of lumbar region 06/14/2022 L1 on L2 Vitamin D deficiency 10/07/2017 Previous Surgical History PAST SURGICAL HISTORY Procedure Laterality Date 2D ECHO (EXEP) 07/12/2020 EF=65%, mod LVH, 1+ [place], TI, CARDIAC CATH 01/09/2018 less than 30% stenosis in LAD, Circ and RCA CAROTID ENDARTERECTOMY 2006 R side. COLONOSCOPY FLX DX W/COLLJ SPEC WHEN PFRMD 08/04/2015 Colonoscopy, repeat 5 years COLONOSCOPY FLX DX W/COLLJ SPEC WHEN PFRMD 10/25/2020 PAST SURGICAL HISTORY OF cyst removed, coccyx. PAST SURGICAL HISTORY OF 05/13/2019 Lt anterior tibial angioplasty, Lt external Iliac angio and Lt external iliac Protege stent. Dr. Wang Family History FAMILY HISTORY Problem Relation Age of Onset Hypertension Brother other (Brain injury) Brother Hypertension Sister Emphysema Mother Heart Attack Father Patient Allergies ALLERGIES Allergen Reactions Amoxicil-Clarithrom* GI Upset Current Medications Current Outpatient Medications on File Prior to Visit Medication Sig escitalopram oxalate (LEXAPRO) 10 mg tablet Take 1 tablet by mouth once daily. lisinopril-hydroCHLOROthiazide (PRINZIDE,ZESTORETIC) 10-12.5 mg per tablet Take 1 tablet by mouth every morning. Decreased by cardio 04/2019 simvastatin (ZOCOR) 80 mg tablet Take 0.5 tablets by mouth daily at bedtime. omega 3-qfc-mnj-fish oil 500-100-1,000 mg cap Take by mouth. Ascorbic Acid 1,000 mg tablet Take 1,000 mg by mouth once daily. Cholecalciferol, Vitamin D3, (VITAMIN D) 25 mcg (1,000 unit) cap Take 2 capsules by mouth once daily. verapamil ER (VERELAN) 120 mg 24 hr capsule Take 1 capsule by mouth once daily. Per Cardio Dr. Hunter latanoprost (XALATAN) 0.005 % ophthalmic solution 1 Drop daily at bedtime. polyethylene glycol 3350 (MIRALAX, GLYCOLAX) 17 gram/dose powder Take by mouth once daily. CPAP current setting at 17, with humidifier. Aspirin 81 mg tab Take 1 tablet by mouth once daily. Take with food. No current facility-administered medications on file prior to visit. Social History Social History Tobacco Use Smoking status: Former Packs/day: 1.00 Years: 30.00 Total pack years: 30.00 Types: Cigarettes Quit date: 01/13/1999 Years since quittin.8 Smokeless tobacco: Never Vaping Use Vaping Use: Never used Substance Use Topics Alcohol use: Not Currently Drug use: No Review of Symptoms REVIEW OF SYSTEMS GENERAL: No weight loss, malaise or fevers HEENT: Negative for frequent or significant headaches, No changes in hearing or vision, no nose bleeds or other nasal problems NECK: Negative for lumps, goiter, pain and significant neck swelling RESPIRATORY: Negative for cough, hemoptysis, wheezing, COPD, increased (more content not included)... [facility] 11-14-2022 History of Presen t illness Narrative Chief Complaint Patient presents with: Pre-Op Exam HPI Liang Burton is a 77 year old male who presents here today for Pre op. Office visit - pre op exam 11/14/2022 Patient with Hx of HTN, hypertrophic cardiomyopathy (seeing cardio), hyperlipidemia, PAD, CKD . Patient is scheduled to undergo L5-S1 posterior lumbar interbody fusion, decompression, posterior spinal fusion with instrumentation and use of Allograft per Dr. Edward at [facility] on 12/13/2022. 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 Office visit - medicare wellness 06/26/2022 Patient with hx of hyperlipidemia, HTN, cardiomyopathy, PAD, LORELEI, GERD, CKD, chonic low back pain, anxiety/depression and those as below. Patient is scheduled later this month for MRI of his back. He did not benefit from Physical Therapy. Otherwise doing okay. Does have chronic shortness of breath that's stable. No chest pain. Has not had PFT. Still using CPAP at night Past medical history, appointments, medications, allergies reviewed. Previous Medical History PAST MEDICAL HISTORY Diagnosis Date Advance directive discussed with patient 06/14/2022 Discussed: does not want packets Anxiety with depression 03/10/2018 Carotid stenosis Chronic bilateral low back pain with bilateral sciatica 01/30/2022 CKD (chronic kidney disease) stage 3, GFR 30-59 ml/min ([facility]) 10/02/2019 COPD (chronic obstructive pulmonary disease) ([facility]) Essential hypertension 05/30/2012 Ex-smoker 03/31/2019 Started smoking at age 18 up to 1 PPD quit at age 54. 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 Dallas Wang S/P carotid endarterectomy 05/30/2012 Spondylolisthesis of lumbar region 06/14/2022 L1 on L2 Vitamin D deficiency 10/07/2017 Previous Surgical History PAST SURGICAL HISTORY Procedure Laterality Date 2D ECHO (EXEP) 07/12/2020 EF=65%, mod LVH, 1+ [place], TI, CARDIAC CATH 01/09/2018 less than 30% stenosis in LAD, Circ and RCA CAROTID ENDARTERECTOMY 2006 R side. COLONOSCOPY FLX DX W/COLLJ SPEC WHEN PFRMD 08/04/2015 Colonoscopy, repeat 5 years COLONOSCOPY FLX DX W/COLLJ SPEC WHEN PFRMD 10/25/2020 PAST SURGICAL HISTORY OF cyst removed, coccyx. PAST SURGICAL HISTORY OF 05/13/2019 Lt anterior tibial angioplasty, Lt external Iliac angio and Lt external iliac Protege stent. Dr. Wang Family History FAMILY HISTORY Problem Relation Age of Onset Hypertension Brother other (Brain injury) Brother Hypertension Sister Emphysema Mother Heart Attack Father Patient Allergies ALLERGIES Allergen Reactions Amoxicil-Clarithrom* GI Upset Current Medications Current Outpatient Medications on File Prior to Visit Medication Sig escitalopram oxalate (LEXAPRO) 10 mg tablet Take 1 tablet by mouth once daily. lisinopril-hydroCHLOROthiazide (PRINZIDE,ZESTORETIC) 10-12.5 mg per tablet Take 1 tablet by mouth every morning. Decreased by cardio 04/2019 simvastatin (ZOCOR) 80 mg tablet Take 0.5 tablets by mouth daily at bedtime. omega 8-vmo-lbz-fish oil 500-100-1,000 mg cap Take by mouth. Ascorbic Acid 1,000 mg tablet Take 1,000 mg by mouth once daily. Cholecalciferol, Vitamin D3, (VITAMIN D) 25 mcg (1,000 unit) cap Take 2 capsules by mouth once daily. verapamil ER (VERELAN) 120 mg 24 hr capsule Take 1 capsule by mouth once daily. Per Cardio Dr. Hunter latanoprost (XALATAN) 0.005 % ophthalmic solution 1 Drop daily at bedtime. polyethylene glycol 3350 (MIRALAX, GLYCOLAX) 17 gram/dose powder Take by mouth once daily. CPAP current setting at 17, with humidifier. Aspirin 81 mg tab Take 1 tablet by mouth once daily. Take with food. No current facility-administered medications on file prior to visit. Social History Social History Tobacco Use Smoking status: Former Packs/day: 1.00 Years: 30.00 Total pack years: 30.00 Types: Cigarettes Quit date: 01/13/1999 Years since quittin.8 Smokeless tobacco: Never Vaping Use Vaping Use: Never used Substance Use Topics Alcohol use: Not Currently Drug use: No Review of Symptoms REVIEW OF SYSTEMS GENERAL: No weight loss, malaise or fevers HEENT: Negative for frequent or significant headaches, No changes in hearing or vision, no nose bleeds or other nasal problems NECK: Negative for lumps, goiter, pain and significant neck swelling RESPIRATORY: Negative for cough, hemoptysis, wheezing, COPD, increased dyspnea or shortness of breath CARDIOVASCULAR: Negative for chest pain, leg swelling, hypertension, CHF or palpitations GI: No nausea, vomiting, or diarrhea and no stomach blood : No history of dysuria, or blood. Slight increase in urination MUSCULOSKELETAL: low back pain with radiculopathy. SKIN: Negative for lesions, rash, and itching HEMATOLOGY/LYMPHOLOGY: Negative for prolonged bleeding, bruising easily or swollen nodes ENDOCRINE: Negative for cold or heat intolerance, polydipsia and goiter NEURO: No history of headaches, syncope, paralysis, seizures or tremors EXAM: BP 138/74 (BP Site: Right Arm, BP Position: Sitting, BP Cuff Size: Regular Adult) Pulse 64 Resp 18 Wt 92.5 kg (204 lb) BMI 38.55 kg/m General Appearance: Well appearing, alert, in no acute distress, well-hydrated, well nourished. and Obese. Skin: Skin color, texture, turgor normal, no suspicious rashes or lesions. Head: Normocephalic, no masses, lesions, tenderness or abnormalities. Eyes: Anicteric sclera. Pupils are equally round and reactive to light. Extraocular movements are intact. . Ears: External ears, TM's normal, canals clear. Nose/Sinuses: Nares normal, septum midline, mucosa normal, no drainage or sinus tenderness. Oropharynx: Lips, mucosa, and tongue normal, teeth and gums normal, oropharynx normal. Neck: Supple, no adenopathy; thyroid symmetric, normal size, no bruits. Lungs: Lungs clear to auscultation. No wheezing, rhonchi, rales.. Heart: RRR without murmur, gallop, or rubs. No ectopy. Abdomen: Normal abdominal exam, Abdomen soft, non-tender. Bowel sounds normal. No masses, organomegaly. Extremities: No deformities, edema, skin discoloration, Good capillary refill. . Musculoskeletal: Muscular strength intact, No joint swelling, deformity, or tenderness. Peripheral Pulses: Normal. Neurologic: Gait normal. Reflexes normal and symmetric. Sensation to light touch and crainal nerves 2-12 intact.. Health Maintenance List ALPHA-1 ANTITRYPSIN DEFICIENCY SCREENING Never done COVID-19 VACCINE(5 - Pfizer series) due on 05/27/2022 INFLUENZA(1) due on 12/14/2022 SERUM CREATININE due on 06/20/2023 ANNUAL PCP TEAM CHRONIC DISEASE VISIT due on 06/27/2023 BP CONTROLLED (<130/80) due on 09/29/2023 DIABETES SCREEN due on 06/26/2025 DTAP,TDAP,TD(2 - Td or Tdap) due on 07/05/2026 LIPID SCREEN due on 06/20/2027 COLORECTAL CANCER SCREENING due on 10/25/2030 SPIROMETRY Completed ADVANCE DIRECTIVE DISCUSSION Completed HEPATITIS C SCREENING Completed SHINGRIX VACCINE Completed PNEUMOCOCCAL: 65+ Completed Data reviewed In office EKG: sinus Marcus with left axis deviation marked T wave abnormality consider anterolateral ischemia. When compared to EKG from 12/08/2017 these change are not new and unchanged. Component Latest Ref Rng & Units 11/14/2022 WBC 3.70 - 11.00 k/uL 6.83 RBC 4.20 - 6.00 m/uL 4.56 Hemoglobin 13.0 - 17.0 g/dL 14.0 Hematocrit 39.0 - 51.0 % 42.7 MCV 80.0 - 100.0 fL 93.6 MCH 26.0 - 34.0 pg 30.7 MCHC 30.5 - 36.0 g/dL 32.8 RDW-CV 11.5 - 15.0 % 14.6 Platelet Count 150 - 400 k/uL 201 MPV 9.0 - 12.7 fL 11.1 Neut% % 64.7 Abs Neut (ANC) 1.45 - 7.50 k/uL 4.42 Lymph% % 24.5 Abs Lymph 1.00 - 4.00 k/uL 1.67 [place]% % 8.8 Abs [place] <0.87 k/uL 0.60 Eosin% % 1.5 Abs Eosin <0.46 k/uL 0.10 Baso% % 0.4 Abs Baso <0.11 k/uL 0.03 Immature Gran % % 0.1 IMMATURE GRANS (ABS) <0.10 k/uL <0.03 NRBC /100 WBC 0.0 Absolute nRBC <0.01 k/uL <0.01 DTYPE Auto Color Yellow Yellow Clarity Clear Clear Glucose, Urine Trace, Negative Negative Bilirubin, Urine Negative Negative Ketones, Urine Trace, Negative Negative Specific [place], Ur 1.005 - 1.030 1.019 Hemoglobin/Blood,Ur Negative, Trace Negative pH, Urine 5.0 - 8.0 6.5 Protein, Urine Trace, Negative Negative Urobilinogen Negative Negative Nitrites Negative Negative Leukest Negative, 25 Mary/uL Negative WBC, Urine 0-5 /HPF 0-5 /HPF RBC, Urine 0-3 /HPF 0-3 /HPF Glucose 74 - 99 mg/dL 105 (H) BUN 9 - 24 mg/dL 17 Creatinine 0.73 - 1.22 mg/dL 1.29 (H) Sodium 136 - 144 mmol/L 140 Potassium 3.7 - 5.1 mmol/L 4.6 Chloride 97 - 105 mmol/L 105 CO2 22 - 30 mmol/L 22 Anion Gap 9 - 18 mmol/L 13 Calcium 8.5 - 10.2 mg/dL 9.7 eGFR >=60 mL/min/1.73m 58 (L) A/P ASSESSMENT/PLAN: 1. Pre-op examination - ICD9: V72.84, ICD10: Z01.818 (primary diagnosis) This is a moderate/high risk surgery based on the ACC/AHA Classification of surgical procedural risk. Based on the Arley's Simple Cardiac Risk Index is cardiac risk is less then 0.4% and has already been released per Cardiology. His functional capacity is Moderate and there needs no further pre-surgical w/u and is clear medically for surgery. - BASIC METABOLIC PNL - URINALYSIS, WITH MICROSCOPIC - CBC + DIFF 2. Foraminal stenosis of lumbar region - ICD9: 724.02, ICD10: M48.061 - patient scheduled to have low back surgery per Dr. Edward on 12/13/2022 at [facility]. 3. Chronic bilateral low back pain with bilateral sciatica - ICD9: 724.2, 724.3, 338.29, ICD10: M54.42, M54.41, G89.29 - as per #2 4. Stage 3 chronic kidney disease, unspecified whether stage 3a or 3b CKD (HCC) - ICD9: 585.3, ICD10: N18.30 Check - BASIC METABOLIC PNL - CBC + DIFF 5. Urine frequency - ICD9: 788.41, ICD10: R35.0 Check - URINALYSIS, WITH MICROSCOPIC 6. Essential hypertension - ICD9: 401.9, ICD10: I10 - Controlled - Continue current medications - Recommend home blood pressure monitoring, to bring results to next visit - Encouraged sodium restriction, DASH or Mediterranean diet - Recommend regular aerobic exercise - ECG COMPLETE 7. Hypertrophic cardiomyopathy (HCC) - ICD9: 425.18, ICD10: I42.2 - management per cardio and recently cleared per them. - ECG COMPLETE Keep future appt. Sarah Calloway MD documented in this encounter [facility] 09-29-2022 Miscellaneous Notes Patient given results and verbalized understanding of instructions given. Ifeoma Barrera Negative for covid please notify thank you documented in this encounter [facility] 09-28-2022 Note HNO ID: [id number] Author: Zhen Kay MD Service: ? Author Type: Physician Type: Progress Notes Filed: 09/28/2022 10:48 AM Note Text: Patient presents with: Cough: Cough, ST, SOB and dizzy x 1 day HPI: Feeling sick for 2 days. Positive symptoms: Cough, Shortness of breath, Sore throat, dizziness, Chest pain, Nasal Congestion, Rhinorrhea, Chills, Body Aches, Negative symptoms: Sinus pressure, Vomiting, Diarrhea, OTC: Tylenol. No inhaler use. MEDICATIONS: Current Outpatient Medications Medication Sig escitalopram oxalate (LEXAPRO) 10 mg tablet Take 1 tablet by mouth once daily. lisinopril-hydroCHLOROthiazide (PRINZIDE,ZESTORETIC) 10-12.5 mg per tablet Take 1 tablet by mouth every morning. Decreased by cardio 04/2019 simvastatin (ZOCOR) 80 mg tablet Take 0.5 tablets by mouth daily at bedtime. omega 9-sml-hdy-fish oil 500-100-1,000 mg cap Take by mouth. Ascorbic Acid 1,000 mg tablet Take 1,000 mg by mouth once daily. Cholecalciferol, Vitamin D3, (VITAMIN D) 25 mcg (1,000 unit) cap Take 2 capsules by mouth once daily. verapamil ER (VERELAN) 120 mg 24 hr capsule Take 1 capsule by mouth once daily. Per Cardio Dr. Hunter latanoprost (XALATAN) 0.005 % ophthalmic solution 1 Drop daily at bedtime. polyethylene glycol 3350 (MIRALAX, GLYCOLAX) 17 gram/dose powder Take by mouth once daily. CPAP current setting at 17, with humidifier. Aspirin 81 mg tab Take 1 tablet by mouth once daily. Take with food. No current facility-administered medications for this visit. ALLERGIES: ALLERGIES Allergen Reactions Amoxicil-Clarithrom* GI Upset VITALS: BP 128/74 Pulse 98 Temp 37.2 ?C (98.9 ?F) (Tympanic) Resp 16 Wt 92.4 kg (203 lb 9.6 oz) SpO2 94% BMI 38.47 kg/m? PHYSICAL EXAM: GEN: mildly ill appearing, masked face HEENT: PERRL, EOMI, conjunctiva clear Ears: canals clear. TMs without erythema, bulge, or effusion Sinuses: non-tender frontal sinus, non-tender maxillary sinuses Throat: moist mucous membranes, mild erythema, no exudate Neck: supple, no thyromegaly, no lymphadenopathy HEART: regular rate and rhythm, no murmurs LUNGS: clear to auscultation, no wheezes or crackles, no increased WOB ASSESSMENT/PLAN: 1. COPD with exacerbation (HCC) - ICD9: 491.21, ICD10: J44.1 (primary diagnosis) 2. Sore throat - ICD9: 462, ICD10: J02.9 - STREP A MOLECULAR (POC) negative. - PREDNISONE 10 MG TABLET - DOXYCYCLINE MONOHYDRATE 100 MG CAPSULE - Declines inhaler Rx. Reports he was given one once but did not refill it. - 2019 CORONAVIRUS - suspect viral URI, differential includes COVID-19. - Discussed supportive care treatment. - Red flags to seek further treatment include chest pain, shortness of breath, and lethargy; in the ER if severe. Zhen Kay MD [facility] 07-17-2022 Miscellaneous Notes Pt called and is notified of providers message and instructions. Pt voices understanding. He said that he still might just get the Cortisone injection done. I told him if he is getting the surgery to let us know. Maria Ramirez RN Let patient know we can't do a pre-op eval any earlier then 30 days prior to the surgery. When he has a surgical date set up then he should stop in and get his pre-op appt set up based off that date. Patient stopped by the office and indicated that [place] Marshall needed out approval if patient could have surgery. Patient is not yet scheduled for surgery or if they will even do surgery may do injection. He indicated that [facility] would be sending over information. I explained that we normally don't do the pre op unless surgery date has been set. Sharon Cruz MA documented in this encounter [facility] 07-16-2022 Note HNO ID: [id number] Author: Saul Estevez Service: ? Author Type: ? Type: Progress Notes Filed: 07/16/2022 2:31 PM Note Text: POPULATION HEALTH NAVIGATION OUTREACH Action/FYI Left vm Patient Identified by Name and : NO Outreach Outcome/Action Unable to reach patient: Left message Did you use a PCP flex slot to schedule this appointment? No Reason for Outreach Care Gap or Scheduling/Wellness visits Payer: Payor: SUSHMA [employer] CROSS AND BLUE SHIELD / Plan: [employer] HMO / Product Type: HMO / Care Gap Reviewed:: Specialty Scheduling Reminder: Reminder note to check Health Maintenance for items below Health Maintenance items due: BP CONTROLLED (<130/80) due on 05/31/2022 Navigation Signature: Saul Estevez July 16, 2022 2:30 PM [facility] 07-16-2022 Note Patient Outreach (AC CC) LIANG BURTON ([id number]) 1945 M Date Time Provider Department 07/16/22 PCP ([facility] During your visit today, we recorded the following information about you: Saul Estevez 07/16/2022 2:31 PM Signed POPULATION HEALTH NAVIGATION OUTREACH Action/FYI Left Patient Identified by Name and : NO Outreach Outcome/Action Unable to reach patient: Left message Did you use a PCP flex slot to schedule this appointment? No Reason for Outreach Care Gap or Scheduling/Wellness visits Payer: Payor: SUSHMA [employer] / Plan: [employer] HMO / Product Type: HMO / Care Gap Reviewed:: Specialty Scheduling Reminder: Reminder note to check Health Maintenance for items below Health Maintenance items due: BP CONTROLLED (<130/80) due on 05/31/2022 Navigation Signature: Saul Estevez July 16, 2022 2:30 PM Allergies As of Date: 07/16/2022 Noted Allergy Reaction [id number] 12/18/2017 8 - GI Upset Date Reviewed: 06/26/2022 Reviewed by: Amada Abreu LPN - Fully Assessed Prescriptions as of 07/16/2022 - escitalopram oxalate (LEXAPRO) 10 mg tablet Take 1 tablet by mouth once daily. - lisinopril-hydroCHLOROthiazide (PRINZIDE,ZESTORETIC) 10-12.5 mg per tablet Take 1 tablet by mouth every morning. Decreased by cardio 04/2019 - simvastatin (ZOCOR) 80 mg tablet Take 0.5 tablets by mouth daily at bedtime. - omega 5-mlv-etg-fish oil 500-100-1,000 mg cap Take by mouth. - Ascorbic Acid 1,000 mg tablet Take 1,000 mg by mouth once daily. - Cholecalciferol, Vitamin D3, (VITAMIN D) 25 mcg (1,000 unit) cap Take 2 capsules by mouth once daily. - verapamil ER (VERELAN) 120 mg 24 hr capsule Take 1 capsule by mouth once daily. Per Cardio Dr. Hunter - latanoprost (XALATAN) 0.005 % ophthalmic solution 1 Drop daily at bedtime. - polyethylene glycol 3350 (MIRALAX, GLYCOLAX) 17 gram/dose powder Take by mouth once daily. - CPAP current setting at 17, with humidifier. - Aspirin 81 mg tab Take 1 tablet by mouth once daily. Take with food. Problem List As Of Date 07/16/2022 Noted Resolved Essential hypertension [I10] 05/30/2012 Mixed hyperlipidemia [E78.2] 05/30/2012 S/P carotid endarterectomy [Z98.890] 05/30/2012 LORELEI (obstructive sleep apnea) [G47.33] 11/04/2013 Special screening for malignant neoplasm of col*08/04/2015 08/04/2015 Vitamin D deficiency [E55.9] 10/07/2017 Anxiety with depression [F41.8] 03/10/2018 Medicare annual wellness visit, subsequent [Z00*03/27/2018 GERD without esophagitis [K21.9] 03/27/2018 PAD (peripheral artery disease) (HCC) [I73.9] 02/18/2019 Carotid stenosis [I65.29] Ex-smoker [Z87.891] 03/31/2019 Medication management [Z79.899] 03/31/2019 Hypertrophic cardiomyopathy (HCC) [I42.2] 03/31/2019 CKD (chronic kidney disease) stage 3, GFR 30-59*10/02/2019 History of 2019 novel coronavirus disease (COVI*05/20/2020 Prostate disorder [N42.9] 10/24/[address] [Z78.9] 05/31/2021 06/14/2022 Chronic bilateral low back pain with bilateral *01/30/2022 Spondylolisthesis of lumbar region [M43.16] 06/14/2022 Advance directive discussed with patient [Z71.8*06/14/2022 Neurogenic claudication [R29.818] 06/14/2022 Elevated fasting glucose [R73.01] 06/26/2022 Foraminal stenosis of lumbar region [M48.061] 07/12/2022 Encounter Status:Closed by SAUL ESTEVEZ on 07/16/22 [facility] 07-12-2022 Miscellaneous Notes Faxed Demo/insurance/order/OV/MRI results to [facility]. Sharon Cruz MA Order placed for consult to [facility] Pt called and is notified of providers results and instructions. Pt voices understanding. Pt states he would like to go to [facility]. Maria Ramirez RN Let patient know there is no significant central canal stenosis where the spinal cord is but there is some significant areas of narrowing where the nervers come out of the lower spine especially on the right on his MRI. The next step would be to refer to [facility] or to a spine surgeon with [facility] documented in this encounter [facility] 07-12-2022 Note HNO ID: [id number] Author: RT Amaury(R) Service: ? Author Type: Technologist Type: Progress Notes Filed: 07/12/2022 9:21 AM Note Text: Radiology Service Progress Note PATIENT NAME: Liang Burton DATE OF SERVICE: July 12, 2022 TIME: 9:21 AM PATIENT IDENTITY VERIFICATION COMPLETED USING TWO (2) IDENTIFIERS: Name and Date of confirmed by patient verbally. FALL SCREENING: Has the patient had 2 falls in the last year or 1 fall with injury or currently using an Ambulatory Assistive Device (Walker, Cane, Wheelchair, Crutches, etc.)? No PATIENT GENDER DATA: Male PATIENT RELEVANT IMPLANT DATA REVIEWED: Yes RADIOLOGY DEPARTMENT: MR; Exam(s) Completed: Spine: Lumbar spine PERIPHERAL IV DATA: Not applicable SIGNED BY: RT Amaury(R) July 12, 2022 9:21 AM [facility] 07-03-2022 Miscellaneous Notes Called and left a detailed voicemail notifying patient of providers message. Hospital phone number was left in case patient had any questions. Maria Ramirez RN Let patient know that overall his PFT is normal. Continue with cardiology documented in this encounter [facility] 06-29-2022 Note HNO ID: [id number] Author: CANDI Morales Service: ? Author Type: Respiratory Therapist Type: Progress Notes Filed: 06/29/2022 9:39 AM Note Text: PULM FUNCTION SMARTBLOCK: Provider: Eulogio Seo PA-C Assisting Tech: CANDI Morales Spirometry w/BD: 1 [facility] 06-29-2022 History of Presen t illness Narrative PULM FUNCTION SMARTBLOCK: Provider: Eulogio Seo PA-C Assisting Tech: CANDI Morales Spirometry w/BD: 1 documented in this encounter [facility] 06-26-2022 Note HNO ID: [id number] Author: Eulogio Seo PA-C Service: ? Author Type: Physician [employer] Type: Progress Notes Filed: 06/26/2022 9:56 AM Note Text: Medicare Yearly Visit Medical B eligibilty date n/a Date of last exam 05/31/21 PAST MEDICAL HISTORY Diagnosis Date Advance directive discussed with patient 06/14/2022 Discussed: does not want packets Anxiety with depression 03/10/2018 Carotid stenosis Chronic bilateral low back pain with bilateral sciatica 01/30/2022 CKD (chronic kidney disease) stage 3, GFR 30-59 ml/min ([facility]) 10/02/2019 COPD (chronic obstructive pulmonary disease) ([facility]) Essential hypertension 05/30/2012 Ex-smoker 03/31/2019 Started smoking at age 18 up to 1 PPD quit at age 54. 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 Dallas Wang S/P carotid endarterectomy 05/30/2012 Spondylolisthesis of lumbar region 06/14/2022 L1 on L2 Vitamin D deficiency 10/07/2017 PAST SURGICAL HISTORY Procedure Laterality Date 2D ECHO (EXEP) 07/12/2020 EF=65%, mod LVH, 1+ W[place], TI, CARDIAC CATH 01/09/2018 less than 30% stenosis in LAD, Circ and RCA CAROTID ENDARTERECTOMY 2006 R side. COLONOSCOPY FLX DX W/COLLJ SPEC WHEN PFRMD 08/04/2015 Colonoscopy, repeat 5 years COLONOSCOPY FLX DX W/COLLJ SPEC WHEN PFRMD 10/25/2020 PAST SURGICAL HISTORY OF cyst removed, coccyx. PAST SURGICAL HISTORY OF 05/13/2019 Lt anterior tibial angioplasty, Lt external Iliac angio and Lt external iliac Protege stent. Dr. Wang ALLERGIES: Iulsexdd-Quyyhcxvopy-Pxqnacdwn Medications reviewed: Yes FAMILY HISTORY Problem Relation Age of Onset Hypertension Brother other (Brain injury) Brother Hypertension Sister Emphysema Mother Heart Attack Father SOCIAL HISTORY: Social History Tobacco Use Smoking status: Former Packs/day: 1.00 Years: 30.00 Pack years: 30.00 Types: Cigarettes Quit date: 01/13/1999 Years since quittin.4 Smokeless tobacco: Never Vaping Use Vaping Use: Never used Substance Use Topics Alcohol use: Not Currently Alcohol/week: 7.5 standard drinks Types: 3 Cans of Beer (12oz) per week Comment: weekly Drug use: No Liang Ricketts gets minimal exercise. He watches his diet for sodium, low fat and low cholesterol most of the time. List of current specialists seen: [facility] [place] End [facility] Live Planning discussed including patients advanced directive wishes: Yes I am willing to follow Liang Ricketts's advanced directives. PHQ-2 / Depression screen He in the past two weeks denies having felt down, depressed, hopeless, or with little interest or pleasure in doing things. Functional Ability/Safety Screen 1. Was the patient's timed Up and Go test unsteady or longer than 30 seconds? No 2. Does the patient need help with the phone, transportation, shopping,preparing meals, housework, laundry, medications or managing money? No 3. Does your home have rugs in the hallway, lack of grab bars in the bathroom (Y), lack of handrails on the stairs or have poor lighting? No Hearing Evaluation: hard of hearing PHYSICAL EXAM BP 132/70 (BP Site: Left Arm, BP Position: Sitting, BP Cuff Size: Large Adult) Pulse (!) 56 Resp 24 Wt 92.5 kg (204 lb) SpO2 97% BMI 35.29 kg/m? Alert and oriented X 3: YES Body mass index is 35.29 kg/m?. Visual acuity: sees Ophthalmology ASSESSMENT/PLAN: 77 year old male The following prevention plan was discussed during the office visit and provided to the patient: See below Eulogio Seo PA-C Chief Complaint Patient presents with: Yearly Exam HPI Liang Burton is a 77 year old male who presents here today for extensive exam. Patient with hx of hyperlipidemia, HTN, cardiomyopathy, PAD, LORELEI, GERD, CKD, chonic low back pain, anxiety/depression and those as below. Patient is scheduled later this month for MRI of his back. He did not benefit from Physical Therapy. Otherwise doing okay. Does have chronic shortness of breath that's stable. No chest pain. Has not had PFT. Still using CPAP at night Past medical history, appointments, medications, allergies reviewed. Previous Medical History PAST MEDICAL HISTORY Diagnosis Date Advance directive discussed with patient 06/14/2022 Discussed: does not want packets Anxiety with depression 03/10/2018 Carotid stenosis Chronic bilateral low back pain with bilateral sciatica 01/30/2022 CKD (chronic kidney disease) stage 3, GFR 30-59 ml/min ([facility]) 10/02/2019 COPD (chronic obstructive pulmonary disease) (HCC) Essential hypertension 05/30/2012 Ex-smoker 03/31/2019 Started smoking at (more content not included)... [facility] 06-26-2022 History of Presen t illness Narrative Medicare Yearly Visit Medical B eligibilty date n/a Date of last exam 05/31/21 PAST MEDICAL HISTORY Diagnosis Date Advance directive discussed with patient 06/14/2022 Discussed: does not want packets Anxiety with depression 03/10/2018 Carotid stenosis Chronic bilateral low back pain with bilateral sciatica 01/30/2022 CKD (chronic kidney disease) stage 3, GFR 30-59 ml/min ([facility]) 10/02/2019 COPD (chronic obstructive pulmonary disease) ([facility]) Essential hypertension 05/30/2012 Ex-smoker 03/31/2019 Started smoking at age 18 up to 1 PPD quit at age 54. 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 Dallas Wang S/P carotid endarterectomy 05/30/2012 Spondylolisthesis of lumbar region 06/14/2022 L1 on L2 Vitamin D deficiency 10/07/2017 PAST SURGICAL HISTORY Procedure Laterality Date 2D ECHO (EXEP) 07/12/2020 EF=65%, mod LVH, 1+ WV, TI, CARDIAC CATH 01/09/2018 less than 30% stenosis in LAD, Circ and RCA CAROTID ENDARTERECTOMY 2006 R side. COLONOSCOPY FLX DX W/COLLJ SPEC WHEN PFRMD 08/04/2015 Colonoscopy, repeat 5 years COLONOSCOPY FLX DX W/COLLJ SPEC WHEN PFRMD 10/25/2020 PAST SURGICAL HISTORY OF cyst removed, coccyx. PAST SURGICAL HISTORY OF 05/13/2019 Lt anterior tibial angioplasty, Lt external Iliac angio and Lt external iliac Protege stent. Dr. Wang ALLERGIES: Gqblvfht-Yahzdxcskjw-Eugdovruz Medications reviewed: Yes FAMILY HISTORY Problem Relation Age of Onset Hypertension Brother other (Brain injury) Brother Hypertension Sister Emphysema Mother Heart Attack Father SOCIAL HISTORY: Social History Tobacco Use Smoking status: Former Packs/day: 1.00 Years: 30.00 Pack years: 30.00 Types: Cigarettes Quit date: 01/13/1999 Years since quittin.4 Smokeless tobacco: Never Vaping Use Vaping Use: Never used Substance Use Topics Alcohol use: Not Currently Alcohol/week: 7.5 standard drinks Types: 3 Cans of Beer (12oz) per week Comment: weekly Drug use: No Liang Ricketts gets minimal exercise. He watches his diet for sodium, low fat and low cholesterol most of the time. List of current specialists seen: [facility] [place] End of Live Planning discussed including patients advanced directive wishes: Yes I am willing to follow Liang Ricketts's advanced directives. PHQ-2 / Depression screen He in the past two weeks denies having felt down, depressed, hopeless, or with little interest or pleasure in doing things. Functional Ability/Safety Screen 1. Was the patient's timed Up and Go test unsteady or longer than 30 seconds? No 2. Does the patient need help with the phone, transportation, shopping,preparing meals, housework, laundry, medications or managing money? No 3. Does your home have rugs in the hallway, lack of grab bars in the bathroom (Y), lack of handrails on the stairs or have poor lighting? No Hearing Evaluation: hard of hearing PHYSICAL EXAM BP 132/70 (BP Site: Left Arm, BP Position: Sitting, BP Cuff Size: Large Adult) Pulse (!) 56 Resp 24 Wt 92.5 kg (204 lb) SpO2 97% BMI 35.29 kg/m Alert and oriented X 3: YES Body mass index is 35.29 kg/m . Visual acuity: sees Ophthalmology ASSESSMENT/PLAN: 77 year old male The following prevention plan was discussed during the office visit and provided to the patient: See below Eulogio Soe PA-C Chief Complaint Patient presents with: Yearly Exam HPI Liang Burton is a 77 year old male who presents here today for extensive exam. Patient with hx of hyperlipidemia, HTN, cardiomyopathy, PAD, LORELEI, GERD, CKD, chonic low back pain, anxiety/depression and those as below. Patient is scheduled later this month for MRI of his back. He did not benefit from Physical Therapy. Otherwise doing okay. Does have chronic shortness of breath that's stable. No chest pain. Has not had PFT. Still using CPAP at night Past medical history, appointments, medications, allergies reviewed. Previous Medical History PAST MEDICAL HISTORY Diagnosis Date Advance directive discussed with patient 06/14/2022 Discussed: does not want packets Anxiety with depression 03/10/2018 Carotid stenosis Chronic bilateral low back pain with bilateral sciatica 01/30/2022 CKD (chronic kidney disease) stage 3, GFR 30-59 ml/min ([facility]) 10/02/2019 COPD (chronic obstructive pulmonary disease) ([facility]) Essential hypertension 05/30/2012 Ex-smoker 03/31/2019 Started smoking at age 18 up to 1 PPD quit at age 54. 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 Dallas Wagn S/P carotid endarterectomy 05/30/2012 Spondylolisthesis of lumbar region 06/14/2022 L1 on L2 Vitamin D deficiency 10/07/2017 Previous Surgical History PAST SURGICAL HISTORY Procedure Laterality Date 2D ECHO (EXEP) 07/12/2020 EF=65%, mod LVH, 1+ WV, TI, CARDIAC CATH 01/09/2018 less than 30% stenosis in LAD, Circ and RCA CAROTID ENDARTERECTOMY 2006 R side. COLONOSCOPY FLX DX W/COLLJ SPEC WHEN PFRMD 08/04/2015 Colonoscopy, repeat 5 years COLONOSCOPY FLX DX W/COLLJ SPEC WHEN PFRMD 10/25/2020 PAST SURGICAL HISTORY OF cyst removed, coccyx. PAST SURGICAL HISTORY OF 05/13/2019 Lt anterior tibial angioplasty, Lt external Iliac angio and Lt external iliac Protege stent. Dr. Wang Family History FAMILY HISTORY Problem Relation Age of Onset Hypertension Brother other (Brain injury) Brother Hypertension Sister Emphysema Mother Heart Attack Father Patient Allergies ALLERGIES Allergen Reactions Amoxicil-Clarithrom* GI Upset Current Medications Current Outpatient Medications on File Prior to Visit Medication Sig escitalopram oxalate (LEXAPRO) 10 mg tablet Take 1 tablet by mouth once daily. lisinopril-hydroCHLOROthiazide (PRINZIDE,ZESTORETIC) 10-12.5 mg per tablet Take 1 tablet by mouth every morning. Decreased by cardio 04/2019 simvastatin (ZOCOR) 80 mg tablet Take 0.5 tablets by mouth daily at bedtime. omega 4-zgp-xrr-fish oil 500-100-1,000 mg cap Take by mouth. Ascorbic Acid 1,000 mg tablet Take 1,000 mg by mouth once daily. Cholecalciferol, Vitamin D3, (VITAMIN D) 25 mcg (1,000 unit) cap Take 2 capsules by mouth once daily. verapamil ER (VERELAN) 120 mg 24 hr capsule Take 1 capsule by mouth once daily. Per Cardio Dr. Hunter latanoprost (XALATAN) 0.005 % ophthalmic solution 1 Drop daily at bedtime. polyethylene glycol 3350 (MIRALAX, GLYCOLAX) 17 gram/dose powder Take by mouth once daily. CPAP current setting at 17, with humidifier. Aspirin 81 mg tab Take 1 tablet by mouth once daily. Take with food. No current facility-administered medications on file prior to visit. Social History Social History Tobacco Use Smoking status: Former Packs/day: 1.00 Years: 30.00 Pack years: 30.00 Types: Cigarettes Quit date: 01/13/1999 Years since quittin.4 Smokeless tobacco: Never Vaping Use Vaping Use: Never used Substance Use Topics Alcohol use: Not Currently Alcohol/week: 7.5 standard drinks Types: 3 Cans of Beer (12oz) per week Comment: weekly Drug use: No Review of Symptoms REVIEW OF SYSTEMS GENERAL: No weight loss, malaise or fevers HEENT: Negative for frequent or significant headaches, No changes in hearing or vision, no nose bleeds or other nasal problems NECK: Negative for lumps, goiter, pain and significant neck swelling RESPIRATORY: See HPI, no cough or wheezing CARDIOVASCULAR: Negative for chest pain, leg swelling, CHF or palpitations GI: Negative for abdominal discomfort, blood in stools or black stools, change in bowel habit, heart burn, nausea, vomiting : No history of dysuria, frequency or incontinence MUSCULOSKELETAL: worsening back pain SKIN: Negative for lesions, rash, and itching PSYCH: Negative for sleep disturbance, mood disorder and recent psychosocial stressors HEMATOLOGY/LYMPHOLOGY: Negative for prolonged bleeding, bruising easily or swollen nodes ENDOCRINE: Negative for cold or heat intolerance, polyuria, polydipsia and goiter NEURO: No history of headaches, syncope, paralysis, seizures or tremors EXAM: BP 132/70 (BP Site: Left Arm, BP Position: Sitting, BP Cuff Size: Large Adult) Pulse (!) 56 Resp 24 Wt 92.5 kg (204 lb) SpO2 97% BMI 35.29 kg/m General Appearance: Well appearing, alert, in no acute distress, well-hydrated, well nourished. and Obese. Skin: Skin color, texture, turgor normal, no suspicious rashes or lesions. Head: Normocephalic, no masses, lesions, tenderness or abnormalities. Eyes: Anicteric sclera. Pupils are equally round and reactive to light. Extraocular movements are intact. . Ears: External ears normal, canals clear, TMs pearly peña. Neck: Supple, no adenopathy; thyroid symmetric, normal size, no bruits. Lungs: Lungs clear to auscultation. No wheezing, rhonchi, rales.. Heart: RRR without murmur, gallop, or rubs. No ectopy. Abdomen: Normal abdominal exam, Abdomen soft, non-tender. Bowel sounds normal. No masses, organomegaly. Extremities: No deformities, edema, skin discoloration, clubbing or cyanosis. Good capillary refill. . Peripheral Pulses: Normal. Neurologic: Gait normal. Reflexes normal and symmetric. Sensation grossly intact.. Health Maintenance List BP CONTROLLED (<130/80) due on 05/31/2022 ANNUAL PCP TEAM CHRONIC DISEASE VISIT due on 06/15/2023 SERUM CREATININE due on 06/20/2023 DIABETES SCREEN due on 06/19/2025 DTAP,TDAP,TD(2 - Td or Tdap) due on 07/05/2026 LIPID SCREEN due on 06/20/2027 COLORECTAL CANCER SCREENING due on 10/25/2030 INFLUENZA Completed ADVANCE DIRECTIVE DISCUSSION Completed HEPATITIS C SCREENING Completed SHINGRIX VACCINE Completed COVID-19 VACCINE Completed PNEUMOCOCCAL: 65+ Completed Data reviewed Component Latest Ref Rng & Units 06/19/2022 WBC 3.70 - 11.00 k/uL 7.16 RBC 4.20 - 6.00 m/uL 4.87 Hemoglobin 13.0 - 17.0 g/dL 14.5 Hematocrit 39.0 - 51.0 % 44.7 MCV 80.0 - 100.0 fL 91.8 MCH 26.0 - 34.0 pg 29.8 MCHC 30.5 - 36.0 g/dL 32.4 RDW-CV 11.5 - 15.0 % 13.7 Platelet Count 150 - 400 k/uL 187 MPV 9.0 - 12.7 fL 11.7 Neut% % 54.5 Abs Neut (ANC) 1.45 - 7.50 k/uL 3.90 Lymph% % 33.8 Abs Lymph 1.00 - 4.00 k/uL 2.42 [place]% % 8.1 Abs [place] <0.87 k/uL 0.58 Eosin% % 3.1 Abs Eosin <0.46 k/uL 0.22 Baso% % 0.4 Abs Baso <0.11 k/uL 0.03 Immature Gran % % 0.1 IMMATURE GRANS (ABS) <0.10 k/uL <0.03 NRBC /100 WBC 0.0 Absolute nRBC <0.01 k/uL <0.01 DTYPE Auto Protein, Total 6.3 - 8.0 g/dL 7.1 Albumin 3.9 - 4.9 g/dL 3.9 Calcium 8.5 - 10.2 mg/dL 9.4 Bilirubin, Total 0.2 - 1.3 mg/dL 0.4 Alkaline Phosphatase 38 - 113 U/L 91 AST 14 - 40 U/L 15 ALT 10 - 54 U/L 16 Glucose 74 - 99 mg/dL 114 (H) BUN 9 - 24 mg/dL 16 Creatinine 0.73 - 1.22 mg/dL 1.22 Sodium 136 - 144 mmol/L 142 Potassium 3.7 - 5.1 mmol/L 4.4 Chloride 97 - 105 mmol/L 106 (H) CO2 22 - 30 mmol/L 24 Anion Gap 9 - 18 mmol/L 12 eGFR >=60 mL/min/1.73m 62 Color Yellow Yellow Clarity Clear Clear Glucose, Urine Trace, Negative Negative Bilirubin, Urine Negative Negative Ketones, Urine Trace, Negative Negative Specific [place], Ur 1.005 - 1.030 1.021 Hemoglobin/Blood,Ur Negative, Trace Negative pH, Urine 5.0 - 8.0 5.5 Protein, Urine Trace, Negative Negative Urobilinogen Negative Negative Nitrites Negative Negative Leukest Negative, 25 Mary/uL Negative WBC, Urine 0-5 /HPF 0-5 /HPF RBC, Urine 0-3 /HPF 0-3 /HPF Non-Squamous Epithelial Cells None Seen /HPF Few (A) Hyaline Cast 0 /LPF >10 /LPF (A) Total Cholesterol, Nonfasting <200 mg/dL 137 Triglycerides, Nonfasting <150 mg/dL 116 HDL Cholesterol, Nonfasting >39 mg/dL 40 LDL Cholesterol, Nonfasting <100 mg/dL 74 Non HDL Cholesterol, Nonfasting <130 mg/dL 97 VLDL Cholesterol, Nonfasting <30 mg/dL 23 Total Chol/HDL Ratio, Nonfasting <5.10 mg/dL 3.43 LDL/HDL Ratio, Nonfasting <2.54 mg/dL 1.85 Vitamin D 25 Hydroxy 31.0 - 80.0 ng/mL 40.0 PSA <2.60 ng/mL 1.99 TSH 0.270 - 4.200 mIU/L 2.440 Component Latest Ref Rng & Units 06/26/2022 Hemoglobin A1C (POCT) 4.2 - 5.6 % 5.8 ASSESSMENT/PLAN: 1. Medicare annual wellness visit, subsequent - ICD9: V70.0, ICD10: Z00.00 (primary diagnosis) - Counseled on healthy diet and regular exercise - Discussed need for and benefit of weight loss. BMI 35.29 kg/(m^2) 2. SOB (shortness of breath) - ICD9: 786.05, ICD10: R06.02 Check PFT - SPIROMETRY - BASELINE AND POST DILATOR 3. Ex-smoker - ICD9: V15.82, ICD10: Z87.891 - SPIROMETRY - BASELINE AND POST DILATOR 4. Mixed hyperlipidemia - ICD9: 272.2, ICD10: E78.2 - good control - Encouraged following a low carbohydrate, healthy oil intake diet. - Continue current therapy. - LIPID PANEL, NONFASTING 5. Essential hypertension - ICD9: 401.9, ICD10: I10 - good control - Continue current medication(s) - Recommended regular aerobic exercise. - Recommend home blood pressure monitoring, to bring results in on next visit - Goal of BP <130/80 - COMP METABOLIC PANEL 6. Elevated fasting glucose - ICD9: 790.21, ICD10: R73.01 Newly dx. Discussed diet. Will monitor - HEMOGLOBIN A1C (POC) - HGB A1C 7. Hypertrophic cardiomyopathy (HCC) - ICD9: 425.18, ICD10: I42.2 Cont with cardio 8. LORELEI (obstructive sleep apnea) - ICD9: 327.23, ICD10: G47.33 Cont CPAP 9. Stage 3 chronic kidney disease, unspecified whether stage 3a or 3b CKD (HCC) - ICD9: 585.3, ICD10: N18.30 Stable labs 10. GERD without esophagitis - ICD9: 530.81, ICD10: K21.9 stable 11. Anxiety with depression - ICD9: 300.4, ICD10: F41.8 stable 12. PAD (peripheral artery disease) (HCC) - ICD9: 443.9, ICD10: I73.9 stable 13. S/P carotid endarterectomy - ICD9: V45.89, ICD10: Z98.890 Stable Follow up in 6 months routine. Eulogio Seo PA-C documented in this encounter [facility] 06-14-2022 Note HNO ID: [id number] Author: Sarah Calloway MD Service: ? Author Type: Physician Type: Progress Notes Filed: 06/14/2022 6:08 PM Note Text: Chief Complaint Low back has gotten worse HPI Liang Burton is a 77 year old male who presents here today for low back pain has gotten worse. Patient has had low back pain for several years and seems to have gotten worse since talking with INOCENCIO back in 01/2022. At that time he stated he had been having lower back pain for years with associated claudication symptoms. He had a vascular eval and was negative. Patient also stated he would have pain across the lower back and then into his legs if he stood for too long. Has also noted leg weakness at times. He did do PHYSICAL THERAPY but has not had any real significant improvement other then the pain may not go into the legs as much and the weakness has improved slightly. No numbness into the legs or saddle anesthesia. No urinary or fecal issues. Past medical history, appointments, medications, allergies reviewed. Previous Medical History PAST MEDICAL HISTORY Diagnosis Date Anxiety with depression 03/10/2018 Carotid stenosis CKD (chronic kidney disease) stage 3, GFR 30-59 ml/min ([facility]) 10/02/2019 COPD (chronic obstructive pulmonary disease) ([facility]) Essential hypertension 05/30/2012 Ex-smoker 03/31/2019 Started smoking at age 18 up to 1 PPD quit at age 54. 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 Dallas Wang S/P carotid endarterectomy 05/30/2012 Vitamin D deficiency 10/07/2017 Previous Surgical History PAST SURGICAL HISTORY Procedure Laterality Date 2D ECHO (EXEP) 07/12/2020 EF=65%, mod LVH, 1+ W[place], TI, CARDIAC CATH 01/09/2018 less than 30% stenosis in LAD, Circ and RCA CAROTID ENDARTERECTOMY 2006 R side. COLONOSCOPY FLX DX W/COLLJ SPEC WHEN PFRMD 08/04/2015 Colonoscopy, repeat 5 years COLONOSCOPY FLX DX W/COLLJ SPEC WHEN PFRMD 10/25/2020 PAST SURGICAL HISTORY OF cyst removed, coccyx. PAST SURGICAL HISTORY OF 05/13/2019 Lt anterior tibial angioplasty, Lt external Iliac angio and Lt external iliac Protege stent. Dr. Wang Family History FAMILY HISTORY Problem Relation Age of Onset Hypertension Brother other (Brain injury) Brother Hypertension Sister Emphysema Mother Heart Attack Father Patient Allergies ALLERGIES Allergen Reactions Amoxicil-Clarithrom* GI Upset Current Medications Current Outpatient Medications on File Prior to Visit Medication Sig simvastatin (ZOCOR) 80 mg tablet Take 0.5 tablets by mouth daily at bedtime. escitalopram oxalate (LEXAPRO) 10 mg tablet Take 1 tablet by mouth once daily. lisinopril-hydroCHLOROthiazide (PRINZIDE,ZESTORETIC) 10-12.5 mg per tablet Take 1 tablet by mouth every morning. Decreased by cardio 04/2019 omega 9-svo-jfv-fish oil 500-100-1,000 mg cap Take by mouth. Ascorbic Acid 1,000 mg tablet Take 1,000 mg by mouth once daily. Cholecalciferol, Vitamin D3, (VITAMIN D) 25 mcg (1,000 unit) cap Take 2 capsules by mouth once daily. verapamil ER (VERELAN) 120 mg 24 hr capsule Take 1 capsule by mouth once daily. Per Cardio Dr. Hunter latanoprost (XALATAN) 0.005 % ophthalmic solution 1 Drop daily at bedtime. polyethylene glycol 3350 (MIRALAX, GLYCOLAX) 17 gram/dose powder Take by mouth once daily. CPAP current setting at 17, with humidifier. Aspirin 81 mg tab Take 1 tablet by mouth once daily. Take with food. No current facility-administered medications on file prior to visit. Social History Social History Tobacco Use Smoking status: Former Packs/day: 1.00 Years: 30.00 Pack years: 30.00 Types: Cigarettes Quit date: 01/13/1999 Years since quittin.4 Smokeless tobacco: Never Vaping Use Vaping Use: Never used Substance Use Topics Alcohol use: Not Currently Alcohol/week: 7.5 standard drinks Types: 3 Cans of Beer (12oz) per week Comment: weekly Drug use: No Review of Symptoms REVIEW OF SYSTEMS See HPI EXAM: BP 132/68 (BP Site: Left Arm, BP Position: Sitting, BP Cuff Size: Regular Adult) Pulse 64 Resp 16 Ht 161.9 cm (5' 3.75 ) Wt 92.5 kg (204 lb) BMI 35.29 kg/m? General Appearance: Well appearing, alert, in no acute distress, well-hydrated, well nourished.. Back:no pain to palpation of vertebrae, good flexion and extension, good range of motion, no muscle tenderness, reflexes are 2+ and symmetric, motor and sensory are normal, negative SLR test Musculoskeletal: Spine range of motion normal. Muscular strength intact. Peripheral Pulses: Normal. Neurologic: Gait normal. Reflexes normal and symmetric. Sensation to light to (more content not included)... [facility] 06-14-2022 History of Presen t illness Narrative Chief Complaint Low back has gotten worse HPI Liang Burton is a 77 year old male who presents here today for low back pain has gotten worse. Patient has had low back pain for several years and seems to have gotten worse since talking with INOCENCIO back in 01/2022. At that time he stated he had been having lower back pain for years with associated claudication symptoms. He had a vascular eval and was negative. Patient also stated he would have pain across the lower back and then into his legs if he stood for too long. Has also noted leg weakness at times. He did do PHYSICAL THERAPY but has not had any real significant improvement other then the pain may not go into the legs as much and the weakness has improved slightly. No numbness into the legs or saddle anesthesia. No urinary or fecal issues. Past medical history, appointments, medications, allergies reviewed. Previous Medical History PAST MEDICAL HISTORY Diagnosis Date Anxiety with depression 03/10/2018 Carotid stenosis CKD (chronic kidney disease) stage 3, GFR 30-59 ml/min ([facility]) 10/02/2019 COPD (chronic obstructive pulmonary disease) ([facility]) Essential hypertension 05/30/2012 Ex-smoker 03/31/2019 Started smoking at age 18 up to 1 PPD quit at age 54. 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 Dallas Wang S/P carotid endarterectomy 05/30/2012 Vitamin D deficiency 10/07/2017 Previous Surgical History PAST SURGICAL HISTORY Procedure Laterality Date 2D ECHO (EXEP) 07/12/2020 EF=65%, mod LVH, 1+ WV, TI, CARDIAC CATH 01/09/2018 less than 30% stenosis in LAD, Circ and RCA CAROTID ENDARTERECTOMY 2006 R side. COLONOSCOPY FLX DX W/COLLJ SPEC WHEN PFRMD 08/04/2015 Colonoscopy, repeat 5 years COLONOSCOPY FLX DX W/COLLJ SPEC WHEN PFRMD 10/25/2020 PAST SURGICAL HISTORY OF cyst removed, coccyx. PAST SURGICAL HISTORY OF 05/13/2019 Lt anterior tibial angioplasty, Lt external Iliac angio and Lt external iliac Protege stent. Dr. Wang Family History FAMILY HISTORY Problem Relation Age of Onset Hypertension Brother other (Brain injury) Brother Hypertension Sister Emphysema Mother Heart Attack Father Patient Allergies ALLERGIES Allergen Reactions Amoxicil-Clarithrom* GI Upset Current Medications Current Outpatient Medications on File Prior to Visit Medication Sig simvastatin (ZOCOR) 80 mg tablet Take 0.5 tablets by mouth daily at bedtime. escitalopram oxalate (LEXAPRO) 10 mg tablet Take 1 tablet by mouth once daily. lisinopril-hydroCHLOROthiazide (PRINZIDE,ZESTORETIC) 10-12.5 mg per tablet Take 1 tablet by mouth every morning. Decreased by cardio 04/2019 omega 6-bfw-lde-fish oil 500-100-1,000 mg cap Take by mouth. Ascorbic Acid 1,000 mg tablet Take 1,000 mg by mouth once daily. Cholecalciferol, Vitamin D3, (VITAMIN D) 25 mcg (1,000 unit) cap Take 2 capsules by mouth once daily. verapamil ER (VERELAN) 120 mg 24 hr capsule Take 1 capsule by mouth once daily. Per Cardio Dr. Hunter latanoprost (XALATAN) 0.005 % ophthalmic solution 1 Drop daily at bedtime. polyethylene glycol 3350 (MIRALAX, GLYCOLAX) 17 gram/dose powder Take by mouth once daily. CPAP current setting at 17, with humidifier. Aspirin 81 mg tab Take 1 tablet by mouth once daily. Take with food. No current facility-administered medications on file prior to visit. Social History Social History Tobacco Use Smoking status: Former Packs/day: 1.00 Years: 30.00 Pack years: 30.00 Types: Cigarettes Quit date: 01/13/1999 Years since quittin.4 Smokeless tobacco: Never Vaping Use Vaping Use: Never used Substance Use Topics Alcohol use: Not Currently Alcohol/week: 7.5 standard drinks Types: 3 Cans of Beer (12oz) per week Comment: weekly Drug use: No Review of Symptoms REVIEW OF SYSTEMS See HPI EXAM: BP 132/68 (BP Site: Left Arm, BP Position: Sitting, BP Cuff Size: Regular Adult) Pulse 64 Resp 16 Ht 161.9 cm (5' 3.75 ) Wt 92.5 kg (204 lb) BMI 35.29 kg/m General Appearance: Well appearing, alert, in no acute distress, well-hydrated, well nourished.. Back:no pain to palpation of vertebrae, good flexion and extension, good range of motion, no muscle tenderness, reflexes are 2+ and symmetric, motor and sensory are normal, negative SLR test Musculoskeletal: Spine range of motion normal. Muscular strength intact. Peripheral Pulses: Normal. Neurologic: Gait normal. Reflexes normal and symmetric. Sensation to light touch symmetrical and intact in the lower extremities. Health Maintenance List ADVANCE DIRECTIVE DISCUSSION Never done SERUM CREATININE due on 11/30/2022 HEMOGLOBIN/HEMATOCRIT due on 11/30/2022 ANNUAL PCP TEAM CHRONIC DISEASE VISIT due on 01/29/2023 BP CONTROLLED (<130/80) due on 01/30/2023 DIABETES SCREEN due on 11/30/2024 DTAP,TDAP,TD(2 - Td or Tdap) due on 07/05/2026 LIPID SCREEN due on 11/30/2026 COLORECTAL CANCER SCREENING due on 10/25/2030 INFLUENZA Completed HEPATITIS C SCREENING Completed SHINGRIX VACCINE Completed COVID-19 VACCINE Completed PNEUMOCOCCAL: 65+ Completed Data reviewed Results XR LUMBAR MOTION 4V AP/LAT/ FLEX/EXT (Order [id number]) Patient Info Patient Name Sex Liang Mckenzie ([id number]) Male 1945 01/29/2022 4:11 PM - Radiology, [place] In Impression IMPRESSION: Grade 1-2 anterolisthesis of L5 with respect to S1 with associated pars interarticularis defect. Alignment does not change on flexion and extension. Detective Supervisor: KITTY Transcribe Date/Time: Jan 29 2022 3:52P Dictated by : FLORI RODARTE MD This examination was interpreted and the report reviewed and electronically signed by: FLORI RODARTE MD on Jan 29 2022 4:08PM EST Results-Findings * * *Final Report* * * DATE OF EXAM: Jan 29 2022 11:33AM WOX [id number] - XR LUMBAR 4V AP/LAT/ FLEX/EXT / PROCEDURE REASON: Lumbar back pain * * * * Physician Interpretation * * * * EXAMINATION: XR LUMBAR 4V AP/LAT/ FLEX/EXT HISTORY: Lumbar back pain. Negative trauma. TECHNIQUE: XR LUMBAR 4V AP/LAT/ FLEX/EXT Laterality: NOT APPLICABLE Number of different views (projections): 4 M: XB_1 COMPARISON: There are no prior relevant examinations available for comparison within the [facility]. RESULT: Counting reference: Lumbosacral junction. For the purposes of this report, L5-S1 is considered the last lumbar-type disc space and L4-5 is considered the level of the iliac crest. 4 Views of the lumbosacral spine with AP, lateral and flexion/extension radiographs demonstrate multilevel degenerative change with vertebral body osteophytosis. There is intervertebral disc space narrowing at L5-S1 levels. There is hypertrophic facet change at the lower 3 levels. There is grade 1-2 anterior spondylolisthesis of L5 with respect to S1 with associated pars interarticularis defect. No evidence of instability on flexion and extension. There are no compression fractures and alignment is otherwise well maintained. The soft tissues are unremarkable. Result History A/P ASSESSMENT/PLAN: 1. Chronic bilateral low back pain with bilateral sciatica - ICD9: 724.2, 724.3, 338.29, ICD10: M54.42, M54.41, G89.29 (primary diagnosis) Symptoms consistent with spinal stenosis. PHYSICAL THERAPY was of no significant benefit. Will need MRI to further eval if surgery needed. Check - MRI LUMBAR SPINE WO IVCON 2. Neurogenic claudication - ICD9: 435.1, ICD10: R29.818 - as above - MRI LUMBAR SPINE WO IVCON 3. Spondylolisthesis of lumbar region - ICD9: 738.4, ICD10: M43.16 As above - MRI LUMBAR SPINE WO IVCON 4. Anxiety with depression - ICD9: 300.4, ICD10: F41.8 Cont - ESCITALOPRAM 10 MG TABLET 5. Advance directive discussed with patient - ICD9: V65.49, ICD10: Z71.89 - patient does not want packets. 6. Spinal stenosis of lumbar region with neurogenic claudication - ICD9: 724.03, ICD10: M48.062 Check - MRI LUMBAR SPINE WO IVCON Requested Prescriptions Signed Prescriptions Disp Refills escitalopram oxalate (LEXAPRO) 10 mg tablet 90 tablet 1 Sig: Take 1 tablet by mouth once daily. lisinopril-hydroCHLOROthiazide (PRINZIDE,ZESTORETIC) 10-12.5 mg per tablet 90 tablet 1 Sig: Take 1 tablet by mouth every morning. Decreased by cardio 04/2019 F/u in near future for extensive exam Sarah Calloway MD documented in this encounter [facility] 05-17-2022 Miscellaneous Notes Patient has been identified by name and date of : Yes Requested Prescriptions Pending Prescriptions Disp Refills simvastatin (ZOCOR) 80 mg tablet 45 tablet 2 Sig: Take 0.5 tablets by mouth daily at bedtime. RX INSTRUCTIONS: Patient aware RX will be sent to pharmacy. No need to notify patient. Alison Collins Pss documented in this encounter [facility] 04-02-2022 Miscellaneous Notes The following approved medication requests have been transmitted electronically. Requested Prescriptions Signed Prescriptions Disp Refills escitalopram oxalate (LEXAPRO) 10 mg tablet 90 tablet 1 Sig: Take 1 tablet by mouth once daily. Authorizing Provider: SARAH CALLOWAY MD Patient has been identified by name and date of : Yes Requested Prescriptions Pending Prescriptions Disp Refills escitalopram oxalate (LEXAPRO) 10 mg tablet 90 tablet 2 Sig: Take 1 tablet by mouth once daily. RX INSTRUCTIONS: Patient aware RX will be sent to pharmacy. No need to notify patient. Sharon Cruz MA Cande: 11/2021 Nov: 06/2022 Last refill: 06/2021 Patient has been identified by name and date of : Yes Requested Prescriptions Pending Prescriptions Disp Refills escitalopram oxalate (LEXAPRO) 10 mg tablet 90 tablet 2 Sig: Take 1 tablet by mouth once daily. RX INSTRUCTIONS: Patient aware RX will be sent to pharmacy. No need to notify patient. Beronica Doyle Pss documented in this encounter [facility] 04-02-2022 Miscellaneous Notes Verified with Sofia at pharm that pt does have refills left. States they are ready for pt to sweet pickled fruit maker. Pt notified of same. Candi Gray LPN Patient has been identified by name and date of : Yes Requested Prescriptions Pending Prescriptions Disp Refills lisinopril-hydroCHLOROthiazide (PRINZIDE,ZESTORETIC) 10-12.5 mg per tablet 90 tablet 1 Sig: Take 1 tablet by mouth every morning. Decreased by cardio 04/2019 RX INSTRUCTIONS: patient would like to sweet pickled fruit maker later today. Patient aware RX will be sent to pharmacy. No need to notify patient. Luz Hernandez Pss documented in this encounter [facility] 03-05-2022 History of Presen t illness Narrative Episode Visit Count: 9 Therapist That Will Accept/Oversee The Plan Of Care: Giorgio Elias PT Start of Care Date: 01/30/22 Onset Date: 07/31/21 (chronic but worse over the past 6 months) Plan of Care Certification Date: 01/30/22 Next Certification Due Date: 03/06/22 Patient Identified by Name and Date of : Yes REHABILITATION AND SPORTS THERAPY PHYSICAL THERAPY DISCONTINUANCE OF CARE PLAN OF CARE UPDATE: Assessment: Liang Burton is discontinued from Physical Therapy services due to maximal benefit., Patient/Client declining further intervention., and Patient/Clinician mutual decision to discontinue current plan of care.. Patient was seen for 9 visits from Start of Care Date: 01/30/22 to 03/05/2022 and treatment included: Therapeutic exercise, Manual therapy, Self-senior care management, Patient/Family/Caregiver Education, and Body mechanics training. Updated: 03/05/22 Goals for Episode of Care: created on 01/30/22 through 03/06/22 Independent in home exercises. - MET Patient will decrease pain to 0/10 with functional activities to allow patient to improve ambulation and standing tolerance for ADLs. 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 - MET Stand / Walk without limitations, without pain/symptoms. - Partially MET Maintain proper sitting posture throughout session - Partially MET Patient will be able to tolerate standing and walking without increased symptoms. - Partially MET Patient will increase strength of core/postural muscles to WFL to allow for improve ability to complete ADLs. - Partially MET Patient Goals: decrease pain - MET SUBJECTIVE: Patient Reason for Visit: Pt reports that overall he feels better. He reports that his symptoms are more difficult to trigger. He reports that previously he would experience pain after walking 1/8 of a mile, now he can walk approximately 1/4 of a mile before symptom onset. He reports that prolonged walking is the only thing that causes symptoms. He reports compliance with HEP 2x day without pain or problems. He reports that although pain is less frequent, the intensity is unchanged when it does occur. He denies any pain to start today. He reports that showering is normal for him now and standing tolerance is increased. He reports that once triggered, he can resolve his pain with a 30 second sitting rest break. He reports increased standing tolerance. He states that he knows his limitations and plans to live with it. He feels confident in his ability to self manage his symptoms in the future with HEP only. Pain: Pain Pain Level: 0 Description: (No pain to start today) Post Treatment Pain Post Treatment Pain Level: No Change PROMIS Scales T-scores: mean of general population = 50. 5 points is clinically meaningfully difference Percentiles provide an indication of how the patient's score ranks in relation to the general population. Higher percentile rankings indicate better function/quality of life. 50th percentile is the average of the general population and indicates half of respondents had a worse score. T-scores: mean of general population = 50. 5 points is clinically meaningfully difference Percentiles provide an indication of how the patient's score ranks in relation to the general population. Higher percentile rankings indicate better function/quality of life. 50th percentile is the average of the general population and indicates half of respondents had a worse score. OBJECTIVE MEASURES WITH LEVEL OF FUNCTION: Lumbar Spine AROM Lumbar Flexion: Normal Lumbar Extension: Normal Lumbar R Side-Bend: Normal Lumbar L Side-Bend: Normal Lumbar R Rotation: Normal Lumbar L Rotation: Normal TREATMENT: Therapeutic Exercise: 1: [employer] StepOne seat #8 resistance level 1.7x 6 minutes (Subjective taken and pt provided an update on functional portion of goals.) 2: seated lumbar flexion stretch 3x30 seconds reviewed for HEP and continuation encouraged 3: supine LTR 3x10 completed and reviewed for HEP 4: supine B SKTC 3x30 seconds completed and reviewed for HEP 5: supine DKTC 3x30 seconds completed and reviewed for HEP 6: *supine isometric abdominal exercise via shoulder extension 2 second holds 2x15 completed and reviewed for HEP 7: *supine crunches in very small range 2x15 completed and reviewed for HEP. 8: Entire HEP was thoroughly reviewed and continuation encouraged to tolerance. He was educated on how and when to progress strengthening HEP. Blue t-band provided for future progression of therex HEP. 9: Re-assessment results were reviewed with patient and used as rationale for plan of care recommendations. Skilled Intervention: Patient was educated in proper exercise technique and purpose for exercises. Reviewed and educated patient on additions/changes for home exercise program as above (*). Skilled judgment was provided in selection of appropriate interventions. Correct performance of therapeutic exercises was facilitated with verbal, visual, and tactile cuing. Patient education as noted. Billing Therapeutic Exercise Treatment Minutes: 40 Total Treatment Time Minutes (timed/untimed): 40 Giorgio Elias PT documented in this encounter [facility] 03-01-2022 History of Presen t illness Narrative Episode Visit Count: 8 Therapist That Will Accept/Oversee The Plan Of Care: Giorgio Elias PT Start of Care Date: 01/30/22 Onset Date: 07/31/21 (chronic but worse over the past 6 months) Plan of Care Certification Date: 01/30/22 Next Certification Due Date: 03/06/22 Patient Identified by Name and Date of : Yes REHABILITATION AND SPORTS THERAPY PHYSICAL THERAPY TREATMENT NOTE ASSESSMENT: Liang Burton tolerated the session with fatigue and expected muscle soreness. He demonstrated improvements in endurance with core stabilization/strengthening. The patient will continue to benefit from ongoing skilled physical therapy to progress toward set goals. PLAN FOR NEXT VISIT: Continue with postural and core stretching and strengthening with flexion bias. SUBJECTIVE: Patient Reason for Visit: Pt states that he is feeling good today. Pt reports having some pain yesterday, but it went away. Pt compliant with HEP 2x/day. Pain: Pain Pain Level: 0 Pain Location: Low Back/Lumbar Spine- Midline Frequency: Intermittent;Standing;Walking OBJECTIVE MEASURES WITH LEVEL OF FUNCTION: Pt able to complete stir the pot with increased weight without any difficulty. TREATMENT: Therapeutic Exercise: 1: [employer] StepOne seat #8 resistance level 1.7x 6 minutes (Subjective taken and pt provided) 2: seated lumbar flexion stretch 3x30 seconds 3: supine LTR 3x10 4: supine B SKTC 3x30 seconds 5: supine DKTC 3x30 seconds 6: supine isometric abdominal exercise via shoulder extension 2 second holds x15 7: supine crunches in very small range 2x15 8: supine bridging in small range 2x15 9: Hooklying band pull overs 2x10 each with GTB. UE flexion and UE extension supine. 10: seated scapular retraction with green t-band 2x10 11: standing stirring the pot at the Hoist 1 plate + 2 round x10 CCW and CW facing both lateral directions 12: Standing walkouts at hoist 1 plate +4 rounds x 5 each side (caused tension in low back) Skilled Intervention: Patient was educated in proper exercise technique and purpose for exercises. Skilled judgment was provided in selection of appropriate interventions. Correct performance of therapeutic exercises was facilitated with verbal cuing. Billing Therapeutic Exercise Treatment Minutes: 40 Total Treatment Time Minutes (timed/untimed): 40 RADHA Blue PT documented in this encounter [facility] 02-26-2022 History of Presen t illness Narrative Episode Visit Count: 7 Therapist That Will Accept/Oversee The Plan Of Care: Giorgio Elias PT Start of Care Date: 01/30/22 Onset Date: 07/31/21 (chronic but worse over the past 6 months) Plan of Care Certification Date: 01/30/22 Next Certification Due Date: 03/06/22 Patient Identified by Name and Date of : Yes REHABILITATION AND SPORTS THERAPY PHYSICAL THERAPY TREATMENT NOTE ASSESSMENT: Liang R Karlie tolerated the session with decreased symptoms. He demonstrated difficulty with technique with scapular retraction with GTB. The patient will continue to benefit from ongoing skilled physical therapy to progress toward set goals. PLAN FOR NEXT VISIT: Continue with postural and core stretching and strengthening with flexion bias. SUBJECTIVE: Patient Reason for Visit: Pt states that his back is stiff this morning, he worked outside some yesterday. Pain: Pain Pain Level: (not numerically rated, just a little bit ) Pain Location: Low Back/Lumbar Spine- Midline Description: Tightness;Stiffness Frequency: Intermittent;Standing;Walking Post Treatment Pain Post Treatment Pain Level: Better Post Treatment Symptoms: Relief with DKTC and SKTC OBJECTIVE MEASURES WITH LEVEL OF FUNCTION: SKTC and DKTC relieved low back pain. TREATMENT: Therapeutic Exercise: 1: [place] [employer] StepOne seat #8 x6 minutes (Subjective taken and pt provided) 2: seated lumbar flexion stretch 3x30 seconds 3: supine LTR 3x10 4: supine B SKTC 3x30 seconds (relief in low back pain) 5: supine DKTC 3x30 seconds (relief in low back pain) 6: supine isometric abdominal exercise via shoulder extension 2 second holds x15 7: supine crunches in very small range 2x15 8: supine bridging in small range 2x15 9: Hooklying band pull overs 2x10 each with GTB. UE flexion and UE extension supine. 10: seated scapular retraction with green t-band 2x10 11: standing stirring the pot at the Hoist 1 plate x10 CW and x10 CCW facing both lateral directions Skilled Intervention: Patient was educated in proper exercise technique and purpose for exercises. Skilled judgment was provided in selection of appropriate interventions. Correct performance of therapeutic exercises was facilitated with verbal and visual cuing. Billing Therapeutic Exercise Treatment Minutes: 40 Total Treatment Time Minutes (timed/untimed): 40 RADHA Blue PT documented in this encounter [facility] 02-15-2022 History of Presen t illness Narrative Episode Visit Count: 4 Therapist That Will Accept/Oversee The Plan Of Care: Giorgoi Elias PT Start of Care Date: 01/30/22 Onset Date: 07/31/21 (chronic but worse over the past 6 months) Plan of Care Certification Date: 01/30/22 Next Certification Due Date: 03/06/22 Patient Identified by Name and Date of : Yes REHABILITATION AND SPORTS THERAPY PHYSICAL THERAPY TREATMENT NOTE ASSESSMENT: Liang Burton tolerated the session with no issues. He demonstrated improvements in core stabilization. The patient will continue to benefit from ongoing skilled physical therapy to progress toward set goals. PLAN FOR NEXT VISIT: Continue with postural and core stretching and strengthening with flexion bias. Add resistance to scapular retractions. SUBJECTIVE: Patient Reason for Visit: Pt reports that his back is feeling about the same. Pt stated feeling better after last session. Pain: Pain Pain Level: 0 Frequency: Intermittent;Standing;Walking Post Treatment Pain Post Treatment Pain Level: 0 Post Treatment Symptoms: Pt reported his back felt looser and posture was improved OBJECTIVE MEASURES WITH LEVEL OF FUNCTION: Good technique noted with quadruped hip extension with minimal trunk rotation. TREATMENT: Therapeutic Exercise: 2: seated lumbar flexion stretch 3x30 seconds 3: supine LTR 3x10 4: supine B SKTC 3x30 seconds 5: supine DKTC 3x30 seconds 6: supine isometric abdominal exercise via shoulder extension 2 second holds 2x15 7: supine crunches in very small range 2x10 8: supine bridging in small range 2x10 9: quadruped B alt hip ext 2x10 each 10: prone hip extension 2x5 B 11: Supine isometric abdominals with alt marching B 2x10 12: Seated isometric abdominals 5 second holds 2x5 13: Seated isometric abdominals with alt marching 3x10 B 14: Scapular retractions 2x10 Skilled Intervention: Patient was educated in proper exercise technique and purpose for exercises. Skilled judgment was provided in selection of appropriate interventions. Correct performance of therapeutic exercises was facilitated with verbal and visual cuing. Billing Therapeutic Exercise Treatment Minutes: 39 Total Treatment Time Minutes (timed/untimed): 39 Vivien Pascual, RADHA Elias PT documented in this encounter [facility] 02-12-2022 History of Presen t illness Narrative Episode Visit Count: 3 Therapist That Will Accept/Oversee The Plan Of Care: Giorgio Elias PT Start of Care Date: 01/30/22 Onset Date: 07/31/21 (chronic but worse over the past 6 months) Plan of Care Certification Date: 01/30/22 Next Certification Due Date: 03/06/22 Patient Identified by Name and Date of : Yes REHABILITATION AND SPORTS THERAPY PHYSICAL THERAPY TREATMENT NOTE ASSESSMENT: Liang Burton tolerated the session with fatigue, expected muscle soreness, and no issues. He demonstrated improvements in pain and walking tolerance. The patient will continue to benefit from ongoing skilled physical therapy to progress toward set goals. PLAN FOR NEXT VISIT: Continue with postural stretching and strengthening with flexion directional preference. Current focus to be on therex but manual traction remains and option but currently patient wants to focus on therex SUBJECTIVE: Patient Reason for Visit: Pt reports that overall he is starting to notice some improvements. He reports that he can walk farther with less pain and that he is pain-free in sitting. He reports compliance with seated flexion stretch 5x day but that he has stopped doing the original home exercise program. Pain: Pain Pain Level: 0 Description: (no pain at rest sitting) Frequency: Intermittent;Standing;Walking Post Treatment Pain Post Treatment Pain Level: 0 Post Treatment Symptoms: Pt reported fatigue from a good workout but denied any increase in pain. He denied any pain as he was leaving today. OBJECTIVE MEASURES WITH LEVEL OF FUNCTION: TREATMENT: Therapeutic Exercise: 1: Sci[employer] StepOne seat #8 x5 minutes (The purpose of this exercise explained and pt provided an update on his condition.) 2: seated lumbar flexion stretch 3x30 seconds 3: supine LTR 2x10 4: supine B SKTC 3x30 seconds 5: supine DKTC 3x30 seconds 6: supine isometric abdominal exercise via shoulder extension 2 second holds 2x10 7: supine crunches in very small range 2x10 8: supine bridging in small range 2x10 9: quadruped B alt hip ext 2x10 each with emphasis on avoiding trunk rotation. 10: stirring the pot at the Hoist 1 plate and 2 round x10 CW and x10 CCW facing both lateral directions. Skilled Intervention: Patient was educated in proper exercise technique and purpose for exercises. Skilled judgment was provided in selection of appropriate interventions. Correct performance of therapeutic exercises was facilitated with verbal, visual, and tactile cuing. Patient education as noted. Billing Therapeutic Exercise Treatment Minutes: 45 Total Treatment Time Minutes (timed/untimed): 45 Giorgio Elias PT documented in this encounter [facility] 02-09-2022 History of Presen t illness Narrative Episode Visit Count: 2 Therapist That Will Accept/Oversee The Plan Of Care: Giorgio Elias PT Start of Care Date: 01/30/22 Onset Date: 07/31/21 (chronic but worse over the past 6 months) Plan of Care Certification Date: 01/30/22 Next Certification Due Date: 03/06/22 Patient Identified by Name and Date of : Yes REHABILITATION AND SPORTS THERAPY PHYSICAL THERAPY TREATMENT NOTE ASSESSMENT: Liang Burton tolerated the session with decreased symptoms. He demonstrated difficulty with LTR. The patient will continue to benefit from ongoing skilled physical therapy to progress toward set goals. PLAN FOR NEXT VISIT: Continue with flexion bias SUBJECTIVE: Patient Reason for Visit: Pt reports when he is sitting down his back doesn't hurt. Pt states movement or walking around causes an increase in pain to the point where he can't walk. Pt states completing HEP 3x/day Pain: Pain Pain Level: 2 Pain Location: Low Back/Lumbar Spine - Right;Low Back/Lumbar Spine - Left;Leg - Right;Leg - Left Frequency: Sitting Additional Pain Information : (Pain flares up to 9-10/10with movement and walking) Post Treatment Pain Post Treatment Symptoms: After session pt felt looser in low back OBJECTIVE MEASURES WITH LEVEL OF FUNCTION: Good technique noted with scapular retractions. TREATMENT: Therapeutic Exercise: 1: Scapular retractions 2x10 2: supine LTR 2x10 (verbal cueing given for technique) 3: supine B SKTC 3x30 seconds each with bed sheet to facilitate UE reach 4: supine DKTC 3x30 seconds with bed sheet to facilitate UE reach. 5: Supine TA activation via shoulder extension 2x10 6: Hookyling with B marches 3x5 B (alt marching attempted but cause increase in pain in low back) 7: *Seated repeated lumbar flexion with 10 second holds 2x5 Skilled Intervention: Patient was educated in proper exercise technique and purpose for exercises. Skilled judgment was provided in selection of appropriate interventions. Correct performance of therapeutic exercises was facilitated with verbal and visual cuing. Manual Therapy: 1: Manual lumbar traction x 5 minutes (d/c due to numbness in calves and B feet, no N&T in low back or thighs) Skilled Intervention: Manual skills to improve joint mobility, ROM, and decrease pain. Utilized anatomy knowledge of the therapist, and assessment of patient's response to intervention. Billing Therapeutic Exercise Treatment Minutes: 38 Manual TherapyTreatment Minutes: 5 Total Treatment Time Minutes (timed/untimed): 43 RADHA Blue PT documented in this encounter [facility] 01-30-2022 Miscellaneous Notes Pt notified of xray results. Pt reports he has PT already scheduled. Kimmie Ennis LPN Left message for patient to return call to office Jessenia Irvin Cma Let patient knwo that he does have a slight malalignment of his spine at the L5-S1 space with associated pars interarticularis defect (basically a stress fracture from overuse). It is stable with flexion and extension movements. Therefore I do recommend starting with some Physical Therapy to see if they helps and to follow up if not improving. Eulogio Seo PA-C documented in this encounter [facility] 01-29-2022 History of Presen t illness Narrative Chief Complaint Patient presents with: Recheck HPI Liang Burton is a 76 year old male who presents here today for Above Complaints.. Patient states he has been having lower back pain for years with associated claudication symptoms. Was seeing vascular specialist for a possible vascular cause, however scans were okay. Patient states he will have pain across lower back and then into his legs if he stands for too long. Has also noted leg weakness at times. Pain is daily for the past 2-3 months. Has not been seen for it yet. Past medical history, appointments, medications, allergies reviewed. Previous Medical History PAST MEDICAL HISTORY Diagnosis Date Anxiety with depression 03/10/2018 Carotid stenosis CKD (chronic kidney disease) stage 3, GFR 30-59 ml/min ([facility]) 10/02/2019 COPD (chronic obstructive pulmonary disease) ([facility]) Essential hypertension 05/30/2012 Ex-smoker 03/31/2019 Started smoking at age 18 up to 1 PPD quit at age 54. 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 Dallas Wang S/P carotid endarterectomy 05/30/2012 Vitamin D deficiency 10/07/2017 Previous Surgical History PAST SURGICAL HISTORY Procedure Laterality Date 2D ECHO (EXEP) 07/12/2020 EF=65%, mod LVH, 1+ [place], TI, CARDIAC CATH 01/09/2018 less than 30% stenosis in LAD, Circ and RCA CAROTID ENDARTERECTOMY 2006 R side. COLONOSCOPY FLX DX W/COLLJ SPEC WHEN PFRMD 08/04/2015 Colonoscopy, repeat 5 years COLONOSCOPY FLX DX W/COLLJ SPEC WHEN PFRMD 10/25/2020 PAST SURGICAL HISTORY OF cyst removed, coccyx. PAST SURGICAL HISTORY OF 05/13/2019 Lt anterior tibial angioplasty, Lt external Iliac angio and Lt external iliac Protege stent. Dr. Wang Family History FAMILY HISTORY Problem Relation Age of Onset Hypertension Brother other (Brain injury) Brother Hypertension Sister Emphysema Mother Heart Attack Father Patient Allergies ALLERGIES Allergen Reactions Amoxicil-Clarithrom* GI Upset Current Medications Current Outpatient Medications on File Prior to Visit Medication Sig lisinopril-hydroCHLOROthiazide (PRINZIDE,ZESTORETIC) 10-12.5 mg per tablet Take 1 tablet by mouth every morning. Decreased by cardio 04/2019 simvastatin (ZOCOR) 80 mg tablet Take 0.5 tablets by mouth daily at bedtime. escitalopram oxalate (LEXAPRO) 10 mg tablet Take 1 tablet by mouth once daily. omega 4-epy-ksh-fish oil 500-100-1,000 mg cap Take by mouth. Ascorbic Acid 1,000 mg tablet Take 1,000 mg by mouth once daily. Cholecalciferol, Vitamin D3, (VITAMIN D) 25 mcg (1,000 unit) cap Take 2 capsules by mouth once daily. verapamil ER (VERELAN) 120 mg 24 hr capsule Take 1 capsule by mouth once daily. Per Cardio Dr. Hunter latanoprost (XALATAN) 0.005 % ophthalmic solution 1 Drop daily at bedtime. polyethylene glycol 3350 (MIRALAX, GLYCOLAX) 17 gram/dose powder Take by mouth once daily. CPAP current setting at 17, with humidifier. Aspirin 81 mg tab Take 1 tablet by mouth once daily. Take with food. No current facility-administered medications on file prior to visit. Social History Social History Tobacco Use Smoking status: Former Packs/day: 1.00 Years: 30.00 Pack years: 30.00 Types: Cigarettes Quit date: 01/13/1999 Years since quittin.0 Smokeless tobacco: Never Vaping Use Vaping Use: Never used Substance Use Topics Alcohol use: Not Currently Alcohol/week: 7.5 standard drinks Types: 3 Cans of Beer (12oz) per week Comment: weekly Drug use: No Review of Symptoms REVIEW OF SYSTEMS See hpi EXAM: BP 130/74 Pulse 66 Resp 14 Wt 94.8 kg (209 lb) BMI 38.96 kg/m General Appearance: Well appearing, alert, in no acute distress, well-hydrated, well nourished.. Musculoskeletal: no pain to palp of lumbar spine. +pain to Paraspinous muscles. FROM with mild pain in R flexion. NVI. SLR negative. Peripheral Pulses: Normal. Health Maintenance List ADVANCE DIRECTIVE DISCUSSION Never done BP CONTROLLED (<130/80) due on 05/31/2022 ANNUAL PCP TEAM CHRONIC DISEASE VISIT due on 11/30/2022 SERUM CREATININE due on 11/30/2022 HEMOGLOBIN/HEMATOCRIT due on 11/30/2022 DIABETES SCREEN due on 11/30/2024 DTAP,TDAP,TD(2 - Td or Tdap) due on 07/05/2026 LIPID SCREEN due on 11/30/2026 COLORECTAL CANCER SCREENING due on 10/25/2030 ABDOMINAL AORTIC ANEURYSM SCREENING Completed INFLUENZA Completed HEPATITIS C SCREENING Completed SHINGRIX VACCINE Completed COVID-19 VACCINE Completed PNEUMOCOCCAL: 65+ Completed Data reviewed ASSESSMENT/PLAN: 1. Lumbar back pain - ICD9: 724.2, ICD10: M54.50 Check xrays today Start Physical Therapy Offered medication (prednisone or muscle relaxer) but patient declines. - XR LUMBAR MOTION 4V AP/LAT/ FLEX/EXT - CONSULT TO PHYSICAL THERAPY Eulogio Seo PA-C documented in this encounter [facility] 01-15-2022 Miscellaneous Notes The following approved medication requests have been transmitted electronically. Requested Prescriptions Signed Prescriptions Disp Refills lisinopril-hydroCHLOROthiazide (PRINZIDE,ZESTORETIC) 10-12.5 mg per tablet 90 tablet 1 Sig: Take 1 tablet by mouth every morning. Decreased by cardio 04/2019 Authorizing Provider: SARAH CALLOWAY MD Last office visit: 11/30/21 F/u scheduled: 01/26/22 Lovely Jane Ma Patient has been identified by name and date of : Yes Requested Prescriptions Pending Prescriptions Disp Refills lisinopril-hydroCHLOROthiazide (PRINZIDE,ZESTORETIC) 10-12.5 mg per tablet 90 tablet 3 Sig: Take 1 tablet by mouth every morning. Decreased by cardio 04/2019 RX INSTRUCTIONS: Patient aware RX will be sent to pharmacy. No need to notify patient. Alison Collins Pss documented in this encounter [facility] 01-09-2022 History of Presen t illness Narrative Noted. Spoke with pt. Does not want to schedule appointment with Dr Calloway or Eulogio at this time. States he has a CT scan tomorrow that Dr Dallas Wang ordered. He wants to wait until he gets the results back and reviews with Dr Wang. Advised him to contact office if Dr Wang would still like Dr Calloway to evaluate. Pt verbalizes understanding. Candi Gray LPN See if patient able to see Eulogio or Bird to eval for possible neurogenic claudication. He may need low back x-rays and NCS's. Pt's office visit with Dr Dallas Wang. Dr Wang had wanted you to review. Candi Gray LPN Scan on 01/04/2022 10:28 AM by External Provider: Consultation - General Surgery documented in this encounter [facility] 12-01-2021 Miscellaneous Notes Patient notified and voiced his understanding. Left message for pt to contact office. Candi Gray LPN Let patient know that overal labs are stable. No changes needed. Let me know if any questions. Eulogio Seo PA-C documented in this encounter [facility] 11-30-2021 History of Presen t illness Narrative Chief Complaint Patient presents with: 6 Month Exam HPI Liang Burton is a 76 year old male who presents here today for Chronic Medical Conditions.. Patient with hx of HTN, hyperlipidemia, PAD, cardiomyopathy, GERD, LORELEI, CKD, anxiety/depression, vit d def and those as below. Patient continues to follow with cardio and vascular surgeon. He has follow up next month. Has a spot on his back that has been present for a few month. Itches at time. Has not changed. Otherwise no concern. Past medical history, appointments, medications, allergies reviewed. Previous Medical History PAST MEDICAL HISTORY Diagnosis Date Anxiety with depression 03/10/2018 Carotid stenosis CKD (chronic kidney disease) stage 3, GFR 30-59 ml/min ([facility]) 10/02/2019 COPD (chronic obstructive pulmonary disease) ([facility]) Essential hypertension 05/30/2012 Ex-smoker 03/31/2019 Started smoking at age 18 up to 1 PPD quit at age 54. 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 Dallas Wang S/P carotid endarterectomy 05/30/2012 Vitamin D deficiency 10/07/2017 Previous Surgical History PAST SURGICAL HISTORY Procedure Laterality Date 2D ECHO (EXEP) 07/12/2020 EF=65%, mod LVH, 1+ W[place], TI, CARDIAC CATH 01/09/2018 less than 30% stenosis in LAD, Circ and RCA CAROTID ENDARTERECTOMY 2006 R side. COLONOSCOPY FLX DX W/COLLJ SPEC WHEN PFRMD 08/04/2015 Colonoscopy, repeat 5 years COLONOSCOPY FLX DX W/COLLJ SPEC WHEN PFRMD 10/25/2020 PAST SURGICAL HISTORY OF cyst removed, coccyx. PAST SURGICAL HISTORY OF 05/13/2019 Lt anterior tibial angioplasty, Lt external Iliac angio and Lt external iliac Protege stent. Dr. Wang Family History FAMILY HISTORY Problem Relation Age of Onset Hypertension Brother other (Brain injury) Brother Hypertension Sister Emphysema Mother Heart Attack Father Patient Allergies ALLERGIES Allergen Reactions Amoxicil-Clarithrom* GI Upset Current Medications Current Outpatient Medications on File Prior to Visit Medication Sig simvastatin (ZOCOR) 80 mg tablet Take 0.5 tablets by mouth daily at bedtime. lisinopril-hydroCHLOROthiazide (PRINZIDE,ZESTORETIC) 10-12.5 mg per tablet Take 1 tablet by mouth every morning. Decreased by cardio 04/2019 escitalopram oxalate (LEXAPRO) 10 mg tablet Take 1 tablet by mouth once daily. omega 2-gdf-lvc-fish oil 500-100-1,000 mg cap Take by mouth. Ascorbic Acid 1,000 mg tablet Take 1,000 mg by mouth once daily. Cholecalciferol, Vitamin D3, (VITAMIN D) 25 mcg (1,000 unit) cap Take 2 capsules by mouth once daily. verapamil ER (VERELAN) 120 mg 24 hr capsule Take 1 capsule by mouth once daily. Per Cardio Dr. Hunter latanoprost (XALATAN) 0.005 % ophthalmic solution 1 Drop daily at bedtime. polyethylene glycol 3350 (MIRALAX, GLYCOLAX) 17 gram/dose powder Take by mouth once daily. CPAP current setting at 17, with humidifier. Aspirin 81 mg tab Take 1 tablet by mouth once daily. Take with food. No current facility-administered medications on file prior to visit. Social History Social History Tobacco Use Smoking status: Former Packs/day: 1.00 Years: 30.00 Pack years: 30.00 Types: Cigarettes Quit date: 01/13/1999 Years since quittin.8 Smokeless tobacco: Never Vaping Use Vaping Use: Never used Substance Use Topics Alcohol use: Not Currently Alcohol/week: 7.5 standard drinks Types: 3 Cans of Beer (12oz) per week Comment: weekly Drug use: No Review of Symptoms REVIEW OF SYSTEMS GENERAL: No weight loss, malaise or fevers NECK: Negative for lumps, goiter, pain and significant neck swelling RESPIRATORY: Negative for cough, hemoptysis, wheezing, COPD, dyspnea or shortness of breath CARDIOVASCULAR: Negative for chest pain, leg swelling, hypertension, CHF or palpitations NEURO: No history of headaches, syncope, paralysis, seizures or tremors EXAM: BP 130/70 (BP Site: Right Arm, BP Position: Sitting, BP Cuff Size: Large Adult) Pulse 64 Temp 37.1 C (98.7 F) Resp 16 Wt 94.8 kg (209 lb) BMI 38.96 kg/m General Appearance: Well appearing, alert, in no acute distress, well-hydrated, well nourished.. Skin: +SK on back. Neck: Supple, no adenopathy; thyroid symmetric, normal size, no bruits. Lungs: Lungs clear to auscultation. No wheezing, rhonchi, rales.. Heart: RRR without murmur, gallop, or rubs. No ectopy. Extremities: No deformities, edema, skin discoloration, clubbing or cyanosis. Good capillary refill. . Peripheral Pulses: Normal. Health Maintenance List ADVANCE DIRECTIVE DISCUSSION Never done COVID-19 VACCINE(4 - Booster for Pfizer series) due on 06/02/2021 INFLUENZA(1) due on 12/14/2021 SERUM CREATININE due on 05/23/2022 HEMOGLOBIN/HEMATOCRIT due on 05/23/2022 BP CONTROLLED (<130/80) due on 05/31/2022 ANNUAL PCP TEAM CHRONIC DISEASE VISIT due on 11/30/2022 DIABETES SCREEN due on 05/23/2024 LIPID SCREEN due on 05/23/2026 DTAP,TDAP,TD(2 - Td or Tdap) due on 07/05/2026 COLORECTAL CANCER SCREENING due on 10/25/2030 ABDOMINAL AORTIC ANEURYSM SCREENING Completed HEPATITIS C SCREENING Completed SHINGRIX VACCINE Completed PNEUMOCOCCAL: 65+ Completed Data reviewed ASSESSMENT/PLAN: 1. Essential hypertension - ICD9: 401.9, ICD10: I10 (primary diagnosis) - good control - Continue current medication(s) - Recommended regular aerobic exercise. - Recommend home blood pressure monitoring, to bring results in on next visit - Goal of BP <130/80 - COMP METABOLIC PANEL - CBC + DIFF 2. Mixed hyperlipidemia - ICD9: 272.2, ICD10: E78.2 - to be determined upon return of lab results - Encouraged following a low carbohydrate, healthy oil intake diet. - Continue current therapy. - LIPID PANEL, NONFASTING - CBC + DIFF 3. PAD (peripheral artery disease) (HCC) - ICD9: 443.9, ICD10: I73.9 Continue with specialist - CBC + DIFF 4. Hypertrophic cardiomyopathy (HCC) - ICD9: 425.18, ICD10: I42.2 Cont with cardio 5. LORELEI (obstructive sleep apnea) - ICD9: 327.23, ICD10: G47.33 stable 6. Stage 3 chronic kidney disease, unspecified whether stage 3a or 3b CKD (HCC) - ICD9: 585.3, ICD10: N18.30 7. GERD without esophagitis - ICD9: 530.81, ICD10: K21.9 - stable 8. Vitamin D deficiency - ICD9: 268.9, ICD10: E55.9 9. Stenosis of carotid artery, unspecified laterality - ICD9: 433.10, ICD10: I65.29 10. Anxiety with depression - ICD9: 300.4, ICD10: F41.8 Stable Eulogio Seo PA-C documented in this encounter [facility] 11-21-2021 Miscellaneous Notes Patient has been identified by name and date of : Yes Requested Prescriptions Pending Prescriptions Disp Refills simvastatin (ZOCOR) 80 mg tablet 45 tablet 1 Sig: Take 0.5 tablets by mouth daily at bedtime. RX INSTRUCTIONS: Patient aware RX will be sent to pharmacy. No need to notify patient. Silvia Gaitan Pss documented in this encounter [facility] 07-17-2021 Miscellaneous Notes The following approved medication requests have been transmitted electronically. Signed Prescriptions Disp Refills lisinopril-hydroCHLOROthiazide (PRINZIDE,ZESTORETIC) 10-12.5 mg per tablet 90 tablet 1 Sig: Take 1 tablet by mouth every morning. Decreased by cardio 04/2019 ELICIA: No Authorizing Provider: SARAH CALLOWAY MD Last office visit: 05/31/21 F/u scheduled: 11/30/21 Lovely Jane Ma documented in this encounter [facility] 07-05-2021 Miscellaneous Notes Pt notified of same. Candi Gray LPN Please apologize to patient for delay. The original request was not sent to us. Prescription sent Eulogio Seo PA-C Please see msg below. Last refill 05/03/21 Qty: 30 with 1 refill Pt has appt 11/30/21 Candi Gray LPN Patient said he called 2 days ago for this medication. Said he needs to pick it up today. documented in this encounter [facility] documented as of this encounter (statuses as of 06/15/2022) [facility]2022 History of Past illness Narrative* Problem Noted Date Resolved Date Living will in place 05/31/2021 06/14/2022 Special screening for malignant neoplasm of colo n 08/04/2015 08/04/2015 documented as of this encounter (statuses as of 06/26/2022) [facility] History of Past illness Narrative* Problem Noted Date Resolved Date Living will in place 05/31/2021 06/14/2022 Special screening for malignant neoplasm of colo n 08/04/2015 08/04/2015 documented as of this encounter (statuses as of 06/29/2022) [facility] History of Past illness Narrative* Problem Noted Date Resolved Date Living will in place 05/31/2021 06/14/2022 Special screening for malignant neoplasm of colo n 08/04/2015 08/04/2015 documented as of this encounter (statuses as of 07/03/2022) [facility] History of Past illness Narrative* Problem Noted Date Resolved Date Living will in place 05/31/2021 06/14/2022 Special screening for malignant neoplasm of colo n 08/04/2015 08/04/2015 documented as of this encounter (statuses as of 07/13/2022) [facility] History of Past illness Narrative* Problem Noted Date Resolved Date Living will in place 05/31/2021 06/14/2022 Special screening for malignant neoplasm of colo n 08/04/2015 08/04/2015 documented as of this encounter (statuses as of 07/17/2022) [address]16-2022 History of Past illness Narrative* Problem Noted Date Resolved Date Living will in place 05/31/2021 06/14/2022 Special screening for malignant neoplasm of colo n 08/04/2015 08/04/2015 documented as of this encounter (statuses as of 09/29/2022) [address]16-2022 History of Past illness Narrative* Problem Noted Date Diagnosed Date Resolved Date Living will in place 05/31/2021 023 Special screening for malign ant neoplasm of colon 08/04/2015 08/04/2015 documented as of this encounter (statuses as of 11/16/2022) [address]16-2022 History of Past illness Narrative* Problem Noted Date Diagnosed Date Resolved Date Living will in place 05/31/2021 023 Special screening for malign ant neoplasm of colon 08/04/2015 08/04/2015 documented as of this encounter (statuses as of 11/19/2022) [address]16-2022 History of Past illness Narrative* Problem Noted Date Diagnosed Date Resolved Date Living will in place 05/31/2021 023 Special screening for malign ant neoplasm of colon 08/04/2015 08/04/2015 documented as of this encounter (statuses as of 11/22/2022) [address]16-2022 History of Past illness Narrative* Problem Noted Date Diagnosed Date Resolved Date Living will in place 05/31/2021 023 Special screening for malign ant neoplasm of colon 08/04/2015 08/04/2015 documented as of this encounter (statuses as of 11/23/2022) [address]16-2022 History of Past illness Narrative* Problem Noted Date Diagnosed Date Resolved Date Living will in place 05/31/2021 023 Special screening for malign ant neoplasm of colon 08/04/2015 08/04/2015 documented as of this encounter (statuses as of 01/11/2023) [address]16-2022 History of Past illness Narrative* Problem Noted Date Diagnosed Date Resolved Date Living will in place 05/31/2021 023 Special screening for malign ant neoplasm of colon 08/04/2015 08/04/2015 documented as of this encounter (statuses as of 01/18/2023) [facility] History of Past illness Narrative* Problem Noted Date Diagnosed Date Resolved Date Living will in place 05/31/2021 023 Special screening for malign ant neoplasm of colon 08/04/2015 08/04/2015 documented as of this encounter (statuses as of 01/19/2023) [facility] History of Past illness Narrative* Problem Noted Date Diagnosed Date Resolved Date Living will in place 05/31/2021 023 Special screening for malign ant neoplasm of colon 08/04/2015 08/04/2015 documented as of this encounter (statuses as of 02/13/2023) [facility] History of Past illness Narrative* Problem Noted Date Diagnosed Date Resolved Date Living will in place 05/31/2021 023 Special screening for malign ant neoplasm of colon 08/04/2015 08/04/2015 documented as of this encounter (statuses as of 03/14/2023) [facility] History of Past illness Narrative* Problem Noted Date Diagnosed Date Resolved Date Living will in place 05/31/2021 023 Special screening for malign ant neoplasm of colon 08/04/2015 08/04/2015 documented as of this encounter (statuses as of 03/25/2023) [facility] History of Past illness Narrative* Problem Noted Date Resolved Date Special screening for malignant neoplasm of colo n 08/04/2015 08/04/2015 documented as of this encounter (statuses as of 07/05/2021) [facility] History of Past illness Narrative* Problem Noted Date Resolved Date Special screening for malignant neoplasm of colo n 08/04/2015 08/04/2015 documented as of this encounter (statuses as of 07/17/2021) [facility] History of Past illness Narrative* Problem Noted Date Resolved Date Special screening for malignant neoplasm of colo n 08/04/2015 08/04/2015 documented as of this encounter (statuses as of 11/21/2021) [address]21-2016 History of Past illness Narrative* Problem Noted Date Resolved Date Special screening for malignant neoplasm of colo n 08/04/2015 08/04/2015 documented as of this encounter (statuses as of 11/30/2021) [address]21-2016 History of Past illness Narrative* Problem Noted Date Resolved Date Special screening for malignant neoplasm of colo n 08/04/2015 08/04/2015 documented as of this encounter (statuses as of 12/01/2021) [address]21-2016 History of Past illness Narrative* Problem Noted Date Resolved Date Special screening for malignant neoplasm of colo n 08/04/2015 08/04/2015 documented as of this encounter (statuses as of 01/09/2022) [address]2016 History of Past illness Narrative* Problem Noted Date Resolved Date Special screening for malignant neoplasm of colo n 08/04/2015 08/04/2015 documented as of this encounter (statuses as of 01/15/2022) [address]2016 History of Past illness Narrative* Problem Noted Date Resolved Date Special screening for malignant neoplasm of colo n 08/04/2015 08/04/2015 documented as of this encounter (statuses as of 01/29/2022) [address]21-2016 History of Past illness Narrative* Problem Noted Date Resolved Date Special screening for malignant neoplasm of colo n 08/04/2015 08/04/2015 documented as of this encounter (statuses as of 01/30/2022) [address]21-2016 History of Past illness Narrative* Problem Noted Date Resolved Date Special screening for malignant neoplasm of colo n 08/04/2015 08/04/2015 documented as of this encounter (statuses as of 02/09/2022) [address]21-2016 History of Past illness Narrative* Problem Noted Date Resolved Date Special screening for malignant neoplasm of colo n 08/04/2015 08/04/2015 documented as of this encounter (statuses as of 02/12/2022) [address]21-2016 History of Past illness Narrative* Problem Noted Date Resolved Date Special screening for malignant neoplasm of colo n 08/04/2015 08/04/2015 documented as of this encounter (statuses as of 02/15/2022) [address]21-2016 History of Past illness Narrative* Problem Noted Date Resolved Date Special screening for malignant neoplasm of colo n 08/04/2015 08/04/2015 documented as of this encounter (statuses as of 02/26/2022) [address]21-2016 History of Past illness Narrative* Problem Noted Date Resolved Date Special screening for malignant neoplasm of colo n 08/04/2015 08/04/2015 documented as of this encounter (statuses as of 03/01/2022) [address]21-2016 History of Past illness Narrative* Problem Noted Date Resolved Date Special screening for malignant neoplasm of colo n 08/04/2015 08/04/2015 documented as of this encounter (statuses as of 03/05/2022) [address]21-2016 History of Past illness Narrative* Problem Noted Date Resolved Date Special screening for malignant neoplasm of colo n 08/04/2015 08/04/2015 documented as of this encounter (statuses as of 04/02/2022) [address]21-2016 History of Past illness Narrative* Problem Noted Date Resolved Date Special screening for malignant neoplasm of colo n 08/04/2015 08/04/2015 documented as of this encounter (statuses as of 04/02/2022) [address]21-2016 History of Past illness Narrative* Problem Noted Date Resolved Date Special screening for malignant neoplasm of colo n 08/04/2015 08/04/2015 documented as of this encounter (statuses as of 05/18/2022) [address]21-2016 History of Past illness Narrative* Problem Noted Date Diagnosed Date Resolved Date Special screening for malign ant neoplasm of colon 08/04/2015 08/04/2015 documented as of this encounter (statuses as of 04/05/2023) [facility] Anxiety with depression [facility] Essential hypertension- Primary Unspecified essential hypertension Mixed hyperlipidemia PAD (peripheral artery disease) (HCC) Peripheral vascular disease, unspecified Hypertrophic cardiomyopathy (HCC) Other hypertrophic cardiomyopathy LORELEI (obstructive sleep apnea) Obstructive sleep apnea (adult) (pediatric) Stage 3 chronic kidney disease, unspecified whether stage 3a or 3b CKD (HCC) GERD without esophagitis Esophageal reflux Vitamin D deficiency Unspecified vitamin D deficiency Stenosis of carotid artery, unspecified laterality Anxiety with depression [facility] [place] [facility] Diagnosis Lumbar back pain- Primary Lumbago [facility] Diagnosis Chronic bilateral low back pain with bilateral sciatica- Primary [facility] Diagnosis Chronic bilateral low back pain with bilateral sciatica- Primary [facility] [place] [facility] Diagnosis Chronic bilateral low back pain with bilateral sciatica- Primary [facility] [place] [facility] Diagnosis Chronic bilateral low back pain with bilateral sciatica- Primary [facility] [place] [facility] Diagnosis Chronic bilateral low back pain with bilateral sciatica- Primary [facility] [place] [facility] Diagnosis Chronic bilateral low back pain with bilateral sciatica- Primary [facility] [place] [facility] Diagnosis Chronic bilateral low back pain with bilateral sciatica- Primary Neurogenic claudication Spinal stenosis, lumbar region, with neurogenic claudication Spondylolisthesis of lumbar region Acquired spondylolisthesis Anxiety with depression Advance directive discussed with patient Other specified counseling Spinal stenosis of lumbar region with neurogenic claudication Spinal stenosis, lumbar region, with neurogenic claudication Essential hypertension Unspecified essential hypertension Mixed hyperlipidemia Stage 3 chronic kidney disease, unspecified whether stage 3a or 3b CKD (HCC) Vitamin D deficiency Unspecified vitamin D deficiency Prostate disorder Unspecified disorder of prostate Medication management Encounter for long-term (current) use of other medications documented [facility] [place] [facility] Diagnosis Medicare annual wellness visit, subsequent- Primary Routine general medical examination at a health care facility SOB (shortness of breath) Shortness of breath Ex-smoker Personal history of tobacco use, presenting hazards to health Mixed hyperlipidemia Essential hypertension Unspecified essential hypertension Elevated fasting glucose Impaired fasting glucose Hypertrophic cardiomyopathy (HCC) Other hypertrophic cardiomyopathy LORELEI (obstructive sleep apnea) Obstructive sleep apnea (adult) (pediatric) Stage 3 chronic kidney disease, unspecified whether stage 3a or 3b CKD (HCC) GERD without esophagitis Esophageal reflux Anxiety with depression PAD (peripheral artery disease) (HCC) Peripheral vascular disease, unspecified S/P carotid endarterectomy Other postprocedural status documented [facility] [place] [facility] Diagnosis SOB (shortness of breath) Shortness of breath Ex-smoker Personal history of tobacco use, presenting hazards to health [facility] Diagnosis Chronic bilateral low back pain with bilateral sciatica- Primary Foraminal stenosis of lumbar region Spinal stenosis, lumbar region, without neurogenic claudication Neurogenic claudication Spinal stenosis, lumbar region, with neurogenic claudication Spondylolisthesis of lumbar region Acquired spondylolisthesis [facility] Diagnosis Pre-op examination- Primary Preoperative examination, unspecified Foraminal stenosis of lumbar region Spinal stenosis, lumbar region, without neurogenic claudication Chronic bilateral low back pain with bilateral sciatica Stage 3 chronic kidney disease, unspecified whether stage 3a or 3b CKD (HCC) Urine frequency Urinary frequency Essential hypertension Unspecified essential hypertension Hypertrophic cardiomyopathy (HCC) Other hypertrophic cardiomyopathy documented [facility] [place] [facility] Diagnosis Nausea- Primary Nausea alone Anemia, unspecified type Essential hypertension Unspecified essential hypertension S/P lumbar fusion Arthrodesis status [facility] Diagnosis Anxiety with depression [facility] [place] [facility] Diagnosis Essential hypertension- Primary Unspecified essential hypertension Mixed hyperlipidemia GERD without esophagitis Esophageal reflux Hypertrophic cardiomyopathy (HCC) Other hypertrophic cardiomyopathy Stenosis of carotid artery, unspecified laterality PAD (peripheral artery disease) (HCC) Peripheral vascular disease, unspecified Stage 3a chronic kidney disease (HCC) Anxiety with depression LORELEI (obstructive sleep apnea) Obstructive sleep apnea (adult) (pediatric) Vitamin D deficiency Unspecified vitamin D deficiency Elevated fasting glucose Impaired fasting glucose Obesity, Class II, BMI 35-39.9 Obesity, unspecified Anemia, unspecified type Encounter for immunization Need for other specified prophylactic vaccination against single bacterial disease Medication management Encounter for long-term (current) use of other medications Prostate disorder Unspecified disorder of prostate documented in this encounter [facility] for referral (narrative)* Outpatient Procedure (Routine) - Authorized Specialty Diagnoses / Procedures Referred By Joshua t Referred To [facility] Diagnoses SOB (shortness of breath) Ex-smoker Procedures SPIROMETRY - BASELINE AND POST DILATOR BRNCDILAT RSPSE SPMTRY PRE&POST-BRNCDILAT ADMEulogio Garibay PA-C [address] [place] [address] Respiratory Remer [address] [place] [address] Referral ID Status Reason Start Date Expiration Date Visits Requested Visits Authorized [id number] Authorized Auto-Generat ed Referral 06/26/2022 07/26/2023 1 1 [facility] Outpatient Procedure (Routine) - Pending Review Specialty Diagnoses / Procedures Referred By Contac t Referred To [facility] Diagnoses Pre-op examination Essential hypertension Hypertrophic cardiomyopathy (HCC) Procedures ECG COMPLETE ECG ROUTINE ECG W/LEAST 12 LDS W/I&R Sarah Calloway MD [address] [place] [address] [facility] [address] [address] Referral ID Status Reason Start Date Expiration Date Visits Requested Visits Authorized [id number] Pending Review Auto-Generat ed Referral 11/14/2022 11/14/2023 1 1 T [facility] Advance Directives Documents on File Type Date Recorded Patient Log [employer] Expl anation Advance Directive(s) 10/25/2020 9:50 AM Advance Directive(s) 10/06/2020 11:23 AM Advance Directive(s) 08/04/2015 10:52 AM Advance Directive(s) 07/15/2015 11:52 AM Reason for Referral Specialty Diagnoses / Procedures Referred By Contac t Referred To Contact [facility] Diagnoses Lumbar back pain Procedures CONSULT TO PHYSICAL THERAPY PHYSICAL THERAPY EVALUATION HIGH COMPLEX 45 MINS Eulogio Seo PA-C [address] [place] [address] [facility] [address] [address] Referral ID Status Reason Start Date Expiration Date Visits Requested Visits Authorized [id number] Pending Review Auto-Generat ed Referral 01/29/2023 1 1 Specialty Diagnoses / Procedures Referred By Contac t Referred To Contact XR IMAGING Diagnoses Lumbar back pain Procedures XR LUMBAR MOTION 4V AP/LAT/ FLEX/EXT RADEX SPINE LUMBOSACRAL MINIMUM 4 VIEWS Eulogio Seo PA-C [address] [place] [address] Xr Imaging Referral ID Status Reason Start Date Expiration Date V isits Requested Visits Authorized [id number] Closed Auto-Generate d Referral 01/29/2022 02/28/2023 1 1 Specialty Diagnoses / Procedures Referred By Contac t Referred To Contact MR IMAGING Diagnoses Spondylolisthesis of lumbar region Chronic bilateral low back pain with bilateral sciatica Neurogenic claudication Spinal stenosis of lumbar region with neurogenic claudication Procedures MRI LUMBAR SPINE WO IVCON MRI SPINAL CANAL LUMBAR W/O CONTRAST MATERIAL Sarah Calloway MD [address] [place] [id number] Mr Imaging Referral ID Status Reason Start Date Expiration Date Visits Requested Visits Authorized [id number] Authorized Auto-Generat ed Referral 06/14/2022 07/14/2023 1 1 Specialty Diagnoses / Procedures Referred By Contac t Referred To Contact Orthopedics Diagnoses Chronic bilateral low back pain with bilateral sciatica Foraminal stenosis of lumbar region Neurogenic claudication Spondylolisthesis of lumbar region Procedures CONSULT TO ORTHOPAEDICS OFFICE/OUTPATIENT [facility] 60-74 MINUTES Sarah Calloway MD [address] [place] [address] Referral ID Status Reason Start Date Expiration Date Visits Requested Visits Authorized [id number] Pending Review PCP Requested Referral 07/12/2022 07/12/2023 1 1 Summary Purpose Family History No Family History Records Found Health Concerns Infection Onset Date Last Indicated Resolved Time COVID-19 Rule-Out 01/06/2021 01/06/2021 01/07/2021 7:36 AM EDT Additional Source Comments Source Comments (unrecognize d section and content) In the event this informatio n is protected by the Federal Confidentiality of Alcohol and Drug Abuse Patient Records regulations: The Federal rules restrict any use of the information to criminally investigate or prosecute any alcohol or drug abuse patient.[facility] the event this information is protected by the Federal Confidentiality of Alcohol and Drug Abuse Patient Records regulations: The Federal rules restrict any use of the information to criminally investigate or prosecute any alcohol or drug abuse patient.[facility] HospitalIn the event this information is protected by the Federal Confidentiality of Alcohol and Drug Abuse Patient Records regulations: The Federal rules restrict any use of the information to criminally investigate or prosecute any alcohol or drug abuse patient.[facility] HospitalIn the event this information is protected by the Federal Confidentiality of Alcohol and Drug Abuse Patient Records regulations: The Federal rules restrict any use of the information to criminally investigate or prosecute any alcohol or drug abuse patient.[facility] HospitalIn the event this information is protected by the Federal Confidentiality of Alcohol and Drug Abuse Patient Records regulations: The Federal rules restrict any use of the information to criminally investigate or prosecute any alcohol or drug abuse patient.[facility] HospitalIn the event this information is protected by the Federal Confidentiality of Alcohol and Drug Abuse Patient Records regulations: The Federal rules restrict any use of the information to criminally investigate or prosecute any alcohol or drug abuse patient.[facility] HospitalIn the event this information is protected by the Federal Confidentiality of Alcohol and Drug Abuse Patient Records regulations: The Federal rules restrict any use of the information to criminally investigate or prosecute any alcohol or drug abuse patient.[facility] HospitalIn the event this information is protected by the Federal Confidentiality of Alcohol and Drug Abuse Patient Records regulations: The Federal rules restrict any use of the information to criminally investigate or prosecute any alcohol or drug abuse patient.[facility] HospitalIn the event this information is protected by the Federal Confidentiality of Alcohol and Drug Abuse Patient Records regulations: The Federal rules restrict any use of the information to criminally investigate or prosecute any alcohol or drug abuse patient.[facility] HospitalIn the event this information is protected by the Federal Confidentiality of Alcohol and Drug Abuse Patient Records regulations: The Federal rules restrict any use of the information to criminally investigate or prosecute any alcohol or drug abuse patient.[facility] HospitalIn the event this information is protected by the Federal Confidentiality of Alcohol and Drug Abuse Patient Records regulations: The Federal rules restrict any use of the information to criminally investigate or prosecute any alcohol or drug abuse patient.[facility] HospitalIn the event this information is protected by the Federal Confidentiality of Alcohol and Drug Abuse Patient Records regulations: The Federal rules restrict any use of the information to criminally investigate or prosecute any alcohol or drug abuse patient.[facility] HospitalIn the event this information is protected by the Federal Confidentiality of Alcohol and Drug Abuse Patient Records regulations: The Federal rules restrict any use of the information to criminally investigate or prosecute any alcohol or drug abuse patient.[facility] HospitalIn the event this information is protected by the Federal Confidentiality of Alcohol and Drug Abuse Patient Records regulations: The Federal rules restrict any use of the information to criminally investigate or prosecute any alcohol or drug abuse patient.[facility] HospitalIn the event this information is protected by the Federal Confidentiality of Alcohol and Drug Abuse Patient Records regulations: The Federal rules restrict any use of the information to criminally investigate or prosecute any alcohol or drug abuse patient.[facility] HospitalIn the event this information is protected by the Federal Confidentiality of Alcohol and Drug Abuse Patient Records regulations: The Federal rules restrict any use of the information to criminally investigate or prosecute any alcohol or drug abuse patient.[facility] HospitalIn the event this information is protected by the Federal Confidentiality of Alcohol and Drug Abuse Patient Records regulations: The Federal rules restrict any use of the information to criminally investigate or prosecute any alcohol or drug abuse patient.[facility] HospitalIn the event this information is protected by the Federal Confidentiality of Alcohol and Drug Abuse Patient Records regulations: The Federal rules restrict any use of the information to criminally investigate or prosecute any alcohol or drug abuse patient.[facility] HospitalIn the event this information is protected by the Federal Confidentiality of Alcohol and Drug Abuse Patient Records regulations: The Federal rules restrict any use of the information to criminally investigate or prosecute any alcohol or drug abuse patient.[facility] HospitalIn the event this information is protected by the Federal Confidentiality of Alcohol and Drug Abuse Patient Records regulations: The Federal rules restrict any use of the information to criminally investigate or prosecute any alcohol or drug abuse patient.[facility] HospitalIn the event this information is protected by the Federal Confidentiality of Alcohol and Drug Abuse Patient Records regulations: The Federal rules restrict any use of the information to criminally investigate or prosecute any alcohol or drug abuse patient.[facility] HospitalIn the event this information is protected by the Federal Confidentiality of Alcohol and Drug Abuse Patient Records regulations: The Federal rules restrict any use of the information to criminally investigate or prosecute any alcohol or drug abuse patient.[facility] HospitalIn the event this information is protected by the Federal Confidentiality of Alcohol and Drug Abuse Patient Records regulations: The Federal rules restrict any use of the information to criminally investigate or prosecute any alcohol or drug abuse patient.[facility] HospitalIn the event this information is protected by the Federal Confidentiality of Alcohol and Drug Abuse Patient Records regulations: The Federal rules restrict any use of the information to criminally investigate or prosecute any alcohol or drug abuse patient.[facility] the event this information is protected by the Federal Confidentiality of Alcohol and Drug Abuse Patient Records regulations: The Federal rules restrict any use of the information to criminally investigate or prosecute any alcohol or drug abuse patient.[facility] HospitalIn the event this information is protected by the Federal Confidentiality of Alcohol and Drug Abuse Patient Records regulations: The Federal rules restrict any use of the information to criminally investigate or prosecute any alcohol or drug abuse patient.[facility] HospitalIn the event this information is protected by the Federal Confidentiality of Alcohol and Drug Abuse Patient Records regulations: The Federal rules restrict any use of the information to criminally investigate or prosecute any alcohol or drug abuse patient.[facility] HospitalIn the event this information is protected by the Federal Confidentiality of Alcohol and Drug Abuse Patient Records regulations: The Federal rules restrict any use of the information to criminally investigate or prosecute any alcohol or drug abuse patient.[facility] HospitalIn the event this information is protected by the Federal Confidentiality of Alcohol and Drug Abuse Patient Records regulations: The Federal rules restrict any use of the information to criminally investigate or prosecute any alcohol or drug abuse patient.[facility] HospitalIn the event this information is protected by the Federal Confidentiality of Alcohol and Drug Abuse Patient Records regulations: The Federal rules restrict any use of the information to criminally investigate or prosecute any alcohol or drug abuse patient.[facility] HospitalIn the event this information is protected by the Federal Confidentiality of Alcohol and Drug Abuse Patient Records regulations: The Federal rules restrict any use of the information to criminally investigate or prosecute any alcohol or drug abuse patient.[facility] HospitalIn the event this information is protected by the Federal Confidentiality of Alcohol and Drug Abuse Patient Records regulations: The Federal rules restrict any use of the information to criminally investigate or prosecute any alcohol or drug abuse patient.[facility] HospitalIn the event this information is protected by the Federal Confidentiality of Alcohol and Drug Abuse Patient Records regulations: The Federal rules restrict any use of the information to criminally investigate or prosecute any alcohol or drug abuse patient.[facility] HospitalIn the event this information is protected by the Federal Confidentiality of Alcohol and Drug Abuse Patient Records regulations: The Federal rules restrict any use of the information to criminally investigate or prosecute any alcohol or drug abuse patient.[facility] HospitalIn the event this information is protected by the Federal Confidentiality of Alcohol and Drug Abuse Patient Records regulations: The Federal rules restrict any use of the information to criminally investigate or prosecute any alcohol or drug abuse patient.[facility] HospitalIn the event this information is protected by the Federal Confidentiality of Alcohol and Drug Abuse Patient Records regulations: The Federal rules restrict any use of the information to criminally investigate or prosecute any alcohol or drug abuse patient.[facility] HospitalIn the event this information is protected by the Federal Confidentiality of Alcohol and Drug Abuse Patient Records regulations: The Federal rules restrict any use of the information to criminally investigate or prosecute any alcohol or drug abuse patient.[facility] Reason for Visit (unrecogniz ed section and content) Reason Onset Date Comments Refill Request 11/21/2021 Reason Comments 6 Month Exam Reason Comments Results Reason Comments Refill Request Reason Comments Recheck Reason Comments Physical Therapy Specialty Diagnoses / Procedures Referred By Contac t Referred To Contact [facility] Diagnoses Lumbar back pain Procedures CONSULT TO PHYSICAL THERAPY PHYSICAL THERAPY EVALUATION HIGH COMPLEX 45 MINS Eulogio Seo PA-C [address] [place] [address] [facility] [address] [address] Referral ID Status Reason Start Date Expiration Date Visits Requested Visits Authorized [id number] Authorized Auto-Generat ed Referral 04/15/2021 04/14/2022 20 20 Reason Onset Date Comments Refill Request 04/02/2022 Reason Comments Physical Reason Comments Yearly Exam Reason Comments Spirometry Specialty Diagnoses / Procedures Referred By Contac t Referred To Contact [facility] Diagnoses SOB (shortness of breath) Ex-smoker Procedures SPIROMETRY - BASELINE AND POST DILATOR BRNCDILAT RSPSE SPMTRY PRE&POST-BRNCDILAT ADMN Eulogio Seo PA-C [address] [place] [address] [facility] [address] [place] [id number] Referral ID Status Reason Start Date Expiration Date V isits Requested Visits Authorized [id number] Closed Auto-Generate d Referral 06/26/2022 07/26/2023 1 1 Reason Comments Results Reason Comments Pre-Op Exam Reason Comments Pre-Op Exam Reason Comments Faxed Labs/EKG Reason Comments Outside imaging Reason Comments Outside [id number] Ordered Reason Comments Follow Up Reason Comments Outside Ortho Procedure Reason Comments Patient Question Reason Comments F/U 6 months Reason Comments Orders Reason Onset Date Comments Refill Request 03/25/2023 Care Teams (unrecognized sec tion and content) Rotating Equipment Specialist Relationship Specialty Start Date End Date Sarah Calloway MD [address] [facility] [place] [address] PCP - General Family Practice 03/27/18 Dallas Saleh V [address] [place] [address] Consulting Internal Medicine 10/07/17 Rotating Equipment Specialist Relationship Specialty Start Date End Date Sarah Calloway MD [address] [facility] [place] [address] PCP - General Family Practice 03/27/18 Dallas Saleh V [address] [facility] [place] [address] Consulting Internal Medicine 10/07/17 Rotating Equipment Specialist Relationship Specialty Start Date End Date Sarah Calloway MD [address] [facility] [place] [address] PCP - General Family Practice 03/27/18 Dallas Saleh V [address] [place] [address] Consulting Internal Medicine 10/07/17 Rotating Equipment Specialist Relationship Specialty Start Date End Date Sarah Calloway MD [address] [facility] [place] [address] PCP - General Family Practice 03/27/18 Dallas Saleh V [address] [place] [address] Consulting Internal Medicine 10/07/17 Rotating Equipment Specialist Relationship Specialty Start Date End Date Sarah Calloway MD [address] [place] [address] PCP - General Family Medicine 03/27/18 Dallas Saleh V [address] [facility] [place] [place] [address] Consulting Internal Medicine 10/07/17 Rotating Equipment Specialist Relationship Specialty Start Date End Date Sarah Calloway MD [address] [place] [address] PCP - General Family Medicine 03/27/18 Dallas Saleh V [address] [facility] [place] [place] [address] Consulting Internal Medicine 10/07/17 Rotating Equipment Specialist Relationship Specialty Start Date End Date Sarah Calolway MD [address] [place] [address] PCP - General Family Medicine 03/27/18 Dallas Saleh V [address] [place] [address] Consulting Internal Medicine 10/07/17 Rotating Equipment Specialist Relationship Specialty Start Date End Date Sarah Calloway MD [address] [facility] [place] [address] PCP - General Family Medicine 03/27/18 Dallas Saleh V [address] [place] [address] Consulting Internal Medicine 10/07/17 Rotating Equipment Specialist Relationship Specialty Start Date End Date Sarah Calloway MD [address] [place] [address] PCP - General Family Medicine 03/27/18 Dallas Saleh V [address] [place] [address] Consulting Internal Medicine 10/07/17 Rotating Equipment Specialist Relationship Specialty Start Date End Date Sarah Calloway MD [address] [place] [address] PCP - General Family Medicine 03/27/18 Dallas Saleh V [address] [place] [address] Consulting Internal Medicine 10/07/17 Rotating Equipment Specialist Relationship Specialty Start Date End Date Sarah Calloway MD [address] [place] [address] PCP - General Family Medicine 03/27/18 Dallas Saleh V [address] [place] [address] Consulting Internal Medicine 10/07/17 Rotating Equipment Specialist Relationship Specialty Start Date End Date Sarah Calloway MD [address] [place] [address] PCP - General Family Medicine 03/27/18 Dallas Saleh V [address] [place] [address] Consulting Internal Medicine 10/07/17 Rotating Equipment Specialist Relationship Specialty Start Date End Date Sarah Calloway MD [address] [place] [address] PCP - General Family Medicine 03/27/18 Dallas Saleh V [address] [place] [address] Consulting Internal Medicine 10/07/17 Rotating Equipment Specialist Relationship Specialty Start Date End Date Sarah Calloway MD [address] [facility] [place] [address] PCP - General Family Medicine 03/27/18 Dallas Saleh V [address] [facility] [address] Consulting Internal Medicine 10/07/17 Rotating Equipment Specialist Relationship Specialty Start Date End Date Sarah Calloway MD [address] [facility] [place] [address] PCP - General Family Medicine 03/27/18 Dallas Saleh [address] [facility] [address] Consulting Internal Medicine 10/07/17 Rotating Equipment Specialist Relationship Specialty Start Date End Date Sarah Calloway MD [address] [facility] [place] [address] PCP - General Family Medicine 03/27/18 Dallas Saleh [address] [facility] [place] [address] Consulting Internal Medicine 10/07/17 Rotating Equipment Specialist Relationship Specialty Start Date End Date Sarah Calloway MD [address] [facility] [place] [address] PCP - General Family Medicine 03/27/18 Dallas Saleh V [address] [facility] [address] Consulting Internal Medicine 10/07/17 Rotating Equipment Specialist Relationship Specialty Start Date End Date Sarah Calloway MD [address] [place] [address] PCP - General Family Medicine 03/27/18 Dallas Saleh V [address] [address] Consulting Internal Medicine 10/07/17 Rotating Equipment Specialist Relationship Specialty Start Date End Date Sarah Calloway MD [address] [place] [address] PCP - General Family Medicine 03/27/18 Dallas Saleh V [address] [place] [address] Consulting Internal Medicine 10/07/17 Rotating Equipment Specialist Relationship Specialty Start Date End Date Sarah Calloway MD [address] [place] [address] PCP - General Family Medicine 03/27/18 Dallas Saleh V [address] [place] [address] Consulting Internal Medicine 10/07/17 Rotating Equipment Specialist Relationship Specialty Start Date End Date Sarah Calloway MD [address] [place] [address] PCP - General Family Medicine 03/27/18 Dallas Saleh [address] [place] [address] Consulting Internal Medicine 10/07/17 Rotating Equipment Specialist Relationship Specialty Start Date End Date Sarah Calloway MD [address] [place] [address] PCP - General Family Medicine 03/27/18 Dallas Saleh [address] [place] [address] Consulting Internal Medicine 10/07/17 Rotating Equipment Specialist Relationship Specialty Start Date End Date Sarah Calloway MD [address] [facility] [place] [address] PCP - General Family Medicine 03/27/18 Dallas Saleh V [address] [place] [phone] Consulting Internal Medicine 10/07/17 Rotating Equipment Specialist Relationship Specialty Start Date End Date Sarah Calloway MD [address] [facility] [place] [address] PCP - General Family Medicine 03/27/18 Dallas Saleh V [address] [place] [phone] Consulting Internal Medicine 10/07/17 Rotating Equipment Specialist Relationship Specialty Start Date End Date Sarah Calloway MD [address] [facility] [place] [address] PCP - General Family Medicine 03/27/18 Dallas Saleh V [address] [place] [address] Consulting Internal Medicine 10/07/17 (unrecognized sect ion and content) No Status Records Found INFORMATION SOURCE (unrecogn ized section and content) FOR RECORDS PERTAINING TO PATIENTS WHO ARE OR HAVE BEEN ENROLLED IN A CHEMICAL DEPENDENCY/SUBSTANCEABUSE PROGRAM, SOME INFORMATION MAY BE OMITTED. This clinical summary was aggregated from multiple sources. Caution should be exercised in using it in the provision of clinical care. This summary normalizes information from multiple sources, and as a consequence, information in this document may materially change the coding, format and clinical context of patient data. In addition, data may be omitted in some cases. CLINICAL DECISIONS SHOULD BE BASED ON THE PRIMARY CLINICAL RECORDS. [facility]. provides no warranty or guarantee of the accuracy or completeness of information in this document.
[2023-04-25 13:05] LABS: BNP,B-Type NATRIURETIC PEPTIDE 68.8 pg/mL (0-100)
[2023-04-25 13:15] LABS: Anion Gap 8 (5-15); BUN 28 mg/dL (7-18); BUN/Creat Ratio 22.6 RATIO (10-20); Calcium,Total 9.6 mg/dL (8.5-10.1); Chloride 110 mmol/L (98-107); Creatinine, Serum 1.24 mg/dL (0.70-1.30); EST Glomerular Filtration Rate 60 mL/min (>60); Est Glom Filt Rate - Afr Amer 73 mL/min (>60); Glucose 97 mg/dL (74-106); Potassium 4.1 mmol/L (3.5-5.1); Sodium Level 140 mmol/L (136-145); Thyroid Stim Hormone (TSH) 1.37 uIU/mL (0.358-3.74)
== END | disposition home or self-care (01) ==
LOC: LAB 11:25
PROVIDERS: PCP Family Medicine; Referring Provider Nurse Practitioner Gerontology; Visit Provider Nurse Practitioner Gerontology
DX: R06.02 Shortness of breath (principal); I10 Essential (primary) hypertension
CPT/HCPCS: 36415; 80048; 83880; 84443; 85025

== ENCOUNTER → 2023-05-30 | Outpatient (CLI) | payer MEDICARE, SELFPAY ==
--- NOTE | 2023-05-30 08:55 | ECHOCS_ITS ---
Reason For Study: SOB Procedure This was a 2D Doppler, Color Flow transthoracic echocardiogram. The study was technically difficult. Contrast injection was performed. Exam performed in department. Left Ventricle Normal LV size. Mild concentric left ventricular hypertrophy. LV apical obliteration during systole. 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 The left ventricular ejection fraction is 65 %. No evidence for diastolic dysfunction. Right Ventricle Normal right ventricle. Atria The left and right atria are normal. Mitral Valve Trivial mitral valve insufficiency. Tricuspid Valve Trivial tricuspid valve insufficiency. Normal pulmonary artery pressure. Aortic Valve Aortic sclerosis, no stenosis. Pulmonic Valve The pulmonic valve is not well visualized. Great Vessels Normal sized aortic root. Pericardium/Pleural No pericardial effusion. Medication 20 gauge I.V. with prn adaptor inserted into left arm. Diluted definity 3ml given slow IV push to enhance endocardial definition. Performed a rapid injection of agitated mix of 9 cc saline and 1cc air to assess for atrial septal defect. MMode/2D Measurements & Calculations LVIDd: 5.2 cm IVSd: 1.2 cm Ao root diam: 3.5 cm LVIDs: 3.7 cm LVPWd: 1.4 cm LA dimension: 4.6 cm RVDd: 3.5 cm FS: 28.7 % LAV(MOD-bp): 33.6 ml LVAd ap4: 25.2 cm2 SV(MOD-sp4): 60.4 ml LAV(MOD-bp) Indexed: 17.9 ml/m2 LVLd ap4: 7.9 cm LAV(MOD-sp2): 36.7 ml EDV(MOD-sp4): 76.5 ml LAV(MOD-sp4): 29.1 ml EDV(sp4-el): 67.9 ml LVAs ap4: 10.3 cm2 LVLs ap4: 6.0 cm ESV(MOD-sp4): 16.1 ml ESV(sp4-el): 15.1 ml EF(MOD-sp4): 79.0 % EF(sp4-el): 77.8 % SV(sp4-el): 52.9 ml LA A4 area: 14.0 cm2 RA A4 area: 10.1 cm2 Time Measurements MV dec time: 0.18 sec Doppler Measurements & Calculations MV E max russell: 73.0 cm/sec Lat Peak E' Russell: 7.6 cm/sec Med Peak E' Russell: 6.4 cm/sec MV A max russell: 80.3 cm/sec E/E' lat: 9.6 E/E' med: 11.4 MV E/A: 0.91 MV V2 max: 102.0 cm/sec MV P1/2t max russell: 89.8 cm/sec Ao V2 max: 165.2 cm/sec MV max P.2 mmHg MV P1/2t: 68.1 msec Ao max P.0 mmHg MV V2 mean: 48.8 cm/sec Ao V2 mean: 113.4 cm/sec MV mean P.2 mmHg MV dec slope: 386.4 cm/sec2 Ao mean P.1 mmHg MV V2 VTI: 34.4 cm MVA(P1/2t): 3.2 cm2 Ao V2 VTI: 36.7 cm LV V1 max: 145.2 cm/sec PA V2 max: 134.8 cm/sec TR max russell: 250.6 cm/sec LV V1 max P.4 mmHg PA V2 mean: 85.5 cm/sec TR max P.1 mmHg ECHO/Echo Complete W/ Contrast Interpretation Summary The left ventricular ejection fraction is 65 %. No evidence for diastolic dysfunction. LV apical obliteration during systole. Consider apical hypertrophic cardiomyopa thy. Recommend cardiac MRI for further evaluation. Ordering Physician: Malinda Barajas Referring Physician: Malinda Barajas Performed By: Jame Hong RCS
== END | disposition home or self-care (01) ==
LOC: CVS 08:54
PROVIDERS: PCP Family Medicine; Referring Provider Nurse Practitioner Gerontology; Visit Provider Nurse Practitioner Gerontology
DX: R06.02 Shortness of breath (principal)
CPT/HCPCS: 93306; Q9957; A4216; C8929

== ENCOUNTER → 2024-05-19 | Outpatient (CLI) | payer MEDICARE, SELFPAY | END | disposition home or self-care (01) | LOC: PSN 09:41 | PROVIDERS: PCP Family Medicine; Referring Provider Internal Medicine Cardiovascular Disease; Visit Provider Internal Medicine Cardiovascular Disease | DX: R06.00 Dyspnea, unspecified (principal); R00.2 Palpitations; I25.10 Atherosclerotic heart disease of native coronary artery without angina pectoris; R07.9 Chest pain, unspecified | CPT/HCPCS: 93225; 93226 ==

== ENCOUNTER → 2024-11-19 | Outpatient (CLI) | payer MEDICARE, SELFPAY ==
--- NOTE | 2024-11-19 13:13 | ECHOCS_ITS ---
Reason For Study Reason For Study: HCM Procedure This was a 2D Doppler, Color Flow transthoracic echocardiogram. The study was technically difficult. Contrast injection was performed. Exam performed in department. Left Ventricle Normal LV size. Moderate concentric left ventricular hypertrophy. Apical hypertrophic cardiomyopathy. Left ventricular systolic function is normal. Stage 1 diastolic dysfunction. The left ventricular ejection fraction is 65 %. No regional wall motion abnormalities noted. Right Ventricle Normal RV size. Normal systolic function. Tricuspid Valve Normal tricuspid valve. Mild tricuspid valve insufficiency. Pulmonary artery systolic pressure is 29 mmHg. Aortic Valve Normal aortic valve. Pulmonic Valve Normal pulmonic valve. Great Vessels Normal aortic root. The pulmonary artery is normal size. Inferior vena cava collapse with respiration. Pericardium/Pleural No pericardial effusion. Medication 22 gauge I.V. with prn adaptor inserted into right arm. Diluted definity 2ml given slow IV push to enhance endocardial definition. MMode/2D Measurements & Calculations LVIDd: 4.9 cm IVSd: 1.4 cm LVOT diam: 2.0 cm LVIDs: 2.8 cm LVPWd: 1.6 cm LVOT area: 3.1 cm2 FS: 42.8 % Ao root diam: 3.5 cm LAV(MOD-sp4): 31.9 ml LVAd ap4: 31.2 cm2 LVLd ap4: 8.1 cm EDV(MOD-sp4): 105.6 ml EDV(sp4-el): 102.7 ml LVAs ap4: 16.4 cm2 LVLs ap4: 6.5 cm ESV(MOD-sp4): 36.2 ml ESV(sp4-el): 35.2 ml EF(MOD-sp4): 65.7 % EF(sp4-el): 65.7 % SV(MOD-sp4): 69.4 ml SV(sp4-el): 67.4 ml LA A4 area: 14.3 cm2 SI(MOD-sp4): 39.4 ml/m2 LA dimension(2D): 3.8 cm RA A4 area: 10.7 cm2 Time Measurements MV dec time: 0.19 sec Doppler Measurements & Calculations MV E max farooq: 75.6 cm/sec MR max farooq: 91.6 cm/sec MV A max farooq: 93.1 cm/sec MV dec slope: 403.3 cm/sec2 MR max P.4 mmHg MV E/A: 0.81 MR mean farooq: 46.4 cm/sec MR mean P.1 mmHg MR VTI: 41.8 cm PA V2 max: 140.1 cm/sec TR max farooq: 269.1 cm/sec PA V2 mean: 95.3 cm/sec TR max P.0 mmHg ECHO/Echo Complete W/ Contrast Interpretation Summary Normal LV size. Left ventricular systolic function is normal. Moderate concentric left ventricular hypertrophy. Stage 1 diastolic dysfunction. The left ventricular ejection fraction is 65 %. Apical hypertrophic cardiomyopathy Ordering Physician: Francisco More Referring Physician: Francisco More Performed By: Hellen Ordonez RCS
== END | disposition home or self-care (01) ==
LOC: CVS 13:12
PROVIDERS: PCP Family Medicine; Referring Provider Student in an Organized Health Care Education/Training Program; Visit Provider Student in an Organized Health Care Education/Training Program
DX: I42.2 Other hypertrophic cardiomyopathy (principal)
CPT/HCPCS: 93306; Q9957; A4216; C8929